=== PATIENT | male | born 1935 | race Caucasian/White ===

== ENCOUNTER 2016-05-23 09:44 | Outpatient (RCR) | payer MEDICARE, OTHER ==
[~2016-05-23 09:44] MED LIST: ACET500C PO; ALBU17IN INH; AMIO20TA PO; ASPI81TA85 PO; ATOR40TA PO; CETI10CH PO; CHLO125TA PO; ELIQ5TAB PO; FLOM5CAP PO; HM A10TA PO; IBUP200T45 PO; K-TA1TAB PO; LOSA50TA20 PO; SYMB16INH INH; TIOT18INH INH; VITA-130 PO; VITA100066 PO
== END 2016-06-20 | disposition home or self-care (01) ==
LOC: M PR 09:44
PROVIDERS: ATTEND Internal Medicine Pulmonary Disease
DX: Z51.89 Encounter for other specified aftercare (principal); J44.9 Chronic obstructive pulmonary disease, unspecified

== ENCOUNTER → 2016-06-22 | Outpatient (REF) | payer MEDICARE, OTHER | LOC: M LAB REF 17:14 | PROVIDERS: ATTEND Surgery | DX: D04.72 Carcinoma in situ of skin of left lower limb, including hip (principal); L57.0 Actinic keratosis ==

== ENCOUNTER → 2016-06-27 | Outpatient (CLI) | payer MEDICARE, OTHER ==
--- NOTE | 2016-06-27 18:43 | REP ---
PA and lateral chest: Comparison is 07/22/2015. There is focal increased radiodensity in the right lower lobe as an interval change. There is focal increased density in the left upper lobe as an interval change. The findings are nonspecific and could represent acute infiltrates or masses. They were not present previously. There is effacement right costophrenic angle as an interval change suggestive of a small right pleural effusion. Cardiac size is normal. The andreia, mediastinum, and bony thorax are unchanged. Impression: New focal densities in the right lower lobe and left upper lobe, infiltrates versus masses. Possible small right pleural effusion. Signed by Toby Louie MD 06/27/2016 01:42 P
== END ==
LOC: M SMT 12:46
PROVIDERS: ATTEND Nurse Practitioner Adult Health
DX: R05 Cough (principal); J44.9 Chronic obstructive pulmonary disease, unspecified

== ENCOUNTER → 2016-06-28 | Outpatient (CLI) | payer MEDICARE, OTHER ==
[~2016-06-28] MED LIST changes: +ALBU83IN INH; +ANOR1AER INH; +COLA100C PO; +LEVO500T32 PO; +MAGN1TAB25 PO; +PROP10TA56 PO
[2016-06-28 14:02] LABS: CREATININE FOR GFR 1.27 MG/DL (0.70-1.30); GLOMERULAR FILTRATION RATE 57.8 (>35)
== END ==
LOC: M LAB 12:45
PROVIDERS: ATTEND Internal Medicine Pulmonary Disease
DX: R91.8 Other nonspecific abnormal finding of lung field (principal)

== ENCOUNTER → 2016-06-29 | Outpatient (REF) | payer MEDICARE, OTHER | END | disposition home or self-care (01) | LOC: M LAB REF 13:21 | PROVIDERS: ATTEND Internal Medicine Pulmonary Disease | DX: J18.0 Bronchopneumonia, unspecified organism (principal); R04.2 Hemoptysis; J44.9 Chronic obstructive pulmonary disease, unspecified ==

== ENCOUNTER → 2016-06-30 | Outpatient (REF) | payer MEDICARE, OTHER | END | disposition home or self-care (01) | LOC: M LAB REF 13:09 | PROVIDERS: ATTEND Internal Medicine Pulmonary Disease | DX: J18.0 Bronchopneumonia, unspecified organism (principal); R04.2 Hemoptysis; J44.9 Chronic obstructive pulmonary disease, unspecified ==

== ENCOUNTER 2016-07-02 02:05 | Inpatient (IN) | payer MEDICARE, OTHER ==
[~2016-07-02] VITALS: Ht 177.8 cm; Wt 79.3 kg
[~2016-07-02 02:05] MED LIST changes: -ALBU83IN INH; -ANOR1AER INH; -COLA100C PO; -LEVO500T32 PO; -MAGN1TAB25 PO; -PROP10TA56 PO
[2016-07-02] MEDS ORDERED: IPRATROPIUM 0.5MG/ALBUTEROL 2.5MG INH SOL UD 3ML (DUONEB)(J7620) As Ordered ONE (02:26)
[2016-07-02 02:34] LABS: BASO % 0.2 % (0.0-1.0); EOS # 0.2 K/mm3 (0.0-0.50); EOS % 1.8 % (0.0-3.0); LARGE UNSTAINED CELL # 0.3 K/mm3 (0.0-0.4); LARGE UNSTAINED CELL % 2.7 % (0.0-4.0); LYMPH # 0.7 K/mm3 (1.5-4.5); LYMPH % 6.8 % (24.0-44.0); MEAN CORPUSCULAR HEMOGLOBIN 28.9 pg (27.0-33.0); MEAN CORPUSCULAR HGB CONC 31.7 g/dl (32.0-36.5); MEAN CORPUSCULAR VOLUME 91.1 fl (80.0-96.0); MONO # 0.8 K/mm3 (0.0-0.8); NEUTROPHILS # 8.8 K/mm3 (1.8-7.7); NEUTROPHILS % 81.6 % (36.0-66.0); PLATELET COUNT, AUTOMATED 409 k/mm3 (150-450); RED CELL DISTRIBUTION WIDTH 12.7 % (11.5-14.5); WHITE BLOOD COUNT 10.8 K/mm3 (4.0-10.0)
[2016-07-02 02:57] LABS: ANION GAP 9 MEQ/L (8-16); BLOOD UREA NITROGEN 22 MG/DL (7-18); CALCIUM LEVEL 8.3 MG/DL (8.8-10.2); CARBON DIOXIDE LEVEL 29 MEQ/L (21-32); CHLORIDE LEVEL 101 MEQ/L (98-107); CREATININE FOR GFR 1.39 MG/DL (0.70-1.30); GLOMERULAR FILTRATION RATE 52.1 (>35); GLUCOSE, FASTING 111 MG/DL (83-110); POTASSIUM SERUM 3.8 MEQ/L (3.5-5.1); SODIUM LEVEL 139 MEQ/L (136-145)
[2016-07-02 03:26] LABS: ABG BASE EXCESS 2.3 (-2.0-2.0); ABG DEVICE NASAL CANN; ABG HCO3 26.1 MEQ/L (22.0-26.0); ABG PARTIAL PRESSURE CO2 37.4 mmHg (35.0-45.0); ABG PARTIAL PRESSURE O2 71.4 mmHg (75.0-100.0); ABG STANDARD HCO3 26.5 MEQ/L (22.0-26.0); ABG TOTAL CO2 27.2 MEQ/L (23.0-31.0); ABG pH (ARTERIAL) 7.461 UNITS (7.350-7.450)
[2016-07-02] MEDS ORDERED: ISOVUE-370 76% 100ML VIAL (Q9967) As Ordered ONE (03:53)
--- NOTE | 2016-07-02 05:10 | REPUSA ---
CLINICAL HISTORY: Dyspnea, exclude PE. TECHNIQUE: Multiple incremental axial, coronal and oblique images are obtained from the thoracic inle t to the upper abdomen. Intravenous contrast material was administered as per pulmonary embolism prot ocol. COMMENTS: There is excellent opacification of pulmonary arterial system without evidence for pulmonary embolism . Central pulmonary arterial tree is dilated compatible with hypertension. Dense consolidation is noted involving RUL, RML, RLL and LLL compatible with multifocal pneumonia vs aspiration. Trace right pleural effusion is seen. There is no evidence of hilar or mediastinal lymphadenopathy. The heart is enlarged. Aorta is dilated , ascending and artch measuring up to 4.3 cm. Images of the upper abdomen demonstrate no evidence of adrenal mass. 6 mm right renal calculus is see n. The bony structures are free of lytic or blastic lesions. Multilevel degenerative changes are seen in volving the visualized thoracolumbar spine. Scattered calcifications are seen involving the aorta and major branches compatible with atherosclero sis. IMPRESSION: No evidence for pulmonary embolism. Central pulmonary arterial tree is dilated compatible with hypertension. Dense consolidation is noted involving RUL, RML, RLL and LLL compatible with multifocal pneumonia vs aspiration. Trace right pleural effusion is seen. Aorta is dilated, ascending and artch measuring up to 4.3 cm. 6 mm right renal calculus is seen.
[2016-07-02] MEDS ORDERED: IPRATROPIUM 0.5MG/ALBUTEROL 2.5MG INH SOL UD 3ML (DUONEB)(J7620) NEB PRN (06:00)
[2016-07-02] MEDS ORDERED: ONDANSETRON 4MG/2ML VIAL (J2405) IV PRN (06:00)
[2016-07-02] MEDS ORDERED: ZOSYN 3.375 GM VIAL (J2543) As Ordered ONE (06:03)
[2016-07-02] MEDS ORDERED: VANCOMYCIN 1000 MG/20 ML VIAL (J3370) As Ordered ONE (06:07)
[2016-07-02] MEDS ORDERED: VANCOMYCIN 750 MG/25 ML VIAL (J3370) As Ordered ONE (06:07)
--- NOTE | 2016-07-02 06:49 | HPEPDOC ---
General Date of Admission Jul 02, 2016 at 06:00 Chief Complaint The patient is a 80-year-old male admitted with a reason for visit of Pneumonia. History of Present Illness 80-year-old male with past medical history of hypertension, dyslipidemia, nonobstructive CAD, history of pulmonary embolism 2 on novel anticoagulation, diastolic congestive heart failure, and COPD on 2 L of oxygen at baseline presented to the ER for worsening shortness of breath over the last 7-10 days. During this time, the patient states he has been having cough with a yellowish sputum production. In addition, he has been having temperatures of 101.5 at home. He states that he does follow with Dr. Hurd as an outpatient of pulmonary, who he last saw 4 days ago in the office. The patient was advised to up titrate his oxygen to 4 L, and he was prescribed Levaquin for treatment of pneumonia. However, since his pulmonary appointment, the patient states that he still does not feel better. At his baseline, the patient states that he can walk up to 1 mile without any significant limitation. However, during this time he has had difficulty walking around his home. The patient denies any complaints of chest pain, palpitations, abdominal pain, lightheadedness/ dizziness, or any nausea/vomiting/diarrhea. In the ER, a CT scan of the chest was notable for multifocal pneumonia. The patient will be admitted to the hospitalist service under Dr. Bolaños for further evaluation and management of the patient's pneumonia. Home Medications Scheduled (Anoro Ellipta 62.5-25 Mcg/INH) 1 Aer Aer 1 AER INH DAILY (Reported) Amiodarone HCl (Amiodarone HCl) 200 Mg Tab 200 MG PO DAILY (Reported) Apixaban Base (Eliquis) 5 Mg Tab 5 MG PO BID (Reported) Atorvastatin Calcium (Atorvastatin Calcium) 40 Mg Tab 40 MG PO QHS (Reported) Cetirizine HCl (Hm All Day Allergy) 10 Mg Tab 10 MG PO QHS (Reported) Chlorthalidone (Chlorthalidone) 12.5 Mg Halftab 12.5 MG PO DAILY (Reported) Levofloxacin Hemihydrate (Levofloxacin) 500 Mg Tab 500 MG PO DAILY (Reported) For 10 days; Started 06/29/2016 Losartan Potassium (Losartan Potassium) 50 Mg Tab 50 MG PO BID (Reported) Magnesium Oxide (Magnesium) 400 Mg Tab 400 MG PO DAILY (Reported) Potassium Chloride (K-Tab) 20 Meq Tab 20 MEQ PO BID (Reported) Propranolol HCl (Propranolol HCl) 10 Mg Tab 10 MG PO TID (Reported) Tamsulosin Hydrochloride (Flomax) 0.4 Mg Cap 0.4 MG PO QPM (Reported) Scheduled PRN Albuterol Sulfate (Ventolin Hfa) 200 Puff/8 Gm Aers 2 PUFF INH PRN PRN PRN SHORTNESS OF BREATH (Reported) Albuterol Sulfate (Albuterol Sulfate) 2.5 Mg/3 Ml Nebu 2.5 MG INH Q6H PRN PRN SHORTNESS OF BREATH (Reported) Docusate Sodium (Colace) 100 Mg Cap 100 MG PO DAILY PRN PRN BOWEL CARE/ CONSTIPATION (Reported) Miscellaneous Medications Cholecalciferol (Vitamin D) 1,000 Unit Tab 1,000 UNIT PO (Reported) Allergies Coded Allergies: Cefuroxime (Verified Allergy, Mild, GI UPSET, 08/10/15) Ciprofloxacin (Verified Allergy, Mild, GI UPSET, 08/10/15) Past Medical History Medical History As noted in HPI. Surgical History Cardiac catheterization 2009 Family History Significant Family History: No pertinent family hx Social History * Smoker: former Smoker Alcohol: other (drinks about 5 beers per week) Drugs: denies Review of Symptoms Other systems 10 point review systems negative unless otherwise specified in HPI. Physical Examination General Exam: Positive: Alert, Cooperative ENT Exam: Positive: Atraumatic, Mucous membr. moist/pink Neck Exam: Negative: JVD Chest Exam: Positive: Diminished, Negative: Rales Heart Exam: Positive: Normal S1, Normal S2, Rate Normal Abdomen Exam: Positive: Soft, Negative: Tenderness Extremity Exam: Negative: Swelling, Tenderness Vital Signs As noted in EMR Laboratory Data Labs 24H Laboratory Tests 2 07/02/16 02:25: Anion Gap 9, B-Type Natriuretic Peptide 74.5, White Blood Count 10.8H, Red Blood Count 4.20L, Hemoglobin 12.1L, Hematocrit 38.3L, Mean Corpuscular Volume 91.1, Mean Corpuscular Hemoglobin 28.9, Mean Corpuscular Hemoglobin Concent 31.7L, Red Cell Distribution Width 12.7, Platelet Count 409, Neutrophils (%) ( Auto) 81.6H, Lymphocytes (%) (Auto) 6.8L, Monocytes (%) (Auto) 7.0H, Eosinophils (%) (Auto) 1.8, Basophils (%) (Auto) 0.2, Neutrophils # (Auto) 8.8H , Lymphocytes # (Auto) 0.7L, Monocytes # (Auto) 0.8, Eosinophils # (Auto) 0.2, Basophils # (Auto) 0.0, Blood Urea Nitrogen 22H, Creatinine 1.39H, Sodium Level 139, Potassium Level 3.8, Chloride Level 101, Carbon Dioxide Level 29, Calcium Level 8.3L, Total Creatine Kinase 44, Creatine Kinase MB 1.2, Creatine Kinase MB Relative Index 2.72, Glomerular Filtration Rate 52.1, Large Unclassified Cells # 0.3, Large Unclassified Cells % 2.7, Troponin I < 0.02 07/02/16 03:20: Arterial Blood pH 7.461H, Arterial Blood Partial Pressure CO2 37.4, Arterial Blood Partial Pressure O2 71.4L, Arterial Blood Total CO2 27.2, Arterial Blood HCO3 26.1H, Arterial Blood Base Excess 2.3H, Arterial Blood Oxygen Saturation 94.6L, Blood Gas Bicarbonate Standard 26.5H, Oxygen Delivery Device NASAL SIDRA CBC/BMP Laboratory Tests 07/02/16 02:25 Calcium Level 8.3 L, Total Creatine Kinase 44, Red Blood Count 4.20 L, Mean Corpuscular Volume 91.1, Mean Corpuscular Hemoglobin 28.9, Mean Corpuscular Hemoglobin Concent 31.7 L, Red Cell Distribution Width 12.7, Neutrophils (%) ( Auto) 81.6 H, Lymphocytes (%) (Auto) 6.8 L, Monocytes (%) (Auto) 7.0 H, Eosinophils (%) (Auto) 1.8, Basophils (%) (Auto) 0.2, Neutrophils # (Auto) 8.8 H , Lymphocytes # (Auto) 0.7 L, Monocytes # (Auto) 0.8, Eosinophils # (Auto) 0.2, Basophils # (Auto) 0.0 Microbiology Microbiology 07/02/16 Blood Culture, Received Pending 07/02/16 Blood Culture, Received Pending Plan / VTE VTE Prophylaxis Ordered?: Yes (already on Eliquis) Plan Plan Hypoxia secondary to Multifocal pneumonia, status post failed outpatient antibiotics We'll admit to the PCU CT scan of the chest noted ABG notable for hypoxemia Blood cultures, sputum cultures, urine Legionella and strep pneumo ordered We'll cover the patient empirically with vancomycin and Zosyn Continue on nebulizer treatments, inhaler therapy We will continue to down titrate supplemental oxygen therapy as tolerated We will monitor the patient's progress Acute on chronic kidney injury Serum creatinine noted to be 1.39 (baseline around 1.2) Will hold nephrotoxic agents Continue to monitor BMP COPD on 2 L of oxygen at baseline Patient requiring a 50% Ventimask at this time Nebulizer therapy around the clock, continue home inhaler therapy Follows with as an outpatient History of pulmonary embolus 2 Patient on Eliquis for anticoagulation Hypertension Losartan and chlorthalidone on hold secondary to the patient's SCOTT Dyslipidemia Continue statin Nonobstructive CAD, history of PACs and nonsustained ventricular tachycardia Nonobstructive CAD noted on cardiac catheterization in 2009 Patient on amiodarone for arrhythmias Continue atorvastatin Follows with Dr. Melendez of cardiology as an outpatient Diastolic congestive heart failure Appears volume compensated at this time We'll hold diuretic secondary to a care. BPH Continue Flomax DVT prophylaxis-patient already on a novel anticoagulant The patient will be admitted under the service of , we will start to follow the patient on 07/02/2016 at 7 AM. JAYCEE JAFFE MD Jul 02, 2016 06:49
[2016-07-02] MEDS ORDERED: ELIQ5TAB PO (06:51)
[2016-07-02] MEDS ORDERED: AMIO20TA PO (06:51)
[2016-07-02] MEDS ORDERED: ANOR1AER INH (06:51)
[2016-07-02] MEDS ORDERED: PROP10TA56 PO (06:53)
[2016-07-02] MEDS ORDERED: COLA100C PO (06:53)
[2016-07-02] MEDS ORDERED: MAGN1TAB25 PO (06:54)
[2016-07-02] MEDS ORDERED: ALBU83IN INH (06:56)
[2016-07-02] MEDS ORDERED: LEVO500T32 PO (06:56)
[2016-07-02] MEDS ORDERED: DOCUSATE SODIUM 100 MG CAP PO PRN (07:45)
[2016-07-02 08:00] VITALS: BP 118/74
[2016-07-02] MEDS: IPRATROPIUM 0.5MG/ALBUTEROL 2.5MG INH SOL UD 3ML (DUONEB)(J7620) NEB SCH ×4 (08:00→19:30)
[2016-07-02] MEDS: ADVAIR DISKUS 250/50 INH PWD INH SCH ×2 (09:00→19:31)
[2016-07-02] MEDS ORDERED: APIXABAN 5 MG TAB (ELIQUIS) PO SCH (09:00)
[2016-07-02 10:00] VITALS: BP 120/60
--- NOTE | 2016-07-02 10:04 | EDDOCDS ---
Nurse's Notes [facility] Name: Oswaldo Pineda Age: 80 yrs Sex: Male : 1935 Arrival Date: 07/02/2016 Time: 02:05 Bed Admit Hold Private MD: Diagnosis: Other pneumonia, unspecified organism;Hypoxemia Presentation: 07/02 02:18 Presenting complaint: Patient states: Diagnosed 4 days ago with pneumonia and "blood" kmg1 in the RLL. Has been SOB but became worse tonight. Suicide/Homicide risk assessment- the patient denies having any suicidal and/or homicidal ideations and does not present with any other emotional, behavioral or mental health complaints. Status: Patient is not a visitor services specialist or dependent. Transition of care: patient was not received from another setting of care. 02:18 Acuity: LISA Level 2 kmg1 02:18 Method Of Arrival: Walkin/Carried/Asstd kmg1 Triage Assessment: 02:22 General: Appears distressed, well nourished, well groomed, Behavior is appropriate for kmg1 age, cooperative. Respiratory: Onset: The symptoms/episode began/occurred gradually, Airway is patent Respiratory effort is labored, Respiratory pattern is regular, symmetrical. Historical: - Allergies: ceftin --sick to stomach; Cipro PO (Upset stomach); - Home Meds: 1. levofloxacin 500 mg Oral tab 1 tab once daily - PMHx: abnormal EKG; atnersclerotic herart disease; COPD; edema localized; Hypertension; orthopnea; Palpitations; embolism, pulmanary; - PSHx: hernua reoair left inguinal; Tonsillectomy; skin cancer removed from nose---2014; - Exposure Risk Screening:: None identified. Screenin:30 Screening information is obtained from the patient. Fall risk: No risks identified. kas2 Assistance ADL's: requires no assistance with activities of daily living. Abuse/DV Screen: The patient / caregiver reports he/she is: not in a situation that causes fear, pain or injury. Nutritional screening: No deficits noted. Advance Directives: Currently, there is no health care proxy. There is no active DNR order. There is a living will, but a copy is not available at this time. There is no Power of Fuse Maker. home support is adequate. Assessment: 02:28 General: Appears in no apparent distress, uncomfortable, well nourished, well groomed, kas2 Behavior is appropriate for age, cooperative. Pain: Denies pain. Neurological: Level of Consciousness is awake, alert, Oriented to person, place, time. Cardiovascular: Capillary refill < 3 seconds Heart tones S1 S2 present Rhythm is sinus rhythm No ectopy. Chest pain is denied. Respiratory: Airway is patent Respiratory effort is even, unlabored, Respiratory pattern is regular, symmetrical, Breath sounds with crackles inspiratory expiratory Breath sounds are diminished bilaterally. Derm: Skin is intact, Skin is dry, Skin is pink, warm & dry. Skin temperature is warm. 03:35 General: Appears in no apparent distress, comfortable, well nourished, well groomed, kas2 Behavior is appropriate for age, cooperative. Pain: Denies pain. Neurological: Level of Consciousness is awake, alert, Oriented to person, place, time. Cardiovascular: Rhythm is sinus rhythm No ectopy. Respiratory: Airway is patent Respiratory effort is even, unlabored, Respiratory pattern is regular, symmetrical. Derm: Skin is intact, Skin is dry, Skin is pink, warm & dry. Skin temperature is warm. 04:26 General: Patient laying in bed with daughter at bedside. Denies pain or discomfort at [facility] this time. Appears comfortable. Airway patent and respiratory even and unlabored. Call pina within reach. Will continue to monitor.. 05:18 General: Appears in no apparent distress, comfortable, Behavior is appropriate for age, kas2 cooperative. Pain: Denies pain. Neurological: Level of Consciousness is awake, alert, Oriented to person, place, time. Cardiovascular: Rhythm is sinus rhythm No ectopy. Respiratory: Airway is patent Respiratory effort is even, unlabored, Respiratory pattern is regular, symmetrical. Derm: Skin is intact, Skin is dry, Skin is pink, warm & dry. Skin temperature is warm. 06:39 General: Verbal report given to Isabella Saab RN.. [facility] Vital Signs: 02:22 BP 121 / 85; Pulse 74; Resp 22; Temp 98(TE); Pulse Ox 87% on 4 lpm NC; Weight 78.93 kg kmg1 (R); Height 5 ft. 10 in. (177.80 cm) (R); Pain 0/10; 02:25 BP 121 / 85 (auto/); kas2 02:25 Pulse 82 MON; Pulse Ox 98% ; kas2 02:34 BP 142 / 70 (auto/); kas2 02:34 Pulse Ox 97% ; kas2 02:48 BP 107 / 69 (auto/); kas2 02:48 Pulse Ox 93% ; kas2 03:00 BP 118 / 75 (auto/); kas2 03:00 Pulse Ox 91% ; kas2 03:16 BP 150 / 85 (auto/); kas2 03:16 Pulse Ox 93% ; kas2 03:30 BP 133 / 71 (auto/); kas2 03:30 Pulse Ox 91% ; kas2 03:36 Resp 20; Temp 97.9(O); kas2 03:45 BP 102 / 60 (auto/); kas2 03:45 Pulse Ox 91% ; kas2 04:28 BP 127 / 64 (auto/); kas2 04:28 Pulse Ox 90% ; kas2 04:43 BP 140 / 65 (auto/); kas2 04:43 Pulse Ox 91% ; kas2 04:58 BP 119 / 67 (auto/); kas2 04:58 Pulse 82 MON; Pulse Ox 89% ; kas2 05:13 BP 117 / 70 (auto/); kas2 05:13 Pulse 78 MON; Pulse Ox 90% ; kas2 06:23 Resp 18; Temp 98.9(O); Pain 0/10; kas2 02:22 Body Mass Index 24.97 (78.93 kg, 177.80 cm) km 02:22 Placed on NRB, POX increased to 98% [facility] [place] Course: 02:07 Patient visited by Emerald Elam, Reg. hs2 02:07 Disha Garcia,RN is Primary Nurse. hs2 02:07 Patient moved to Waiting hs2 02:07 Patient moved to 9 hs2 02:08 Patient moved to 6 tm5 02:13 Patient moved to 3 sls1 02:17 James Ernst DO is Attending Physician. mm11 02:17 Patient visited by James Ernst DO. mm11 02:20 Triage Initiated kmg1 02:25 Patient visited by James Ernst DO. mm11 02:31 monitoring coordinator on. Pulse ox on. NIBP on. kas2 02:31 Inserted saline lock: 20 gauge in right antecubital area and blood collected. The kas2 patient tolerated the procedure well. No procedures done that require assistance. 02:32 Patient visited by Isabella Henriquez RN. kas2 02:37 EKG done. (by ED staff). Reviewed by James Ernst DO. jmv 02:38 Patient visited by Luis F Hein PCA. jmv 02:57 Primary Nurse role handed off by Disha Garcia RN jmb 03:01 Patient visited by Isabella Henriquez RN. kas2 03:21 BLOOD CULTURES Sent. mdr 03:21 -Arterial Blood Gas Sent. jc3 03:37 Patient visited by Isabella Henriquez RN. kas2 04:20 Patient visited by Isabella Henriquez RN. kas2 04:27 Patient visited by Isabella Henriquez RN. kas2 04:28 Isabella Henriquez RN is Primary Nurse. kas2 04:29 [facility] Payment Agreement was scanned into [employer] and attached to record. hs2 05:04 Patient visited by Isabella Henriquez RN. kas2 05:19 Patient visited by Isabella Henriquez RN. kas2 05:22 CT Chest Angio R/O PE Returned. EDMS 05:55 Denver Fletcher is Hospitalizing Provider. mm11 06:19 Patient moved to Admit Hold daq 06:40 Patient visited by Isabella Henriquez RN. kas2 07:12 Patient moved to 19 jjr 07:59 Patient moved to Admit Hold dy 09:17 Primary Nurse role handed off by Isabella Henriquez RN jjr Administered Medications: 02:32 Drug: Albuterol-Ipratropium 1 neb [ipratropium-albuterol 0.5 mg-3 mg(2.5 mg base)/3 mL lf2 nebulization soln (1 neb)] Route: Nebulizer; 03:14 Drug: Albuterol-Ipratropium 1 neb [ipratropium-albuterol 0.5 mg-3 mg(2.5 mg base)/3 mL lf2 nebulization soln (1 neb)] Route: Nebulizer; 06:15 Drug: Piperacillin-Tazobactam 3.375 grams [piperacillin-tazobactam 3.375 gram kas2 intravenous solution] Route: IVPB; Infused Over: 30 mins; Site: right antecubital; 06:57 Drug: vancomycin (loading dose for pt. wt. 70-79kg) 1750 mg [vancomycin 500 mg kas2 intravenous solution] Route: IVPB; Site: right antecubital; RT: 02:32 Initial Med Neb Given as ordered Patient was instructed and evaluated on procedure lf2 Patient tolerated procedure well without adverse effect. O2 via non-rebreather \\T\\ 15L/min. Respiratory: Airway is patent Respiratory effort is even, labored, trachea is midline Breath sounds are diminished bilaterally. Reports cough that is productive. 03:00 Subsequent Med Neb Given as ordered Patient tolerated procedure well without adverse lf2 effect. O2 via Venturi mask \\T\\ 15L/min - 50%. Respiratory: Breath sounds are diminished bilaterally. 03:14 Subsequent Med Neb Given as ordered Patient tolerated procedure well without adverse lf2 effect. Respiratory: Breath sounds are diminished bilaterally. Breath sounds with wheezes bilaterally. at expiration. 03:21 ABG's drawn from right radial artery pressure held for 5 minutes no bleeding noted jc3 pressure bandage applied specimen sent pt. tolerated well. Order Results: Lab Order: B-Type Natiuretic Peptide; SPEC'M 07/02/16 02:25 Test: BRAIN NATRIURETIC PEPTIDE; Value: 74.5; Range: <100; Units: PG/ML; Status: F Lab Order: Basic Metabolic Profile; SPEC'M 07/02/16 02:25 Test: GLUCOSE, FASTING; Value: 111; Range: 83-110; Abnormal: Above high normal; Units: MG/DL; Status: F Test: BLOOD UREA NITROGEN; Value: 22; Range: 7-18; Abnormal: Above high normal; Units: MG/DL; Status: F Test: CREATININE FOR GFR; Value: 1.39; Range: 0.70-1.30; Abnormal: Above high normal; Units: MG/DL; Status: F Test: GLOMERULAR FILTRATION RATE; Value: 52.1; Range: >35; Status: F Test: SODIUM LEVEL; Value: 139; Range: 136-145; Units: MEQ/L; Status: F Test: POTASSIUM SERUM; Value: 3.8; Range: 3.5-5.1; Units: MEQ/L; Status: F Test: CHLORIDE LEVEL; Value: 101; Range: 98-107; Units: MEQ/L; Status: F Test: CARBON DIOXIDE LEVEL; Value: 29; Range: 21-32; Units: MEQ/L; Status: F Test: ANION GAP; Value: 9; Range: 8-16; Units: MEQ/L; Status: F Test: CALCIUM LEVEL; Value: 8.3; Range: 8.8-10.2; Abnormal: Below low normal; Units: MG/DL; Status: F Test Note: ; Units are mL/min/1.73 m2 Chronic Kidney Disease Staging per NKF: Stage I & II GFR >=60 Normal to Mildly Decreased Stage III GFR 30-59 Moderately Decreased Stage IV GFR 15-29 Severely Decreased Stage V GFR <15 Very Little GFR Left ESRD GFR <15 on [employer] Lab Order: CBC with Diff; SPEC'M 07/02/16 02:25 Test: WHITE BLOOD COUNT; Value: 10.8; Range: 4.0-10.0; Abnormal: Above high normal; Units: K/mm3; Status: F Test: RED BLOOD COUNT; Value: 4.20; Range: 4.30-6.10; Abnormal: Below low normal; Units: M/mm3; Status: F Test: HEMOGLOBIN; Value: 12.1; Range: 14.0-18.0; Abnormal: Below low normal; Units: g/dl; Status: F Test: HEMATOCRIT; Value: 38.3; Range: 42.0-52.0; Abnormal: Below low normal; Units: %; Status: F Test: MEAN CORPUSCULAR VOLUME; Value: 91.1; Range: 80.0-96.0; Units: fl; Status: F Test: MEAN CORPUSCULAR HEMOGLOBIN; Value: 28.9; Range: 27.0-33.0; Units: pg; Status: F Test: MEAN CORPUSCULAR HGB CONC; Value: 31.7; Range: 32.0-36.5; Abnormal: Below low normal; Units: g/dl; Status: F Test: RED CELL DISTRIBUTION WIDTH; Value: 12.7; Range: 11.5-14.5; Units: %; Status: F Test: PLATELET COUNT, AUTOMATED; Value: 409; Range: 150-450; Units: k/mm3; Status: F Test: NEUTROPHILS %; Value: 81.6; Range: 36.0-66.0; Abnormal: Above high normal; Units: %; Status: F Test: LYMPH %; Value: 6.8; Range: 24.0-44.0; Abnormal: Below low normal; Units: %; Status: F Test: MONO %; Value: 7.0; Range: 0.0-5.0; Abnormal: Above high normal; Units: %; Status: F Test: EOS %; Value: 1.8; Range: 0.0-3.0; Units: %; Status: F Test: BASO %; Value: 0.2; Range: 0.0-1.0; Units: %; Status: F Test: LARGE UNSTAINED CELL %; Value: 2.7; Range: 0.0-4.0; Units: %; Status: F Test: NEUTROPHILS #; Value: 8.8; Range: 1.8-7.7; Abnormal: Above high normal; Units: K/mm3; Status: F Test: LYMPH #; Value: 0.7; Range: 1.5-4.5; Abnormal: Below low normal; Units: K/mm3; Status: F Test: MONO #; Value: 0.8; Range: 0.0-0.8; Units: K/mm3; Status: F Test: EOS #; Value: 0.2; Range: 0.0-0.50; Units: K/mm3; Status: F Test: BASO #; Value: 0.0; Range: 0.0-0.2; Units: K/mm3; Status: F Test: LARGE UNSTAINED CELL #; Value: 0.3; Range: 0.0-0.4; Units: K/mm3; Status: F Lab Order: Cardiac Injury Profile; SPEC'07/02/16 02:25 Test: CPK CREATINE PHOSPHOKINASE; Value: 44; Range: 39-308; Units: U/L; Status: F Test: CK-MB VALUE MASS; Value: 1.2; Range: 0.0-3.6; Units: NG/ML; Status: F Test: MB/CK RELATIVE INDEX; Value: 2.72; Range: < OR =4; Status: F Test Note: ; DIAGNOSIS CRITERIA MMB ng/ml Relative Index (RI) NON-AMI < or = 5 N/A YIN ZONE > 5 < or = 4 AMI > 5 > 4 Lab Order: Troponin; SPEC'M 07/02/16 02:25 Test: TROPONIN I; Value: < 0.02; Range: < 0.10; Units: NG/ML; Status: F Test Note: ; Troponin I Reference Interval for [employer]: 99th Percentile= 0.00-0.045 ng/ml Risk Stratification: <= 0.10 ng/ml Decreased Risk for Adverse Clinical Events. 0.10-1.50 ng/ml Increased Risk for Adverse Clinical Events. Evaluation of additional criterion and/or repeat testing in 2-6 hours is suggested to rule out myocardial damage. >= 1.50 ng/ml Indicative of Myocardial Injury. Lab Order: -Arterial Blood Gas; SPEC'M 07/02/16 03:20 Test: ABG pH (ARTERIAL); Value: 7.461; Range: 7.350-7.450; Abnormal: Above high normal; Units: UNITS; Status: F Test: ABG PARTIAL PRESSURE CO2; Value: 37.4; Range: 35.0-45.0; Units: mmHg; Status: F Test: ABG PARTIAL PRESSURE O2; Value: 71.4; Range: 75.0-100.0; Abnormal: Below low normal; Units: mmHg; Status: F Test: ABG TOTAL CO2; Value: 27.2; Range: 23.0-31.0; Units: MEQ/L; Status: F Test: ABG HCO3; Value: 26.1; Range: 22.0-26.0; Abnormal: Above high normal; Units: MEQ/L; Status: F Test: ABG BASE EXCESS; Value: 2.3; Range: -2.0-2.0; Abnormal: Above high normal; Status: F Test: ABG STANDARD HCO3; Value: 26.5; Range: 22.0-26.0; Abnormal: Above high normal; Units: MEQ/L; Status: F Test: ABG O2 SATURATION; Value: 94.6; Range: 95.0-99.0; Abnormal: Below low normal; Units: %; Status: F Test: ABG DEVICE; Value: NASAL SIDRA; Status: F Lab Order: TROPONIN; SPEC'M 07/02/16 06:32 Test: TROPONIN I; Value: < 0.02; Range: < 0.10; Units: NG/ML; Status: F Test Note: ; Troponin I Reference Interval for [employer] LOCI: 99th Percentile= 0.00-0.045 ng/ml Risk Stratification: <= 0.10 ng/ml Decreased Risk for Adverse Clinical Events. 0.10-1.50 ng/ml Increased Risk for Adverse Clinical Events. Evaluation of additional criterion and/or repeat testing in 2-6 hours is suggested to rule out myocardial damage. >= 1.50 ng/ml Indicative of Myocardial Injury. Radiology Order: CT Chest Angio R/O PE Test: CT Chest Angio R/O PE REASON FOR EXAMINATION: Shortness of Breath; ; CLINICAL HISTORY: Dyspnea, exclude PE.; TECHNIQUE: Multiple incremental axial, coronal and oblique images are obtained from the thoracic inle; t to the upper abdomen. Intravenous contrast material was administered as per pulmonary embolism prot; ocol.; COMMENTS:; There is excellent opacification of pulmonary arterial system without evidence for pulmonary embolism; . Central pulmonary arterial tree is dilated compatible with hypertension.; Dense consolidation is noted involving RUL, RML, RLL and LLL compatible with multifocal pneumonia vs; aspiration. Trace right pleural effusion is seen.; There is no evidence of hilar or mediastinal lymphadenopathy. The heart is enlarged. Aorta is dilated; , ascending and artch measuring up to 4.3 cm.; Images of the upper abdomen demonstrate no evidence of adrenal mass. 6 mm right renal calculus is see; n.; The bony structures are free of lytic or blastic lesions. Multilevel degenerative changes are seen in; volving the visualized thoracolumbar spine.; Scattered calcifications are seen involving the aorta and major branches compatible with atherosclero; sis.; IMPRESSION:; No evidence for pulmonary embolism.; Central pulmonary arterial tree is dilated compatible with hypertension.; Dense consolidation is noted involving RUL, RML, RLL and LLL compatible with multifocal pneumonia vs; aspiration.; Trace right pleural effusion is seen.; Aorta is dilated, ascending and artch measuring up to 4.3 cm.; 6 mm right renal calculus is seen.; ; ; Outcome: 05:56 Decision to Hospitalize by Provider. mm11 10:03 Patient left the ED. dy Signatures: Dispatcher [employer] EDMS Tawny Christensen RN RN kmg1 Ozzy , TORREY Mejia RN, David, RN RN dy Maynard James, DO DO mm11 Iona Parr, RN RN jjr Rj Macias jc3 Soumya Fried, RN RN sls1 Hemanth Medina,RN RN alexb Christopher Reed, PROJECT MANAGER FINANCE PROJECT MANAGER FINANCE mdr Pipo,Rosalie,RT RT lf2 Emerald Elam, Reg Reg hs2 Isabella Henriquez,RN RN kas2 Luis F Hein, PROJECT MANAGER FINANCE PROJECT MANAGER FINANCE jmv Olimpia Brown,RN RN tm5 MTDD
--- NOTE | 2016-07-02 10:04 | EDDOCDS ---
Physician Documentation [facility] Name: Oswaldo Pineda Age: 80 yrs Sex: Male : 1935 Arrival Date: 07/02/2016 Time: 02:05 Bed Admit Hold Private MD: Disposition: 07/02/16 05:56 Hospitalization ordered by Denver Fletcher for Inpatient Admission. Preliminary diagnosis are Other pneumonia, unspecified organism, Hypoxemia. - Bed requested for PCU. - Status is Inpatient Admission. dy - Condition is Stable. - Problem is an acute exacerbation. - Symptoms have improved. Historical: - Allergies: ceftin --sick to stomach; Cipro PO (Upset stomach); - Home Meds: 1. levofloxacin 500 mg Oral tab 1 tab once daily - PMHx: abnormal EKG; atnersclerotic herart disease; COPD; edema localized; Hypertension; orthopnea; Palpitations; embolism, pulmanary; - PSHx: hernua reoair left inguinal; Tonsillectomy; skin cancer removed from nose---2014; - Exposure Risk Screening:: None identified. Vital Signs: 07/02 02:22 BP 121 / 85; Pulse 74; Resp 22; Temp 98(TE); Pulse Ox 87% on 4 lpm NC; Weight 78.93 kg kmg1 / 174.01 lbs (R); Height 5 ft. 10 in. (177.80 cm) (R); Pain 0/10; 02:25 BP 121 / 85 (auto/); kas2 02:25 Pulse 82 MON; Pulse Ox 98% ; kas2 02:34 BP 142 / 70 (auto/); kas2 02:34 Pulse Ox 97% ; kas2 02:48 BP 107 / 69 (auto/); kas2 02:48 Pulse Ox 93% ; kas2 03:00 BP 118 / 75 (auto/); kas2 03:00 Pulse Ox 91% ; kas2 03:16 BP 150 / 85 (auto/); kas2 03:16 Pulse Ox 93% ; kas2 03:30 BP 133 / 71 (auto/); kas2 03:30 Pulse Ox 91% ; kas2 03:36 Resp 20; Temp 97.9(O); kas2 03:45 BP 102 / 60 (auto/); kas2 03:45 Pulse Ox 91% ; kas2 04:28 BP 127 / 64 (auto/); kas2 04:28 Pulse Ox 90% ; kas2 04:43 BP 140 / 65 (auto/); kas2 04:43 Pulse Ox 91% ; kas2 04:58 BP 119 / 67 (auto/); kas2 04:58 Pulse 82 MON; Pulse Ox 89% ; kas2 05:13 BP 117 / 70 (auto/); kas2 05:13 Pulse 78 MON; Pulse Ox 90% ; kas2 06:23 Resp 18; Temp 98.9(O); Pain 0/10; kas2 02:22 Body Mass Index 24.97 (78.93 kg, 177.80 cm) kmg1 02:22 Placed on NRB, POX increased to 98% kmg1 MDM: 02:13 ECG WITH READING ER PHYS+CARDIAG ordered. EDMS 02:26 -Blood Culture (Adults Only), peripheral from different site, or from device/port/PICC mm11 etc. if present ordered. 02:26 Washer Meat/Pulse Ox/q 15 min VS ordered. mm11 02:26 IV Saline Lock ordered. mm11 02:26 Oxygen at 4L/Min NC or Home dosage ordered. mm11 02:26 Rhythm Strip to chart ordered. mm11 02:26 Albuterol-Ipratropium 1 neb Nebulizer every 20 minutes x3 ordered. mm11 02:27 B-Type Natiuretic Peptide Ordered. EDMS 02:27 Basic Metabolic Profile Ordered. EDMS 02:27 CBC with Diff Ordered. EDMS 02:27 Cardiac Injury Profile Ordered. EDMS 02:27 Troponin Ordered. EDMS 02:27 -Blood Culture Ordered. EDMS 02:28 Chest, 1 View Ordered. EDMS 02:30 -Blood Culture (Adults Only), peripheral from different site, or from device/port/PICC jlm etc. if present complete. 02:31 BLOOD CULTURES Ordered. EDMS 02:38 -Arterial Blood Gas Ordered. EDMS 03:08 Basic Metabolic Profile Reviewed. mm11 03:08 CBC with Diff Reviewed. mm11 03:08 B-Type Natiuretic Peptide Reviewed. mm11 03:08 Cardiac Injury Profile Reviewed. mm11 03:08 Troponin Reviewed. mm11 03:46 -Arterial Blood Gas Reviewed. mm11 03:47 CT Chest Angio R/O PE Ordered. EDMS 04:13 Financial registration complete. hs2 04:29 [facility] Payment Agreement was scanned into [employer] and attached to record. hs2 05:46 Piperacillin-Tazobactam 3.375 grams IVPB once over 30 mins; dilute in 50mL of NS or D5W mm11 ordered. 05:46 vancomycin (loading dose for pt. wt. 70-79kg) 1750 mg IVPB once ordered. mm11 05:47 BED REQUEST+ADM ordered. EDMS 06:08 2 GRAM SODIUM DIET ordered. EDMS 06:09 TROPONIN Ordered. EDMS 06:09 TROPONIN Ordered. EDMS 06:09 TROPONIN Ordered. EDMS 06:10 BLOOD CULTURES Ordered. EDMS 06:10 RESPIRATORY PANEL Ordered. EDMS 06:10 SPUTUM CULTURE AND GRAM STAIN Ordered. EDMS 06:11 PHYSICAL THERAPY EVAL & TREAT ordered. EDMS 06:11 Admission / Observation Status ordered. EDMS 06:26 LEGIONELLA ANTIGEN URINE Ordered. EDMS 06:26 URINE STREP PNEUMONIAE ANTIGEN Ordered. EDMS 09:03 TROPONIN Reviewed. mm11 09:03 CT Chest Angio R/O PE Reviewed. mm11 Administered Medications: 02:32 Drug: Albuterol-Ipratropium 1 neb [ipratropium-albuterol 0.5 mg-3 mg(2.5 mg base)/3 mL lf2 nebulization soln (1 neb)] Route: Nebulizer; 03:14 Drug: Albuterol-Ipratropium 1 neb [ipratropium-albuterol 0.5 mg-3 mg(2.5 mg base)/3 mL lf2 nebulization soln (1 neb)] Route: Nebulizer; 06:15 Drug: Piperacillin-Tazobactam 3.375 grams [piperacillin-tazobactam 3.375 gram kas2 intravenous solution] Route: IVPB; Infused Over: 30 mins; Site: right antecubital; 06:57 Drug: vancomycin (loading dose for pt. wt. 70-79kg) 1750 mg [vancomycin 500 mg kas2 intravenous solution] Route: IVPB; Site: right antecubital; Signatures: Dispatcher [employer] EDMS Rosa Beebe, Gold Letterer Unit deg Tawny Christensen RN RN kmg1 Westley Berumen RN James Guerra, DO mm11 Soumya Fried RN RN sls1 Christopher, Beatrice, Gold Letterer Unit jlm Emerald Elam, Reg Reg hs2 Rosalie Foss RT lf2 Isabella Henriquez RN kas2 The chart was reviewed and I authenticate all verbal orders and agree with the evaluation and treatment provided.Attachments: [facility] Payment Agreement hs2 MTDD
[2016-07-02] MEDS: ACETAMINOPHEN TAB 650MG DOSE (2X325MG) PO PRN ×2 (10:12→17:56)
[2016-07-02] MEDS: AMIODARONE 200 MG TAB (PACERONE) PO SCH (10:12)
[2016-07-02] MEDS: PROPRANOLOL 10 MG TAB PO SCH ×3 (11:15→20:36)
--- NOTE | 2016-07-02 11:32 | PHACANCOPD ---
PHARMACY VANCOMYCIN DOSING Pt Demographics Demographics Patient Age:80 , Weight:78.300 , Gender: male Adjusted Body Weight Date: 07/02/16, Adjusted Body Weight: Kg Events Past 24 Hours Events Past 24 Hours: YES: Change in CrCl, Elevation in WBC, NO: Dialysis, Diuretic Therapy, Fever, Other, Pending Diagnostics, Pending Procedures Vancomycin Vancomycin indication: pneumonia Vancomycin Target Ranges: 15-20 mcg/ml Vancomycin Load Y/N: Yes Load Dose Date Time Vancomycin Load Dose: 1750mg Date: 07/02 Time: ~0630 Vancomycin Dose Date: 07/02/16. Current Vancomycin Dose: [1g IV q18h @21] Intermittent Dosing?: No Labs Labs Item Value Date Time White Blood Count 10.8 K/mm3 H 07/02/16 0225 Creatinine 1.39 MG/DL H 07/02/16 0225 Micro Microbiology 07/02/16 Blood Culture, Received Pending 07/02/16 Blood Culture, Received Pending 07/02/16 Blood Culture, Received Pending Creatinine Clearance Date:07/02/16. Creatinine Clearance: [42 ml/min]. Assessment and Plan Maintaining Current Dose?: Yes Reason for dose change: No Dose Change Pharmacist Note Pharmacist Note Date: 07/02/16. Pharmacist note: pt was admitted for worsening pneumonia, failing outpatient levaquin therapy. He has been started on Zosyn and Vancomycin. He does not have a Hx of being on vancomycin at our facility and does not have a pertinent culture Hx. His SCr is currently elevated, baseline is ~1.1 mg/dl. He received a 1750mg vancomycin IV load in the ER and I have started him on 1g q18h. We will continue to monitor renal function and make adjustments as necessary. Callum Henriquez Pharm.D. Jul 02, 2016 11:32
[2016-07-02 12:00] VITALS: BP 124/64
--- NOTE | 2016-07-02 12:18 | REP ---
AP PORTABLE CHEST: 07/02/2016. Clinical history: Cough. Dyspnea. Comparison: PA and lateral chest 06/27/2016, CT chest 06/28/2016 at [facility]. Findings: Bibasilar infiltrates as on previous chest x-ray and CT. There is a new patchy peripheral left mid lung zone infiltrate or atelectasis. There is slight elevation of the left diaphragm as on the previous study. Small effusions difficult to exclude. Heart size not grossly enlarged for portable technique. The aorta is quite tortuous, ectatic and calcified, unchanged. Airway intact. Impression: 1. 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 Some new patchy peripheral air space opacity left lateral base. 2. No bhupendra edema. Small effusions difficult to exclude. Signed by Nish Caicedo MD 07/02/2016 07:12 P
[2016-07-02] MEDS: PIPERACILLIN/TAZOBACTAM SOD 3.375 GM in D5W MINI-BAG PLUS 50 ML IV SCH ×3 (12:59→23:51)
[2016-07-02 16:00] VITALS: BP 121/69
[2016-07-02 19:21] VITALS: BP 122/67
--- NOTE | 2016-07-02 19:25 | ECGEPIP ---
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
[2016-07-02] MEDS ORDERED: POTASSIUM CHLORIDE 10 MEQ SR TABLET PO ONE (19:45)
[2016-07-02] MEDS: ATORVASTATIN 20 MG TAB PO SCH (20:36)
[2016-07-02] MEDS: TAMSULOSIN 0.4 MG CAP PO SCH (20:36)
[2016-07-02] MEDS: CETIRIZINE (ZyrTEC) 10 MG TAB PO SCH (20:36)
[2016-07-02] MEDS: VANCOMYCIN HCL 1,000 MG, VIAL MATE ADAPTER 1 EACH in D5W 250 ML IV SCH (20:36)
[2016-07-02 23:58] VITALS: BP 136/76
[2016-07-03] MEDS: IPRATROPIUM 0.5MG/ALBUTEROL 2.5MG INH SOL UD 3ML (DUONEB)(J7620) NEB SCH ×7 (03:51→23:18)
[2016-07-03 04:46] VITALS: BP 129/74
[2016-07-03] MEDS: PIPERACILLIN/TAZOBACTAM SOD 3.375 GM in D5W MINI-BAG PLUS 50 ML IV SCH ×3 (05:43→18:13)
[2016-07-03 05:53] LABS: BLOOD UREA NITROGEN 15 MG/DL (7-18); CALCIUM LEVEL 8.3 MG/DL (8.8-10.2); CARBON DIOXIDE LEVEL 29 MEQ/L (21-32); CREATININE FOR GFR 1.19 MG/DL (0.70-1.30); GLUCOSE, FASTING 110 MG/DL (83-110)
[2016-07-03 05:57] LABS: MEAN CORPUSCULAR HEMOGLOBIN 29.2 pg (27.0-33.0); MEAN CORPUSCULAR HGB CONC 32.2 g/dl (32.0-36.5); MEAN CORPUSCULAR VOLUME 90.9 fl (80.0-96.0); RED CELL DISTRIBUTION WIDTH 12.9 % (11.5-14.5); WHITE BLOOD COUNT 9.8 K/mm3 (4.0-10.0)
[2016-07-03 06:09] LABS: ANION GAP 8 MEQ/L (8-16); CHLORIDE LEVEL 102 MEQ/L (98-107); POTASSIUM SERUM 3.7 MEQ/L (3.5-5.1); SODIUM LEVEL 139 MEQ/L (136-145)
[2016-07-03 08:00] VITALS: BP 143/87
[2016-07-03] MEDS: ADVAIR DISKUS 250/50 INH PWD INH SCH ×2 (08:12→19:28)
--- NOTE | 2016-07-03 08:47 | PHACANCOPD ---
PHARMACY VANCOMYCIN DOSING Pt Demographics Demographics Patient Age:80 , Weight:79.000 , Gender: male Adjusted Body Weight Date: 07/02/16, Adjusted Body Weight: Kg Vancomycin Vancomycin indication: pneumonia Vancomycin Target Ranges: 15-20 mcg/ml Vancomycin Load Y/N: Yes Load Dose Date Time Vancomycin Load Dose: 1750mg Date: 07/02 Time: ~0630 Vancomycin Dose Date: 07/02/16. Current Vancomycin Dose: [1g IV q18h @21] Intermittent Dosing?: No Labs Micro Microbiology 07/02/16 Blood Culture - Preliminary, Resulted No growth after 24 hours . All specim... 07/02/16 Blood Culture - Preliminary, Resulted No growth after 24 hours . All specim... 07/02/16 Blood Culture - Preliminary, Resulted No growth after 24 hours . All specim... 07/02/16 Gram Stain - Final, Resulted 07/02/16 Sputum Culture, Resulted Pending Creatinine Clearance Date:07/02/16. Creatinine Clearance: [42 ml/min]. Assessment and Plan Maintaining Current Dose?: Yes Reason for dose change: No Dose Change Pharmacist Note Pharmacist Note 07/03/16: I will schedule a vanco trough for tomorrow, 07/04/16 at 0800, prior to the 4th dose. The patient remains afebrile, and WBC is now WNL. Blood and sputum cultures are still pending. Scr has improved slightly from yesterday ( 1.39 to 1.19). We will continue to monitor and make adjustments as needed. Date: 07/02/16. Pharmacist note: pt was admitted for worsening pneumonia, failing outpatient levaquin therapy. He has been started on Zosyn and Vancomycin. He does not have a Hx of being on vancomycin at our facility and does not have a pertinent culture Hx. His SCr is currently elevated, baseline is ~1.1 mg/dl. He received a 1750mg vancomycin IV load in the ER and I have started him on 1g q18h. We will continue to monitor renal function and make adjustments as necessary. ROLA COELLO PHARMACY Jul 03, 2016 08:47
[2016-07-03 10:11] VITALS: BP 142/82
[2016-07-03] MEDS: AMIODARONE 200 MG TAB (PACERONE) PO SCH (10:28)
[2016-07-03] MEDS: PROPRANOLOL 10 MG TAB PO SCH ×3 (10:29→21:16)
--- NOTE | 2016-07-03 11:09 | IPN ---
DATE: 07/03/2016 The patient seen and examined at the bedside. The chart has been reviewed. The patient continues to have productive cough of white-yellow sputum. He is afebrile. No complaints of chills, chest pain or pressure, tightness, lightheadedness or dizziness. Temperature 96.9, pulse 77, respiratory rate 20, blood pressure 143/87 and 98% on 5 liters nasal cannula. Generally, the patient is awake, alert and oriented times three. No conversational dyspnea. No use of respiratory or accessory muscles. No cyanosis. Lungs: Diminished breath sounds. Bilateral lower lobe crackles. Heart: S1, S2. Regular rate and rhythm. Abdomen is soft, nontender, nondistended. Extremities: Have no pitting edema. LABORATORY DATA: White count 9.8, hemoglobin 10, hematocrit 33, platelet count 388. Sodium 139, potassium 3.7, chloride 102, bicarbonate 29, BUN 15, creatinine 1.19, troponin less than 0.02. MICROBIOLOGY: Sputum culture a few yeast-like organisms. Two sets of blood cultures are negative. IMAGING STUDIES: CT of the chest shows no pulmonary embolism (PE), central pulmonary arterial trees dilated compatible with hypertension, dense consolidation right upper, right middle and right lower lobe and left lower lobe compatible with multifocal pneumonia versus aspiration. Aorta is dilated, ascending and arch measuring up to 4.3 cm. 6 mm right renal calculus and trace right pleural effusion is seen. ASSESSMENT AND PLAN: This is an 80-year-old male with history of hypertension, dyslipidemia, non-obstructive coronary artery disease (CAD), pulmonary embolism (PE) times two on apixaban, diastolic heart failure, chronic obstructive pulmonary disease (COPD) on chronic 2 liters of oxygen, and chronic hypoxic failure on home oxygen at baseline who presents with worsening shortness of breath for the past 7-10 days and fever of 101.5. He was seen by Dr. Hurd four days prior to presentation with recommendations to up titrate his oxygen to 4 liters and Levaquin for potential pneumonia. The patient had worsening shortness of breath, presented to the emergency room and was found to have right middle, upper and lower lobe pneumonia and left lower lobe, questionable multifocal pneumonia versus aspiration. The patient was admitted on 07/02/2016 and started on intravenous vancomycin and Zosyn for broad spectrum coverage. Microbiology is still pending. The patient is being evaluated for aspiration. CURRENT ISSUES: 1. Multifocal pneumonia versus aspiration. Patient has been placed on broad spectrum antibiotics of vancomycin and Zosyn for now. Obtain a respiratory panel. Continue with evaluation for potential aspiration with speech therapy consult and modified barium swallow if needed. Await sputum culture results and respiratory panel. To decrease risk of Clostridium difficile, start on Bacid. 2. Atrial fibrillation. Currently rate controlled. Continue on Eliquis, amiodarone. 3. Hyperlipidemia. On Lipitor. 4. Allergic rhinitis. On Zyrtec. 5. Benign prostatic hyperplasia (BPH). On Flomax. 6. History of chronic obstructive pulmonary disease. On Advair Diskus, DuoNeb, supplemental oxygen. 7. Chronic hypoxic failure, on chronic 2 liters of oxygen, currently at 5 liters. 8. Deep vein thrombosis (DVT) prophylaxis, on chronic Eliquis. MTDD
[2016-07-03 14:50] VITALS: BP 122/50
[2016-07-03] MEDS: VANCOMYCIN HCL 1,000 MG, VIAL MATE ADAPTER 1 EACH in D5W 250 ML IV SCH (15:50)
[2016-07-03 18:00] VITALS: BP 110/72
[2016-07-03] MEDS: CETIRIZINE (ZyrTEC) 10 MG TAB PO SCH (21:15)
[2016-07-03] MEDS: ATORVASTATIN 20 MG TAB PO SCH (21:15)
[2016-07-03] MEDS: TAMSULOSIN 0.4 MG CAP PO SCH (21:15)
[2016-07-03 22:00] VITALS: BP 116/62
[2016-07-04] MEDS: PIPERACILLIN/TAZOBACTAM SOD 3.375 GM in D5W MINI-BAG PLUS 50 ML IV SCH ×4 (00:16→18:34)
[2016-07-04 02:00] VITALS: BP 102/68
[2016-07-04] MEDS: IPRATROPIUM 0.5MG/ALBUTEROL 2.5MG INH SOL UD 3ML (DUONEB)(J7620) NEB SCH ×6 (03:26→23:42)
[2016-07-04 06:00] VITALS: BP 110/66
[2016-07-04 07:22] LABS: MEAN CORPUSCULAR HEMOGLOBIN 29.3 pg (27.0-33.0); MEAN CORPUSCULAR HGB CONC 32.1 g/dl (32.0-36.5); MEAN CORPUSCULAR VOLUME 91.3 fl (80.0-96.0); RED CELL DISTRIBUTION WIDTH 12.8 % (11.5-14.5); WHITE BLOOD COUNT 9.3 K/mm3 (4.0-10.0)
[2016-07-04 07:32] LABS: ANION GAP 7 MEQ/L (8-16); BLOOD UREA NITROGEN 11 MG/DL (7-18); CALCIUM LEVEL 8.2 MG/DL (8.8-10.2); CARBON DIOXIDE LEVEL 30 MEQ/L (21-32); CHLORIDE LEVEL 103 MEQ/L (98-107); CREATININE FOR GFR 1.03 MG/DL (0.70-1.30); GLOMERULAR FILTRATION RATE > 60.0 (>35); GLUCOSE, FASTING 100 MG/DL (83-110); POTASSIUM SERUM 3.4 MEQ/L (3.5-5.1); SODIUM LEVEL 140 MEQ/L (136-145)
[2016-07-04] MEDS ORDERED: POTASSIUM CHLORIDE 10 MEQ SR TABLET PO ONE (08:15)
[2016-07-04] MEDS: ADVAIR DISKUS 250/50 INH PWD INH SCH ×2 (08:27→21:18)
--- NOTE | 2016-07-04 09:05 | REP ---
Clinical: Chest pain. Pulmonary edema. Comparison: 07/02/2016. Findings: Evaluation is limited by portable technique and underpenetration. Diffuse chronic interstitial changes as well as elevation to the left hemidiaphragm are again identified and essentially unchanged. Subtle superimposed basilar atelectasis cannot be excluded. No definite pulmonary edema. No pneumothorax. Mediastinum and cardiac silhouette are incompletely evaluated. Calcified left hilar lymph nodes are suggested and stable. Impression: Limited examination. Cannot exclude bibasilar atelectasis. Chronic changes. No obvious, definite pulmonary edema pattern. Signed by Arnulfo Andrade MD 07/04/2016 08:57 A
[2016-07-04] MEDS: VANCOMYCIN HCL 1,000 MG, VIAL MATE ADAPTER 1 EACH in D5W 250 ML IV SCH (09:27)
[2016-07-04] MEDS: AMIODARONE 200 MG TAB (PACERONE) PO SCH (09:29)
[2016-07-04] MEDS: PROPRANOLOL 10 MG TAB PO SCH ×3 (09:29→21:16)
[2016-07-04 10:00] VITALS: BP 130/70
--- NOTE | 2016-07-04 11:04 | EDDOCDS ---
Physician Documentation [facility] Name: Oswaldo Pineda Age: 80 yrs Sex: Male : 1935 Arrival Date: 07/02/2016 Time: 02:05 Bed Admit Hold Private MD: Disposition: 07/02/16 05:56 Hospitalization ordered by Denver Fletcher for Inpatient Admission. Preliminary diagnosis are Other pneumonia, unspecified organism, Hypoxemia. - Bed requested for PCU. - Status is Inpatient Admission. dy - Condition is Stable. - Problem is an acute exacerbation. - Symptoms have improved. Historical: - Allergies: ceftin --sick to stomach; Cipro PO (Upset stomach); - Home Meds: 1. levofloxacin 500 mg Oral tab 1 tab once daily - PMHx: abnormal EKG; atnersclerotic herart disease; COPD; edema localized; Hypertension; orthopnea; Palpitations; embolism, pulmanary; - PSHx: hernua reoair left inguinal; Tonsillectomy; skin cancer removed from nose---2014; - Exposure Risk Screening:: None identified. Vital Signs: 07/02 02:22 BP 121 / 85; Pulse 74; Resp 22; Temp 98(TE); Pulse Ox 87% on 4 lpm NC; Weight 78.93 kg kmg1 / 174.01 lbs (R); Height 5 ft. 10 in. (177.80 cm) (R); Pain 0/10; 02:25 BP 121 / 85 (auto/); kas2 02:25 Pulse 82 MON; Pulse Ox 98% ; kas2 02:34 BP 142 / 70 (auto/); kas2 02:34 Pulse Ox 97% ; kas2 02:48 BP 107 / 69 (auto/); kas2 02:48 Pulse Ox 93% ; kas2 03:00 BP 118 / 75 (auto/); kas2 03:00 Pulse Ox 91% ; kas2 03:16 BP 150 / 85 (auto/); kas2 03:16 Pulse Ox 93% ; kas2 03:30 BP 133 / 71 (auto/); kas2 03:30 Pulse Ox 91% ; kas2 03:36 Resp 20; Temp 97.9(O); kas2 03:45 BP 102 / 60 (auto/); kas2 03:45 Pulse Ox 91% ; kas2 04:28 BP 127 / 64 (auto/); kas2 04:28 Pulse Ox 90% ; kas2 04:43 BP 140 / 65 (auto/); kas2 04:43 Pulse Ox 91% ; kas2 04:58 BP 119 / 67 (auto/); kas2 04:58 Pulse 82 MON; Pulse Ox 89% ; kas2 05:13 BP 117 / 70 (auto/); kas2 05:13 Pulse 78 MON; Pulse Ox 90% ; kas2 06:23 Resp 18; Temp 98.9(O); Pain 0/10; kas2 02:22 Body Mass Index 24.97 (78.93 kg, 177.80 cm) kmg1 02:22 Placed on NRB, POX increased to 98% kmg1 MDM: 02:13 ECG WITH READING ER PHYS+CARDIAG ordered. EDMS 02:26 -Blood Culture (Adults Only), peripheral from different site, or from device/port/PICC mm11 etc. if present ordered. 02:26 Framing Mill Operator Helper/Pulse Ox/q 15 min VS ordered. mm11 02:26 IV Saline Lock ordered. mm11 02:26 Oxygen at 4L/Min NC or Home dosage ordered. mm11 02:26 Rhythm Strip to chart ordered. mm11 02:26 Albuterol-Ipratropium 1 neb Nebulizer every 20 minutes x3 ordered. mm11 02:27 B-Type Natiuretic Peptide Ordered. EDMS 02:27 Basic Metabolic Profile Ordered. EDMS 02:27 CBC with Diff Ordered. EDMS 02:27 Cardiac Injury Profile Ordered. EDMS 02:27 Troponin Ordered. EDMS 02:27 -Blood Culture Ordered. EDMS 02:28 Chest, 1 View Ordered. EDMS 02:30 -Blood Culture (Adults Only), peripheral from different site, or from device/port/PICC jlm etc. if present complete. 02:31 BLOOD CULTURES Ordered. EDMS 02:38 -Arterial Blood Gas Ordered. EDMS 03:08 Basic Metabolic Profile Reviewed. mm11 03:08 CBC with Diff Reviewed. mm11 03:08 B-Type Natiuretic Peptide Reviewed. mm11 03:08 Cardiac Injury Profile Reviewed. mm11 03:08 Troponin Reviewed. mm11 03:46 -Arterial Blood Gas Reviewed. mm11 03:47 CT Chest Angio R/O PE Ordered. EDMS 04:13 Financial registration complete. hs2 04:29 [facility] Payment Agreement was scanned into [employer] and attached to record. hs2 05:46 Piperacillin-Tazobactam 3.375 grams IVPB once over 30 mins; dilute in 50mL of NS or D5W mm11 ordered. 05:46 vancomycin (loading dose for pt. wt. 70-79kg) 1750 mg IVPB once ordered. mm11 05:47 BED REQUEST+ADM ordered. EDMS 06:08 2 GRAM SODIUM DIET ordered. EDMS 06:09 TROPONIN Ordered. EDMS 06:09 TROPONIN Ordered. EDMS 06:09 TROPONIN Ordered. EDMS 06:10 BLOOD CULTURES Ordered. EDMS 06:10 RESPIRATORY PANEL Ordered. EDMS 06:10 SPUTUM CULTURE AND GRAM STAIN Ordered. EDMS 06:11 PHYSICAL THERAPY EVAL & TREAT ordered. EDMS 06:11 Admission / Observation Status ordered. EDMS 06:26 LEGIONELLA ANTIGEN URINE Ordered. EDMS 06:26 URINE STREP PNEUMONIAE ANTIGEN Ordered. EDMS 09:03 TROPONIN Reviewed. mm11 09:03 CT Chest Angio R/O PE Reviewed. mm11 19:17 T-Sheet-- Draft Copy was scanned into [employer] and attached to record. klr 07/03 12:30 ECG/EKG was scanned into [employer] and attached to record. gb Administered Medications: 07/02 02:32 Drug: Albuterol-Ipratropium 1 neb [ipratropium-albuterol 0.5 mg-3 mg(2.5 mg base)/3 mL lf2 nebulization soln (1 neb)] Route: Nebulizer; 03:14 Drug: Albuterol-Ipratropium 1 neb [ipratropium-albuterol 0.5 mg-3 mg(2.5 mg base)/3 mL lf2 nebulization soln (1 neb)] Route: Nebulizer; 06:15 Drug: Piperacillin-Tazobactam 3.375 grams [piperacillin-tazobactam 3.375 gram kas2 intravenous solution] Route: IVPB; Infused Over: 30 mins; Site: right antecubital; 06:57 Drug: vancomycin (loading dose for pt. wt. 70-79kg) 1750 mg [vancomycin 500 mg kas2 intravenous solution] Route: IVPB; Site: right antecubital; Signatures: Dispatcher [employer] EDRosa Mejia, Wrecking Crane Engine Operator Unit deg Tawny Christensen, RN RN kmg1 Maria Esther Lei, Reg Reg gb Westley Berumen, RN RN James Piedra, DO DO mm11 Soumya Fried RN RN sls1 Beatrice White, W[employer]ing [employer] Engine Operator Unit jlm Emerald Elam, Reg Reg hs2 Sheyla Killianr Rosalie Foss RT lf2 Isabella Henriquez RN kas2 The chart was reviewed and I authenticate all verbal orders and agree with the evaluation and treatment provided.Attachments: 04:29 [facility] Payment Agreement hs2 19:17 T-Sheet-- Draft Copy klr 07/03 12:30 ECG/EKG gb Chart Complete MTDD
--- NOTE | 2016-07-04 11:04 | EDDOCDS ---
Nurse's Notes [facility] Name: Oswaldo Pineda Age: 80 yrs Sex: Male : 1935 Arrival Date: 07/02/2016 Time: 02:05 Bed Admit Hold Private MD: Diagnosis: Other pneumonia, unspecified organism;Hypoxemia Presentation: 07/02 02:18 Presenting complaint: Patient states: Diagnosed 4 days ago with pneumonia and "blood" kmg1 in the RLL. Has been SOB but became worse tonight. Suicide/Homicide risk assessment- the patient denies having any suicidal and/or homicidal ideations and does not present with any other emotional, behavioral or mental health complaints. 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 Transition of care: patient was not received from another setting of care. 02:18 Acuity: LISA Level 2 kmg1 02:18 Method Of Arrival: Walkin/Carried/Asstd kmg1 Triage Assessment: 02:22 General: Appears distressed, well nourished, well groomed, Behavior is appropriate for kmg1 age, cooperative. Respiratory: Onset: The symptoms/episode began/occurred gradually, Airway is patent Respiratory effort is labored, Respiratory pattern is regular, symmetrical. Historical: - Allergies: ceftin --sick to stomach; Cipro PO (Upset stomach); - Home Meds: 1. levofloxacin 500 mg Oral tab 1 tab once daily - PMHx: abnormal EKG; atnersclerotic herart disease; COPD; edema localized; Hypertension; orthopnea; Palpitations; embolism, pulmanary; - PSHx: hernua reoair left inguinal; Tonsillectomy; skin cancer removed from nose---2014; - Exposure Risk Screening:: None identified. Screenin:30 Screening information is obtained from the patient. Fall risk: No risks identified. kas2 Assistance ADL's: requires no assistance with activities of daily living. Abuse/DV Screen: The patient / caregiver reports he/she is: not in a situation that causes fear, pain or injury. Nutritional screening: No deficits noted. Advance Directives: Currently, there is no health care proxy. There is no active DNR order. There is a living will, but a copy is not available at this time. There is no Power of Quality Control Chemist. home support is adequate. Assessment: 02:28 General: Appears in no apparent distress, uncomfortable, well nourished, well groomed, kas2 Behavior is appropriate for age, cooperative. Pain: Denies pain. Neurological: Level of Consciousness is awake, alert, Oriented to person, place, time. Cardiovascular: Capillary refill < 3 seconds Heart tones S1 S2 present Rhythm is sinus rhythm No ectopy. Chest pain is denied. Respiratory: Airway is patent Respiratory effort is even, unlabored, Respiratory pattern is regular, symmetrical, Breath sounds with crackles inspiratory expiratory Breath sounds are diminished bilaterally. Derm: Skin is intact, Skin is dry, Skin is pink, warm & dry. Skin temperature is warm. 03:35 General: Appears in no apparent distress, comfortable, well nourished, well groomed, kas2 Behavior is appropriate for age, cooperative. Pain: Denies pain. Neurological: Level of Consciousness is awake, alert, Oriented to person, place, time. Cardiovascular: Rhythm is sinus rhythm No ectopy. Respiratory: Airway is patent Respiratory effort is even, unlabored, Respiratory pattern is regular, symmetrical. Derm: Skin is intact, Skin is dry, Skin is pink, warm & dry. Skin temperature is warm. 04:26 General: Patient laying in bed with daughter at bedside. Denies pain or discomfort at [facility] this time. Appears comfortable. Airway patent and respiratory even and unlabored. Call pina within reach. Will continue to monitor.. 05:18 General: Appears in no apparent distress, comfortable, Behavior is appropriate for age, kas2 cooperative. Pain: Denies pain. Neurological: Level of Consciousness is awake, alert, Oriented to person, place, time. Cardiovascular: Rhythm is sinus rhythm No ectopy. Respiratory: Airway is patent Respiratory effort is even, unlabored, Respiratory pattern is regular, symmetrical. Derm: Skin is intact, Skin is dry, Skin is pink, warm & dry. Skin temperature is warm. 06:39 General: Verbal report given to Isabella Saab RN.. [facility] Vital Signs: 02:22 BP 121 / 85; Pulse 74; Resp 22; Temp 98(TE); Pulse Ox 87% on 4 lpm NC; Weight 78.93 kg kmg1 (R); Height 5 ft. 10 in. (177.80 cm) (R); Pain 0/10; 02:25 BP 121 / 85 (auto/); kas2 02:25 Pulse 82 MON; Pulse Ox 98% ; kas2 02:34 BP 142 / 70 (auto/); kas2 02:34 Pulse Ox 97% ; kas2 02:48 BP 107 / 69 (auto/); kas2 02:48 Pulse Ox 93% ; kas2 03:00 BP 118 / 75 (auto/); kas2 03:00 Pulse Ox 91% ; kas2 03:16 BP 150 / 85 (auto/); kas2 03:16 Pulse Ox 93% ; kas2 03:30 BP 133 / 71 (auto/); kas2 03:30 Pulse Ox 91% ; kas2 03:36 Resp 20; Temp 97.9(O); kas2 03:45 BP 102 / 60 (auto/); kas2 03:45 Pulse Ox 91% ; kas2 04:28 BP 127 / 64 (auto/); kas2 04:28 Pulse Ox 90% ; kas2 04:43 BP 140 / 65 (auto/); kas2 04:43 Pulse Ox 91% ; kas2 04:58 BP 119 / 67 (auto/); kas2 04:58 Pulse 82 MON; Pulse Ox 89% ; kas2 05:13 BP 117 / 70 (auto/); kas2 05:13 Pulse 78 MON; Pulse Ox 90% ; kas2 06:23 Resp 18; Temp 98.9(O); Pain 0/10; kas2 02:22 Body Mass Index 24.97 (78.93 kg, 177.80 cm) km 02:22 Placed on NRB, POX increased to 98% [facility] [place]: 02:07 Patient visited by Emerald Elam, Reg. hs2 02:07 Disha Garcia,RN is Primary Nurse. hs2 02:07 Patient moved to Waiting hs2 02:07 Patient moved to 9 hs2 02:08 Patient moved to 6 tm5 02:13 Patient moved to 3 sls1 02:17 James Ernst DO is Attending Physician. mm11 02:17 Patient visited by James Ernst DO. mm11 02:20 Triage Initiated kmg1 02:25 Patient visited by James Ernst DO. mm11 02:31 secured entrance monitor on. Pulse ox on. NIBP on. kas2 02:31 Inserted saline lock: 20 gauge in right antecubital area and blood collected. The kas2 patient tolerated the procedure well. No procedures done that require assistance. 02:32 Patient visited by Isabella Henriquez RN. kas2 02:37 EKG done. (by ED staff). Reviewed by James Ernst DO. jmv 02:38 Patient visited by Luis F Hein PCA. jmv 02:57 Primary Nurse role handed off by Disha Garcia RN jmb 03:01 Patient visited by Isabella Henriquez RN. kas2 03:21 BLOOD CULTURES Sent. mdr 03:21 -Arterial Blood Gas Sent. jc3 03:37 Patient visited by Isabella Henriquez RN. kas2 04:20 Patient visited by Isabella Henriquez RN. kas2 04:27 Patient visited by Isabella Henriquez RN. kas2 04:28 Isabella Henriquez RN is Primary Nurse. kas2 04:29 [facility] Payment Agreement was scanned into [employer] and attached to record. hs2 05:04 Patient visited by Isabella Henriquez RN. kas2 05:19 Patient visited by Isabella Henriquez RN. kas2 05:22 CT Chest Angio R/O PE Returned. EDMS 05:55 Denver Fletcher is Hospitalizing Provider. mm11 06:19 Patient moved to Admit Hold daq 06:40 Patient visited by Isabella Henriquez RN. kas2 07:12 Patient moved to 19 jjr 07:59 Patient moved to Admit Hold dy 09:17 Primary Nurse role handed off by Isabella Henriquez RN jjr 19:17 T-Sheet-- Draft Copy was scanned into [employer] and attached to record. klr 07/03 12:30 ECG/EKG was scanned into [employer] and attached to record. gb Administered Medications: 07/02 02:32 Drug: Albuterol-Ipratropium 1 neb [ipratropium-albuterol 0.5 mg-3 mg(2.5 mg base)/3 mL lf2 nebulization soln (1 neb)] Route: Nebulizer; 03:14 Drug: Albuterol-Ipratropium 1 neb [ipratropium-albuterol 0.5 mg-3 mg(2.5 mg base)/3 mL lf2 nebulization soln (1 neb)] Route: Nebulizer; 06:15 Drug: Piperacillin-Tazobactam 3.375 grams [piperacillin-tazobactam 3.375 gram kas2 intravenous solution] Route: IVPB; Infused Over: 30 mins; Site: right antecubital; 06:57 Drug: vancomycin (loading dose for pt. wt. 70-79kg) 1750 mg [vancomycin 500 mg kas2 intravenous solution] Route: IVPB; Site: right antecubital; RT: 02:32 Initial Med Neb Given as ordered Patient was instructed and evaluated on procedure lf2 Patient tolerated procedure well without adverse effect. O2 via non-rebreather \\T\\ 15L/min. Respiratory: Airway is patent Respiratory effort is even, labored, trachea is midline Breath sounds are diminished bilaterally. Reports cough that is productive. 03:00 Subsequent Med Neb Given as ordered Patient tolerated procedure well without adverse lf2 effect. O2 via Venturi mask \\T\\ 15L/min - 50%. Respiratory: Breath sounds are diminished bilaterally. 03:14 Subsequent Med Neb Given as ordered Patient tolerated procedure well without adverse lf2 effect. Respiratory: Breath sounds are diminished bilaterally. Breath sounds with wheezes bilaterally. at expiration. 03:21 ABG's drawn from right radial artery pressure held for 5 minutes no bleeding noted jc3 pressure bandage applied specimen sent pt. tolerated well. Order Results: Lab Order: B-Type Natiuretic Peptide; SPEC'M 07/02/16 02:25 Test: BRAIN NATRIURETIC PEPTIDE; Value: 74.5; Range: <100; Units: PG/ML; Status: F Lab Order: Basic Metabolic Profile; SPEC'M 07/02/16 02:25 Test: GLUCOSE, FASTING; Value: 111; Range: 83-110; Abnormal: Above high normal; Units: MG/DL; Status: F Test: BLOOD UREA NITROGEN; Value: 22; Range: 7-18; Abnormal: Above high normal; Units: MG/DL; Status: F Test: CREATININE FOR GFR; Value: 1.39; Range: 0.70-1.30; Abnormal: Above high normal; Units: MG/DL; Status: F Test: GLOMERULAR FILTRATION RATE; Value: 52.1; Range: >35; Status: F Test: SODIUM LEVEL; Value: 139; Range: 136-145; Units: MEQ/L; Status: F Test: POTASSIUM SERUM; Value: 3.8; Range: 3.5-5.1; Units: MEQ/L; Status: F Test: CHLORIDE LEVEL; Value: 101; Range: 98-107; Units: MEQ/L; Status: F Test: CARBON DIOXIDE LEVEL; Value: 29; Range: 21-32; Units: MEQ/L; Status: F Test: ANION GAP; Value: 9; Range: 8-16; Units: MEQ/L; Status: F Test: CALCIUM LEVEL; Value: 8.3; Range: 8.8-10.2; Abnormal: Below low normal; Units: MG/DL; Status: F Test Note: ; Units are mL/min/1.73 m2 Chronic Kidney Disease Staging per NKF: Stage I & II GFR >=60 Normal to Mildly Decreased Stage III GFR 30-59 Moderately Decreased Stage IV GFR 15-29 Severely Decreased Stage V GFR <15 Very Little GFR Left ESRD GFR <15 on IRON AND STEEL WORK SUPERVISOR Lab Order: CBC with Diff; SPEC'M 07/02/16 02:25 Test: WHITE BLOOD COUNT; Value: 10.8; Range: 4.0-10.0; Abnormal: Above high normal; Units: K/mm3; Status: F Test: RED BLOOD COUNT; Value: 4.20; Range: 4.30-6.10; Abnormal: Below low normal; Units: M/mm3; Status: F Test: HEMOGLOBIN; Value: 12.1; Range: 14.0-18.0; Abnormal: Below low normal; Units: g/dl; Status: F Test: HEMATOCRIT; Value: 38.3; Range: 42.0-52.0; Abnormal: Below low normal; Units: %; Status: F Test: MEAN CORPUSCULAR VOLUME; Value: 91.1; Range: 80.0-96.0; Units: fl; Status: F Test: MEAN CORPUSCULAR HEMOGLOBIN; Value: 28.9; Range: 27.0-33.0; Units: pg; Status: F Test: MEAN CORPUSCULAR HGB CONC; Value: 31.7; Range: 32.0-36.5; Abnormal: Below low normal; Units: g/dl; Status: F Test: RED CELL DISTRIBUTION WIDTH; Value: 12.7; Range: 11.5-14.5; Units: %; Status: F Test: PLATELET COUNT, AUTOMATED; Value: 409; Range: 150-450; Units: k/mm3; Status: F Test: NEUTROPHILS %; Value: 81.6; Range: 36.0-66.0; Abnormal: Above high normal; Units: %; Status: F Test: LYMPH %; Value: 6.8; Range: 24.0-44.0; Abnormal: Below low normal; Units: %; Status: F Test: MONO %; Value: 7.0; Range: 0.0-5.0; Abnormal: Above high normal; Units: %; Status: F Test: EOS %; Value: 1.8; Range: 0.0-3.0; Units: %; Status: F Test: BASO %; Value: 0.2; Range: 0.0-1.0; Units: %; Status: F Test: LARGE UNSTAINED CELL %; Value: 2.7; Range: 0.0-4.0; Units: %; Status: F Test: NEUTROPHILS #; Value: 8.8; Range: 1.8-7.7; Abnormal: Above high normal; Units: K/mm3; Status: F Test: LYMPH #; Value: 0.7; Range: 1.5-4.5; Abnormal: Below low normal; Units: K/mm3; Status: F Test: MONO #; Value: 0.8; Range: 0.0-0.8; Units: K/mm3; Status: F Test: EOS #; Value: 0.2; Range: 0.0-0.50; Units: K/mm3; Status: F Test: BASO #; Value: 0.0; Range: 0.0-0.2; Units: K/mm3; Status: F Test: LARGE UNSTAINED CELL #; Value: 0.3; Range: 0.0-0.4; Units: K/mm3; Status: F Lab Order: Cardiac Injury Profile; SPEC'M 07/02/16 02:25 Test: CPK CREATINE PHOSPHOKINASE; Value: 44; Range: 39-308; Units: U/L; Status: F Test: CK-MB VALUE MASS; Value: 1.2; Range: 0.0-3.6; Units: NG/ML; Status: F Test: MB/CK RELATIVE INDEX; Value: 2.72; Range: < OR =4; Status: F Test Note: ; DIAGNOSIS CRITERIA MMB ng/ml Relative Index (RI) NON-AMI < or = 5 N/A YIN ZONE > 5 < or = 4 AMI > 5 > 4 Lab Order: Troponin; [facility]07/02/16 02:25 Test: TROPONIN I; Value: < 0.02; Range: < 0.10; Units: NG/ML; Status: F Test Note: ; Troponin I Reference Interval for Siemens [employer] LOCI: 99th Percentile= 0.00-0.045 ng/ml Risk Stratification: <= 0.10 ng/ml Decreased Risk for Adverse Clinical Events. 0.10-1.50 ng/ml Increased Risk for Adverse Clinical Events. Evaluation of additional criterion and/or repeat testing in 2-6 hours is suggested to rule out myocardial damage. >= 1.50 ng/ml Indicative of Myocardial Injury. Lab Order: -Arterial Blood Gas; [facility]07/02/16 03:20 Test: ABG pH (ARTERIAL); Value: 7.461; Range: 7.350-7.450; Abnormal: Above high normal; Units: UNITS; Status: F Test: ABG PARTIAL PRESSURE CO2; Value: 37.4; Range: 35.0-45.0; Units: mmHg; Status: F Test: ABG PARTIAL PRESSURE O2; Value: 71.4; Range: 75.0-100.0; Abnormal: Below low normal; Units: mmHg; Status: F Test: ABG TOTAL CO2; Value: 27.2; Range: 23.0-31.0; Units: MEQ/L; Status: F Test: ABG HCO3; Value: 26.1; Range: 22.0-26.0; Abnormal: Above high normal; Units: MEQ/L; Status: F Test: ABG BASE EXCESS; Value: 2.3; Range: -2.0-2.0; Abnormal: Above high normal; Status: F Test: ABG STANDARD HCO3; Value: 26.5; Range: 22.0-26.0; Abnormal: Above high normal; Units: MEQ/L; Status: F Test: ABG O2 SATURATION; Value: 94.6; Range: 95.0-99.0; Abnormal: Below low normal; Units: %; Status: F Test: ABG DEVICE; Value: NASAL SIDRA; Status: F Lab Order: TROPONIN; SPEC'M 07/02/16 06:32 Test: TROPONIN I; Value: < 0.02; Range: < 0.10; Units: NG/ML; Status: F Test Note: ; Troponin I Reference Interval for Siemens [place] LOCI: 99th Percentile= 0.00-0.045 ng/ml Risk Stratification: <= 0.10 ng/ml Decreased Risk for Adverse Clinical Events. 0.10-1.50 ng/ml Increased Risk for Adverse Clinical Events. Evaluation of additional criterion and/or repeat testing in 2-6 hours is suggested to rule out myocardial damage. >= 1.50 ng/ml Indicative of Myocardial Injury. Radiology Order: CT Chest Angio R/O PE Test: CT Chest Angio R/O PE REASON FOR EXAMINATION: Shortness of Breath; ; CLINICAL HISTORY: Dyspnea, exclude PE.; TECHNIQUE: Multiple incremental axial, coronal and oblique images are obtained from the thoracic inle; t to the upper abdomen. Intravenous contrast material was administered as per pulmonary embolism prot; ocol.; COMMENTS:; There is excellent opacification of pulmonary arterial system without evidence for pulmonary embolism; . Central pulmonary arterial tree is dilated compatible with hypertension.; Dense consolidation is noted involving RUL, RML, RLL and LLL compatible with multifocal pneumonia vs; aspiration. Trace right pleural effusion is seen.; There is no evidence of hilar or mediastinal lymphadenopathy. The heart is enlarged. Aorta is dilated; , ascending and artch measuring up to 4.3 cm.; Images of the upper abdomen demonstrate no evidence of adrenal mass. 6 mm right renal calculus is see; n.; The bony structures are free of lytic or blastic lesions. Multilevel degenerative changes are seen in; volving the visualized thoracolumbar spine.; Scattered calcifications are seen involving the aorta and major branches compatible with atherosclero; sis.; IMPRESSION:; No evidence for pulmonary embolism.; Central pulmonary arterial tree is dilated compatible with hypertension.; Dense consolidation is noted involving RUL, RML, RLL and LLL compatible with multifocal pneumonia vs; aspiration.; Trace right pleural effusion is seen.; Aorta is dilated, ascending and artch measuring up to 4.3 cm.; 6 mm right renal calculus is seen.; ; ; Outcome: 05:56 Decision to Hospitalize by Provider. mm11 10:03 Patient left the ED. dy Signatures: Dispatcher [employer] EDMS Tawny Christensen, RN RN kmg1 Ozzy , Jackie, RN RN Maria Esther Anaya, Reg Reg gb Westley Berumen, RN RN James Piedra, DO mm11 Iona Parr, RN RN jjr Rj Macias jc3 Soumya Fried, RN RN sls1 Hemanth Medina,RN RN Christopher Burrell, DIRECTOR OF MARKETING ANALYTICS DIRECTOR OF MARKETING ANALYTICS mdr Rosalie Foss,RT RT lf2 Emerald Elam, Reg Reg hs2 Isabella Henriquez,RN RN kas2 Sheyla Killian Jose, DIRECTOR OF MARKETING ANALYTICS DIRECTOR OF MARKETING ANALYTICS jmv Olimpia Brown,RN RN tm5 Chart Complete MTDD
--- NOTE | 2016-07-04 11:04 | EDDOCDS ---
Physician Documentation [facility] Name: Oswaldo Pineda Age: 80 yrs Sex: Male : 1935 Arrival Date: 07/02/2016 Time: 02:05 Bed Admit Hold Private MD: Disposition: 07/02/16 05:56 Hospitalization ordered by Denver Fletcher for Inpatient Admission. Preliminary diagnosis are Other pneumonia, unspecified organism, Hypoxemia. - Bed requested for PCU. - Status is Inpatient Admission. dy - Condition is Stable. - Problem is an acute exacerbation. - Symptoms have improved. Historical: - Allergies: ceftin --sick to stomach; Cipro PO (Upset stomach); - Home Meds: 1. levofloxacin 500 mg Oral tab 1 tab once daily - PMHx: abnormal EKG; atnersclerotic herart disease; COPD; edema localized; Hypertension; orthopnea; Palpitations; embolism, pulmanary; - PSHx: hernua reoair left inguinal; Tonsillectomy; skin cancer removed from nose---2014; - Exposure Risk Screening:: None identified. Vital Signs: 07/02 02:22 BP 121 / 85; Pulse 74; Resp 22; Temp 98(TE); Pulse Ox 87% on 4 lpm NC; Weight 78.93 kg kmg1 / 174.01 lbs (R); Height 5 ft. 10 in. (177.80 cm) (R); Pain 0/10; 02:25 BP 121 / 85 (auto/); kas2 02:25 Pulse 82 MON; Pulse Ox 98% ; kas2 02:34 BP 142 / 70 (auto/); kas2 02:34 Pulse Ox 97% ; kas2 02:48 BP 107 / 69 (auto/); kas2 02:48 Pulse Ox 93% ; kas2 03:00 BP 118 / 75 (auto/); kas2 03:00 Pulse Ox 91% ; kas2 03:16 BP 150 / 85 (auto/); kas2 03:16 Pulse Ox 93% ; kas2 03:30 BP 133 / 71 (auto/); kas2 03:30 Pulse Ox 91% ; kas2 03:36 Resp 20; Temp 97.9(O); kas2 03:45 BP 102 / 60 (auto/); kas2 03:45 Pulse Ox 91% ; kas2 04:28 BP 127 / 64 (auto/); kas2 04:28 Pulse Ox 90% ; kas2 04:43 BP 140 / 65 (auto/); kas2 04:43 Pulse Ox 91% ; kas2 04:58 BP 119 / 67 (auto/); kas2 04:58 Pulse 82 MON; Pulse Ox 89% ; kas2 05:13 BP 117 / 70 (auto/); kas2 05:13 Pulse 78 MON; Pulse Ox 90% ; kas2 06:23 Resp 18; Temp 98.9(O); Pain 0/10; kas2 02:22 Body Mass Index 24.97 (78.93 kg, 177.80 cm) kmg1 02:22 Placed on NRB, POX increased to 98% kmg1 MDM: 02:13 ECG WITH READING ER PHYS+CARDIAG ordered. EDMS 02:26 -Blood Culture (Adults Only), peripheral from different site, or from device/port/PICC mm11 etc. if present ordered. 02:26 Weight Trainer/Pulse Ox/q 15 min VS ordered. mm11 02:26 IV Saline Lock ordered. mm11 02:26 Oxygen at 4L/Min NC or Home dosage ordered. mm11 02:26 Rhythm Strip to chart ordered. mm11 02:26 Albuterol-Ipratropium 1 neb Nebulizer every 20 minutes x3 ordered. mm11 02:27 B-Type Natiuretic Peptide Ordered. EDMS 02:27 Basic Metabolic Profile Ordered. EDMS 02:27 CBC with Diff Ordered. EDMS 02:27 Cardiac Injury Profile Ordered. EDMS 02:27 Troponin Ordered. EDMS 02:27 -Blood Culture Ordered. EDMS 02:28 Chest, 1 View Ordered. EDMS 02:30 -Blood Culture (Adults Only), peripheral from different site, or from device/port/PICC jlm etc. if present complete. 02:31 BLOOD CULTURES Ordered. EDMS 02:38 -Arterial Blood Gas Ordered. EDMS 03:08 Basic Metabolic Profile Reviewed. mm11 03:08 CBC with Diff Reviewed. mm11 03:08 B-Type Natiuretic Peptide Reviewed. mm11 03:08 Cardiac Injury Profile Reviewed. mm11 03:08 Troponin Reviewed. mm11 03:46 -Arterial Blood Gas Reviewed. mm11 03:47 CT Chest Angio R/O PE Ordered. EDMS 04:13 Financial registration complete. hs2 04:29 [facility] Payment Agreement was scanned into [employer] and attached to record. hs2 05:46 Piperacillin-Tazobactam 3.375 grams IVPB once over 30 mins; dilute in 50mL of NS or D5W mm11 ordered. 05:46 vancomycin (loading dose for pt. wt. 70-79kg) 1750 mg IVPB once ordered. mm11 05:47 BED REQUEST+ADM ordered. EDMS 06:08 2 GRAM SODIUM DIET ordered. EDMS 06:09 TROPONIN Ordered. EDMS 06:09 TROPONIN Ordered. EDMS 06:09 TROPONIN Ordered. EDMS 06:10 BLOOD CULTURES Ordered. EDMS 06:10 RESPIRATORY PANEL Ordered. EDMS 06:10 SPUTUM CULTURE AND GRAM STAIN Ordered. EDMS 06:11 PHYSICAL THERAPY EVAL & TREAT ordered. EDMS 06:11 Admission / Observation Status ordered. EDMS 06:26 LEGIONELLA ANTIGEN URINE Ordered. EDMS 06:26 URINE STREP PNEUMONIAE ANTIGEN Ordered. EDMS 09:03 TROPONIN Reviewed. mm11 09:03 CT Chest Angio R/O PE Reviewed. mm11 19:17 T-Sheet-- Draft Copy was scanned into [employer] and attached to record. klr 07/03 12:30 ECG/EKG was scanned into [employer] and attached to record. gb Administered Medications: 07/02 02:32 Drug: Albuterol-Ipratropium 1 neb [ipratropium-albuterol 0.5 mg-3 mg(2.5 mg base)/3 mL lf2 nebulization soln (1 neb)] Route: Nebulizer; 03:14 Drug: Albuterol-Ipratropium 1 neb [ipratropium-albuterol 0.5 mg-3 mg(2.5 mg base)/3 mL lf2 nebulization soln (1 neb)] Route: Nebulizer; 06:15 Drug: Piperacillin-Tazobactam 3.375 grams [piperacillin-tazobactam 3.375 gram kas2 intravenous solution] Route: IVPB; Infused Over: 30 mins; Site: right antecubital; 06:57 Drug: vancomycin (loading dose for pt. wt. 70-79kg) 1750 mg [vancomycin 500 mg kas2 intravenous solution] Route: IVPB; Site: right antecubital; Signatures: Dispatcher [employer] EDRosa Mejia, Record Changer Assembler Unit deg Tawyn Christensen, RN RN kmg1 Maria Esther Lei, Reg Reg gb Westley Berumen, RN RN James Piedra, DO DO mm11 Soumya Fried RN RN sls1 Beatrice White, Record Changer Assembler Unit jlm Emerald Elam, Reg Reg hs2 Sheyla Killianr Rosalie Foss RT lf2 Isabella Henriquez RN kas2 The chart was reviewed and I authenticate all verbal orders and agree with the evaluation and treatment provided.Attachments: 04:29 [facility] Payment Agreement hs2 19:17 T-Sheet-- Draft Copy klr 07/03 12:30 ECG/EKG gb Chart Complete MTDD
--- NOTE | 2016-07-04 12:09 | IPNPDOC ---
Text Note Date of Service The patient was seen on 07/04/16. NOTE Subjective: Patient is an 80 year old male with a PMHx of HTN, DLP, non- obstructive CAD, Hx of PE x2 (on anticoagulation), Diastolic CHF, COPD on Home O2 (2L), who presented to the Er with SOB x 1 week. He coughed up yellow sputum and had a fever of 101.5 at home. He has attempted outpatient treatment with Levaquin, but failed to improve. He was seen and examined at the bedside today. He reports improvement in his breathing. Reports a mild cough still persists, but his SOB has improved. Objective: Vitals (See below) General: Lying in bed, no acute distress, comfortable, AAOx3 HEENT: NC, AT CVS: RRR, +S1S2 Lungs: Decreased sounds at right lung field, + Rhonchi at right lung field Abdomen: Soft, ND, NT, +BSx4 Extremities: -Edema, -Calf tenderness Assessment and plan: 1. Multifocal pneumonia - likely 2/2 CAP, less likly 2/2 aspiration - Presented with SOB, cough, fever and productive cough - Physical with rhonchi at R, increased supplemental oxygen requirement - Respiratory panel: Positive for Coronavirus 229E - Blood culture 07/02 negative, Sputum culture pending - CTA Chest 07/02: dense consolidation in R upper / middle / lower lobe - c/w Vanco and Zosyn 2. Atrial fibrillation - rate controlled; c/w amiodarone - c/w Eliquis 3. DLP - c/w atorvastatin 4. Allergic rhinitis - c/w cetirizine 5. BPH - c/w tamsulosin 6. COPD with chronic hypoxic (requires 2 L supplemental oxygen) - c/w advair, duoneb and supplemental O2 7. DVT prophylaxis - already on full anticoagulation with Eliquis VS,Fishbone, I+O VS, Fishbone, I+O Laboratory Tests 07/04/16 06:30 Calcium Level 8.2 L, Red Blood Count 3.70 L, Mean Corpuscular Volume 91.3, Mean Corpuscular Hemoglobin 29.3, Mean Corpuscular Hemoglobin Concent 32.1, Red Cell Distribution Width 12.8 Vital Signs Date Time Temp Pulse Resp B/P Pulse Ox O2 Delivery O2 Flow Rate FiO2 07/04/16 10:00 97.3 74 20 130/70 90 Nasal Cannula 6.0 07/04/16 06:15 50 I&O- Last 24 Hours up to 6 AM 07/04/16 06:00 Intake Total 1970 ml Output Total 2000 ml Balance -30 ml DANNIE LOPEZ MD Jul 04, 2016 12:09
--- NOTE | 2016-07-04 13:03 | PHACANCOPD ---
PHARMACY VANCOMYCIN DOSING Pt Demographics Demographics Patient Age:80 , Weight:79.300 , Gender: male Adjusted Body Weight Date: 07/02/16, Adjusted Body Weight: Kg Events Past 24 Hours Events Past 24 Hours: NO: Change in CrCl, Dialysis, Diuretic Therapy, Elevation in WBC, Fever, Other, Pending Diagnostics, Pending Procedures Vancomycin Vancomycin indication: pneumonia Vancomycin Target Ranges: 15-20 mcg/ml Vancomycin Load Y/N: Yes Load Dose Date Time Vancomycin Load Dose: 1750mg Date: 07/02 Time: ~0630 Vancomycin Dose Date: 07/04/16. Current Vancomycin Dose: [1500MG IV Q18H @ 21] Date: 07/02/16. Current Vancomycin Dose: [1g IV q18h @21] Intermittent Dosing?: No Labs Labs Item Value Date Time White Blood Count 10.8 K/mm3 H 07/02/16 0225 White Blood Count 9.8 K/mm3 07/03/16 0455 White Blood Count 9.3 K/mm3 07/04/16 0630 Creatinine 1.19 MG/DL 07/03/16 0455 Creatinine 1.03 MG/DL 07/04/16 0630 Vancomycin Level Trough 10.7 UG/ML 07/04/16 0740 Micro Microbiology 07/02/16 Blood Culture - Preliminary, Resulted No Growth after 48 hours. All Specime... 07/02/16 Blood Culture - Preliminary, Resulted No Growth after 48 hours. All Specime... 07/02/16 Blood Culture - Preliminary, Resulted No Growth after 48 hours. All Specime... 07/03/16 MRSA Screen, Resulted Pending 07/03/16 Respiratory Virus Panel (PCR) (JANEEN) - Final, Resulted Coronavirus 229E 07/02/16 Gram Stain - Final, Resulted 07/02/16 Sputum Culture, Resulted Pending Creatinine Clearance Date:07/02/16. Creatinine Clearance: [42 ml/min]. Pending Labs VANCO TROUGH 07/06 @ 0800 Assessment and Plan Maintaining Current Dose?: No Reason for dose change: Trough too low Pharmacist Note Pharmacist Note Date: 07/04/16. Pharmacist note: Vanco trough was below the target trough. Dose was adjusted to 1500mg iv q18h. CrCl has improved since initiation of therapy. Trough is scheduled to be drawn after two 1500mg doses (07/06 @ 0800). Cultures are still preliminary. Monitor renal function and adjust dose as needed. 07/03/16: I will schedule a vanco trough for tomorrow, 07/04/16 at 0800, prior to the 4th dose. The patient remains afebrile, and WBC is now WNL. Blood and sputum cultures are still pending. Scr has improved slightly from yesterday ( 1.39 to 1.19). We will continue to monitor and make adjustments as needed. Date: 07/02/16. Pharmacist note: pt was admitted for worsening pneumonia, failing outpatient levaquin therapy. He has been started on Zosyn and Vancomycin. He does not have a Hx of being on vancomycin at our facility and does not have a pertinent culture Hx. His SCr is currently elevated, baseline is ~1.1 mg/dl. He received a 1750mg vancomycin IV load in the ER and I have started him on 1g q18h. We will continue to monitor renal function and make adjustments as necessary. GEETHA RODRIGUEZ PHARMAC[facility] Jul 04, 2016 13:03
[2016-07-04 14:00] VITALS: BP 120/62
[2016-07-04 18:00] VITALS: BP 112/70
[2016-07-04] MEDS: CETIRIZINE (ZyrTEC) 10 MG TAB PO SCH (21:15)
[2016-07-04] MEDS: VANCOMYCIN HCL PEDIATRIC 1,500 MG in D5W 500 ML IV SCH (21:15)
[2016-07-04] MEDS: ATORVASTATIN 20 MG TAB PO SCH (21:15)
[2016-07-04] MEDS: TAMSULOSIN 0.4 MG CAP PO SCH (21:15)
[2016-07-04 22:00] VITALS: BP 134/72
[2016-07-05] MEDS: PIPERACILLIN/TAZOBACTAM SOD 3.375 GM in D5W MINI-BAG PLUS 50 ML IV SCH ×4 (00:48→18:18)
[2016-07-05 02:00] VITALS: BP 124/60
[2016-07-05] MEDS: IPRATROPIUM 0.5MG/ALBUTEROL 2.5MG INH SOL UD 3ML (DUONEB)(J7620) NEB SCH ×5 (03:33→19:08)
[2016-07-05 06:00] VITALS: BP 133/69
[2016-07-05 06:53] LABS: BLOOD UREA NITROGEN 9 MG/DL (7-18); CREATININE FOR GFR 0.98 MG/DL (0.70-1.30); GLUCOSE, FASTING 107 MG/DL (83-110); MEAN CORPUSCULAR HEMOGLOBIN 29.1 pg (27.0-33.0); MEAN CORPUSCULAR HGB CONC 31.7 g/dl (32.0-36.5); MEAN CORPUSCULAR VOLUME 91.6 fl (80.0-96.0); RED CELL DISTRIBUTION WIDTH 13.1 % (11.5-14.5); WHITE BLOOD COUNT 9.1 K/mm3 (4.0-10.0)
[2016-07-05 06:54] LABS: ANION GAP 9 MEQ/L (8-16); CALCIUM LEVEL 8.5 MG/DL (8.8-10.2); CARBON DIOXIDE LEVEL 29 MEQ/L (21-32); CHLORIDE LEVEL 102 MEQ/L (98-107); GLOMERULAR FILTRATION RATE > 60.0 (>35); POTASSIUM SERUM 3.4 MEQ/L (3.5-5.1); SODIUM LEVEL 140 MEQ/L (136-145)
[2016-07-05] MEDS ORDERED: POTASSIUM CHLORIDE 10 MEQ SR TABLET PO ONE (07:30)
[2016-07-05] MEDS: ADVAIR DISKUS 250/50 INH PWD INH SCH ×2 (07:56→19:07)
[2016-07-05] MEDS ORDERED: POTASSIUM CHLORIDE 10 MEQ SR TABLET PO SCH (09:00)
[2016-07-05] MEDS: LOSARTAN 50 MG TAB PO SCH ×2 (09:00→20:41)
[2016-07-05] MEDS: AMIODARONE 200 MG TAB (PACERONE) PO SCH (09:27)
[2016-07-05] MEDS: PROPRANOLOL 10 MG TAB PO SCH ×3 (09:27→20:40)
[2016-07-05 10:00] VITALS: BP 120/74
--- NOTE | 2016-07-05 12:10 | IPNPDOC ---
Text Note Date of Service The patient was seen on 07/05/16. NOTE Subjective: Patient is an 80 year old male with a PMHx of HTN, DLP, non- obstructive CAD, Hx of PE x2 (on anticoagulation), Diastolic CHF, COPD on Home O2 (2-4L), who presented to the ER with SOB x 1 week. He coughed up yellow sputum and had a fever of 101.5 at home. He has attempted outpatient treatment with Levaquin, but failed to improve. He was seen and examined at the bedside today. He reports that he is having trouble moving air in because of a stuffy nose. 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 Objective: Vitals (See below) General: Lying in bed, no acute distress, comfortable, AAOx3 HEENT: NC, AT CVS: RRR, +S1S2 Lungs: Decreased sounds at right lung field, + Rhonchi at right lung field, + Crackles at left lung base Abdomen: Soft, ND, NT, +BSx4 Extremities: -Edema, -Calf tenderness Assessment and plan: 1. Multifocal pneumonia - likely 2/2 CAP, less likely 2/2 aspiration - Presented with SOB, cough, fever and productive cough - Physical with rhonchi at R, increased supplemental oxygen requirement - New findings of crackles at left lung base - Respiratory panel: Positive for Coronavirus 229E - Blood culture / negative, Sputum culture with many yeast like organisms - CTA Chest /12: dense consolidation in R upper / middle / lower lobe - c/w Vanco and Zosyn (Day #4) - Given increasing requirement for oxygen will get repeat CXR to evaluate for any acute change and will discuss case with Dr. Hurd (Pulmonary) 2. History of PACs and nonsustained ventricular tachycardia - c/w amiodarone 3. DLP - c/w atorvastatin 4. Allergic rhinitis - c/w cetirizine 5. BPH - c/w tamsulosin 6. COPD with chronic hypoxic (requires 2 to 4L supplemental oxygen) - c/w advair, duoneb and supplemental O2 7. DVT prophylaxis - on Lovenox VS,Fishbone, I+O VS, Fishbone, I+O Laboratory Tests 07/05/16 06:32 Calcium Level 8.5 L, Red Blood Count 3.45 L, Mean Corpuscular Volume 91.6, Mean Corpuscular Hemoglobin 29.1, Mean Corpuscular Hemoglobin Concent 31.7 L, Red Cell Distribution Width 13.1 Vital Signs Date Time Temp Pulse Resp B/P Pulse Ox O2 Delivery O2 Flow Rate FiO2 07/05/16 10:00 96.7 64 17 120/74 89 Nasal Cannula 6.0 07/04/16 06:15 50 I&O- Last 24 Hours up to 6 AM 07/05/16 06:00 Intake Total 1530 ml Output Total 2050 ml Balance -520 ml DANNIE LOPEZ MD Jul 05, 2016 12:10 DANNIE LOPEZ MD Jul 05, 2016 12:10
[2016-07-05] MEDS: ENOXAPARIN 40 MG/0.4 ML SYRINGE (J1650) SC SCH (13:23)
[2016-07-05] MEDS: SODIUM CHLORIDE NASAL 0.65% SPRAY BTL (OCEAN) PRN ×3 (13:23→20:42)
[2016-07-05 13:57] LABS: ABG BASE EXCESS 6.1 (-2.0-2.0); ABG HCO3 30.1 MEQ/L (22.0-26.0); ABG PARTIAL PRESSURE CO2 41.5 mmHg (35.0-45.0); ABG PARTIAL PRESSURE O2 62.4 mmHg (75.0-100.0); ABG STANDARD HCO3 29.9 MEQ/L (22.0-26.0); ABG TOTAL CO2 31.4 MEQ/L (23.0-31.0); ABG pH (ARTERIAL) 7.479 UNITS (7.350-7.450)
[2016-07-05 14:00] VITALS: BP 136/77
[2016-07-05] MEDS ORDERED: FUROSEMIDE 20 MG/2 ML VIAL (J1940) IV ONE (14:15)
[2016-07-05] MEDS: ACETAMINOPHEN TAB 650MG DOSE (2X325MG) PO PRN (14:23)
[2016-07-05] MEDS: VANCOMYCIN HCL PEDIATRIC 1,500 MG in D5W 500 ML IV SCH (14:30)
--- NOTE | 2016-07-05 14:52 | REP ---
PORTABLE CHEST: AP portable view of the chest is performed. There is mild increase in infiltrates in the right mid and lower lung zones. Infiltrates are seen in the left lung base essentially unchanged. The cardiomediastinal silhouette is unchanged. IMPRESSION: Mild increase in right lung infiltrates. No change in left basilar infiltrate. Signed by Toby Muñoz MD 07/06/2016 09:46 A
[2016-07-05] MEDS: CHLORTHALIDONE 12.5MG PER 1/2 TABLET PO SCH (15:45)
[2016-07-05] MEDS: MAGNESIUM OXIDE 400 MG TAB (MAG-OX) PO SCH (15:46)
[2016-07-05] MEDS: VITAMIN D 1,000 INTERNATIONAL UNITS TABLET PO SCH (15:46)
[2016-07-05] MEDS: POTASSIUM CHLORIDE 10 MEQ SR TABLET PO SCH (20:40)
[2016-07-05] MEDS: TAMSULOSIN 0.4 MG CAP PO SCH (20:40)
[2016-07-05] MEDS: CETIRIZINE (ZyrTEC) 10 MG TAB PO SCH (20:40)
[2016-07-05] MEDS: ATORVASTATIN 20 MG TAB PO SCH (20:40)
[2016-07-05 22:00] VITALS: BP 121/69
[2016-07-06] MEDS: PIPERACILLIN/TAZOBACTAM SOD 3.375 GM in D5W MINI-BAG PLUS 50 ML IV SCH ×5 (00:01→23:33)
[2016-07-06 00:06] LABS: ORGANISM ID Not indicated. (.); SPECIMEN SOURCE Urine (.)
[2016-07-06] MEDS: IPRATROPIUM 0.5MG/ALBUTEROL 2.5MG INH SOL UD 3ML (DUONEB)(J7620) NEB SCH ×6 (00:25→19:52)
[2016-07-06 02:00] VITALS: BP 101/52
[2016-07-06 06:00] VITALS: BP 134/69
[2016-07-06] MEDS: ADVAIR DISKUS 250/50 INH PWD INH SCH ×2 (07:43→19:52)
[2016-07-06 08:26] LABS: MEAN CORPUSCULAR HEMOGLOBIN 29.2 pg (27.0-33.0); MEAN CORPUSCULAR VOLUME 91.4 fl (80.0-96.0); WHITE BLOOD COUNT 8.8 K/mm3 (4.0-10.0)
[2016-07-06 08:37] VITALS: BP 145/73
[2016-07-06 08:55] LABS: ANION GAP 9 MEQ/L (8-16); BLOOD UREA NITROGEN 8 MG/DL (7-18); CALCIUM LEVEL 8.5 MG/DL (8.8-10.2); CARBON DIOXIDE LEVEL 32 MEQ/L (21-32); CHLORIDE LEVEL 101 MEQ/L (98-107); CREATININE FOR GFR 1.03 MG/DL (0.70-1.30); GLOMERULAR FILTRATION RATE > 60.0 (>35); GLUCOSE, FASTING 95 MG/DL (83-110); POTASSIUM SERUM 3.6 MEQ/L (3.5-5.1); SODIUM LEVEL 142 MEQ/L (136-145)
[2016-07-06] MEDS: CHLORTHALIDONE 12.5MG PER 1/2 TABLET PO SCH (09:02)
[2016-07-06] MEDS: ENOXAPARIN 40 MG/0.4 ML SYRINGE (J1650) SC SCH (09:02)
[2016-07-06] MEDS: MAGNESIUM OXIDE 400 MG TAB (MAG-OX) PO SCH (09:03)
[2016-07-06] MEDS: POTASSIUM CHLORIDE 10 MEQ SR TABLET PO SCH ×2 (09:03→21:14)
[2016-07-06] MEDS: AMIODARONE 200 MG TAB (PACERONE) PO SCH (09:03)
[2016-07-06] MEDS: VITAMIN D 1,000 INTERNATIONAL UNITS TABLET PO SCH (09:04)
[2016-07-06] MEDS: PROPRANOLOL 10 MG TAB PO SCH ×3 (09:04→21:15)
[2016-07-06] MEDS: LOSARTAN 50 MG TAB PO SCH ×2 (09:04→21:15)
[2016-07-06] MEDS: VANCOMYCIN HCL PEDIATRIC 1,500 MG in D5W 500 ML IV SCH (09:05)
--- NOTE | 2016-07-06 09:17 | PHACANCOPD ---
PHARMACY VANCOMYCIN DOSING Pt Demographics Demographics Patient Age:80 , Weight:79.300 , Gender: male Adjusted Body Weight Date: 07/02/16, Adjusted Body Weight: [78.9] Kg Events Past 24 Hours Events Past 24 Hours: NO: Change in CrCl, Dialysis, Diuretic Therapy, Elevation in WBC, Fever, Other, Pending Diagnostics, Pending Procedures Vancomycin Vancomycin indication: pneumonia Vancomycin Target Ranges: 15-20 mcg/ml Vancomycin Load Y/N: Yes Load Dose Date Time Vancomycin Load Dose: 1750mg Date: 07/02 Time: ~0630 Vancomycin Dose Date: 07/06/16. Current Vancomycin Dose: [1500MG IV Q18H] Date: 07/04/16. Current Vancomycin Dose: [1500MG IV Q18H @ 21] Date: 07/02/16. Current Vancomycin Dose: [1g IV q18h @21] Intermittent Dosing?: No Labs Labs Item Value Date Time White Blood Count 9.3 K/mm3 07/04/16 0630 White Blood Count 9.1 K/mm3 07/05/16 0632 White Blood Count 8.8 K/mm3 07/06/16 0804 Vancomycin Level Trough 10.7 UG/ML 07/04/16 0740 Vancomycin Level Trough 16.6 UG/ML 07/06/16 0804 Creatinine 1.03 MG/DL 07/04/16 0630 Creatinine 0.98 MG/DL 07/05/16 0632 Creatinine 1.03 MG/DL 07/06/16 0804 Micro Microbiology 07/02/16 Blood Culture - Preliminary, Resulted No Growth after 72 hours. All specime... 07/02/16 Blood Culture - Preliminary, Resulted No Growth after 72 hours. All specime... 07/02/16 Blood Culture - Preliminary, Resulted No Growth after 72 hours. All specime... 07/03/16 MRSA Screen - Final, Complete 07/03/16 Respiratory Virus Panel (PCR) (JANEEN) - Final, Complete Coronavirus 229E 07/02/16 Gram Stain - Final, Complete 07/02/16 Sputum Culture - Final, Complete Yeast Like Organism Creatinine Clearance Date:07/02/16. Creatinine Clearance: [42 ml/min]. Assessment and Plan Maintaining Current Dose?: Yes Reason for dose change: No Dose Change Pharmacist Note Pharmacist Note Date: 07/06/16. Pharmacist note: Patients trough was therapeutic (16.6) after two 1500mg doses. Remains on 1500mg iv q18h. Continue to monitor renal function and adjust dose as needed. Date: 07/04/16. Pharmacist note: Vanco trough was below the target trough. Dose was adjusted to 1500mg iv q18h. CrCl has improved since initiation of therapy. Trough is scheduled to be drawn after two 1500mg doses (07/06 @ 0800). Cultures are still preliminary. Monitor renal function and adjust dose as needed. 07/03/16: I will schedule a vanco trough for tomorrow, 07/04/16 at 0800, prior to the 4th dose. The patient remains afebrile, and WBC is now WNL. Blood and sputum cultures are still pending. Scr has improved slightly from yesterday ( 1.39 to 1.19). We will continue to monitor and make adjustments as needed. Date: 07/02/16. Pharmacist note: pt was admitted for worsening pneumonia, failing outpatient levaquin therapy. He has been started on Zosyn and Vancomycin. He does not have a Hx of being on vancomycin at our facility and does not have a pertinent culture Hx. His SCr is currently elevated, baseline is ~1.1 mg/dl. He received a 1750mg vancomycin IV load in the ER and I have started him on 1g q18h. We will continue to monitor renal function and make adjustments as necessary. GEETHA RODRIGUEZ PHARMAC[facility] Jul 06, 2016 09:17
[2016-07-06] MEDS ORDERED: FUROSEMIDE 40 MG/4 ML VIAL (J1940) IV ONE (10:15)
--- NOTE | 2016-07-06 13:19 | IPNPDOC ---
Text Note Date of Service The patient was seen on 07/06/16. NOTE Subjective: Patient is an 80 year old male with a PMHx of HTN, DLP, non- obstructive CAD, Hx of PE x2 (on anticoagulation), Diastolic CHF, COPD on Home O2 (2-4L), who presented to the ER with SOB x 1 week. He coughed up yellow sputum and had a fever of 101.5 at home. He has attempted outpatient treatment with Levaquin, but failed to improve. He was seen and examined at the bedside today. He reports that there has not been any significant change from yesterday. Objective: Vitals (See below) General: Lying in bed, no acute distress, comfortable, AAOx3 HEENT: NC, AT CVS: RRR, +S1S2 Lungs: Decreased sounds at right lung field, + Rhonchi at right lung field, Abdomen: Soft, ND, NT, +BSx4 Extremities: -Edema, -Calf tenderness Assessment and plan: 1. Multifocal pneumonia - likely 2/2 CAP or viral pneumonia, less likely 2/2 aspiration - Presented with SOB, cough, fever and productive cough - History of left diaphragm paralysis - Physical with rhonchi at R, increased supplemental oxygen requirement - Respiratory panel: Positive for Coronavirus 229E - Blood culture 07/02 negative, Sputum culture with many yeast like organisms - CTA Chest 07/02: dense consolidation in R upper / middle / lower lobe - c/w Vanco and Zosyn (Day #5) - Case discussed with Dr. Hurd (Pulmonary) - chest XR could be worsening infiltrate or possible pulmonary edema - Has received Lasix 20mg yesterday, and will get additional 40mg IV today 2. History of PACs and nonsustained ventricular tachycardia - c/w amiodarone 3. DLP - c/w atorvastatin 4. Allergic rhinitis - c/w cetirizine 5. BPH - c/w tamsulosin 6. COPD with chronic hypoxic (requires 2 to 4L supplemental oxygen) - c/w advair, duoneb and supplemental O2 7. DVT prophylaxis - on Lovenox VS,Fishbone, I+O VS, Fishbone, I+O Laboratory Tests 07/06/16 08:04 Calcium Level 8.5 L, Red Blood Count 3.62 L, Mean Corpuscular Volume 91.4, Mean Corpuscular Hemoglobin 29.2, Mean Corpuscular Hemoglobin Concent 32.0, Red Cell Distribution Width 13.0 Vital Signs Date Time Temp Pulse Resp B/P Pulse Ox O2 Delivery O2 Flow Rate FiO2 07/06/16 09:04 145/73 07/06/16 09:04 66 07/06/16 09:00 Nasal Cannula 6.0 07/06/16 08:37 97.9 16 87 07/04/16 06:15 50 I&O- Last 24 Hours up to 6 AM 07/06/16 06:00 Intake Total 3060 ml Output Total 2820 ml Balance 240 ml DANNIE LOPEZ MD Jul 06, 2016 13:19
[2016-07-06 13:52] VITALS: BP 120/74
[2016-07-06 18:00] VITALS: BP 123/78
[2016-07-06] MEDS: ATORVASTATIN 20 MG TAB PO SCH (21:15)
[2016-07-06] MEDS: CETIRIZINE (ZyrTEC) 10 MG TAB PO SCH (21:15)
[2016-07-06] MEDS: TAMSULOSIN 0.4 MG CAP PO SCH (21:16)
[2016-07-06 22:00] VITALS: BP 133/76
[2016-07-07] VITALS (8 sets, daily range): BP systolic 105–128; BP diastolic 51–73; O2SAT 93–94
[2016-07-07] MEDS: IPRATROPIUM 0.5MG/ALBUTEROL 2.5MG INH SOL UD 3ML (DUONEB)(J7620) NEB SCH ×7 (00:07→23:14)
[2016-07-07] MEDS: VANCOMYCIN HCL PEDIATRIC 1,500 MG in D5W 500 ML IV SCH (02:43)
[2016-07-07] MEDS: PIPERACILLIN/TAZOBACTAM SOD 3.375 GM in D5W MINI-BAG PLUS 50 ML IV SCH ×2 (05:07→11:22)
[2016-07-07 06:10] LABS: MEAN CORPUSCULAR HEMOGLOBIN 28.6 pg (27.0-33.0); MEAN CORPUSCULAR HGB CONC 31.9 g/dl (32.0-36.5); MEAN CORPUSCULAR VOLUME 89.6 fl (80.0-96.0); RED CELL DISTRIBUTION WIDTH 13.1 % (11.5-14.5); WHITE BLOOD COUNT 7.6 K/mm3 (4.0-10.0)
[2016-07-07 06:22] LABS: ANION GAP 8 MEQ/L (8-16); BLOOD UREA NITROGEN 8 MG/DL (7-18); CALCIUM LEVEL 8.5 MG/DL (8.8-10.2); CARBON DIOXIDE LEVEL 32 MEQ/L (21-32); CHLORIDE LEVEL 97 MEQ/L (98-107); CREATININE FOR GFR 1.08 MG/DL (0.70-1.30); GLOMERULAR FILTRATION RATE > 60.0 (>35); GLUCOSE, FASTING 120 MG/DL (83-110); SODIUM LEVEL 137 MEQ/L (136-145)
[2016-07-07] MEDS: ADVAIR DISKUS 250/50 INH PWD INH SCH ×2 (07:24→21:23)
[2016-07-07] MEDS ORDERED: POTASSIUM CHLORIDE 10 MEQ SR TABLET PO ONE (08:00)
[2016-07-07] MEDS: LOSARTAN 50 MG TAB PO SCH ×2 (09:00→20:56)
[2016-07-07] MEDS: CHLORTHALIDONE 12.5MG PER 1/2 TABLET PO SCH (09:00)
[2016-07-07] MEDS: POTASSIUM CHLORIDE 10 MEQ SR TABLET PO SCH ×2 (09:56→21:04)
[2016-07-07] MEDS: VITAMIN D 1,000 INTERNATIONAL UNITS TABLET PO SCH (09:56)
[2016-07-07] MEDS: PROPRANOLOL 10 MG TAB PO SCH ×3 (09:57→21:05)
[2016-07-07] MEDS: MAGNESIUM OXIDE 400 MG TAB (MAG-OX) PO SCH (09:57)
[2016-07-07] MEDS: AMIODARONE 200 MG TAB (PACERONE) PO SCH (09:57)
[2016-07-07] MEDS ORDERED: FUROSEMIDE 100 MG/10 ML VIAL (J1940) IV ONE (10:15)
--- NOTE | 2016-07-07 11:47 | IPNPDOC ---
Text Note Date of Service The patient was seen on 07/07/16. NOTE Subjective: Patient is an 80 year old male with a PMHx of HTN, DLP, non- obstructive CAD, Hx of PE x2 (on anticoagulation), Diastolic CHF, COPD on Home O2 (2-4L), who presented to the ER with SOB x 1 week. He coughed up yellow sputum and had a fever of 101.5 at home. He has attempted outpatient treatment with Levaquin, but failed to improve. He was seen and examined at the bedside today. He does not have any new complaints today. Objective: Vitals (See below) General: Lying in bed, no acute distress, comfortable, AAOx3 HEENT: NC, AT CVS: RRR, +S1S2 Lungs: Decreased sounds at right lung field, + Rhonchi at right lung field Abdomen: Soft, ND, NT, +BSx4 Extremities: -Edema, -Calf tenderness Assessment and plan: 1. Multifocal pneumonia - likely 2/2 CAP or viral pneumonia, less likely 2/2 aspiration, possible ARDS - Presented with SOB, cough, fever and productive cough - History of left diaphragm paralysis - Physical with rhonchi at R, increased supplemental oxygen requirement - Respiratory panel: Positive for Coronavirus 229E - Blood culture 07/02 negative, Sputum culture with many yeast like organisms - CTA Chest 07/02: dense consolidation in R upper / middle / lower lobe - c/w Vanco and Zosyn (Day #6) - Case discussed with Dr. Hurd (Pulmonary) - chest XR could be worsening infiltrate or possible pulmonary edema - Will receive additional Lasix 60mg IV - Will consult pulmonary (Dr. Pan) - appreciate their input 2. History of PACs and nonsustained ventricular tachycardia - c/w amiodarone 3. DLP - c/w atorvastatin 4. Allergic rhinitis - c/w cetirizine 5. BPH - c/w tamsulosin 6. COPD with chronic hypoxic (requires 2 to 4L supplemental oxygen) - c/w advair, duoneb and supplemental O2 7. DVT prophylaxis - on Lovenox VS,Fishbone, I+O VS, Fishbone, I+O Laboratory Tests 07/07/16 05:48 Calcium Level 8.5 L, Red Blood Count 3.48 L, Mean Corpuscular Volume 89.6, Mean Corpuscular Hemoglobin 28.6, Mean Corpuscular Hemoglobin Concent 31.9 L, Red Cell Distribution Width 13.1 Vital Signs Date Time Temp Pulse Resp B/P Pulse Ox O2 Delivery O2 Flow Rate FiO2 07/07/16 10:00 96.5 63 20 118/73 85 Nasal Cannula 8.0 07/04/16 06:15 50 I&O- Last 24 Hours up to 6 AM 07/07/16 06:00 Intake Total 5260 ml Output Total 3500 ml Balance 1760 ml DANNIE LOPEZ MD Jul 07, 2016 11:47
[2016-07-07] MEDS: ACETAMINOPHEN TAB 650MG DOSE (2X325MG) PO PRN (14:59)
[2016-07-07] MEDS: predniSONE 20 MG TAB PO SCH (17:49)
--- NOTE | 2016-07-07 17:52 | CR ---
DATE OF CONSULTATION: 07/07/2016 REQUESTING PROVIDER: Dr. Ethan Navas CONSULTING PHYSICIAN: Dr. Isidro Pan. REASON FOR CONSULTATION: Hypoxia. HISTORY OF PRESENT ILLNESS: Mr. Pineda is an 80-year-old male with past medical history significant for chronic obstructive pulmonary disease, Gold classification III, chronic hypoxic respiratory failure requiring 2 liters oxygen, pulmonary embolism times two, left hemidiaphragm dysfunction with paradoxic motion, nonobstructive coronary artery disease, gout, dyslipidemia, hypertension, skin cancer of the nose, chronic tremor, diastolic dysfunction on echocardiogram who presented to the hospital complaining of cold-like symptoms with progression to increased dyspnea and hemoptysis. The patient reports that symptoms originally started a couple days before the Superbowl. At first he started to experience cold symptoms with generalized fatigue, chills, cough, and fever at home. He reports that initially his sputum was yellow but then progressed to bhupendra blood. He presented to outpatient [facility], where sputum culture was obtained, which just showed a few yeast. Patient had a chest x-ray done as outpatient, which showed right lower lobe and left upper lobe infiltrates with small right pleural effusion. He went on to have a chest CT with documented results showing some infiltrates bilaterally with small bilateral pleural effusion. He was initiated on Levaquin. At that time, given his complaints of hemoptysis, his Eliquis was discontinued. During office visit, patient had been requiring more oxygen, as he was saturating 76% on room air. With 3 liters he was saturating 87%. His oxygen was increased to 4 liters to obtain a saturation of 90%, and the patient went home on this increased oxygen requirement. He was also started on nebulizer treatments with albuterol. The patient reports that his symptoms did not improve when he went home. He continued to have cough with hemoptysis and increased shortness of breath with exertion and presented to the emergency department. Prior to this acute illness, patient was fully mobile. He was walking up to one mile three to four times a week. He reported that toward the latter part of his exercise he would need to use the oxygen but only uses it as needed. During his office visit on June 29, the patient had a spirometry done, which revealed reduced forced vital capacity with an FVC of 61% predicted value. FEV was severely low at 36%. His FEV1/FEC ratio was reduced at 57%. His flow volume curve was prolonged and overall showed severe air flow obstruction. Today, patient reports that he continues to have shortness of breath with exertion. He states that his hemoptysis has improved. He only had one episode this morning, and it was less than it was previously. He reports that he has some lower extremity edema at home, which has greatly improved after receiving Lasix. He has chronic nasal congestion, which makes it difficult for him to breathe as well. He has been afebrile during hospitalization. No chills currently. No nausea, vomiting, diarrhea, or abdominal pain. He does admit to a mild headache. No dizziness. No visual disturbances. No acute changes to his hearing. The patient reports that he is not able to sleep on his back secondary to his chronic nasal congestion. He states that since he has been acutely ill, he has had a couple of episodes where he became short of breath while sleeping. He reports no history of orthopnea or paroxysmal nocturnal dyspnea prior to his acute illness. Denies any urinary issues, including change in frequency, hematuria, or dysuria. No blood in his stool. No history of diabetes or thyroid disorder. No paresthesias or syncope. No rashes or unusual skin lesions. The patient usually requires 2 liters at home as needed. His oxygen was increased to 4 liters during his visit with [facility]. He is currently requiring 8 liters of supplemental oxygen. A pulmonary consult was requested secondary to patient's persistent hypoxia with history of chronic obstructive pulmonary disease (COPD) and new onset of viral pneumonia. PAST MEDICAL HISTORY: 1. COPD, Gold classification III. 2. Pulmonary embolism in October 2013 and July 2015. 3. Left hemidiaphragm dysfunction with paradoxical motion. 4. Nonobstructive coronary artery disease. 5. Chronic hypoxic respiratory failure, requiring 2 liters as needed. 6. Dyslipidemia. 7. Hypertension. 8. Gout. 9. History of skin cancer of the nose. 10. History of tremor. 11. A [id number] smoking history. 12. Diastolic dysfunction on echocardiogram obtained in July 2015. 13. History of premature atrial contractions (PACs) and nonsustained ventricular tachycardia. HOME MEDICATIONS: - Ventolin inhaler two puffs inhaled as needed - albuterol sulfate nebulizer inhaled every 6 hours as needed - amiodarone 200 mg by mouth daily - Anoro Ellipta one inhalation daily - Eliquis 5 mg by mouth twice daily - atorvastatin 40 mg by mouth daily - cetirizine 10 mg by mouth at nighttime - chlorthalidone 12.5 mg by mouth daily - vitamin D 1000 units by mouth daily - Colace 100 mg by mouth daily as needed - Levaquin 500 mg by mouth daily for 10 days, started on June 29 - losartan 50 mg by mouth twice daily - magnesium oxide 400 mg by mouth daily - potassium chloride 20 mEq twice daily - propranolol 10 mg by mouth three times daily - Flomax 0.4 mg by mouth at bedtime ALLERGIES: CIPROFLOXACIN, (gastrointestinal (GI) upset), (GI upset). PAST SURGICAL HISTORY: 1. Cardiac catheterization in 2009. 2. Removal of lesion on the nose. SOCIAL HISTORY: The patient is a former smoker, quit 10-15 years ago. He admits to alcohol use, about five to six beers per week. No illicit drug use. He lives alone. 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 REVIEW OF SYSTEMS: As per history of present illness (HPI). All other 10-point review of systems is negative. PHYSICAL EXAMINATION: VITAL SIGNS: Temperature 97.9, pulse 66, respiratory rate 18, blood pressure 116/67, pulse oximetry 91% on 8 liters high-flow cannula. GENERAL: The patient is alert and oriented times three in no acute distress. HEENT: Normocephalic, atraumatic. Extraocular muscles are intact. Pupils are equally round and reactive to light. No scleral icterus. Moist mucosa. NECK: Supple. No cervical lymphadenopathy. No significant jugular venous distension appreciated. CHEST: Symmetric with no use accessory muscles. HEART: Normal S1, S2. It appears regular. No harsh murmur appreciated. LUNGS: The patient is not moving much air bilaterally. Right side is more diminished than the left side. Occasional right-sided crackles appreciated. ABDOMEN: Soft, nontender, nondistended. Positive bowel sounds. EXTREMITIES: Trace ankle edema. No cyanosis. Positive pedal pulses bilaterally. SKIN: Warm and dry. No rashes noted. NEUROLOGIC: No focal deficits. Cranial nerves II-XII are grossly intact. Motor and sensation intact. LABORATORY DATA: WBC 7.6, hemoglobin 10.0, hematocrit 31.2, platelet count 390. Sodium 137, potassium 3.0, chloride 97, carbon dioxide 32, anion gap 8, BUN 8, creatinine 1.08, GFR greater than 60, fasting glucose 120, calcium 8.5. Last ABG done on July 05 showed a pH of 7.48, pO2 of 62.4, HCO3 of 30.1, pCO2 of 41.5, oxygen saturation 92. Serology done during hospitalization is negative for Legionella antigen and Streptococcus Pneumoniae. Microbiology: Patient had blood cultures which showed no growth. Sputum culture collected on July 02 shows a few yeast-like organisms. His respiratory virus panel was positive for Coronavirus. He had two previous sputum cultures collected on June 29 and June 30, which also showed few yeast. No bacterial growth. IMAGING STUDIES: The patient's chest CT that was done on June 28 showed bilateral scattered, patchy infiltrates with dense consolidative infiltrate in the right lower lobe. Small bilateral pleural effusions. Mildly enlarged precarinal lymph node. Chest x-ray done on July 02 shows findings consistent with COPD, fibrosis with bullous emphysematous changes, bilateral lower lobe bibasilar infiltrates, left greater than right. New patchy perihilar opacity in left lateral base,. CT angiogram done on July 02 revealed no evidence of pulmonary embolism. Central pulmonary artery tree is dilated. Dense consolidation noted in the right upper lobe, right middle lobe, right lower lobe, and left lower lobe compatible with multifocal pneumonia. Trace right pleural effusion. Aorta is dilated, measuring up to 4.3 cm. Patient had two subsequent chest x-rays, last one done on July 05, which showed mild increase in right lung infiltrates. No change in left basilar infiltrate. ASSESSMENT AND PLAN: 1. Acute on chronic hypoxic respiratory failure, likely secondary to multifocal viral pneumonia and likely interstitial edema. The patient was receiving vancomycin and Zosyn now for several days. Prior to that he was on Levaquin. He has had three sputum cultures, all of which grew a few yeast. No bacteria. Initial sputum culture was obtained prior to even starting antibiotics. Given his three negative sputum cultures and respiratory panel showing Coronavirus, antibiotics could be discontinued. The patient is afebrile and does not have a white count. His last chest x-ray did show what looks like some interstitial fluid, and patient should be diuresis when net negative of 1 liter. He was in the positive balance yesterday. He is not moving much air; therefore, we will add prednisone to his regimen. He has a virus which is causing his breathing issues, and likely time is what he needs for this to resolve. Continue with bronchodilator therapy. DuoNeb as needed. 2. Hemoptysis. The patient reports that this is improving. Likely that this may be a combination of his acute infection and possibly some alveolar bleeding from his Eliquis, but this not for certain. Nonetheless, it is improving, and continued improvement is anticipated with improvement of his lungs. 3. Chronic obstructive pulmonary disease, Gold classification III. Given his viral infection, it is possible that he may have some chronic obstruction going on, especially with his poor air movement. Will add oral steroids to his regimen. 4. History of pulmonary embolism in October 2013 and again in July 2015. At this time, his Eliquis has been discontinued secondary to his hemoptysis. He will likely need to be anticoagulated once his acute issues have resolved. 5. Chronic left hemidiaphragm dysfunction, unchanged. 6. History of nonobstructive coronary artery disease. The patient is on a beta dixon and statin therapy. 7. History of hypertension. The patient is on chlorthalidone and losartan currently. 8. History of premature atrial contractions (PACs) and nonsustained ventricular tachycardia. He follows with cardiology and remains on amiodarone. 9. Hypokalemia. The patient has a potassium of 3.0. Oral potassium supplementation has already been given. Continue to monitor electrolytes and renal function while being diuresed. This is being managed by primary team. 10. History of diastolic dysfunction on previous echocardiogram in July 2015. That echocardiogram showed an ejection fraction of 65%, grade 1 diastolic dysfunction, mild concentric left ventricular hypertrophy, borderline left atrial dilatation, mild elevation of pulmonary artery systolic pressure, mild dilatation of the aortic root, mild aortic valve sclerosis, mild aortic regurgitation, mild mitral annular calcification. 11. Deep vein thrombosis (DVT) prophylaxis. The patient is on thromboembolic deterrents (TEDs) and sequentials. Thank you for the consultation and allowing us to participate in the care of Mr. Pineda. We will continue to follow along with you. My preceptor for this patient encounter was Dr. Isidro Pan. The preceptor was physically present in the building during the encounter and was fully available as needed. All aspects of the patient interview, examination, medical decision making process, and medical care plan development were reviewed and approved by the preceptor. The preceptor is aware and concurs with the plan as stated in the body of this note and will attest to such by his/her co-signature.
[2016-07-07] MEDS: TAMSULOSIN 0.4 MG CAP PO SCH (21:04)
[2016-07-07] MEDS: ATORVASTATIN 20 MG TAB PO SCH (21:04)
[2016-07-07] MEDS: CETIRIZINE (ZyrTEC) 10 MG TAB PO SCH (21:04)
[2016-07-08] VITALS (10 sets, daily range): BP systolic 106–165; BP diastolic 58–73; O2SAT 90–94
[2016-07-08] MEDS: IPRATROPIUM 0.5MG/ALBUTEROL 2.5MG INH SOL UD 3ML (DUONEB)(J7620) NEB SCH ×5 (04:53→20:00)
[2016-07-08] MEDS: predniSONE 20 MG TAB PO SCH (05:22)
[2016-07-08 06:10] LABS: CALCIUM LEVEL 9.2 MG/DL (8.8-10.2); CREATININE FOR GFR 1.32 MG/DL (0.70-1.30); GLOMERULAR FILTRATION RATE 55.3 (>35)
[2016-07-08 06:13] LABS: MEAN CORPUSCULAR HEMOGLOBIN 29.5 pg (27.0-33.0); MEAN CORPUSCULAR HGB CONC 32.7 g/dl (32.0-36.5); MEAN CORPUSCULAR VOLUME 90.2 fl (80.0-96.0); WHITE BLOOD COUNT 5.7 K/mm3 (4.0-10.0)
[2016-07-08] MEDS: ADVAIR DISKUS 250/50 INH PWD INH SCH ×2 (07:31→21:39)
[2016-07-08] MEDS: POTASSIUM CHLORIDE 10 MEQ SR TABLET PO SCH ×2 (10:30→21:59)
[2016-07-08] MEDS: CHLORTHALIDONE 12.5MG PER 1/2 TABLET PO SCH (10:30)
[2016-07-08] MEDS: VITAMIN D 1,000 INTERNATIONAL UNITS TABLET PO SCH (10:31)
[2016-07-08] MEDS: MAGNESIUM OXIDE 400 MG TAB (MAG-OX) PO SCH (10:31)
[2016-07-08] MEDS: PROPRANOLOL 10 MG TAB PO SCH ×3 (10:33→22:05)
[2016-07-08] MEDS: LOSARTAN 50 MG TAB PO SCH ×2 (10:34→22:02)
[2016-07-08] MEDS: FUROSEMIDE 40 MG/4 ML VIAL (J1940) IV SCH ×2 (10:34→16:21)
[2016-07-08] MEDS: AMIODARONE 200 MG TAB (PACERONE) PO SCH (10:34)
--- NOTE | 2016-07-08 12:44 | IPNPDOC ---
Text Note Date of Service The patient was seen on 07/08/16. NOTE Subjective: Patient is an 80 year old male with a PMHx of HTN, DLP, non- obstructive CAD, Hx of PE x2 (on anticoagulation), Diastolic CHF, COPD on Home O2 (2-4L), who presented to the ER with SOB x 1 week. He coughed up yellow sputum and had a fever of 101.5 at home. He has attempted outpatient treatment with Levaquin, but failed to improve. He was seen and examined at the bedside today. He does not have any new complaints today. Has had improvement in breathing status. Objective: Vitals (See below) General: Lying in bed, no acute distress, comfortable, AAOx3 HEENT: NC, AT CVS: RRR, +S1S2 Lungs: Decreased sounds at right lung field, + Rhonchi at right lung field Abdomen: Soft, ND, NT, +BSx4 Extremities: -Edema, -Calf tenderness Assessment and plan: 1. Multifocal pneumonia - likely 2/2 CAP or viral pneumonia, less likely 2/2 aspiration, possible ARDS - Presented with SOB, cough, fever and productive cough - History of left diaphragm paralysis - Physical with rhonchi at R, increased supplemental oxygen requirement - Respiratory panel: Positive for Coronavirus 229E - Blood culture 07/02 negative, Sputum culture with many yeast like organisms - CTA Chest 07/02: dense consolidation in R upper / middle / lower lobe - s/p Vanco and Zosyn - Will decreased frequency of lasix given YINA - Dr. Pan (Pulmonary) on consult - appreciate their input; started prednisone 2. History of PACs and nonsustained ventricular tachycardia - c/w amiodarone 3. DLP - c/w atorvastatin 4. Allergic rhinitis - c/w cetirizine 5. BPH - c/w tamsulosin 6. COPD with chronic hypoxic (requires 2 to 4L supplemental oxygen) - c/w advair, duoneb and supplemental O2 7. DVT prophylaxis - on SCDs VS,Fishbone, I+O VS, Fishbone, I+O Laboratory Tests 07/08/16 05:31 Calcium Level 9.2, Red Blood Count 3.66 L, Mean Corpuscular Volume 90.2, Mean Corpuscular Hemoglobin 29.5, Mean Corpuscular Hemoglobin Concent 32.7, Red Cell Distribution Width 13.0 Vital Signs Date Time Temp Pulse Resp B/P Pulse Ox O2 Delivery O2 Flow Rate FiO2 07/08/16 10:33 72 120/76 07/08/16 10:00 97.1 18 92 High Flow Cannula 4.0 07/04/16 06:15 50 I&O- Last 24 Hours up to 6 AM 07/08/16 06:00 Intake Total 1200 ml Output Total 1825 ml Balance -625 ml DANNIE LOPEZ MD Jul 08, 2016 12:44
[2016-07-08] MEDS: TAMSULOSIN 0.4 MG CAP PO SCH (21:59)
[2016-07-08] MEDS: CETIRIZINE (ZyrTEC) 10 MG TAB PO SCH (21:59)
[2016-07-08] MEDS: ATORVASTATIN 20 MG TAB PO SCH (21:59)
[2016-07-09] VITALS (8 sets, daily range): BP systolic 115–163; BP diastolic 55–87; O2SAT 90
[2016-07-09] MEDS: IPRATROPIUM 0.5MG/ALBUTEROL 2.5MG INH SOL UD 3ML (DUONEB)(J7620) NEB SCH ×7 (00:31→23:41)
[2016-07-09 06:34] LABS: MEAN CORPUSCULAR HEMOGLOBIN 29.1 pg (27.0-33.0); MEAN CORPUSCULAR HGB CONC 32.5 g/dl (32.0-36.5); MEAN CORPUSCULAR VOLUME 89.7 fl (80.0-96.0); RED CELL DISTRIBUTION WIDTH 12.9 % (11.5-14.5)
[2016-07-09 06:40] LABS: CALCIUM LEVEL 9.4 MG/DL (8.8-10.2); CREATININE FOR GFR 1.36 MG/DL (0.70-1.30); GLOMERULAR FILTRATION RATE 53.4 (>35); POTASSIUM SERUM 3.7 MEQ/L (3.5-5.1)
[2016-07-09] MEDS: ADVAIR DISKUS 250/50 INH PWD INH SCH ×2 (09:01→20:09)
[2016-07-09] MEDS: POTASSIUM CHLORIDE 10 MEQ SR TABLET PO SCH ×2 (09:46→21:34)
[2016-07-09] MEDS: AMIODARONE 200 MG TAB (PACERONE) PO SCH (09:47)
[2016-07-09] MEDS: MAGNESIUM OXIDE 400 MG TAB (MAG-OX) PO SCH (09:47)
[2016-07-09] MEDS: CHLORTHALIDONE 12.5MG PER 1/2 TABLET PO SCH (09:47)
[2016-07-09] MEDS: LOSARTAN 50 MG TAB PO SCH ×2 (09:47→21:35)
[2016-07-09] MEDS: PROPRANOLOL 10 MG TAB PO SCH ×3 (09:48→21:34)
[2016-07-09] MEDS: predniSONE 20 MG TAB PO SCH (09:48)
[2016-07-09] MEDS: VITAMIN D 1,000 INTERNATIONAL UNITS TABLET PO SCH (09:49)
--- NOTE | 2016-07-09 12:50 | IPNPDOC ---
Text Note Date of Service The patient was seen on 07/09/16. NOTE Subjective: Patient is an 80 year old male with a PMHx of HTN, DLP, non- obstructive CAD, Hx of PE x2 (on anticoagulation), Diastolic CHF, COPD on Home O2 (2-4L), who presented to the ER with SOB x 1 week. He coughed up yellow sputum and had a fever of 101.5 at home. He has attempted outpatient treatment with Levaquin, but failed to improve. He was seen and examined at the bedside today. He reports he is feeling well. Objective: Vitals (See below) General: Lying in bed, no acute distress, comfortable, AAOx3 HEENT: NC, AT CVS: RRR, +S1S2 Lungs: Decreased sounds at right lung field, + Rhonchi at right lung field Abdomen: Soft, ND, NT, +BSx4 Extremities: -Edema, -Calf tenderness Assessment and plan: 1. Multifocal pneumonia - likely 2/2 CAP or viral pneumonia, less likely 2/2 aspiration, possible ARDS - Presented with SOB, cough, fever and productive cough - History of left diaphragm paralysis - Physical with rhonchi at R, increased supplemental oxygen requirement - Respiratory panel: Positive for Coronavirus 229E - Blood culture 07/02 negative, Sputum culture with many yeast like organisms - CTA Chest 07/02: dense consolidation in R upper / middle / lower lobe - s/p Vanco and Zosyn - c/w Prednisone - Will hold lasix given YINA - Dr. Pan (Pulmonary) on consult - appreciate their input 2. History of PACs and nonsustained ventricular tachycardia - c/w amiodarone 3. DLP - c/w atorvastatin 4. Allergic rhinitis - c/w cetirizine 5. BPH - c/w tamsulosin 6. COPD with chronic hypoxic (requires 2 to 4L supplemental oxygen) - c/w advair, duoneb and supplemental O2 7. DVT prophylaxis - on SCDs Disposition: - Will discharge home when oxygen requirement approaches baseline - Physical therapy cleared for home VS,Fishbone, I+O VS, Fishbone, I+O Laboratory Tests 07/09/16 05:57 Calcium Level 9.4, Red Blood Count 3.68 L, Mean Corpuscular Volume 89.7, Mean Corpuscular Hemoglobin 29.1, Mean Corpuscular Hemoglobin Concent 32.5, Red Cell Distribution Width 12.9 Vital Signs Date Time Temp Pulse Resp B/P Pulse Ox O2 Delivery O2 Flow Rate FiO2 07/09/16 10:00 96.8 63 18 120/68 88 High Flow Cannula 4.0 07/04/16 06:15 50 I&O- Last 24 Hours up to 6 AM 07/09/16 06:00 Intake Total 3090 ml Output Total 3100 ml Balance -10 ml DANNIE LOPEZ MD Jul 09, 2016 12:50
[2016-07-09] MEDS: ATORVASTATIN 20 MG TAB PO SCH (21:34)
[2016-07-09] MEDS: CETIRIZINE (ZyrTEC) 10 MG TAB PO SCH (21:34)
[2016-07-09] MEDS: TAMSULOSIN 0.4 MG CAP PO SCH (21:35)
[2016-07-10 02:00] VITALS: BP 126/62
[2016-07-10] MEDS: IPRATROPIUM 0.5MG/ALBUTEROL 2.5MG INH SOL UD 3ML (DUONEB)(J7620) NEB SCH ×6 (03:42→23:29)
[2016-07-10 06:00] VITALS: BP 132/59
[2016-07-10] MEDS: ADVAIR DISKUS 250/50 INH PWD INH SCH ×2 (07:45→19:34)
[2016-07-10 08:29] LABS: BASO % 0.2 % (0.0-1.0); EOS # 0.1 K/mm3 (0.0-0.50); EOS % 0.9 % (0.0-3.0); LARGE UNSTAINED CELL # 0.2 K/mm3 (0.0-0.4); LARGE UNSTAINED CELL % 1.5 % (0.0-4.0); MEAN CORPUSCULAR HGB CONC 32.2 g/dl (32.0-36.5); MEAN CORPUSCULAR VOLUME 89.9 fl (80.0-96.0); MONO # 0.8 K/mm3 (0.0-0.8); MONO % 7.3 % (0.0-5.0); NEUTROPHILS # 8.8 K/mm3 (1.8-7.7); NEUTROPHILS % 82.1 % (36.0-66.0); PLATELET COUNT, AUTOMATED 473 k/mm3 (150-450); WHITE BLOOD COUNT 10.7 K/mm3 (4.0-10.0)
[2016-07-10 08:46] LABS: ALBUMIN 2.2 GM/DL (3.2-5.2); ALBUMIN/GLOBULIN RATIO 0.59 (1.00-1.93); BILIRUBIN,TOTAL 0.3 MG/DL (0.2-1.0); CALCIUM LEVEL 9.1 MG/DL (8.8-10.2); CREATININE FOR GFR 1.25 MG/DL (0.70-1.30); GLOMERULAR FILTRATION RATE 58.9 (>35); MAGNESIUM LEVEL 2.1 MG/DL (1.8-2.4); POTASSIUM SERUM 4.3 MEQ/L (3.5-5.1); TOTAL PROTEIN 5.9 GM/DL (6.4-8.2)
[2016-07-10] MEDS: PROPRANOLOL 10 MG TAB PO SCH ×3 (09:00→21:01)
[2016-07-10] MEDS: CHLORTHALIDONE 12.5MG PER 1/2 TABLET PO SCH (09:00)
[2016-07-10] MEDS: LOSARTAN 50 MG TAB PO SCH ×2 (09:00→21:01)
[2016-07-10] MEDS: POTASSIUM CHLORIDE 10 MEQ SR TABLET PO SCH ×2 (09:43→20:53)
[2016-07-10] MEDS: predniSONE 20 MG TAB PO SCH (09:44)
[2016-07-10] MEDS: VITAMIN D 1,000 INTERNATIONAL UNITS TABLET PO SCH (09:44)
[2016-07-10] MEDS: MAGNESIUM OXIDE 400 MG TAB (MAG-OX) PO SCH (09:44)
[2016-07-10] MEDS: AMIODARONE 200 MG TAB (PACERONE) PO SCH (09:46)
[2016-07-10 10:00] VITALS: BP 128/62
[2016-07-10] MEDS ORDERED: PRED10TA FT (12:53)
--- NOTE | 2016-07-10 12:57 | IPNPDOC ---
Text Note Date of Service The patient was seen on 07/10/16. NOTE Subjective: Patient is an 80 year old male with a PMHx of HTN, DLP, non- obstructive CAD, Hx of PE x2 (on anticoagulation), Diastolic CHF, COPD on Home O2 (2-4L), who presented to the ER with SOB x 1 week. He coughed up yellow sputum and had a fever of 101.5 at home. He has attempted outpatient treatment with Levaquin, but failed to improve. He was seen and examined at the bedside today. He notes he had a minor nose bleed this morning, but was controlled within 10 minutes. Objective: Vitals (See below) General: Lying in bed, no acute distress, comfortable, AAOx3 HEENT: NC, AT CVS: RRR, +S1S2 Lungs: Decreased sounds at right lung field, + Rhonchi at right lung field Abdomen: Soft, ND, NT, +BSx4 Extremities: -Edema, -Calf tenderness Assessment and plan: 1. Multifocal pneumonia - likely 2/2 viral pneumonia, less likely CAP - Presented with SOB, cough, fever and productive cough - History of left diaphragm paralysis - Physical with rhonchi at R, increased supplemental oxygen requirement - Respiratory panel: Positive for Coronavirus 229E - Blood culture 07/02 negative, Sputum culture with many yeast like organisms - CTA Chest 07/02: dense consolidation in R upper / middle / lower lobe - s/p Vanco and Zosyn - s/p Lasix - c/w Prednisone; will discharge on taper tomorrow - Oxygen requirements are now at baseline - Dr. Pan (Pulmonary) on consult - appreciate their input 2. History of PACs and nonsustained ventricular tachycardia - c/w amiodarone 3. DLP - c/w atorvastatin 4. Allergic rhinitis - c/w cetirizine 5. BPH - c/w tamsulosin 6. COPD with chronic hypoxic (requires 2 to 4L supplemental oxygen) - c/w advair, duoneb and supplemental O2 7. DVT prophylaxis - on SCDs Disposition: - Physical therapy cleared for home - Will discharge home tomorrow; oxygen requirements now at baseline - Will establish care as an outpatient; patient will live with his son temporarily VS,Charis, I+O VSCharis, I+O Laboratory Tests 07/10/16 08:12 Calcium Level 9.1, Aspartate Amino Transf (AST/SGOT) 19, Alanine Aminotransferase (ALT/SGPT) 18, Alkaline Phosphatase 65, Total Bilirubin 0.3, Total Protein 5.9 L, Albumin 2.2 L, Red Blood Count 3.83 L, Mean Corpuscular Volume 89.9, Mean Corpuscular Hemoglobin 29.0, Mean Corpuscular Hemoglobin Concent 32.2, Red Cell Distribution Width 13.0, Neutrophils (%) (Auto) 82.1 H, Lymphocytes (%) (Auto) 8.0 L, Monocytes (%) (Auto) 7.3 H, Eosinophils (%) (Auto ) 0.9, Basophils (%) (Auto) 0.2, Neutrophils # (Auto) 8.8 H, Lymphocytes # (Auto ) 1.0 L, Monocytes # (Auto) 0.8, Eosinophils # (Auto) 0.1, Basophils # (Auto) 0.0 Vital Signs Date Time Temp Pulse Resp B/P Pulse Ox O2 Delivery O2 Flow Rate FiO2 07/10/16 10:00 96.0 63 19 128/62 90 High Flow Cannula 4.0 07/04/16 06:15 50 I&O- Last 24 Hours up to 6 AM 07/10/16 06:00 Intake Total 2580 ml Output Total 2250 ml Balance 330 ml DANNIE LOPEZ MD Jul 10, 2016 12:57
[2016-07-10 14:00] VITALS: BP 134/64
[2016-07-10 18:00] VITALS: BP 126/72
[2016-07-10] MEDS: TAMSULOSIN 0.4 MG CAP PO SCH (20:52)
[2016-07-10] MEDS: CETIRIZINE (ZyrTEC) 10 MG TAB PO SCH (20:53)
[2016-07-10] MEDS: ATORVASTATIN 20 MG TAB PO SCH (20:53)
[2016-07-10 22:00] VITALS: BP 158/68
--- NOTE | 2016-07-11 00:26 | DSES ---
DATE OF ADMISSION: 07/02/2016 DATE OF DISCHARGE: ATTENDING PHYSICIANS: Dr. Ethan Navas, Dr. Jeanine Bolaños DICTATED BY: Dr. Ethan Navas PRIMARY CARE PHYSICIAN: Dr. Will Fontana CONSULTING PHYSICIAN: Dr. Pan CONDITION ON DISCHARGE: Stable. FINAL DIAGNOSIS: Multifocal pneumonia likely secondary to viral pneumonia. PROCEDURES: None. HISTORY OF THE PRESENT ILLNESS: The patient is an 80-year-old male with a past medical history of hypertension, dyslipidemia, nonobstructive coronary disease, history of pulmonary embolism times two, on anticoagulation, diastolic congestive heart failure, chronic obstructive pulmonary disease (COPD) - on home oxygen of 2-4 liters, who presented to the emergency room with shortness of breath times 1 week duration. He coughed up yellow sputum and had a fever of 101.5 at home. He attempted outpatient treatment with Levaquin but failed to improve. HOSPITAL COURSE: 1. Multifocal pneumonia, likely secondary to viral pneumonia, less likely secondary to community-acquired pneumonia, presented with shortness of breath, cough, fever and productive cough, history of left diaphragmatic injury and paralysis. History and physical revealed that he has rhonchi on the right side, increase in his supplemental oxygen requirement. Throughout his hospital course, he has been requiring multiple liters of oxygen above his baseline. Respiratory panel was positive for Coronavirus 229E. Blood cultures on 07/02/2016 were negative. Sputum cultures with many yeast-like organisms. CT of the chest on 07/02/2016 showed dense consolidation in the right upper, middle and lower lobes. He has been on a course of vancomycin and Zosyn throughout the hospital course. He has completed a full course of antibiotics, including outpatient, and he was discontinued on antibiotics. The patient received a few days of Lasix to remain in negative fluid balance. He was started on prednisone, and he will receive a tapering dose on discharge. The patient's oxygen requirements have decreased during his hospital stay, and he is now at baseline. Dr. Pan has been consulted for pulmonary issues. The patient is going to be discharged home with prednisone taper and followup with primary care provider and pulmonology. 2. History of premature atrial contractions and nonsustained ventricular tachycardia. He has been on amiodarone. 3. Dyslipidemia. Continue the patient on atorvastatin. 4. Allergic rhinitis. Continue cetirizine. 5. BPH. Continue with tamsulosin. 6. Chronic obstructive pulmonary disease (COPD) with chronic hypoxia requiring 2-4 liters of supplemental oxygen. Continue with Advair, DuoNeb and supplemental oxygen. 7. History of pulmonary embolism. Has been on Eliquis in the past and currently has been discontinued. 8. Deep vein thrombosis (DVT) prophylaxis. He was only put on sequential compression devices and not put on full anticoagulation because of hemoptysis, his hemoptysis of which has resolved. DISCHARGE MEDICATIONS: The patient is being discharged home with the following medication list: - albuterol two puffs inhaled as needed for shortness of breath - amiodarone 200 mg by mouth daily - Anoro Ellipta inhaled once daily - apixaban will no longer be continued - atorvastatin 40 mg by mouth nightly - cetirizine 10 mg by mouth nightly - chlorthalidone 12.5 by mouth daily - cholecalciferol 1000 units by mouth daily - docusate 100 mg by mouth daily as needed for constipation - losartan 50 mg by mouth twice a day - magnesium 400 mg by mouth daily - potassium chloride 20 mEq by mouth twice a day - propranolol 10 mg by mouth three times a day - tamsulosin 0.4 mg by mouth nightly New medications prescribed include: - prednisone as directed DISCHARGE INSTRUCTIONS: The patient has been advised to followup with primary care provider and pulmonology within the next 7 days. He has been advised to remain compliant with treatment plan and medications and return to the emergency room if he experiences any problems. Time spent on discharge: 35 minutes.
[2016-07-11 02:00] VITALS: BP 127/63
[2016-07-11] MEDS: IPRATROPIUM 0.5MG/ALBUTEROL 2.5MG INH SOL UD 3ML (DUONEB)(J7620) NEB SCH ×3 (03:45→11:35)
[2016-07-11 06:00] VITALS: BP 132/67
[2016-07-11 06:08] LABS: BASO % 0.1 % (0.0-1.0); EOS % 0.6 % (0.0-3.0); LARGE UNSTAINED CELL # 0.2 K/mm3 (0.0-0.4); LARGE UNSTAINED CELL % 1.8 % (0.0-4.0); LYMPH # 0.9 K/mm3 (1.5-4.5); LYMPH % 8.5 % (24.0-44.0); MEAN CORPUSCULAR HGB CONC 32.2 g/dl (32.0-36.5); MEAN CORPUSCULAR VOLUME 89.9 fl (80.0-96.0); MONO # 0.7 K/mm3 (0.0-0.8); MONO % 7.3 % (0.0-5.0); NEUTROPHILS # 7.6 K/mm3 (1.8-7.7); NEUTROPHILS % 81.7 % (36.0-66.0); PLATELET COUNT, AUTOMATED 428 k/mm3 (150-450); RED CELL DISTRIBUTION WIDTH 12.9 % (11.5-14.5); WHITE BLOOD COUNT 9.2 K/mm3 (4.0-10.0)
[2016-07-11 06:26] LABS: ALBUMIN 2.1 GM/DL (3.2-5.2); ALBUMIN/GLOBULIN RATIO 0.58 (1.00-1.93); BILIRUBIN,TOTAL 0.3 MG/DL (0.2-1.0); CALCIUM LEVEL 8.2 MG/DL (8.8-10.2); CREATININE FOR GFR 1.25 MG/DL (0.70-1.30); GLOMERULAR FILTRATION RATE 58.9 (>35); MAGNESIUM LEVEL 2.1 MG/DL (1.8-2.4); TOTAL PROTEIN 5.7 GM/DL (6.4-8.2)
[2016-07-11] MEDS: ADVAIR DISKUS 250/50 INH PWD INH SCH (07:25)
[2016-07-11] MEDS: CHLORTHALIDONE 12.5MG PER 1/2 TABLET PO SCH (09:14)
[2016-07-11 09:17] VITALS: BP 124/60
[2016-07-11] MEDS: MAGNESIUM OXIDE 400 MG TAB (MAG-OX) PO SCH (09:17)
[2016-07-11] MEDS: PROPRANOLOL 10 MG TAB PO SCH (09:17)
[2016-07-11] MEDS: POTASSIUM CHLORIDE 10 MEQ SR TABLET PO SCH (09:17)
[2016-07-11] MEDS: VITAMIN D 1,000 INTERNATIONAL UNITS TABLET PO SCH (09:18)
[2016-07-11] MEDS: LOSARTAN 50 MG TAB PO SCH (09:18)
[2016-07-11] MEDS: AMIODARONE 200 MG TAB (PACERONE) PO SCH (09:18)
[2016-07-11] MEDS: predniSONE 20 MG TAB PO SCH (09:18)
--- NOTE | 2016-07-11 13:19 | IPNPDOC ---
Text Note Date of Service The patient was seen on 07/11/16. NOTE Patient seen at the bedside today. All questions answered to his satisfaction. The patient's medical reconciliation and discharge summary were done yesterday by my colleague, Dr. Navas. There have been no acute changes since yesterday, and the patient remains medically stable for discharge home. VS,Fishbone, I+O VS, Fishbone, I+O Laboratory Tests 07/11/16 05:33 Calcium Level 8.2 L, Aspartate Amino Transf (AST/SGOT) 11 L, Alanine Aminotransferase (ALT/SGPT) 17, Alkaline Phosphatase 60, Total Bilirubin 0.3, Total Protein 5.7 L, Albumin 2.1 L, Red Blood Count 3.50 L, Mean Corpuscular Volume 89.9, Mean Corpuscular Hemoglobin 29.0, Mean Corpuscular Hemoglobin Concent 32.2, Red Cell Distribution Width 12.9, Neutrophils (%) (Auto) 81.7 H, Lymphocytes (%) (Auto) 8.5 L, Monocytes (%) (Auto) 7.3 H, Eosinophils (%) (Auto ) 0.6, Basophils (%) (Auto) 0.1, Neutrophils # (Auto) 7.6, Lymphocytes # (Auto) 0.9 L, Monocytes # (Auto) 0.7, Eosinophils # (Auto) 0.0, Basophils # (Auto) 0.0 Vital Signs Date Time Temp Pulse Resp B/P Pulse Ox O2 Delivery O2 Flow Rate FiO2 07/11/16 09:17 66 124/60 07/11/16 09:15 Nasal Cannula 4.0 07/11/16 06:00 97.0 19 96 I&O- Last 24 Hours up to 6 AM 07/11/16 06:00 Intake Total 1950 ml Output Total 2755 ml Balance -805 ml JAYCEE JAFFE MD Jul 11, 2016 13:19
== END 2016-07-11 14:53 | disposition home or self-care (01) | DRG 194 ==
LOC: M ED 02:05 → M ED INP 06:00 → M PCU 09:57 → M MSPAV 07-03 14:43
PROVIDERS: ADMIT Internal Medicine; ATTEND Internal Medicine
DX: J12.89 Other viral pneumonia (principal); I50.32 Chronic diastolic (congestive) heart failure; J96.11 Chronic respiratory failure with hypoxia; I47.2 Ventricular tachycardia; R04.2 Hemoptysis; J44.9 Chronic obstructive pulmonary disease, unspecified; I10 Essential (primary) hypertension; B97.29 Other coronavirus as the cause of diseases classified elsewhere; E78.5 Hyperlipidemia, unspecified; I25.10 Atherosclerotic heart disease of native coronary artery without angina pectoris; N40.0 Benign prostatic hyperplasia without lower urinary tract symptoms; Z86.711 Personal history of pulmonary embolism; J30.9 Allergic rhinitis, unspecified; Z79.899 Other long term (current) drug therapy; Z87.891 Personal history of nicotine dependence; Z79.01 Long term (current) use of anticoagulants; M10.9 Gout, unspecified; Z88.8 Allergy status to other drugs, medicaments and biological substances; E87.6 Hypokalemia

== ENCOUNTER → 2016-08-03 | Outpatient (CLI) | payer MEDICARE, OTHER ==
[~2016-08-03] MED LIST changes: +ALBU83IN INH; +ANOR1AER INH; +COLA100C PO; +LEVO500T32 PO; +MAGN1TAB25 PO; +PRED10TA FT; +PROP10TA56 PO
--- NOTE | 2016-08-03 15:33 | REP ---
CHEST, TWO VIEWS: HISTORY: Bronchopneumonia. COMPARISON: Multiple latest 07/18/2016. Once again, there are chronic lung field changes with scattered patchy opacities particularly in the left lung base and right upper lobe. Chronic bilateral CP angle blunting, status quo. No evidence of an acute patchy opacity or pleural effusion. No significant change in the osseous structures. IMPRESSION: Marked but rather stable appearing chronic changes. Some of the right upper lobe opacities appear to have improved. Correlate clinically and obtain followup if necessary. Signed by Bay Tolentino DO 08/03/2016 04:56 P
== END ==
LOC: M SMT 13:48
PROVIDERS: ATTEND Internal Medicine Pulmonary Disease
DX: J18.2 Hypostatic pneumonia, unspecified organism (principal)

== ENCOUNTER → 2016-08-04 | Outpatient (REF) | payer MEDICARE, OTHER | LOC: M LAB REF 16:55 | PROVIDERS: ATTEND Nurse Practitioner Adult Health | DX: J18.0 Bronchopneumonia, unspecified organism (principal) ==

== ENCOUNTER → 2016-08-14 | Outpatient (CLI) | payer MEDICARE, OTHER ==
--- NOTE | 2016-08-14 11:58 | REP ---
Clinical: Follow up bronchopneumonia. Technique: PA and lateral. Comparison: 08/03/2016, 06/27/2016. Findings: Diffuse chronic interstitial changes with fibrosis and scarring noted throughout the bilateral lung das superimposed infiltrates involving the left lower lobe and right mid lung are suggested and similar to 08/03/2016. Small left effusion/pleural reaction. No pneumothorax. Mediastinum and cardiac silhouette stable. Impression: Superimposed left lower lobe and right mid lung zone infiltrates with small pleural reaction similar to 08/03/2016. Signed by Arnulfo Andrade MD 08/14/2016 11:49 A
== END ==
LOC: M SMT 11:36
PROVIDERS: ATTEND Internal Medicine Pulmonary Disease
DX: J18.0 Bronchopneumonia, unspecified organism (principal)

== ENCOUNTER 2016-09-11 13:58 | Inpatient (IN) | payer MEDICARE, OTHER ==
[~2016-09-11] VITALS: Ht 177.8 cm; Wt 80.2 kg
[~2016-09-11 13:58] MED LIST changes: -ACID1CHW5 PO; -MONT10TA2 PO; -POTA20TA6 PO; -TYLE650T35 PO; -VITA500C10 PO
[2016-09-11 16:28] LABS: BASO % 0.2 % (0.0-1.0); EOS % 0.8 % (0.0-3.0); LARGE UNSTAINED CELL # 0.1 K/mm3 (0.0-0.4); LARGE UNSTAINED CELL % 1.9 % (0.0-4.0); LYMPH # 0.8 K/mm3 (1.5-4.5); LYMPH % 9.8 % (24.0-44.0); MEAN CORPUSCULAR HGB CONC 31.3 g/dl (32.0-36.5); MEAN CORPUSCULAR VOLUME 89.6 fl (80.0-96.0); MONO # 0.4 K/mm3 (0.0-0.8); MONO % 6.5 % (0.0-5.0); NEUTROPHILS # 5.2 K/mm3 (1.8-7.7); NEUTROPHILS % 80.9 % (36.0-66.0); PLATELET COUNT, AUTOMATED 337 k/mm3 (150-450); WHITE BLOOD COUNT 6.4 K/mm3 (4.0-10.0)
[2016-09-11 16:44] LABS: ANION GAP 6 MEQ/L (8-16); BLOOD UREA NITROGEN 16 MG/DL (7-18); CALCIUM LEVEL 8.2 MG/DL (8.8-10.2); CARBON DIOXIDE LEVEL 31 MEQ/L (21-32); CHLORIDE LEVEL 101 MEQ/L (98-107); CREATININE FOR GFR 1.19 MG/DL (0.70-1.30); GLOMERULAR FILTRATION RATE > 60.0 (>35); GLUCOSE, FASTING 101 MG/DL (83-110); POTASSIUM SERUM 4.1 MEQ/L (3.5-5.1); SODIUM LEVEL 138 MEQ/L (136-145)
[2016-09-11] MEDS ORDERED: POTA20TA6 PO (17:04)
[2016-09-11] MEDS ORDERED: MONT10TA2 PO (17:07)
[2016-09-11] MEDS ORDERED: ACID1CHW5 PO (17:07)
[2016-09-11] MEDS ORDERED: ELIQ5TAB PO (17:07)
[2016-09-11] MEDS ORDERED: VITA500C10 PO (17:07)
[2016-09-11] MEDS ORDERED: TYLE650T35 PO (17:07)
[2016-09-11] MEDS ORDERED: ACETAMINOPHEN 650MG ER TAB (TYLENOL ARTHRITIS) PO PRN (17:45)
[2016-09-11] MEDS ORDERED: DOCUSATE SODIUM 100 MG CAP PO PRN (17:45)
[2016-09-11] MEDS ORDERED: IPRATROPIUM 0.5MG/ALBUTEROL 2.5MG INH SOL UD 3ML (DUONEB)(J7620) NEB PRN (17:45)
--- NOTE | 2016-09-11 18:06 | HPEPDOC ---
General Date of Admission Sep 11, 2016 at 17:27 Primary Care Physician: Will Fontana Chief Complaint The patient is a 80-year-old male admitted with a reason for visit of Hypoxia. Source: Patient Timing/Duration: Day(s) (2-3) History of Present Illness Mr Pineda 1-year-old man with past medical history of hypertension, dyslipidemia, nonobstructive coronary artery disease, history of PE 2 on novel anticoagulation and DVT, diastolic heart failure, COPD who presents with a complaint of shortness of breath and coughing up blood for the past few days. The patient states that he used to be able to walk 3 miles per week with no shortness of breath however about one year ago when they found a left lower extremity DVT that resulted in a PE that he still suffers from shortness of breath that has decreased his exercise tolerance. The patient was recently admitted for multifocal pneumonia, he states he followed up with a pulmonary doctor [facility] who noted an irregular heart rate and sent him to see a melt down furnace operator in [facility], according to the patient melt down furnace operator gave him a stress test, echo test and asked him to come to the hospital where x-ray revealed a blood clot in the lungs. He denies associated fever, nausea vomiting, abdominal pain, blood per stool or urine, pain with defecation or urination with this recent event. He denies weight loss. He states that the coughing of blood is intermittent and that it is usually bright red. He denies chest pain or palpitations. He states he had a similar experience with coughing of blood when he had a PE. Pt does state he was recently weaned off of his prednisone within the last week. Home Medications Scheduled (Anoro Ellipta 62.5-25 Mcg/INH) 1 Aer Aer 1 PUFF INH DAILY (Reported) (Acidophilus) 1 Chw Chw 1 CHW PO DAILY (Reported) Amiodarone HCl (Amiodarone HCl) 200 Mg Tab 200 MG PO DAILY (Reported) Apixaban Base (Eliquis) 5 Mg Tab 5 MG PO BID (Reported) Ascorbic Acid (Vitamin C 500 mg) 1 Chw Chw 500 MG PO DAILY (Reported) Atorvastatin Calcium (Atorvastatin Calcium) 40 Mg Tab 40 MG PO QHS (Reported) Chlorthalidone (Chlorthalidone) 12.5 Mg Halftab 12.5 MG PO DAILY (Reported) Cholecalciferol (Vitamin D) 1,000 Unit Tab 1,000 UNIT PO DAILY (Reported) Losartan Potassium (Losartan Potassium) 50 Mg Tab 50 MG PO BID (Reported) Magnesium Oxide (Magnesium) 400 Mg Tab 400 MG PO DAILY (Reported) Montelukast Sodium (Montelukast Sodium) 10 Mg Tab 10 MG PO DAILY (Reported) Potassium Chloride (Potassium Chloride ER) 20 Meq Tab 20 MEQ PO BID (Reported) Propranolol HCl (Propranolol HCl) 10 Mg Tab 10 MG PO BID (Reported) Tamsulosin Hydrochloride (Flomax) 0.4 Mg Cap 0.4 MG PO QPM (Reported) Scheduled PRN Acetaminophen (Tylenol 8 Hour Arthritis) 650 Mg Tab 650 MG PO Q8H PRN PRN PAIN ( Reported) Albuterol Sulfate (Ventolin Hfa) 200 Puff/8 Gm Aers 2 PUFF INH Q4H PRN PRN SHORTNESS OF BREATH (Reported) Albuterol Sulfate (Albuterol Sulfate) 2.5 Mg/3 Ml Nebu 2.5 MG INH Q6H PRN PRN SHORTNESS OF BREATH (Reported) Docusate Sodium (Colace) 100 Mg Cap 100 MG PO DAILY PRN PRN BOWEL CARE/ CONSTIPATION (Reported) Allergies Coded Allergies: Cefuroxime (Verified Adverse Reaction, Mild, GI UPSET, 09/11/16) Ciprofloxacin (Verified Adverse Reaction, Mild, GI UPSET, 09/11/16) Past Medical History Medical History Hypertension Dyslipidemia Coronary artery disease, nonobstructive History of PE 2 on novel anticoagulation and DVT Diastolic heart failure COPD on home O2 Surgical History Tonsillectomy Nasal surgery Femoral hernia repair Family History Hypertension Social History * Smoker: former Smoker (patient states that he quit smoking about 10-12 years ago and prior to this he smoked for 45 years less than 10 cigarettes a day) Alcohol: rarely (patient states that he has not drink alcohol in 4 months, prior to this he would drink 2-3 beers twice a week.) Drugs: denies Psychosocial History: No pertinent psych hx 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 Review of Symptoms Constitutional: Denies: Chills, Fever Eyes: Denies: Conjunctivae inflammation, Eyelid inflammation, Pain, Vision change ENT: Denies: Head Aches Pulmonary: Reports: Cough, Dyspnea Cardiovascular: Denies: Chest Pain, Edema, Orthopnea, Palpitations Gastrointestinal: Reports: Constipation (chronic), Denies: Abdominal Pain, Diarrhea, Nausea, Vomiting Genitourinary: Denies: Dysuria Neurological: Denies: Weakness Psych: Reports: Mood Normal Physical Examination General Exam: Positive: Alert, Cooperative, No Acute Distress Eye Exam: Positive: Conjunctiva & lids normal, EOMI, Negative: Ptosis, Sclera icteric ENT Exam: Positive: Atraumatic, Mucous membr. moist/pink, Nares Patent Neck Exam: Positive: Supple Chest Exam: Positive: Clear to auscultation, Diminished, Negative: Rales, Rhonchi Heart Exam: Positive: Rate Normal Abdomen Exam: Positive: Normal bowel sounds, Soft, Negative: BS Hypoactive, Hepatospenomegaly, Tenderness Extremity Exam: Negative: Cyanosis, Edema Vital Signs Vital Signs Date Time Temp Pulse Resp B/P Pulse Ox O2 Delivery O2 Flow Rate FiO2 09/11/16 14:17 Nasal Cannula 4 09/11/16 14:17 97.5 68 22 140/65 92 Laboratory Data Labs 24H Laboratory Tests 2 09/11/16 16:17: Anion Gap 6L, White Blood Count 6.4, Red Blood Count 3.59L, Hemoglobin 10.1L, Hematocrit 32.2L, Mean Corpuscular Volume 89.6, Mean Corpuscular Hemoglobin 28.0 , Mean Corpuscular Hemoglobin Concent 31.3L, Red Cell Distribution Width 16.0H, Platelet Count 337, Neutrophils (%) (Auto) 80.9H, Lymphocytes (%) (Auto) 9.8L, Monocytes (%) (Auto) 6.5H, Eosinophils (%) (Auto) 0.8, Basophils (%) (Auto) 0.2 , Neutrophils # (Auto) 5.2, Lymphocytes # (Auto) 0.8L, Monocytes # (Auto) 0.4, Eosinophils # (Auto) 0.0, Basophils # (Auto) 0.0, Blood Urea Nitrogen 16, Creatinine 1.19, Sodium Level 138, Potassium Level 4.1, Chloride Level 101, Carbon Dioxide Level 31, Calcium Level 8.2L, Glomerular Filtration Rate > 60.0, Lactic Acid Level 1.1, Large Unclassified Cells # 0.1, Large Unclassified Cells % 1.9 CBC/BMP Laboratory Tests 09/11/16 16:17 Calcium Level 8.2 L, Red Blood Count 3.59 L, Mean Corpuscular Volume 89.6, Mean Corpuscular Hemoglobin 28.0, Mean Corpuscular Hemoglobin Concent 31.3 L, Red Cell Distribution Width 16.0 H, Neutrophils (%) (Auto) 80.9 H, Lymphocytes (%) ( Auto) 9.8 L, Monocytes (%) (Auto) 6.5 H, Eosinophils (%) (Auto) 0.8, Basophils ( %) (Auto) 0.2, Neutrophils # (Auto) 5.2, Lymphocytes # (Auto) 0.8 L, Monocytes # (Auto) 0.4, Eosinophils # (Auto) 0.0, Basophils # (Auto) 0.0 Microbiology Microbiology 09/11/16 Blood Culture, Received Pending 09/11/16 Blood Culture, Received Pending Problems (1) Hypoxia Status: Acute Response to Treatment: Stable Problem Text: Likely secondary to multifocal pneumonia seen on chest x-ray today, CT pending Patient was saturating at 72% on 4 L when he presented, increased to >90%. Will order oxygen therapy and duoneb treatment for pt. (2) Congestive heart failure Status: Chronic Response to Treatment: Stable Problem Text: Stable no signs of fluid overload on PE Echo from July 2016 showed . Very mild concentric left ventricle hypertrophy. Normal left ventricle (LV) wall motion and wall thickening. Normal LV systolic function. Left ventricular ejection fraction (LVEF) 65% by visual estimated. Grade 1 LV diastolic dysfunction. 2. Borderline left atrial dilatation. 3. Suggestive of mild elevation of pulmonary artery systolic pressure. 4. Mild dilatation of the aortic root at the level of the sinus of Valsalva. 5. Mild aortic valve sclerosis of a three-cuspid aortic valve. Very mild aortic regurgitation. 6. Mild mitral annular calcification. No mitral regurgitation. Will continue home medications (3) Hypertension Status: Chronic Response to Treatment: Stable Problem Text: 155/72 Continue home medications with hold parameters (4) Coronary artery disease Status: Chronic Response to Treatment: Stable Problem Text: non-obstructive stable (5) COPD (chronic obstructive pulmonary disease) Status: Chronic Response to Treatment: Stable Problem Text: duoneb and O2 therapy ordered, titrate 88-92% (6) Dyslipidemia Status: Chronic Response to Treatment: Stable Problem Text: Continue home medications (7) DVT prophylaxis Status: Acute Response to Treatment: Stable Problem Text: SCD and teds Plan / VTE VTE Prophylaxis Ordered?: Yes (scd teds,) GME ATTESTATION GME ATTESTATION My preceptor for this patient encounter was physically present in the building during the encounter and was fully available. As needed, all aspects of the patient interview, examination, medical decision making process, and medical care plan development were reviewed and approved by the preceptor. Preceptor is aware and concurs with the plan as stated in the body of this note and will attest to such by his/her cosignature. RUDOLPH SULLIVAN DO Sep 11, 2016 18:06
--- NOTE | 2016-09-11 18:37 | REP ---
CT CHEST WITHOUT IV CONTRAST: CT chest is performed without IV contrast. Sagittal and coronal reconstruction images are performed. COMPARISON: Prior study of 07/02/2016. There are patchy areas of consolidative infiltrate in the left upper and lower lobes. These findings have worsened since the prior exam. There is a small left effusion which has also increased. There are patch infiltrates scattered throughout the right lung which have improved since the prior study. There is a small right effusion which has increased since the prior study. Several mildly enlarged mediastinal lymph nodes have not significantly changed. There is an intrarenal calculus within each kidney as seen on prior study. IMPRESSION: Worsening of infiltrates in the left lung with improvement of infiltrates in the right lung. Small effusions bilaterally have increased since prior study. Mediastinal adenopathy has not definitely changed. Signed by oTby Muñoz MD 09/11/2016 08:14 P
[2016-09-11] MEDS: IPRATROPIUM 0.5MG/ALBUTEROL 2.5MG INH SOL UD 3ML (DUONEB)(J7620) NEB SCH (21:28)
[2016-09-11] MEDS: POTASSIUM CHLORIDE 10 MEQ SR TABLET PO SCH (23:55)
[2016-09-11] MEDS: ATORVASTATIN 20 MG TAB PO SCH (23:55)
[2016-09-11] MEDS: PROPRANOLOL 10 MG TAB PO SCH (23:56)
[2016-09-11] MEDS: LOSARTAN 50 MG TAB PO SCH (23:56)
[2016-09-11] MEDS: APIXABAN 5 MG TAB (ELIQUIS) PO SCH (23:56)
[2016-09-11] MEDS: TAMSULOSIN 0.4 MG CAP PO SCH (23:56)
[2016-09-11] MEDS: AZITHROMYCIN INJ 500 MG, VIAL MATE ADAPTER 1 EACH in D5W 250 ML IV SCH (23:56)
[2016-09-12] VITALS (7 sets, daily range): BP systolic 90–126; BP diastolic 53–68; O2SAT 96
[2016-09-12] MEDS: cefTRIAXone SOD 2 GM in D5W MINI-BAG PLUS 50 ML IV SCH ×2 (01:51→22:48)
[2016-09-12] MEDS: IPRATROPIUM 0.5MG/ALBUTEROL 2.5MG INH SOL UD 3ML (DUONEB)(J7620) NEB SCH ×4 (02:00→20:30)
[2016-09-12 08:04] LABS: BASO % 0.2 % (0.0-1.0); EOS # 0.1 K/mm3 (0.0-0.50); EOS % 1.6 % (0.0-3.0); LARGE UNSTAINED CELL # 0.1 K/mm3 (0.0-0.4); LARGE UNSTAINED CELL % 1.8 % (0.0-4.0); LYMPH # 0.6 K/mm3 (1.5-4.5); LYMPH % 8.5 % (24.0-44.0); MEAN CORPUSCULAR HEMOGLOBIN 28.7 pg (27.0-33.0); MEAN CORPUSCULAR HGB CONC 31.9 g/dl (32.0-36.5); MEAN CORPUSCULAR VOLUME 90.2 fl (80.0-96.0); MONO # 0.6 K/mm3 (0.0-0.8); MONO % 8.7 % (0.0-5.0); NEUTROPHILS # 5.7 K/mm3 (1.8-7.7); NEUTROPHILS % 79.1 % (36.0-66.0); PLATELET COUNT, AUTOMATED 286 k/mm3 (150-450); RED CELL DISTRIBUTION WIDTH 16.2 % (11.5-14.5); WHITE BLOOD COUNT 7.3 K/mm3 (4.0-10.0)
[2016-09-12 08:10] LABS: ANION GAP 8 MEQ/L (8-16); BLOOD UREA NITROGEN 16 MG/DL (7-18); CALCIUM LEVEL 8.1 MG/DL (8.8-10.2); CARBON DIOXIDE LEVEL 30 MEQ/L (21-32); CHLORIDE LEVEL 101 MEQ/L (98-107); CREATININE FOR GFR 1.21 MG/DL (0.70-1.30); GLOMERULAR FILTRATION RATE > 60.0 (>35); GLUCOSE, FASTING 95 MG/DL (83-110); POTASSIUM SERUM 3.7 MEQ/L (3.5-5.1); SODIUM LEVEL 139 MEQ/L (136-145)
[2016-09-12] MEDS: POTASSIUM CHLORIDE 10 MEQ SR TABLET PO SCH ×2 (09:39→20:12)
[2016-09-12] MEDS: PROPRANOLOL 10 MG TAB PO SCH ×2 (09:40→20:13)
[2016-09-12] MEDS: AMIODARONE 200 MG TAB (PACERONE) PO SCH (09:40)
[2016-09-12] MEDS: CHLORTHALIDONE 12.5MG PER 1/2 TABLET PO SCH (09:41)
[2016-09-12] MEDS: LOSARTAN 50 MG TAB PO SCH ×2 (09:41→20:12)
[2016-09-12] MEDS: MONTELUKAST 10 MG TAB PO SCH (09:41)
[2016-09-12] MEDS: APIXABAN 5 MG TAB (ELIQUIS) PO SCH (09:41)
[2016-09-12] MEDS: MAGNESIUM OXIDE 400 MG TAB (MAG-OX) PO SCH (10:10)
[2016-09-12] MEDS ORDERED: ISOVUE-370 76% 100ML VIAL (Q9967) As Ordered ONE ×2 (15:25→16:00)
--- NOTE | 2016-09-12 16:26 | IPN ---
DATE: 09/12/2016 Patient seen and examined. Continues to report hypoxia with improvement of respiration, mild dyspnea, coughing productive of blood-tinged sputum. Denies any fevers or chills, chest pain, pressure or discomfort. The patient reported not being able to be rested well overnight. VITAL SIGNS: Temperature 98.6, pulse 63, respirations 20, blood pressure 90/61, pulse oximetry 92% on 3 liters nasal cannula. LABORATORY DATA: WBC 7.3, hemoglobin and hematocrit 9.6 over 30.1, platelets 286. Chemistry: Sodium 139, potassium 3.7, chloride 101, bicarbonate 30, BUN 16, creatinine 1.21, cardiac enzymes negative times three. C-reactive protein 4.5. PHYSICAL EXAMINATION: GENERAL: Patient alert and oriented times three, in no acute distress, on nasal cannula for oxygen. HEENT: Normocephalic, atraumatic. PULMONARY: Bibasilar crackles. No wheeze. CARDIAC: Regular, S1, S2. ABDOMEN: Soft, nontender, positive bowel sounds. EXTREMITIES: Trace bilateral lower extremity edema. ASSESSMENT AND PLAN: This is a 80-year-old male patient with underlying medical history of hypertension, dyslipidemia, coronary artery disease, history of pulmonary embolism (PE) times two, on anticoagulation, and deep vein thrombosis (DVT) as well, diastolic heart failure, chronic obstructive pulmonary disease (COPD) and recently treated for pneumonia and COPD exacerbation, admitted for worsening shortness of breath since Sunday last week with worsening hypoxia, coughing productive of blood-tinged sputum. Problems: 1. Acute on chronic hypoxic respiratory failure. At baseline, the patient is on 3-4 liters of oxygen at home, likely secondary to left-sided pneumonia versus pulmonary embolism given patient's Eliquis has been on hold since last admission, telemetry monitoring, oxygen supplementation. Patient on azithromycin, Rocephin. Followup sputum culture, blood culture, C-reactive protein. Although the patient has mild blood-tinged sputum, will elect to give the patient Eliquis given history of multiple pulmonary embolisms and high suspicion for recurrent PE. Will get CT angiogram. Case discussed with Dr. Melendez. Patient not on anticoagulation for cardiac reasons, mostly pulmonary for multiple PE. Case also discussed with Dr. Hurd who said that the patient's history of PE was a bit vague. Will recommend repeating CT angio and Dr. Hurd will look into additional patient records. Given patient's hypoxia has improved and hemoptysis has not gotten worse, will elect to continue Eliquis given the underlying history documented on medical record. Will follow closely. 2. History of congestive heart failure, mild diastolic dysfunction. Patient currently compensated. Continue medication as ordered. Continue losartan, propranolol. Patient on Eliquis for anticoagulation. Continue statin. 3. Dyslipidemia. Continue statin. 4. History of cardiac arrhythmia. As per Dr. Melendez, patient had multiple premature ventricular contractions (PVCs) and also paroxysmal multifocal atrial tachycardia. Patient on amiodarone and propranolol. Continue to monitor. Telemetry monitoring. 5. Coronary artery disease. Patient on Eliquis. Cardiac enzymes appreciated. Telemetry monitoring. Continue losartan, propranolol and chlorthalidone. 6. Hypertension. Continue chlorthalidone, losartan, propranolol. 7. Chronic obstructive pulmonary disease. Patient currently not having any wheeze. Oxygen supplementation. Nebulizer treatment. Case discussed with Dr. Hurd. 8. Deep vein thrombosis prophylaxis. Patient on Eliquis for treatment of PE, DVT. 9. BPH. Continue Flomax. DISPOSITION: Pending clinical improvement, further workup, cultures.
--- NOTE | 2016-09-12 17:32 | REP ---
CT ANGIO CHEST: HISTORY: Acute dyspnea. Assess for acute pulmonary embolus. COMPARISON: Yesterday without contrast and 07/02/2016, also performed with contrast as a CT angio chest and other older prior chest CTs were also reviewed. CONTRAST: 100 mL [id number] There is excellent visualization of the pulmonary arterial vasculature. There is no significant change in the appearance of the pulmonary arterial vasculature when compared to the 07/02/2016 exam. There are no areas of acute focal filling defect that would be considered consistent with acute pulmonary emboli. There is mediastinal adenopathy, status quo. There are bilateral pleural effusions, which have increased slightly compared to yesterday when the technical differences between the examinations are taken into consideration. Evaluation of the lung das show areas of dense consolidation with air bronchograms scattered throughout the lung das and in a fashion not significantly changed from yesterday. There is unchanged thoracic aortic ectasia without bhupendra aneurysmal dilatation or evidence of dissection. There is no change in the appearance of the imaged upper abdomen or imaged osseous structures. IMPRESSION: 1. No evidence of acute pulmonary embolus. 2. Slightly increased bilateral pleural effusions. 3. Chronic lung field changes as described above, which show no significant change from yesterday. 4. Other findings as described above. Signed by Bay Tolentino DO 09/12/2016 06:27 P
[2016-09-12] MEDS: AZITHROMYCIN INJ 500 MG, VIAL MATE ADAPTER 1 EACH in D5W 250 ML IV SCH (20:12)
[2016-09-12] MEDS: ATORVASTATIN 20 MG TAB PO SCH (20:12)
[2016-09-12] MEDS: TAMSULOSIN 0.4 MG CAP PO SCH (20:12)
[2016-09-13] MEDS: IPRATROPIUM 0.5MG/ALBUTEROL 2.5MG INH SOL UD 3ML (DUONEB)(J7620) NEB SCH ×4 (00:14→19:40)
[2016-09-13 03:45] VITALS: BP 101/57
[2016-09-13 05:46] LABS: BASO % 0.1 % (0.0-1.0); EOS # 0.1 K/mm3 (0.0-0.50); EOS % 1.5 % (0.0-3.0); LARGE UNSTAINED CELL # 0.1 K/mm3 (0.0-0.4); LARGE UNSTAINED CELL % 1.9 % (0.0-4.0); LYMPH # 0.9 K/mm3 (1.5-4.5); LYMPH % 9.7 % (24.0-44.0); MEAN CORPUSCULAR HEMOGLOBIN 27.7 pg (27.0-33.0); MEAN CORPUSCULAR HGB CONC 30.8 g/dl (32.0-36.5); MEAN CORPUSCULAR VOLUME 89.7 fl (80.0-96.0); MONO # 0.7 K/mm3 (0.0-0.8); MONO % 9.4 % (0.0-5.0); NEUTROPHILS # 5.8 K/mm3 (1.8-7.7); NEUTROPHILS % 77.4 % (36.0-66.0); PLATELET COUNT, AUTOMATED 303 k/mm3 (150-450); RED CELL DISTRIBUTION WIDTH 15.9 % (11.5-14.5); WHITE BLOOD COUNT 7.5 K/mm3 (4.0-10.0)
[2016-09-13 06:01] LABS: ANION GAP 6 MEQ/L (8-16); BLOOD UREA NITROGEN 13 MG/DL (7-18); CALCIUM LEVEL 8.1 MG/DL (8.8-10.2); CARBON DIOXIDE LEVEL 31 MEQ/L (21-32); CHLORIDE LEVEL 102 MEQ/L (98-107); CREATININE FOR GFR 1.13 MG/DL (0.70-1.30); GLOMERULAR FILTRATION RATE > 60.0 (>35); GLUCOSE, FASTING 95 MG/DL (83-110); POTASSIUM SERUM 3.5 MEQ/L (3.5-5.1); SODIUM LEVEL 139 MEQ/L (136-145)
--- NOTE | 2016-09-13 07:18 | ECGEPIP ---
Stationary ECG Study [facility] Test Date: 2016-09-12 Pat Name: KENNY JACOBS Department: Room: [place] [address] Gender: M Award Clerk: lucila : 1935 Requested By: RUDOLPH SULLIVAN Order Number: [id number] Reading MD: Will Fontana Measurements Intervals [place] Rate: 63 P: [place]: 0 QRS: -36 QRSD: 153 T: -32 QT: 426 QTc: 436 Interpretive Statements Normal sinus rhythm. Left atrial enlargement Left axis deviation Right bundle branch block Nonspecific T-wave abnormalities No significant change since prior tracing of 07/02/2016 Electronically Signed On 09-13-2016 7:17:54 EDT by Will Fontana
[2016-09-13] MEDS ORDERED: POTASSIUM CHLORIDE 10 MEQ SR TABLET PO ONE (07:30)
[2016-09-13 07:38] VITALS: BP 115/66
[2016-09-13] MEDS: POTASSIUM CHLORIDE 10 MEQ SR TABLET PO SCH ×2 (08:23→21:32)
[2016-09-13] MEDS: LOSARTAN 50 MG TAB PO SCH ×2 (08:24→21:33)
[2016-09-13] MEDS: PROPRANOLOL 10 MG TAB PO SCH ×2 (08:24→21:32)
[2016-09-13] MEDS: CHLORTHALIDONE 12.5MG PER 1/2 TABLET PO SCH (08:24)
[2016-09-13] MEDS: MONTELUKAST 10 MG TAB PO SCH (08:24)
[2016-09-13] MEDS: AMIODARONE 200 MG TAB (PACERONE) PO SCH (08:25)
[2016-09-13] MEDS: MAGNESIUM OXIDE 400 MG TAB (MAG-OX) PO SCH (08:25)
[2016-09-13] MEDS ORDERED: SLF 3 ML SYR IV PRN (09:00)
[2016-09-13 13:15] VITALS: BP 112/69
[2016-09-13] MEDS: SLF 3 ML SYR IV SCH ×2 (13:48→21:33)
--- NOTE | 2016-09-13 14:25 | REP ---
Bilateral lower extremity Duplex Doppler venous ultrasound: Real time compression and duplex Doppler interrogation of the bilateral lower extremity deep venous system is performed. Bilaterally, the common femoral, superficial femoral and popliteal veins are fully compressible with transducer pressure and demonstrate normal spontaneous and phasic flow, without evidence of deep venous thrombosis. Impression: No evidence of deep venous thrombosis of the bilateral lower extremity femoral popliteal venous system. Signed by Toby Muñoz MD 09/13/2016 02:15 P
[2016-09-13 16:00] VITALS: BP 108/56
--- NOTE | 2016-09-13 18:36 | IPN ---
DATE: 09/13/2016 Patient seen and examined. Reported improved respiration. Continues to have blood tinged sputum. Denies any chest pain, pressure or discomfort, fevers or chills. VITAL SIGNS: Temperature 98.2, pulse 62, respirations 18, blood pressure 112/69, pulse oximetry 93% on 3 liters nasal cannula. LABORATORY DATA: WBC 7.5, hemoglobin and hematocrit 9.3 over 30.1, platelets 303. Chemistry: Sodium 139, potassium 3.5, chloride 102, bicarbonate 31, BUN 13, creatinine 1.13. Ultrasound Doppler negative for deep venous thrombosis (DVT). CT angiogram negative for pulmonary embolism (PE). PHYSICAL EXAMINATION: GENERAL: Patient alert and oriented times three, in no acute distress, on nasal cannula. HEENT: Normocephalic, atraumatic. PULMONARY: Bibasilar crackles, much improved. No wheeze, rales, rhonchi. CARDIAC: Regular rate and rhythm with normal S1, S2. ABDOMEN: Soft, nontender, positive bowel sounds. EXTREMITIES: Trace edema bilateral lower extremity. ASSESSMENT AND PLAN: This is a 80-year-old male patient with underlying medical history of hypertension, dyslipidemia, coronary artery disease, history of pulmonary embolism (PE) times two, on anticoagulation, and deep vein thrombosis (DVT) as well, diastolic heart failure, chronic obstructive pulmonary disease (COPD) and recently treated for pneumonia and COPD exacerbation, admitted for worsening shortness of breath since Sunday last week with worsening hypoxia, coughing productive of blood-tinged sputum. Problems: 1. Acute on chronic hypoxic respiratory failure. At baseline, the patient is on 3-4 liters of oxygen at home, likely left-sided pneumonia versus pulmonary embolism given patient's Eliquis has been on hold since last admission. CT angiogram negative for pulmonary emboli, telemetry monitoring, oxygen supplementation. Patient on azithromycin and Rocephin. Followup sputum cultures, C-reactive protein. Given CT angiogram and ultrasound Doppler has been negative we will elect to temporarily hold Eliquis. Case discussed with housekeeping manager, Dr. Hurd who made the recommendation. Will consider restarting once the patients hemoptysis has resolved. Followup C-reactive protein. Followup cultures. 2. Hemoptysis. Holding Eliquis for now. Case discussed with Dr. Hurd. Monitor hemoglobin and hematocrit (H and H). Currently improved. 3. History of congestive heart failure with mild diastolic dysfunction. Patient currently compensated. Continue medication as ordered. Continue losartan, propranolol. Eliquis on hold. Continue statin. 4. Dyslipidemia. Continue statin. 5. History of cardiac arrhythmia. Case discussed with Dr. Melendez. Patient had a history of multiple premature ventricular contractions (PVCs) with paroxysmal multifocal atrial tachycardia. Patient on amiodarone and propranolol. Continue to monitor. Continue telemetry monitoring. 6. Coronary artery disease. Cardiac enzymes appreciated. Telemetry monitoring. Continue losartan, propranolol and chlorthalidone. 7. Hypertension. Continue medication mentioned above. 8. Chronic obstructive pulmonary disease. Patient currently not having any wheeze. Oxygen supplementation. Nebulizer treatment. Case discussed with Dr. Hurd. 9. Benign prostatic hypertrophy (BPH). Continue current medication. 10. Deep vein thrombosis prophylaxis. Sequential compression device to avoid anticoagulation temporarily given patient was having hemoptysis as per Dr. Hurd. Ultrasound Doppler negative for DVT. DISPOSITION: Pending cultures, clinical improvement, physical therapy.
[2016-09-13 20:35] VITALS: BP 125/69
[2016-09-13] MEDS: ATORVASTATIN 20 MG TAB PO SCH (21:31)
[2016-09-13] MEDS: TAMSULOSIN 0.4 MG CAP PO SCH (21:33)
[2016-09-13] MEDS: AZITHROMYCIN 250 MG TAB PO SCH (21:33)
[2016-09-13] MEDS: cefTRIAXone SOD 2 GM in D5W MINI-BAG PLUS 50 ML IV SCH (22:56)
[2016-09-13 23:34] VITALS: BP 108/67
[2016-09-14] MEDS: IPRATROPIUM 0.5MG/ALBUTEROL 2.5MG INH SOL UD 3ML (DUONEB)(J7620) NEB SCH ×5 (01:55→19:55)
[2016-09-14 05:51] LABS: BASO % 0.3 % (0.0-1.0); EOS # 0.2 K/mm3 (0.0-0.50); LARGE UNSTAINED CELL # 0.2 K/mm3 (0.0-0.4); LARGE UNSTAINED CELL % 2.2 % (0.0-4.0); LYMPH # 0.9 K/mm3 (1.5-4.5); LYMPH % 10.8 % (24.0-44.0); MEAN CORPUSCULAR HEMOGLOBIN 27.5 pg (27.0-33.0); MEAN CORPUSCULAR HGB CONC 31.2 g/dl (32.0-36.5); MEAN CORPUSCULAR VOLUME 88.3 fl (80.0-96.0); MONO # 0.7 K/mm3 (0.0-0.8); MONO % 10.2 % (0.0-5.0); NEUTROPHILS # 5.4 K/mm3 (1.8-7.7); NEUTROPHILS % 74.5 % (36.0-66.0); PLATELET COUNT, AUTOMATED 305 k/mm3 (150-450); RED CELL DISTRIBUTION WIDTH 15.9 % (11.5-14.5); WHITE BLOOD COUNT 7.2 K/mm3 (4.0-10.0)
[2016-09-14 05:55] VITALS: BP 109/64
[2016-09-14] MEDS: SLF 3 ML SYR IV SCH ×3 (05:57→21:56)
[2016-09-14 05:58] LABS: ANION GAP 5 MEQ/L (8-16); BLOOD UREA NITROGEN 15 MG/DL (7-18); CALCIUM LEVEL 8.4 MG/DL (8.8-10.2); CARBON DIOXIDE LEVEL 32 MEQ/L (21-32); CHLORIDE LEVEL 102 MEQ/L (98-107); CREATININE FOR GFR 1.09 MG/DL (0.70-1.30); GLOMERULAR FILTRATION RATE > 60.0 (>35); GLUCOSE, FASTING 95 MG/DL (83-110); MAGNESIUM LEVEL 1.9 MG/DL (1.8-2.4); POTASSIUM SERUM 3.9 MEQ/L (3.5-5.1); SODIUM LEVEL 139 MEQ/L (136-145)
[2016-09-14 08:00] VITALS: BP 103/66
[2016-09-14] MEDS: PROPRANOLOL 10 MG TAB PO SCH ×3 (09:00→21:55)
[2016-09-14] MEDS: LOSARTAN 50 MG TAB PO SCH ×3 (09:00→21:56)
--- NOTE | 2016-09-14 09:12 | ECGEPIP ---
Stationary ECG Study [facility] - ED Test Date: 2016-09-11 Pat Name: KENNY JACOBS Department: ED Room: [place] [address] Gender: M Clinical Field Specialist: le : 1935 Requested By: Shelli Escalante Order Number: [id number] Reading MD: Shelli Escalante Measurements Intervals [place] Rate: 60 P: -26 [place]: 177 QRS: -28 QRSD: 135 T: -30 QT: 454 QTc: 456 Interpretive Statements SINUS RHYTHM BORDERLINE LEFT AXIS DEVIATION RIGHT BUNDLE BRANCH BLOCK NSTTW ABNORMALITY DECREASED RATE 07/02/16 Electronically Signed On 09-14-2016 9:12:03 EDT by Shelli Escalante
[2016-09-14 10:00] VITALS: BP 96/59
[2016-09-14] MEDS: MONTELUKAST 10 MG TAB PO SCH (10:02)
[2016-09-14] MEDS: CHLORTHALIDONE 12.5MG PER 1/2 TABLET PO SCH (10:02)
[2016-09-14] MEDS: POTASSIUM CHLORIDE 10 MEQ SR TABLET PO SCH ×2 (10:03→21:55)
[2016-09-14] MEDS: AMIODARONE 200 MG TAB (PACERONE) PO SCH (10:04)
[2016-09-14] MEDS: MAGNESIUM OXIDE 400 MG TAB (MAG-OX) PO SCH (10:04)
[2016-09-14 11:55] VITALS: BP 112/62
[2016-09-14 15:45] VITALS: BP 120/65
[2016-09-14 20:00] VITALS: BP 105/61
--- NOTE | 2016-09-14 20:49 | IPN ---
DATE: 09/14/2016 The patient is seen and examined. No acute events overnight. Denies any fevers, chills, chest pain, pressure or discomfort. Reported to continue to have cough. Dyspnea is worse with ambulation at baseline. The patient reported respiratory shortness of breath has almost resolved. Denies any chest pain. Continued to have blood tinged sputum. VITAL SIGNS: Temperature 98.7, pulse 78, respirations 16, blood pressure 120/65, pulse oximetry 97% on 4 liters nasal cannula. WBC 7.2, hemoglobin and hematocrit 9/28.8. Platelets 305. Chemistry: Sodium 139, potassium 3.9, chloride 102, bicarbonate 32, BUN 15, creatinine 1.09. PHYSICAL EXAMINATION: GENERAL: The patient is alert and oriented times three. No acute distress. Currently on nasal cannula. HEENT: Normocephalic, atraumatic. PULMONARY: Bibasilar crackles, much improved. No wheeze, rales or rhonchi. CARDIAC: Regular rate and rhythm. Normal S1, S2. ABDOMEN: Soft, nontender. Positive bowel sounds. EXTREMITIES: Trace edema in bilateral lower extremities. ASSESSMENT AND PLAN: This is a 80-year-old male patient with underlying medical history of hypertension, dyslipidemia, coronary artery disease, history of pulmonary embolus times two on anticoagulation, deep vein thrombosis (DVT) as well, diastolic heart failure, chronic obstructive pulmonary disease (COPD), recently treated for pneumonia and COPD exacerbation, admitted with worsening shortness of breath since last week with worsening hypoxia and coughing productive of blood tinged sputum. 1. Acute on chronic hypoxic respiratory failure. At baseline, the patient is on 3 liters of oxygen at home. Likely secondary to left sided pneumonia. CT angiogram is negative for pulmonary embolus. The patient's Eliquis has been on hold. Ultrasound Doppler negative for deep vein thrombosis (DVT). Telemetry appreciated. Oxygen supplementation. Azithromycin and Rocephin. Followup sputum cultures. C-reactive protein given CT angio and ultrasound Doppler negative for pulmonary embolism. Doppler negative for PE and DVT. 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 Would like to hold Eliquis until hemoptysis has resolved. We will consider restarting the patient on low dose Coumadin with low target INR, as per Dr. Hurd, once the patient's hemoptysis has resolved. Followup C-reactive protein. Followup cultures. Sputum culture appreciated. 2. Hemoptysis. Holding Eliquis for now. Case discussed with Dr. Hurd. Followup hemoglobin and hematocrit. Currently improved. 3. History of congestive heart failure (CHF) with mild diastolic dysfunction. The patient is currently compensated. Continue medications with losartan, propranolol. Eliquis on hold. Continue statin. 4. Dyslipidemia. Continue statin. 5. History of cardiac arrhythmia. Case discussed with Dr. Melendez. The patient had a history of multiple premature ventricular contractions and paroxysmal multifocal atrial tachycardia. The patient is on amiodarone and propranolol. Continue to monitor telemetry. Outpatient followup. 6. Coronary artery disease. Cardiac enzymes appreciated. Telemetry monitoring. Losartan, propranolol, chlorthalidone. Anticoagulation on hold given the patient is having hemoptysis. 7. Hypertension. Continue current medications, as mentioned above. 8. Chronic obstructive pulmonary disease (COPD). The patient is currently not having any wheeze. Oxygen supplementation. Nebulizer treatments. Discuss with Dr. Hurd. 9. Benign prostatic hypertrophy (BPH) . Continue current medications. 10. Deep vein thrombosis (DVT) prophylaxis. Sequential compression device (SCD) and early ambulation. Anticoagulation has been on hold given hemoptysis. Case discussed with Dr. Hurd. Ultrasound Doppler negative for DVT. CT angio negative for PE. DISPOSITION: Pending clinical improvement, physical therapy (PT). Likely discharge over the next 24 to 48 hours.
[2016-09-14] MEDS: ATORVASTATIN 20 MG TAB PO SCH (21:55)
[2016-09-14] MEDS: TAMSULOSIN 0.4 MG CAP PO SCH (21:55)
[2016-09-14] MEDS: AZITHROMYCIN 250 MG TAB PO SCH (21:56)
[2016-09-14] MEDS: cefTRIAXone SOD 2 GM in D5W MINI-BAG PLUS 50 ML IV SCH (22:02)
[2016-09-15] VITALS: BP 101/55
[2016-09-15 04:00] VITALS: BP 100/56
[2016-09-15 05:45] LABS: BASO % 0.2 % (0.0-1.0); EOS # 0.2 K/mm3 (0.0-0.50); EOS % 1.8 % (0.0-3.0); LARGE UNSTAINED CELL # 0.2 K/mm3 (0.0-0.4); LARGE UNSTAINED CELL % 2.6 % (0.0-4.0); LYMPH # 0.8 K/mm3 (1.5-4.5); LYMPH % 9.2 % (24.0-44.0); MEAN CORPUSCULAR HEMOGLOBIN 28.5 pg (27.0-33.0); MEAN CORPUSCULAR HGB CONC 31.8 g/dl (32.0-36.5); MEAN CORPUSCULAR VOLUME 89.6 fl (80.0-96.0); MONO # 0.9 K/mm3 (0.0-0.8); NEUTROPHILS # 6.3 K/mm3 (1.8-7.7); NEUTROPHILS % 75.2 % (36.0-66.0); PLATELET COUNT, AUTOMATED 295 k/mm3 (150-450); RED CELL DISTRIBUTION WIDTH 15.9 % (11.5-14.5); WHITE BLOOD COUNT 8.4 K/mm3 (4.0-10.0)
[2016-09-15 06:08] LABS: ANION GAP 5 MEQ/L (8-16); BLOOD UREA NITROGEN 12 MG/DL (7-18); CALCIUM LEVEL 7.9 MG/DL (8.8-10.2); CARBON DIOXIDE LEVEL 31 MEQ/L (21-32); CHLORIDE LEVEL 101 MEQ/L (98-107); CREATININE FOR GFR 1.11 MG/DL (0.70-1.30); GLOMERULAR FILTRATION RATE > 60.0 (>35); GLUCOSE, FASTING 97 MG/DL (83-110); MAGNESIUM LEVEL 1.9 MG/DL (1.8-2.4); SODIUM LEVEL 137 MEQ/L (136-145)
[2016-09-15] MEDS: SLF 3 ML SYR IV SCH ×3 (06:21→20:16)
[2016-09-15] MEDS: IPRATROPIUM 0.5MG/ALBUTEROL 2.5MG INH SOL UD 3ML (DUONEB)(J7620) NEB SCH ×4 (07:10→21:38)
[2016-09-15 08:00] VITALS: BP 103/60
[2016-09-15] MEDS: MONTELUKAST 10 MG TAB PO SCH (09:03)
[2016-09-15] MEDS: LOSARTAN 50 MG TAB PO SCH ×2 (09:03→20:16)
[2016-09-15] MEDS: MAGNESIUM OXIDE 400 MG TAB (MAG-OX) PO SCH (09:03)
[2016-09-15] MEDS: POTASSIUM CHLORIDE 10 MEQ SR TABLET PO SCH ×2 (09:03→20:15)
[2016-09-15] MEDS: AMIODARONE 200 MG TAB (PACERONE) PO SCH (09:04)
[2016-09-15] MEDS: PROPRANOLOL 10 MG TAB PO SCH ×2 (09:04→20:15)
[2016-09-15] MEDS: CHLORTHALIDONE 12.5MG PER 1/2 TABLET PO SCH (09:04)
--- NOTE | 2016-09-15 10:53 | REP ---
CHEST, TWO VIEWS: HISTORY: Shortness of breath. COMPARISON: 09/11/2016 Bilateral infiltrates are present, unchanged compared to the previous study. Small bilateral pleural effusions are present, unchanged compared to the previous study. The heart is normal in size. The pulmonary vasculature is normal in appearance. The bony structure is intact. IMPRESSION: Bilateral infiltrates and small pleural effusions, unchanged compared to the previous study. Signed by Tino Macias MD 09/15/2016 10:56 A
[2016-09-15 12:00] VITALS: BP 109/66
--- NOTE | 2016-09-15 17:52 | IPN ---
DATE: 09/15/2016 Patient seen and examined. No acute events overnight. Denies any fever, chills, chest pain, pressure, or discomfort. Overnight, patient's oxygen saturation continued to decrease. Continued to have brownish, a bit of dark blood, in the sputum, but much improved. Patient had an episode of desaturation overnight. He is currently on 5 liters oxygen. VITAL SIGNS: Temperature 98.5, pulse 63, respirations 18, blood pressure 109/66, pulse oximetry 91% to 88% on 5 liters nasal cannula. LABORATORY: WBC 8.4, hemoglobin and hematocrit (H and H) 9.2/28.9, platelets 295. Chemistry: Sodium 137, potassium 4, chloride 101, bicarbonate 31, BUN 12, creatinine 1.11. C-reactive protein 8.2. PHYSICAL EXAMINATION: GENERAL: Patient alert and oriented times three. No acute distress. Currently on nasal cannula. HEENT: Normocephalic, atraumatic. PULMONARY: Mild crackles bibasilar. Diminished breath sounds left base. No significant wheeze. CARDIAC: Regular rate and rhythm. Normal S1, S2. ABDOMEN: Soft, nontender. Positive bowel sounds. EXTREMITIES: Trace edema bilateral lower extremities. ASSESSMENT AND PLAN: This is an 80-year-old male patient with underlying medical history of hypertension, dyslipidemia, coronary artery disease, history of pulmonary embolism (PE) times two on anticoagulation, deep venous thrombosis (DVT) as well, diastolic heart failure, chronic obstructive pulmonary disease (COPD), recently treated for pneumonia and COPD exacerbation, admitted for worsening shortness of breath since last week, with worsening hypoxia and coughing productive of blood-tinged sputum. PROBLEMS: 1. Acute on chronic hypoxic respiratory failure. At baseline, patient is on 3-4 liters of oxygen at home, likely secondary to left-sided pneumonia. CT angiogram negative for pulmonary embolism (PE). Ultrasound Doppler negative for deep venous thrombosis (DVT). Eliquis has been on hold. Telemetry appreciated. Oxygen supplementation. Azithromycin and Rocephin. Follow up C-reactive protein. Follow up sputum cultures. Pulmonology, Dr. uHrd, has been consulted. As per Dr. Hurd, would like to hold Eliquis until hemoptysis has completely resolved, then start anticoagulation as outpatient, likely low-dose Coumadin, with lower targeted INR. Given worsening hypoxia, echocardiogram has been ordered to evaluate for right ventricular size and estimation of pulmonary artery pressures, and to see if the hypoxia has any cardiac cause. Cultures appreciated. 2. Hemoptysis. Withholding Eliquis. Case discussed with Dr. Hurd. Follow up hemoglobin and hematocrit (H and H). This is currently improved. 3. History of congestive heart failure with mild diastolic dysfunction. Given currently patient's hypoxia worse. Fluid status. On physical examination, patient seems to be compensated. Given patient's oxygenation worsened, will order echocardiogram to further evaluate patient's cardiac function and continue losartan, propranolol. Eliquis on hold. Continue statin. 4. Dyslipidemia. Continue statin. 5. History of cardia arrhythmia. Case discussed with Dr. Melendez. Patient had a history of multiple premature ventricular contractions, paroxysmal multifocal atrial tachycardia. Patient is on amiodarone, propranolol. Continue to monitor telemetry. Outpatient follow up. Echocardiogram. 6. Coronary artery disease. Cardiac enzymes appreciated. Telemetry monitoring. Losartan, propranolol, chlorthalidone. Anticoagulation has been on hold given hemoptysis. 7. Hypertension. Continue medications mentioned above. 8. Chronic obstructive pulmonary disease (COPD). Patient is not having any significant wheeze. Oxygen supplementation. Nebulizer treatment. Case discussed with Dr. Hurd. 9. Benign prostatic hypertrophy (BPH). Continue current medication. 10. Deep venous thrombosis (DVT) prophylaxis. Sequential compression device. Early ambulation. Anticoagulation has been on hold for hemoptysis. Case discussed with Dr. Hurd. Ultrasound Doppler negative for DVT. CT angiogram negative for pulmonary embolism (PE). DISPOSITION: Pending clinical improvement, physical therapy. Given patient's hypoxia worsened, poor overall prognosis. 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
[2016-09-15 19:45] VITALS: BP 110/65
[2016-09-15] MEDS: TAMSULOSIN 0.4 MG CAP PO SCH (20:15)
[2016-09-15] MEDS: AZITHROMYCIN 250 MG TAB PO SCH (20:15)
[2016-09-15] MEDS: ATORVASTATIN 20 MG TAB PO SCH (20:15)
[2016-09-15 23:38] VITALS: BP 100/60
[2016-09-15] MEDS: cefTRIAXone SOD 2 GM in D5W MINI-BAG PLUS 50 ML IV SCH (23:50)
[2016-09-16 04:42] VITALS: BP 118/66
[2016-09-16] MEDS: SLF 3 ML SYR IV SCH ×3 (05:24→20:55)
[2016-09-16 05:33] LABS: BASO % 0.1 % (0.0-1.0); EOS # 0.2 K/mm3 (0.0-0.50); EOS % 2.4 % (0.0-3.0); LARGE UNSTAINED CELL # 0.2 K/mm3 (0.0-0.4); LARGE UNSTAINED CELL % 2.7 % (0.0-4.0); LYMPH # 0.8 K/mm3 (1.5-4.5); LYMPH % 10.2 % (24.0-44.0); MEAN CORPUSCULAR HEMOGLOBIN 27.6 pg (27.0-33.0); MEAN CORPUSCULAR HGB CONC 31.1 g/dl (32.0-36.5); MEAN CORPUSCULAR VOLUME 88.9 fl (80.0-96.0); MONO # 0.8 K/mm3 (0.0-0.8); MONO % 11.1 % (0.0-5.0); NEUTROPHILS # 5.4 K/mm3 (1.8-7.7); NEUTROPHILS % 73.5 % (36.0-66.0); PLATELET COUNT, AUTOMATED 307 k/mm3 (150-450); RED CELL DISTRIBUTION WIDTH 15.7 % (11.5-14.5); WHITE BLOOD COUNT 7.4 K/mm3 (4.0-10.0)
[2016-09-16 05:38] LABS: ANION GAP 6 MEQ/L (8-16); BLOOD UREA NITROGEN 13 MG/DL (7-18); CARBON DIOXIDE LEVEL 31 MEQ/L (21-32); CHLORIDE LEVEL 102 MEQ/L (98-107); CREATININE FOR GFR 1.07 MG/DL (0.70-1.30); GLOMERULAR FILTRATION RATE > 60.0 (>35); GLUCOSE, FASTING 94 MG/DL (83-110); MAGNESIUM LEVEL 1.8 MG/DL (1.8-2.4); POTASSIUM SERUM 3.7 MEQ/L (3.5-5.1); SODIUM LEVEL 139 MEQ/L (136-145)
[2016-09-16] MEDS ORDERED: MAG SULF 1GM/100ML (MAG RUN) 1 GM in APPROPRIATE DILUENT 1 EA IV ONE (06:15)
[2016-09-16] MEDS: IPRATROPIUM 0.5MG/ALBUTEROL 2.5MG INH SOL UD 3ML (DUONEB)(J7620) NEB SCH ×4 (07:17→20:15)
[2016-09-16 08:00] VITALS: BP 106/71
[2016-09-16] MEDS: CHLORTHALIDONE 12.5MG PER 1/2 TABLET PO SCH (09:23)
[2016-09-16] MEDS: PROPRANOLOL 10 MG TAB PO SCH ×2 (09:23→20:54)
[2016-09-16] MEDS: MAGNESIUM OXIDE 400 MG TAB (MAG-OX) PO SCH (09:23)
[2016-09-16] MEDS: LOSARTAN 50 MG TAB PO SCH ×2 (09:24→20:54)
[2016-09-16] MEDS: POTASSIUM CHLORIDE 10 MEQ SR TABLET PO SCH ×2 (09:24→20:54)
[2016-09-16] MEDS: AMIODARONE 200 MG TAB (PACERONE) PO SCH (09:25)
[2016-09-16] MEDS: MONTELUKAST 10 MG TAB PO SCH (09:25)
[2016-09-16 12:00] VITALS: BP 130/75
--- NOTE | 2016-09-16 15:05 | ECHO ---
DATE OF PROCEDURE: 09/15/2016 REFERRING PHYSICIAN: Dr. Mary Aguirre INDICATION: Dyspnea. HEIGHT: 70 inches. WEIGHT: 80 kg. MEASUREMENTS: LVOT: 2.4 cm Left atrium: 3.5 cm Ventricular septum: 1.05 cm Posterior wall: 1.20 cm Left ventricle diastole: 4.6 cm Aortic root: 4.5 cm Inferior vena cava: 2.3 cm (more than 50% respiratory variation) DOPPLER MEASUREMENTS: Mild aortic regurgitation. Aortic regurgitation pressure half time: 665 ms Aortic valve velocity: 177 cm/s LVOT velocity: 131 cm/s LVOT VTI: 24.6 cm Mitral E velocity: 62.2 cm/s Mitral A velocity: 89.8 cm/s Mitral deceleration time: 380 ms Very mild tricuspid regurgitation. Estimated right ventricle systolic pressure: 45-50 mmHg assuming a right pressure of 5-10 mmHg MITRAL ANNULAR TISSUE DOPPLER: E-prime septal: 5.5 cm/s E-prime lateral: 9.3 cm/s DESCRIPTION: Rhythm was sinus. No pericardial effusion. This was a moderately technically difficult echocardiogram. This was a 2D, M-mode, color flow Doppler and pulse wave Doppler examination and included mitral annular tissue Doppler. CONCLUSIONS: 1. Normal left ventricle internal dimensions and wall thickness. No regional wall motion abnormalities. Normal LV systolic function. Left ventricular ejection fraction (LVEF) 65% by visual estimate. Grade 1 LV diastolic dysfunction (impaired relaxation filling pattern). 2. Suggestive of moderate elevation of estimated right ventricle systolic pressure (45-50 mmHg). Normal right ventricle size and systolic function. Very mild tricuspid regurgitation. Central venous pressure estimated to be 5-10 mmHg. 3. Mild-moderate dilatation of the aortic root at the level of the sinuses of Valsalva (4.5 cm). 4. Moderate mitral annular calcification. No mitral regurgitation. No mitral stenosis. 5. Mild aortic valve sclerosis of a 3-cuspid aortic valve. Mild aortic regurgitation. 6. Moderately technically difficult echocardiogram.
[2016-09-16 16:00] VITALS: BP 106/63
[2016-09-16] MEDS: FUROSEMIDE 20 MG/2 ML VIAL (J1940) IV SCH (18:45)
[2016-09-16 20:21] VITALS: BP 121/67
[2016-09-16] MEDS: ATORVASTATIN 20 MG TAB PO SCH (20:53)
[2016-09-16] MEDS: AZITHROMYCIN 250 MG TAB PO SCH (20:54)
[2016-09-16] MEDS: TAMSULOSIN 0.4 MG CAP PO SCH (20:54)
[2016-09-16 23:41] VITALS: BP 98/61
[2016-09-16] MEDS: cefTRIAXone SOD 2 GM in D5W MINI-BAG PLUS 50 ML IV SCH (23:44)
[2016-09-17 04:24] VITALS: BP 104/62
[2016-09-17 05:32] LABS: BASO % 0.2 % (0.0-1.0); EOS # 0.2 K/mm3 (0.0-0.50); EOS % 2.7 % (0.0-3.0); LARGE UNSTAINED CELL # 0.2 K/mm3 (0.0-0.4); LARGE UNSTAINED CELL % 2.6 % (0.0-4.0); LYMPH # 0.9 K/mm3 (1.5-4.5); LYMPH % 10.4 % (24.0-44.0); MEAN CORPUSCULAR HEMOGLOBIN 27.4 pg (27.0-33.0); MEAN CORPUSCULAR HGB CONC 31.1 g/dl (32.0-36.5); MONO # 0.8 K/mm3 (0.0-0.8); MONO % 11.1 % (0.0-5.0); NEUTROPHILS # 5.1 K/mm3 (1.8-7.7); PLATELET COUNT, AUTOMATED 320 k/mm3 (150-450); RED CELL DISTRIBUTION WIDTH 15.8 % (11.5-14.5)
[2016-09-17] MEDS: SLF 3 ML SYR IV SCH ×3 (05:48→20:07)
[2016-09-17 05:53] LABS: ANION GAP 8 MEQ/L (8-16); BLOOD UREA NITROGEN 13 MG/DL (7-18); CALCIUM LEVEL 8.2 MG/DL (8.8-10.2); CARBON DIOXIDE LEVEL 29 MEQ/L (21-32); CHLORIDE LEVEL 100 MEQ/L (98-107); CREATININE FOR GFR 1.11 MG/DL (0.70-1.30); GLOMERULAR FILTRATION RATE > 60.0 (>35); GLUCOSE, FASTING 100 MG/DL (83-110); POTASSIUM SERUM 3.5 MEQ/L (3.5-5.1); SODIUM LEVEL 137 MEQ/L (136-145)
[2016-09-17] MEDS ORDERED: POTASSIUM CHLORIDE 10 MEQ SR TABLET PO ONE (07:15)
[2016-09-17 08:00] VITALS: BP 112/59
[2016-09-17] MEDS: IPRATROPIUM 0.5MG/ALBUTEROL 2.5MG INH SOL UD 3ML (DUONEB)(J7620) NEB SCH ×4 (08:00→19:35)
[2016-09-17] MEDS: PROPRANOLOL 10 MG TAB PO SCH ×2 (09:10→20:06)
[2016-09-17] MEDS: FUROSEMIDE 20 MG/2 ML VIAL (J1940) IV SCH ×2 (09:10→17:30)
[2016-09-17] MEDS: POTASSIUM CHLORIDE 10 MEQ SR TABLET PO SCH ×2 (09:10→20:06)
[2016-09-17] MEDS: CHLORTHALIDONE 12.5MG PER 1/2 TABLET PO SCH (09:10)
[2016-09-17] MEDS: MAGNESIUM OXIDE 400 MG TAB (MAG-OX) PO SCH (09:11)
[2016-09-17] MEDS: AMIODARONE 200 MG TAB (PACERONE) PO SCH (09:11)
[2016-09-17] MEDS: LOSARTAN 50 MG TAB PO SCH ×2 (09:11→20:06)
[2016-09-17] MEDS: MONTELUKAST 10 MG TAB PO SCH (09:11)
[2016-09-17 12:00] VITALS: BP 98/60
--- NOTE | 2016-09-17 12:50 | IPN ---
DATE: 09/17/2016 Patient seen and examined. Continues to require 5 liters of oxygen via nasal cannula. Also continues to report thoracic back pain. Denies any fever or chills, chest pain, pressure or discomfort. Continued to have blood tinged sputum, as per patient mildly improved. VITAL SIGNS: Temperature 98, pulse 60, respirations 18, blood pressure 112/59, pulse oximetry 92% on 5 liters nasal cannula. LABORATORY: WBC 7, hemoglobin and hematocrit (H and H) 8.7/28.1, platelets 320. Chemistry: Sodium 137, potassium 3.5, chloride 100, bicarbonate 29, BUN 13, creatinine 1.11. C-reactive protein 9.9. PHYSICAL EXAMINATION: GENERAL: Patient alert and oriented times three in no acute distress. On nasal cannula. HEENT: Normocephalic, atraumatic. PULMONARY: Mild bibasilar crackles. Diminished breath sounds bilateral. No significant wheeze. CARDIAC: Regular rate and rhythm. Normal S1, S2. ABDOMEN: Soft, nontender. Positive bowel sounds. EXTREMITIES: Trace edema bilateral lower extremities. ASSESSMENT AND PLAN: This is an 80-year-old male patient with underlying medical history of hypertension, dyslipidemia, coronary artery disease, history of pulmonary embolism (PE) times two on anticoagulation, deep venous thrombosis (DVT) as well as diastolic heart failure, chronic obstructive pulmonary disease (COPD), currently treated for pneumonia and COPD exacerbation, admitted for worsening shortness of breath, worsening hypoxia, and coughing productive of blood-tinged sputum. PROBLEMS: 1. Acute on chronic hypoxic respiratory failure. At baseline, patient is on 3-4 liters of oxygen at home, possibly secondary to left-sided pneumonia. CT angiogram negative for pulmonary embolism (PE). Ultrasound Doppler negative for deep venous thrombosis (DVT). Eliquis has been on hold given hemoptysis. Telemetry appreciated. Oxygen supplementation. Azithromycin and Rocephin. C-reactive protein has been up trending. Sputum culture shows normal michelle. Pulmonology, Dr. Hurd, has been consulted. Holding Eliquis as per Dr. Hurd given CTA and ultrasound is negative for DVT and PE. Will consider restarting anticoagulation as outpatient when hemoptysis has resolved. Oxygen suplementation. Echo appreciated showing mild pulmonary hypertension with grade 1 diastolic dysfunction. Cultures appreciated. 2. Hemoptysis. Holding Eliquis. Case discussed with Dr. Hurd. Follow up hemoglobin and hematocrit (H and H). Currently improved. 3. History of congestive heart failure with mild diastolic dysfunction. Given patient's hypoxia has worsened, will give a trial of Lasix to see if patient's condition improves. Echo is appreciated. Strict ins and outs. Continue statin. Losartan. Propranolol. 4. Dyslipidemia. Continue statin. 5. Back pain. Will get MRI to see if there is any metastasis or lesions. 6. History of cardiac arrhythmia. Case discussed with Dr. Melendez. Patient had history of multiple premature ventricular contractions, paroxysmal multifocal atrial tachycardia. Patient on amiodarone and propranolol. Continue to monitor on telemetry. Outpatient follow up. Echocardiogram is appreciated. 7. Coronary artery disease. Cardiac enzymes appreciated. Telemetry monitoring. Losartan, propranolol, chlorthalidone. Anticoagulation has been on hold given hemoptysis. 8. Hypertension. Continue current medications mentioned above. 9. Chronic obstructive pulmonary disease (COPD). Patient is not having any significant wheeze. Oxygen supplementation. Case discussed with Dr. Hurd. Nebulizer treatment. 10. Benign prostatic hypertrophy (BPH). Continue current medication. 11. Deep venous thrombosis (DVT) prophylaxis. Sequential compression device. Early ambulation. Anticoagulation has been on hold for hemoptysis. Case discussed with Dr. Hurd. Ultrasound negative for DVT. CT angiogram negative for pulmonary embolism (PE). DISPOSITION: Pending clinical improvement, physical therapy. Patient with worsening hypoxia, severe lung condition and also with paralysis of unilateral diaphragm. If C-reactive protein does not improve, will consider consulting infectious disease. Furthermore, will obtain MRI of the thoracic spine for further evaluation of back pain.
[2016-09-17 16:00] VITALS: BP 106/66
--- NOTE | 2016-09-17 16:48 | IPN ---
DATE: 09/16/2016 SUBJECTIVE: Patient seen and examined. Dyspnea currently almost at baseline, requiring five liters nasal cannula. Denies any chest pain, pressure, discomfort. Hemoptysis much improved only with blood-tinged sputum. Denies any fevers or chills. VITAL SIGNS: Temperature 98.8, pulse 71, respirations 18, blood pressure 106/63, pulse 90% on five liters nasal cannula. LABORATORY DATA: WBC 7.4, hemoglobin and hematocrit 8.6 over 27.6, platelets 307. Chemistry: Sodium 139, potassium 2.7, chloride 102, bicarbonate 31, BUN 13, creatinine 1.07. PHYSICAL EXAMINATION: GENERAL: Patient alert and oriented times three, in no acute distress. Currently on nasal cannula. HEENT: Normocephalic, atraumatic. PULMONARY: Mild crackles bibasilar. Diminished breath sounds bilateral base. No significant wheeze. CARDIAC: Regular rate and rhythm. Normal S1, S2. ABDOMEN: Soft, nontender. Positive bowel sounds. EXTREMITIES: Trace edema bilateral lower extremities. ASSESSMENT AND PLAN: This is an 80-year-old male patient with underlying medical history of hypertension, dyslipidemia, coronary arterial disease, history of pulmonary embolism (PE) times two with anticoagulation, deep venous thrombosis (DVT), as well as diastolic heart failure, chronic obstructive pulmonary disease (COPD) on four liters oxygen at home, recently treated for pneumonia and COPD exacerbation, admitted for worsening shortness of breath since last week with worsening hypoxia and coughing productive of blood-tinged sputum. 1. Acute on chronic hypoxic respiratory failure. At baseline, patient is on four liters oxygen via nasal cannula at home. Likely secondary to left-sided pneumonia versus hemoptysis. CT angiogram negative for PE. Ultrasound Doppler negative for DVT. Eliquis has been on hold. Telemetry monitoring. Oxygen supplementation. Patient is on azithromycin and Rocephin. Followup C-reactive protein. Sputum culture appreciated. Pulmonology Dr. Hurd consulted. Has been holding Eliquis. After discussing with Dr. Hurd, given hemoptysis and until hemoptysis has completely resolved, Dr. Hurd will consider low-dose Coumadin as outpatient with low targeted international normalized ratio (INR). Given worsening hypoxia, echocardiogram has also been ordered, showing evidence of pulmonary artery hypertension. Cultures appreciated. 2. Hemoptysis. Withholding Eliquis. Case discussed with Dr. Hurd. Followup hemoglobin and hematocrit. Currently improved. 3. History of congestive heart failure (CHF) with mild diastolic dysfunction. Currently with worsening hypoxia. The patient is currently euvolemic on examination. Echo is appreciated. Eliquis on hold. Continue statin. Continue losartan and propranolol, and continue chlorthalidone. Trial of Lasix to see if it improves the patient's oxygen saturation. 4. Dyslipidemia. Continue statin. 5. History of cardiac arrhythmia. Case discussed with Dr. Melendez. The patient has a history of multiple premature ventricular contractions and paroxysmal multifocal atrial tachycardia. The patient is on amiodarone, propranolol. Monitor telemetry. Outpatient followup echocardiogram. 6. Coronary arterial disease. Cardiac enzymes appreciated. Telemetry monitoring. Losartan, propranolol, chlorthalidone. Anticoagulation has been on hold given hemoptysis. 7. Hypertension. Continue home medication as mentioned above. 8. Chronic obstructive pulmonary disease (COPD). Patient not having any significant wheeze. Oxygen supplementation. Nebulizer treatment. Case discussed with Dr. Hurd. 9. Benign prostatic hypertrophy (BPH). Continue current medication. 10. Deep venous thrombosis (DVT) prophylaxis. Sequential compression device. Early ambulation. Anticoagulation on hold for hemoptysis. Case discussed with Dr. Hurd. Ultrasound negative for DVT. CT angiogram negative for PE. DISPOSITION: Pending clinical improvement, physical therapy, social work for arrangement of outpatient services and possible assisted living. Poor overall prognosis. Patient with paralysis of unilateral diaphragm complicating care.
[2016-09-17 20:04] VITALS: BP 107/71
[2016-09-17] MEDS: ATORVASTATIN 20 MG TAB PO SCH (20:05)
[2016-09-17] MEDS: TAMSULOSIN 0.4 MG CAP PO SCH (20:06)
[2016-09-17] MEDS: AZITHROMYCIN 250 MG TAB PO SCH (20:07)
[2016-09-17 23:49] VITALS: BP 111/60
[2016-09-17] MEDS: cefTRIAXone SOD 2 GM in D5W MINI-BAG PLUS 50 ML IV SCH (23:58)
[2016-09-18 05:01] VITALS: BP 98/61
[2016-09-18] MEDS: SLF 3 ML SYR IV SCH ×3 (05:05→21:32)
[2016-09-18 05:12] LABS: BASO % 0.4 % (0.0-1.0); EOS # 0.2 K/mm3 (0.0-0.50); EOS % 2.1 % (0.0-3.0); LARGE UNSTAINED CELL # 0.3 K/mm3 (0.0-0.4); LARGE UNSTAINED CELL % 3.7 % (0.0-4.0); LYMPH # 0.8 K/mm3 (1.5-4.5); LYMPH % 10.6 % (24.0-44.0); MEAN CORPUSCULAR HEMOGLOBIN 27.3 pg (27.0-33.0); MEAN CORPUSCULAR HGB CONC 31.2 g/dl (32.0-36.5); MEAN CORPUSCULAR VOLUME 87.5 fl (80.0-96.0); MONO # 0.8 K/mm3 (0.0-0.8); MONO % 10.9 % (0.0-5.0); NEUTROPHILS # 5.3 K/mm3 (1.8-7.7); NEUTROPHILS % 72.1 % (36.0-66.0); PLATELET COUNT, AUTOMATED 332 k/mm3 (150-450); RED CELL DISTRIBUTION WIDTH 15.7 % (11.5-14.5); WHITE BLOOD COUNT 7.4 K/mm3 (4.0-10.0)
[2016-09-18 05:25] LABS: CALCIUM LEVEL 8.3 MG/DL (8.8-10.2); CREATININE FOR GFR 1.26 MG/DL (0.70-1.30); GLOMERULAR FILTRATION RATE 58.3 (>35); MAGNESIUM LEVEL 1.9 MG/DL (1.8-2.4); POTASSIUM SERUM 3.6 MEQ/L (3.5-5.1)
[2016-09-18] MEDS ORDERED: POTASSIUM CHLORIDE 10 MEQ SR TABLET PO ONE (07:30)
[2016-09-18] MEDS: IPRATROPIUM 0.5MG/ALBUTEROL 2.5MG INH SOL UD 3ML (DUONEB)(J7620) NEB SCH ×4 (07:47→19:59)
[2016-09-18 08:00] VITALS: BP 97/55
[2016-09-18] MEDS: LOSARTAN 50 MG TAB PO SCH ×2 (08:32→21:34)
[2016-09-18] MEDS: PROPRANOLOL 10 MG TAB PO SCH ×2 (08:33→21:34)
[2016-09-18] MEDS: MONTELUKAST 10 MG TAB PO SCH (08:36)
[2016-09-18] MEDS: MAGNESIUM OXIDE 400 MG TAB (MAG-OX) PO SCH (08:36)
[2016-09-18] MEDS: CHLORTHALIDONE 12.5MG PER 1/2 TABLET PO SCH (08:36)
[2016-09-18] MEDS: FUROSEMIDE 20 MG/2 ML VIAL (J1940) IV SCH (08:36)
[2016-09-18] MEDS: AMIODARONE 200 MG TAB (PACERONE) PO SCH (08:37)
[2016-09-18] MEDS: POTASSIUM CHLORIDE 10 MEQ SR TABLET PO SCH ×2 (08:37→21:33)
[2016-09-18 12:00] VITALS: BP 110/58
--- NOTE | 2016-09-18 13:43 | REP ---
MR THORACIC SPINE WITHOUT CONTRAST: HISTORY: Mid back pain. A disc bulge is present at the T9-10 level. There is minimal effacement of the thecal sac without spinal cord compression. The T9 neural foramina are patent. There is no other disc bulge or herniation. The remaining neural foramina are patent. The spinal cord is normal in signal intensity. There are old compression fractures of the T2 and T3 vertebral bodies with minimal height loss. There is no subluxation. IMPRESSION: Disc bulge at the T9-10 level without spinal cord compression. Signed by Tino Macias MD 09/18/2016 02:17 P
[2016-09-18] MEDS ORDERED: TUBERCULIN PPD 5 UNITS/0.1 ML ID ONE (15:00)
[2016-09-18 15:30] VITALS: BP 100/62
--- NOTE | 2016-09-18 17:53 | IPN ---
DATE: 09/18/2016 Patient is seen and examined. Reported hemoptysis much improved. Continues to require five liters FiO2. Denies any fever or chills. Denies any chest pain, pressure or discomfort. VITAL SIGNS: Temperature 97.7, pulse 85, respirations 18, blood pressure 100/62, pulse oximetry 96% on five liters nasal cannula. MRI shows disc bulge T9 and T10 without spinal cord compression. LABORATORY DATA: WBC 7.4, hemoglobin and hematocrit 8.6/27.5, platelets 332. Chemistry: Sodium 139, potassium 3.6, chloride 101, bicarbonate 31, BUN 13, creatinine 1.26. PHYSICAL EXAMINATION: GENERAL: Patient alert and oriented times three, in no acute distress, on nasal cannula. HEENT: Normocephalic, atraumatic. PULMONARY: Diminished breath sounds left lower base. Mild minimal bibasilar crackles. No significant wheeze. CARDIAC: Regular rate and rhythm with normal S1, S2. ABDOMEN: Soft, nontender, nondistended. Positive bowel sounds. EXTREMITIES: No edema of bilateral lower extremities. ASSESSMENT AND PLAN: This is an 80-year-old male patient with underlying medical history of hypertension, dyslipidemia, coronary artery disease, history of pulmonary embolism times two was on anticoagulation, deep venous thrombosis (DVT) as well as diastolic heart failure, chronic obstructive pulmonary disease (COPD) on four liters at home, recently treated for pneumonia and COPD exacerbation, admitted with worsening shortness of breath for one week with worsening hypoxia, coughing up blood-tinged sputum. PROBLEMS: 1. Acute on chronic hypoxic respiratory failure. At baseline, the patient is on four liters of oxygen via nasal cannula at home. Likely secondary to left-sided pneumonia versus hemoptysis. CT angiogram is negative for pulmonary embolism (PE). Ultrasound Doppler negative for deep venous thrombosis (DVT). Eliquis has been on hold. Telemetry monitoring. Oxygen supplementation. Patient on azithromycin and Rocephin. C-reactive protein has been up trending. Cultures appreciated. Pulmonology, Dr. Hurd, has been consulted. Eliquis has been on hold given patient is having blood-tinged sputum and discussed with Dr. Hurd. We will consider restarting anticoagulation with Coumadin low-dose with low targeted international normalized ratio (INR) once the patient's hemoptysis resolves. Patient currently with worsening hypoxia. Echocardiogram has been done showing mild pulmonary artery hypertension and diastolic dysfunction. Cultures appreciated. 2. Hemoptysis. Withholding Eliquis. Case discussed with Dr. Hurd. Followup hemoglobin and hematocrit. Currently improved. 3. History of congestive heart failure with mild diastolic dysfunction. Currently with worsening hypoxia. Patient currently euvolemic on examination. Eliquis has been on hold. A trial of Lasix has been given with no improvement. Lasix has been discontinued. Continue losartan and propranolol. 4. Healthcare-associated bacterial pneumonia with hemoptysis. Patient has been on Rocephin and azithromycin with no improvement. Culture has been negative. Infectious disease, Dr. Woodward, has been consulted. C-reactive protein has been increasing. Purified protein derivative (PPD) implanted for possible disposition to assisted-living. 5. Dyslipidemia. Continue statin. 6. History of cardiac arrhythmia. Case discussed with Dr. Melendez. Patient has a history of multiple premature ventricular contractions (PVCs) as well as paroxysmal multifocal atrial tachycardia. Patient on amiodarone and propranolol. Monitor on telemetry. Outpatient followup. Echocardiogram appreciated. 7. Coronary artery disease. Cardiac enzymes appreciated. Telemetry monitoring. Losartan, propranolol, chlorthalidone. Anticoagulation on hold due to hemoptysis. 8. Hypertension. Continue medications mentioned above. 9. Chronic obstructive pulmonary disease (COPD), not having any significant wheeze. Nebulizer treatment. Case discussed with Dr. Hurd. Oxygen supplementation. 10. Benign prostatic hypertrophy (BPH). Continue current medications. 11. DVT prophylaxis. Sequential compression device, early ambulation, anticoagulation on hold for hemoptysis. Case discussed with Dr. Hurd. Ultrasound Doppler negative for DVT. CT angiogram negative for PE. 12. Unilateral diaphragmatic paralysis, complicating care. Continue oxygen supplementation. 13. Thoracic disc bulging without spinal cord compression. Pain medication as ordered. DISPOSITION: Pending clinical improvement, infectious disease consultation, social work arrangement for assisted-living. Purified protein derivative (PPD) implanted for assisted-living disposition. Patient with severe lung condition, poor overall prognosis.
[2016-09-18 20:00] VITALS: BP 111/59
[2016-09-18] MEDS: TAMSULOSIN 0.4 MG CAP PO SCH (21:32)
[2016-09-18] MEDS: ATORVASTATIN 20 MG TAB PO SCH (21:33)
[2016-09-18 23:59] VITALS: BP 110/55
[2016-09-19 04:00] VITALS: BP 90/54
[2016-09-19] MEDS: SLF 3 ML SYR IV SCH ×3 (04:36→20:14)
[2016-09-19 06:03] LABS: MEAN CORPUSCULAR HEMOGLOBIN 27.9 pg (27.0-33.0); MEAN CORPUSCULAR HGB CONC 31.7 g/dl (32.0-36.5); RED CELL DISTRIBUTION WIDTH 15.7 % (11.5-14.5); WHITE BLOOD COUNT 8.4 K/mm3 (4.0-10.0)
[2016-09-19 06:26] LABS: ALBUMIN 2.1 GM/DL (3.2-5.2); ALBUMIN/GLOBULIN RATIO 0.53 (1.00-1.93); BILIRUBIN,DIRECT 0.1 MG/DL (0.0-0.2); BILIRUBIN,TOTAL 0.4 MG/DL (0.2-1.0); CALCIUM LEVEL 8.1 MG/DL (8.8-10.2); CREATININE FOR GFR 1.38 MG/DL (0.70-1.30); GLOMERULAR FILTRATION RATE 52.5 (>35); MAGNESIUM LEVEL 1.8 MG/DL (1.8-2.4); POTASSIUM SERUM 3.5 MEQ/L (3.5-5.1); TOTAL PROTEIN 6.1 GM/DL (6.4-8.2)
[2016-09-19] MEDS: IPRATROPIUM 0.5MG/ALBUTEROL 2.5MG INH SOL UD 3ML (DUONEB)(J7620) NEB SCH ×4 (07:08→20:29)
[2016-09-19 08:00] VITALS: BP_SYST 110; BP_SYST 121; BP_DIAS 58; BP_DIAS 62
[2016-09-19] MEDS: AMIODARONE 200 MG TAB (PACERONE) PO SCH (08:36)
[2016-09-19] MEDS: LOSARTAN 50 MG TAB PO SCH ×2 (08:36→20:13)
[2016-09-19] MEDS: PROPRANOLOL 10 MG TAB PO SCH ×2 (08:36→20:13)
[2016-09-19] MEDS: MONTELUKAST 10 MG TAB PO SCH (08:37)
[2016-09-19] MEDS: MAGNESIUM OXIDE 400 MG TAB (MAG-OX) PO SCH (08:37)
[2016-09-19] MEDS: POTASSIUM CHLORIDE 10 MEQ SR TABLET PO SCH ×2 (08:38→20:12)
[2016-09-19] MEDS: CHLORTHALIDONE 12.5MG PER 1/2 TABLET PO SCH (08:38)
--- NOTE | 2016-09-19 10:27 | IPN ---
DATE OF SERVICE: 09/19/2016 Oswaldo was seen in progressive care unit (PCU). I am covering for Dr. Aguirre of the hospitalist service. The patient has been in hospital here since 09/11/2016. Admitted with acute on chronic hypoxic respiratory failure secondary to pneumonia, as well as diastolic congestive heart failure. He is on supplemental oxygen. He desaturated to the mid-60s with ambulating yesterday. His oxygen (O2) saturation is in the mid-90s on 5 liters nasal cannula. He is being followed by pulmonology. The case has been discussed with Dr. Mcgrath, as well as the patient's bedside nurse. He denies any chest pain. He is dyspneic with minimal exertion. He is apparently going to [facility] later in the week. PHYSICAL EXAMINATION: 110/58, pulse 69, respiratory rate 18, 96% O2 saturation 5 liters. General appearance: Elderly. Resting comfortably. No distress. No shortness of breath at rest. No dyspnea with prolonged discussions. He has no jugular venous distention (JVD). Lungs have decreased breath sounds. Fibrotic rales both bases. Heart: Irregular rate and rhythm, rate around 70. Abdomen: Soft, nontender. No masses. No peripheral edema. Echocardiogram earlier in the hospitalization showed ejection fraction of 65%, diastolic dysfunction noted, right-sided failure with pulmonary hypertension 40-50 mm right-sided pressures. LABORATORIES: White count 8.4, hemoglobin 8.2, platelets 348, sedimentation rate is 89. Sodium 139, potassium 3.5, BUN 18, creatinine 1.3, glucose 97. IMPRESSION: 1. Acute on chronic respiratory failure. Continue supplemental oxygen and nebulized bronchodilator. 2. History of atrial fibrillation. Converted to sinus rhythm on amiodarone. Previously anticoagulated with Eliquis, which was held in the face of hemoptysis. Also, has a history of pulmonary embolism July 2015. He is currently off anticoagulant. The case was discussed with Dr. Mcgrath. The plan was that he would be kept off anticoagulant until he is a few more weeks after this event and then would be restarted on warfarin rather than Eliquis so that should he have pulmonary hemorrhage, the anticoagulation could be reversed. 3. Hypertension. Blood pressure is intermittently low, and medications often need to be held. 4. Central tremor. He is on propranolol for blood pressure and tremor. He has seen neurology in the past. I suspect the amiodarone is contributing to the tremor. 5. Hyperlipidemia. He is on statin therapy as an outpatient, which has been continued. 6. Paralyzed left hemidiaphragm. This complicates his pulmonary situation. 7. Anemia. I reviewed his records. He has been anemic since June of this year. His baseline hemoglobin last year was around 13. He has been down in the 8-10 range since June. I suspect it is related to recurrent illness. However, will do some laboratory work so we can work this up more thoroughly. His purified protein derivative (PPD) needs to be read tomorrow. It was placed yesterday.
[2016-09-19 10:43] LABS: RETIC HEMOGLOBIN CONTENT CHr 25.9 PG (24-36); RETICULOCYTE % ADVIA2120 1.9 % (0.5-1.5)
[2016-09-19 10:59] LABS: PERCENT SATURATION 5.8 % (19.7-37.4)
[2016-09-19 11:02] LABS: FOLATE 8.5 NG/ML (>5.4)
[2016-09-19 12:00] VITALS: BP 109/60
[2016-09-19 16:00] VITALS: BP 109/63
[2016-09-19 18:49] LABS: ABG BASE EXCESS -0.1 (-2.0-2.0); ABG HCO3 23.2 MEQ/L (22.0-26.0); ABG PARTIAL PRESSURE CO2 33.2 mmHg (35.0-45.0); ABG PARTIAL PRESSURE O2 81.3 mmHg (75.0-100.0); ABG STANDARD HCO3 24.4 MEQ/L (22.0-26.0); ABG TOTAL CO2 24.3 MEQ/L (23.0-31.0); ABG pH (ARTERIAL) 7.463 UNITS (7.350-7.450)
--- NOTE | 2016-09-19 19:20 | IPN ---
DATE: 09/19/2016 Mr. Pineda denies any hemoptysis. He states he is feeling a little better. His oxygen on 5 liters was 89%. We went for a little walk around the nurses station and by the time he made it back to the nurse's station, his oxygen saturation was down to 65% with severe dyspnea. It took a while to recover his oxygen saturation to baseline of 89%. He was on 6 liters nasal cannula with ambulation. LABORATORY DATA: White count is 8.4, hemoglobin 8.2, hematocrit 26, platelets 348. Erythrocyte sedimentation rate 89. Sodium 139, potassium 3.5, chloride 100, bicarbonate 30, BUN 18, creatinine 1.38 , glucose 97, calcium 8.1, magnesium 1.8. Bilirubin 0.4, AST 90, ALT 9, alkaline phosphatase 68. C-reactive protein (CRP) is 8 to 9. Albumin 2.1. Iron 13, total iron binding capacity (TIBC) 225, iron saturation 5%. IMPRESSION: 1. Respiratory failure acute on chronic. The patient at baseline is 4 liters oxygen, but now he is much worse with ambulation 6 liters. He desaturates to 65%. A stat arterial blood arterial blood gas (ABG) was ordered after ambulation for severe hypoxia. 2. Left diaphragm hemiparalysis which is worsening the situation. 3. Chronic obstructive pulmonary disease (COPD) on chronic oxygen and nebulizers. 4. Pulmonary infiltrates. I am not sure that we still know the reason of his pulmonary infiltrates and therefore I would suggest obtaining a sputum for AFB and fungal pathogens RO MAC or fungal source as all sputums had only yeas PLAN I have discussed this case with Dr. Hurd yesterday as well as with Dr. Mcgrath today, who has seen the patient. JOSE RAUL
[2016-09-19 20:00] VITALS: BP 108/60; PULSE 87
[2016-09-19] MEDS: ATORVASTATIN 20 MG TAB PO SCH (20:12)
[2016-09-19] MEDS: TAMSULOSIN 0.4 MG CAP PO SCH (20:12)
--- NOTE | 2016-09-19 20:14 | CR ---
DATE OF CONSULTATION: 09/18/2016 Asked to consult by Dr. Aguirre for evaluation of multifocal pneumonia and worsening hypoxia in a patient with known history of chronic obstructive pulmonary disease (COPD) and pulmonary embolism. HISTORY OF PRESENT ILLNESS: Mr. Pineda is a pleasant 80-year-old gentleman with a history of COPD GOLD III and previous pulmonary embolism in 2016, oxygen dependent on 4 liters who was recently hospitalized in June 2016 with multifocal pneumonia. During this admission he had three different sputum cultures that had only yeastlike organism, respiratory panel was positive for coronavirus and a CT angiogram which showed multifocal pneumonia involving right upper lobe, middle lobe, lower lobe and left lower lobe. The patient was treated with IV Zosyn and vancomycin and was discharged home after 10 day hospitalization on 07/10/2016. The patient was advised not to continue taking his Eliquis because of persistent hemoptysis. The pneumonia was felt to be probably viral as the sputum had only coronavirus. He was seen in followup by Dr. Hurd who has seen him for the past 10 years for his COPD and pulmonary embolism, and was complaining of recurrent hemoptysis as he was restarted on Eliquis because he has a history of pulmonary embolism and DVT. The patient denied having any fever or chills. No night sweats. Appetite was fair. He states he ate better when he was a month at his son's house after the first hospitalization but he still eats pretty good. His major complaint right now is that he is very short of breath with very minimal exertion. He states that in the summer he was able to golf 18 holes with a lot of rest in between and now currently he cannot do minimal walking to the nurses station with severe exhaustion. His oxygen saturation is 90% on 5 liters up to 96%. He has been afebrile during this admission except for once he had a temperature of 100.2 on 09/13/2016, his white count has remained normal. The patient was admitted for hemoptysis which has resolved now. His phlegm has mild brown specks. He has been treated since 09/11/2016, with IV Rocephin and Zithromax, initially IV then was switched to oral, he has finished 8 days of treatment. PAST MEDICAL HISTORY: Significant for history of pulmonary embolism on two different occasions, COPD oxygen dependent on 4 liters, FEV1 about 40%, diastolic heart failure, coronary artery disease, dyslipidemia, hypertension. PAST SURGICAL HISTORY: Tonsillectomy, nasal surgery for carcinoma, skin cancer not melanoma, femoral hernia repair, colonoscopy 2006, most recently was 2007, had adenomatous polyp. 06/26/2016 had excision of left leg squamous-cell carcinoma done by Dr. Rock. FAMILY HISTORY: Hypertension. SOCIAL HISTORY: He is a former smoker. He quit about 10 years ago when he was diagnosed with COPD and was short of breath. Alcohol socially. Drugs, denies any drugs. 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 REVIEW OF SYSTEMS: He denies any fever, chills, night sweats, weight loss. He has a cough with hemoptysis and significant dyspnea on exertion. He denies any chest pain or palpitation. No abdominal pain, nausea, vomiting or diarrhea. No night sweats. No upper or lower extremity weakness. PHYSICAL EXAMINATION: He is a healthy looking gentleman in no acute distress. Temperature is 99.2, pulse 89, respirations 20, blood pressure 111/59, oxygen saturation 90% on 5 liters nasal cannula. HEART: Normal S1, S2. No murmurs, rubs or gallops. LUNGS: Diminished, especially at the left base, but with fine crackles on the right side. No significant wheezes. ABDOMEN: Soft, obese, nontender. No visceromegaly. BACK: No costovertebral angle (CVA) or lumbosacral tenderness. EXTREMITIES: No clubbing. or edema NEUROLOGICAL EXAM: Alert and oriented times three. Motor strength is normal. OROPHARYNX: Clear with no thrush. NECK: Supple. No jugular venous distention (JVD), no bruits and no adenopathy. LABORATORY DATA: White count of 7.4, hemoglobin 8.6, hematocrit 27.5, platelets 372, 72% neutrophils, 10% lymphocytes, 9% monocytes. Sodium 139, potassium 3.6, chloride 101, bicarbonate 31, BUN 15, creatinine 1.26 , glucose 95, calcium 8.3, magnesium 1.9, CRP is 9.91 which has increased from 4.52. Sputum done on 09/11/2016, day of admission, had normal michelle present, there are a few white cells and a few epithelial cells. Blood cultures, two sets, were negative. IMAGING STUDIES: CT chest done on 09/11/2016, showed mediastinal adenopathy has not changed. There are several mildly enlarged mediastinal lymph nodes and an intrarenal calculus. This was done without IV contrast and compared to 07/02/2016. CT angiogram showed no evidence of pulmonary embolism. Followup chest x-ray done on 09/15/2016, showed bilateral infiltrates and small pleural effusion unchanged compared to previous study. Thoracic MRI done for intermittent back pain showed a disc bulge at T9-T10. Vascular ultrasound showed no evidence of DVT of both lower extremities. IMPRESSION: This is an 80-year-old gentleman who was admitted with hemoptysis after he was started back on Eliquis by Dr. Hurd associated with hypoxia. The patient is oxygen dependent at 4 liters nasal cannula on average and he was saturating only at 72% when he presented to emergency room currently. The patient is currently on 5 liters nasal cannula, has received 8 days of broad-spectrum antibiotics for community-acquired pneumonia with Rocephin and Zithromax with no improvement in his oxygenation but clinically his hemoptysis has improved. The patient feels well. Does not act like he has any acute infection at this point. MEDICATIONS: PPD was placed on 09/18/2016. - albuterol/Atrovent nebulizers four times a day - amiodarone 200 mg by mouth daily - chlorthalidone 12.5 mg by mouth daily - Singulair 10 mg today - magnesium oxide 400 mg daily - Lipitor 40 mg nightly - losartan 50 mg by mouth twice a day - potassium chloride 20 mEq twice a day - propranolol 10 mg twice a day - Flomax 0.4 mg daily - Colace 100 mg as needed ALLERGIES: CEFUROXIME and CEFTRIAXONE. IMPRESSION: This is an 80-year-old gentleman who was admitted with multifocal pneumonia during hospitalization in June, treated with broad-spectrum antibiotic, blood cultures were negative. Respiratory panel was positive for coronavirus. The patient was discharged home after about 8 days, went to his son's for a month and slowly improved. He was restarted on Eliquis, developed hemoptysis and was readmitted. Clinically he is requiring 5 liters nasal cannula which is increased from his 4 liters baseline but does not have major complaint. His blood cultures this admission were negative and sputum culture had normal michelle. Previous admission or this admission there has not been a pathogen that has been identified to cause this deterioration of pulmonary function and hypoxia. Sputum cytology was recently done by Dr. Hurd as an outpatient on 08/07/2016 which shows negative. PLAN: The patient has finished 8 days of IV Rocephin and Zithromax without significant improvement. I do not think this is community-acquired pneumonia and therefore these will be discontinued. He has finished a 7-day course which is appropriate anyway. The patient could have atypical mycobacterial MAC Mycobacterium avium complex which is definitely a consideration in somebody with multifocal pneumonia and worsening hypoxia, although he does not have significant systemic findings such as fever, chills, night sweats or weight loss, he does have mediastinal adenopathy and therefore sputum for acid-fast bacillus (AFB) will be sent tomorrow to rule out Mycobacterium avium complex (MAC). He does not have tuberculosis and does not need isolation. Fungal etiology could be considered although I doubt that is the case. I suspect his hypoxia is multifactorial including hemoptysis, elevated left hemidiaphragm, moderate to severe COPD, pulmonary embolism, and infectious etiology is less likely. Case has been discussed with Dr. Hurd. UNITED MEMORIAL MEDICAL CENTERJitendra
[2016-09-19 23:57] VITALS: BP 94/60
[2016-09-20] VITALS (7 sets, daily range): BP systolic 95–115; BP diastolic 55–65; PULSE 57–64
[2016-09-20] MEDS: SLF 3 ML SYR IV SCH ×3 (05:13→20:08)
[2016-09-20 05:57] LABS: MEAN CORPUSCULAR HEMOGLOBIN 27.9 pg (27.0-33.0); MEAN CORPUSCULAR HGB CONC 31.7 g/dl (32.0-36.5); RED CELL DISTRIBUTION WIDTH 15.6 % (11.5-14.5); WHITE BLOOD COUNT 6.9 K/mm3 (4.0-10.0)
[2016-09-20 06:06] LABS: ANION GAP 8 MEQ/L (8-16); BLOOD UREA NITROGEN 15 MG/DL (7-18); CARBON DIOXIDE LEVEL 28 MEQ/L (21-32); CHLORIDE LEVEL 102 MEQ/L (98-107); CREATININE FOR GFR 1.11 MG/DL (0.70-1.30); GLOMERULAR FILTRATION RATE > 60.0 (>35); GLUCOSE, FASTING 97 MG/DL (83-110); MAGNESIUM LEVEL 1.8 MG/DL (1.8-2.4); POTASSIUM SERUM 3.7 MEQ/L (3.5-5.1); SODIUM LEVEL 138 MEQ/L (136-145)
[2016-09-20] MEDS: IPRATROPIUM 0.5MG/ALBUTEROL 2.5MG INH SOL UD 3ML (DUONEB)(J7620) NEB SCH ×4 (08:02→20:25)
[2016-09-20] MEDS: AMIODARONE 200 MG TAB (PACERONE) PO SCH (08:28)
[2016-09-20] MEDS: POTASSIUM CHLORIDE 10 MEQ SR TABLET PO SCH ×2 (08:28→20:07)
[2016-09-20] MEDS: MONTELUKAST 10 MG TAB PO SCH (08:28)
[2016-09-20] MEDS: LOSARTAN 50 MG TAB PO SCH ×2 (08:29→20:07)
[2016-09-20] MEDS: MAGNESIUM OXIDE 400 MG TAB (MAG-OX) PO SCH (08:29)
[2016-09-20] MEDS: CHLORTHALIDONE 12.5MG PER 1/2 TABLET PO SCH (08:30)
[2016-09-20] MEDS: PROPRANOLOL 10 MG TAB PO SCH ×2 (08:30→20:08)
[2016-09-20] MEDS ORDERED: CYANOCOBALAMIN 1,000 MCG/ML VIAL (J3420) IM SCH (09:00)
--- NOTE | 2016-09-20 09:52 | IPN ---
DATE: 09/20/2016 Oswaldo is about the same as yesterday. No real changes. No fever, chills, shortness of breath. PHYSICAL EXAMINATION: 108/61, pulse 61, respiratory rate 18, 95% oxygen saturation on 5 liters. General appearance: Resting comfortably, no acute distress. No dyspnea at rest. No jugular venous distention (JVD). Lungs: Decreased breath sounds. Few fibrotic rales both bases. Heart: Regular rate and rhythm right around 80. Abdomen: Soft, nontender, there is no peripheral edema. Neurological exam: Nonfocal. LABS: CBC is unchanged. Iron study showed normal reticulocyte hemoglobin content. TIBC low. Ferritin normal consistent with anemia of chronic disease. B12 borderline low at 283. Electrolytes unremarkable. IMPRESSION: 1. Acute on chronic respiratory failure. Continue nebulized bronchodilator with supplemental oxygen, followed by pulmonology. 2. History of atrial fibrillation. He has converted to sinus rhythm. He is on amiodarone. He is not on anticoagulant currently. Plan is to restart this as an outpatient as outlined 09/19/2016 note. 3. Essential tremor. Continue propranolol. He takes this for both blood pressure and tremor. Seen neurology in the past. Amiodarone is probably contributing the tremor but is mild and tolerable. 4. Hypertension. Blood pressure is intermittently low. Seems stable at this time. 5. Hyperlipidemia. Continue his current statin therapy. 6. Anemia. Probably anemia of chronic disease based on normal reticulocyte hemoglobin content, ferritin and low TIBC. B12 is borderline low. I checked methylmalonic acid level. I gave him a shot of B12. Started oral B12.
[2016-09-20] MEDS: CYANOCOBALAMIN 500 MCG TAB PO SCH (11:32)
[2016-09-20] MEDS ORDERED: PPD DOCUMENTATION ENTRY MISC XX SCH (15:00)
[2016-09-20] MEDS ORDERED: SODIUM CHLORIDE NASAL 0.65% SPRAY BTL (OCEAN) PRN (17:00)
[2016-09-20] MEDS: ATORVASTATIN 20 MG TAB PO SCH (20:07)
[2016-09-20] MEDS: TAMSULOSIN 0.4 MG CAP PO SCH (20:08)
[2016-09-21 05:43] VITALS: BP 100/61
[2016-09-21 05:56] LABS: MEAN CORPUSCULAR HEMOGLOBIN 27.5 pg (27.0-33.0); MEAN CORPUSCULAR HGB CONC 30.8 g/dl (32.0-36.5); MEAN CORPUSCULAR VOLUME 89.4 fl (80.0-96.0); RED CELL DISTRIBUTION WIDTH 15.4 % (11.5-14.5)
[2016-09-21] MEDS: SLF 3 ML SYR IV SCH ×3 (06:00→21:07)
[2016-09-21 06:15] LABS: CALCIUM LEVEL 8.3 MG/DL (8.8-10.2); CREATININE FOR GFR 1.31 MG/DL (0.70-1.30); GLOMERULAR FILTRATION RATE 55.8 (>35); POTASSIUM SERUM 3.9 MEQ/L (3.5-5.1)
[2016-09-21 07:43] VITALS: BP 112/67
[2016-09-21] MEDS: IPRATROPIUM 0.5MG/ALBUTEROL 2.5MG INH SOL UD 3ML (DUONEB)(J7620) NEB SCH ×4 (08:18→19:48)
[2016-09-21] MEDS: CHLORTHALIDONE 12.5MG PER 1/2 TABLET PO SCH (08:47)
[2016-09-21] MEDS: CYANOCOBALAMIN 500 MCG TAB PO SCH (08:47)
[2016-09-21] MEDS: MONTELUKAST 10 MG TAB PO SCH (08:47)
[2016-09-21] MEDS: MAGNESIUM OXIDE 400 MG TAB (MAG-OX) PO SCH (08:47)
[2016-09-21] MEDS: AMIODARONE 200 MG TAB (PACERONE) PO SCH (08:47)
[2016-09-21] MEDS: LOSARTAN 50 MG TAB PO SCH ×2 (08:47→21:00)
[2016-09-21] MEDS: PROPRANOLOL 10 MG TAB PO SCH ×2 (08:48→21:00)
[2016-09-21] MEDS: POTASSIUM CHLORIDE 10 MEQ SR TABLET PO SCH ×2 (08:48→21:06)
--- NOTE | 2016-09-21 09:28 | IPN ---
DATE OF SERVICE: 09/20/2016 Mr. Pineda seems to be doing about the same. He still complains of significant dyspnea on exertion and concerned that he will not be able to return home and do his usual activities. On physical examination, vital signs: temperature is 98.6, pulse 69, respirations 18, blood pressure 106/57, oxygen (O2) saturation 92% on 4 liters nasal cannula with exertion. He drops to 67% just walking around the nurses' station. Heart: Normal S1, S2 with no murmurs. Lungs: Diminished breath sounds with crackles at the bases. Poor air entry. Abdomen is soft, nontender. Extremities: No edema. LABORATORIES: White count is 6.9, hemoglobin 8.4, hematocrit 26.7, platelets 337, ESR 89, reticulocyte count is 58. Sodium 138, potassium 3.7, chloride 102, bicarbonate 28, BUN 15, creatinine 1.1, glucose 97, calcium 8, magnesium 1.8, AST 90, ALT 9, CRP 8.03, total protein 6.1, albumin 2.1, vitamin B12 283, folate 8.5, iron saturation of 5.8. IMPRESSION: 1. Acute on chronic respiratory failure, back to his baseline at 4 liters nasal cannula, but the patient has significant dyspnea on exertion and severe hypoxia with O2 saturations in the mid 60s with minimal exertion. The patient may benefit from pulmonary rehabilitation. He will discuss that with Dr. Mcgrath. 2. Iron-deficiency anemia. The patient does not seem to be on any iron supplement. He may benefit from iron supplementation and possibly some blood transfusion, even though his hemoglobin is not less than 7 but with his severe hypoxia, he would definitely benefit from slightly better improved hematocrit. I will leave this up to the primary care team to decide whether he would benefit from a blood transfusion. PLAN: From an infectious disease standpoint, I do not have anything to offer. I do not think this is infectious in nature, and I will be signing off. Sputum AFB smear was negative; culture is pending. Fungal cultures are pending, as well.
--- NOTE | 2016-09-21 09:34 | IPN ---
DATE: 09/21/2016 Oswaldo is stable. I do not really see much change going on with him at this point. He unfortunately has significant desaturation when he ambulates. He is 80 to 92% on 4 liters at rest but drops down into the 70s with ambulation. He has acute on chronic respiratory failure, history for atrial fibrillation converted to sinus rhythm, hypertension and chronic anemia for which we started some oral B12 with methylmalonic acid pending. He had hemoptysis secondary to Eliquis therapy which resolved with stopping the Eliquis. PHYSICAL EXAMINATION: VITAL SIGNS: Stable. GENERAL APPEARANCE: Resting comfortably in no distress. HEENT: No jugular venous distention. LUNGS: Decreased breath sounds. Clear. HEART: Regular rate and rhythm. ABDOMEN: Soft, nontender. EXTREMITIES: There is no peripheral edema. Labs are stable and unremarkable. PLAN: I have got a consultation in for Dr. Espana to get her input on his desaturations. I am meeting with Patient/Family Services to take about plans for placement. The patient would like to go to [facility] but we need to clarify the oxygen problem first.
[2016-09-21 13:00] VITALS: BP 101/59
[2016-09-21 14:00] VITALS: BP 104/60
[2016-09-21] MEDS: TAMSULOSIN 0.4 MG CAP PO SCH (21:06)
[2016-09-21] MEDS: ATORVASTATIN 20 MG TAB PO SCH (21:07)
[2016-09-21 22:00] VITALS: BP 88/50
[2016-09-22 00:07] LABS: FREE KAPPA LIGHT CHAINS SERUM 65.01 mg/L (3.30-19.40); FREE LAMBDA LIGHT CHAINS SERUM 50.5 mg/L (5.71-26.30); KAPPA/LAMBDA RATIO SERUM 1.29 (0.26-1.65)
[2016-09-22] MEDS: SLF 3 ML SYR IV SCH (05:04)
[2016-09-22 06:00] VITALS: BP 113/84
[2016-09-22 06:09] LABS: MEAN CORPUSCULAR HGB CONC 32.1 g/dl (32.0-36.5); MEAN CORPUSCULAR VOLUME 87.3 fl (80.0-96.0); RED CELL DISTRIBUTION WIDTH 15.7 % (11.5-14.5); WHITE BLOOD COUNT 7.1 K/mm3 (4.0-10.0)
[2016-09-22 06:27] LABS: ANION GAP 7 MEQ/L (8-16); BLOOD UREA NITROGEN 17 MG/DL (7-18); CALCIUM LEVEL 8.3 MG/DL (8.8-10.2); CARBON DIOXIDE LEVEL 30 MEQ/L (21-32); CHLORIDE LEVEL 101 MEQ/L (98-107); CREATININE FOR GFR 1.19 MG/DL (0.70-1.30); GLOMERULAR FILTRATION RATE > 60.0 (>35); GLUCOSE, FASTING 98 MG/DL (83-110); POTASSIUM SERUM 3.8 MEQ/L (3.5-5.1); SODIUM LEVEL 138 MEQ/L (136-145)
[2016-09-22] MEDS: IPRATROPIUM 0.5MG/ALBUTEROL 2.5MG INH SOL UD 3ML (DUONEB)(J7620) NEB SCH ×2 (07:24→11:18)
[2016-09-22] MEDS: CYANOCOBALAMIN 500 MCG TAB PO SCH (09:55)
[2016-09-22] MEDS: CHLORTHALIDONE 12.5MG PER 1/2 TABLET PO SCH (09:56)
[2016-09-22] MEDS: POTASSIUM CHLORIDE 10 MEQ SR TABLET PO SCH (09:58)
[2016-09-22] MEDS: MAGNESIUM OXIDE 400 MG TAB (MAG-OX) PO SCH (09:59)
[2016-09-22] MEDS: AMIODARONE 200 MG TAB (PACERONE) PO SCH (09:59)
[2016-09-22] MEDS: PROPRANOLOL 10 MG TAB PO SCH (09:59)
[2016-09-22 10:00] VITALS: BP 119/61
[2016-09-22] MEDS: LOSARTAN 50 MG TAB PO SCH (10:00)
[2016-09-22] MEDS: MONTELUKAST 10 MG TAB PO SCH (10:01)
[2016-09-22] MEDS ORDERED: COLA100C3 PO (10:12)
[2016-09-22] MEDS ORDERED: OCEA0.654 (10:12)
[2016-09-22] MEDS ORDERED: MONT10TA2 PO (10:12)
[2016-09-22] MEDS ORDERED: PROP10TAB PO (10:12)
[2016-09-22] MEDS ORDERED: LOSA50TA20 PO (10:12)
[2016-09-22] MEDS ORDERED: ATOR1TAB21 PO (10:12)
[2016-09-22] MEDS ORDERED: IPRASOL4 NEB ×2 (10:12)
[2016-09-22] MEDS ORDERED: ACE65ERTAB PO (10:12)
[2016-09-22] MEDS ORDERED: POTA10CA PO (10:12)
[2016-09-22] MEDS ORDERED: FLOM5CAP PO (10:12)
[2016-09-22] MEDS ORDERED: VITA500T53 PO (10:12)
[2016-09-22] MEDS ORDERED: AMIO20TA PO (10:12)
[2016-09-22] MEDS ORDERED: MAG400TA PO (10:12)
--- NOTE | 2016-09-22 10:34 | DSES ---
DATE OF ADMISSION: 09/11/2016 DATE OF DISCHARGE: Patient is being discharged to [facility] level of care ([facility]). PRINCIPAL DIAGNOSIS: Acute on chronic respiratory failure secondary to recurrent multifocal pneumonia and a history of chronic obstructive pulmonary disease (COPD) and pulmonary embolism. SECONDARY DIAGNOSES: 1. Hypoxemia with exertion, normalizes at rest. 2. Hypertension. 3. Hyperlipidemia. 4. Essential tremor. 5. History of atrial fibrillation, converted to sinus rhythm (anticoagulation held in the face of hemoptysis with plans to restart anticoagulant with warfarin as an outpatient). 6. Anemia of chronic disease. HISTORY: Oswaldo Pineda is a patient of Dr. Will Fontana, admitted with hypoxia. Details of history and physical from admission. HOSPITAL COURSE: The patient was admitted to telemetry bed on the hospitalist service. I assumed his care a few days ago and at that point he was starting to see improvement but still having hypoxemia. He had been seen by infectious disease and had a course of antibiotics for pneumonia. He was on Rocephin and Zithromax, which were discontinued by infectious disease. He had a PPD placed that was negative. I read that on 09/20/2016 and it was negative. He progressed in physical therapy (PT). He still desaturates with exertion but immediately comes back to above 90% at rest. Dr. Mcgrath saw him in consultation and did not feel that there was anything else that we could do to improve his oxygenation and thought that he was stable for discharge. DISCHARGE LABORATORIES: White count 7.1, hemoglobin 8.8, platelets 347. Sodium 138, potassium 3.8, BUN 17, creatinine 1.1, glucose 98. B12 was borderline low at 283. I gave him a B12 shot and oral B12. He has a methylmalonic acid pending. [place] and lambda light chains were checked in the serum and they were elevated, but the ratio was normal, and the levels reflect acute on chronic kidney disease. TB Gold was negative. Sputum just showed normal michelle. Acid fast was negative. Fungal smear was negative. DISPOSITION: The patient is discharged to [facility] for rehabilitation. His medications will be: - oxygen 5 liters nasal cannula - Tylenol 650 mg every 8 hours as needed - albuterol 2.5/atropine 0.5 unit dose four times a day - amiodarone 200 mg daily - atorvastatin 40 mg daily - Colace 100 mg daily as needed - losartan 50 mg twice a day - magnesium oxide 400 mg daily - Singulair 10 mg daily - potassium chloride 20 mEq twice a day - propranolol 10 mg twice a day - Flomax 0.4 mg at night - [place] nasal spray - chlorthalidone 12.5 mg daily Activity as tolerated. No added salt diet. Followup with Dr. Fontana in 1 week.
== END 2016-09-22 12:54 | DRG 813 ==
LOC: MERGE 13:58 → M ED 15:58 → M ED INP 17:27 → M PCU 09-12 14:52 → M MSPAV 09-21 12:50
PROVIDERS: ADMIT Internal Medicine; ATTEND Hospitalist
DX: D68.32 Hemorrhagic disorder due to extrinsic circulating anticoagulants (principal); J96.21 Acute and chronic respiratory failure with hypoxia; J18.9 Pneumonia, unspecified organism; J44.0 Chronic obstructive pulmonary disease with (acute) lower respiratory infection; R04.2 Hemoptysis; I50.30 Unspecified diastolic (congestive) heart failure; M51.04 Intervertebral disc disorders with myelopathy, thoracic region; J98.6 Disorders of diaphragm; N40.0 Benign prostatic hyperplasia without lower urinary tract symptoms; I10 Essential (primary) hypertension; E78.5 Hyperlipidemia, unspecified; D63.8 Anemia in other chronic diseases classified elsewhere; G25.0 Essential tremor; I48.91 Unspecified atrial fibrillation; Z79.01 Long term (current) use of anticoagulants; Z79.52 Long term (current) use of systemic steroids; Z79.899 Other long term (current) drug therapy; Z99.81 Dependence on supplemental oxygen; Z86.711 Personal history of pulmonary embolism; Z86.718 Personal history of other venous thrombosis and embolism; Z88.1 Allergy status to other antibiotic agents; Z82.49 Family history of ischemic heart disease and other diseases of the circulatory system; Z87.891 Personal history of nicotine dependence; Y95 Nosocomial condition; Z85.828 Personal history of other malignant neoplasm of skin; T45.515A Adverse effect of anticoagulants, initial encounter

== ENCOUNTER → 2016-09-11 | Outpatient (CLI) | payer MEDICARE, OTHER ==
[~2016-09-11] MED LIST changes: +ACID1CHW5 PO; -COLA100C PO; +COLA100C3 PO; +MONT10TA2 PO; +POTA20TA6 PO; +TYLE650T35 PO; +VITA500C10 PO
--- NOTE | 2016-09-11 13:06 | REP ---
PA and lateral chest: Comparisons are the PA and lateral chest dated 08/[address] of 07/02/2016. The bilateral infiltrates and bilateral pleural effusions have increased in size. Cardiac size is upper normal, unchanged. The andreia, mediastinum, and bony thorax are changed. Impression: The bilateral infiltrates and pleural effusions have increased in size. Signed by Toby Louie MD 09/11/2016 12:57 P
== END ==
LOC: M RAD 12:33
PROVIDERS: ATTEND Internal Medicine Pulmonary Disease
DX: J18.0 Bronchopneumonia, unspecified organism (principal)

== ENCOUNTER → 2016-09-25 | Outpatient (REF) ==
[~2016-09-25] MED LIST changes: +ACE65ERTAB PO; +ACID1CHW5 PO; +ATOR1TAB21 PO; +IPRASOL4 NEB; +MAG400TA PO; +MONT10TA2 PO; +OCEA0.654; +POTA10CA PO; +POTA20TA6 PO; +PROP10TAB PO; +TYLE650T35 PO; +VITA500C10 PO; +VITA500T53 PO
[2016-09-25 10:17] LABS: MEAN CORPUSCULAR HEMOGLOBIN 27.5 pg (27.0-33.0); MEAN CORPUSCULAR HGB CONC 31.8 g/dl (32.0-36.5); MEAN CORPUSCULAR VOLUME 86.5 fl (80.0-96.0); RED CELL DISTRIBUTION WIDTH 15.5 % (11.5-14.5); WHITE BLOOD COUNT 7.9 K/mm3 (4.0-10.0)
[2016-09-25 10:40] LABS: CALCIUM LEVEL 8.3 MG/DL (8.8-10.2); CREATININE FOR GFR 1.58 MG/DL (0.70-1.30); GLOMERULAR FILTRATION RATE 44.9 (>35); POTASSIUM SERUM 3.4 MEQ/L (3.5-5.1)
== END ==
PROVIDERS: ATTEND Internal Medicine
DX: I50.9 Heart failure, unspecified (principal); D64.9 Anemia, unspecified

== ENCOUNTER 2016-09-28 15:34 | Inpatient (IN) | payer MEDICARE, OTHER ==
[~2016-09-28] VITALS: Ht 177.8 cm; Wt 75.0 kg
[~2016-09-28 15:34] MED LIST changes: -BISA10SU4 PR; -COUM1TAB14 PO; -COUM1TAB17 PO; -ENEMENE3 PR; -GUAI60TA PO; -IPRASOL4 INH; -LASI20TA PO; -MAGN400T PO; -MILKSUS PO; -POTA20TA PO; -PRED20TA PO; -SALI0.653; -SENO8.6T10 PO; -TORS10TA3 PO; -TYLE325T5 PO; -VITA10002 PO; -WARF-20 PO; -WARF-58 PO
[2016-09-28 16:36] LABS: INR 2.47
[2016-09-28 16:43] LABS: ABG BASE EXCESS 10.1 (-2.0-2.0); ABG HCO3 34.4 MEQ/L (22.0-26.0); ABG PARTIAL PRESSURE CO2 45.2 mmHg (35.0-45.0); ABG PARTIAL PRESSURE O2 60.7 mmHg (75.0-100.0); ABG STANDARD HCO3 33.7 MEQ/L (22.0-26.0); ABG TOTAL CO2 35.8 MEQ/L (23.0-31.0); ABG pH (ARTERIAL) 7.499 UNITS (7.350-7.450)
[2016-09-28] MEDS ORDERED: POTA20TA PO ×2 (16:48→19:02)
[2016-09-28] MEDS ORDERED: COUM1TAB14 PO (16:48)
[2016-09-28] MEDS ORDERED: POTA10CA PO ×2 (16:48→18:51)
[2016-09-28] MEDS ORDERED: LASI20TA PO ×2 (16:48→18:47)
[2016-09-28] MEDS ORDERED: TORS10TA3 PO ×2 (16:48→18:50)
[2016-09-28] MEDS ORDERED: COUM1TAB17 PO (16:48)
[2016-09-28] MEDS ORDERED: SENO8.6T10 PO ×2 (16:48→18:47)
[2016-09-28] MEDS ORDERED: ALBU83IN INH ×2 (16:48→19:02)
[2016-09-28 16:59] LABS: CALCIUM LEVEL 8.8 MG/DL (8.8-10.2); CREATININE FOR GFR 1.85 MG/DL (0.70-1.30); GLOMERULAR FILTRATION RATE 37.4 (>35); POTASSIUM SERUM 3.7 MEQ/L (3.5-5.1)
[2016-09-28 17:15] LABS: BASO % 0.2 % (0.0-1.0); EOS # 0.2 K/mm3 (0.0-0.50); EOS % 1.8 % (0.0-3.0); LARGE UNSTAINED CELL # 0.2 K/mm3 (0.0-0.4); LARGE UNSTAINED CELL % 2.3 % (0.0-4.0); LYMPH # 0.8 K/mm3 (1.5-4.5); LYMPH % 9.3 % (24.0-44.0); MEAN CORPUSCULAR HGB CONC 30.6 g/dl (32.0-36.5); MEAN CORPUSCULAR VOLUME 88.3 fl (80.0-96.0); MONO # 0.8 K/mm3 (0.0-0.8); MONO % 9.1 % (0.0-5.0); NEUTROPHILS # 6.8 K/mm3 (1.8-7.7); NEUTROPHILS % 77.3 % (36.0-66.0); PLATELET COUNT, AUTOMATED 473 k/mm3 (150-450); RED CELL DISTRIBUTION WIDTH 15.4 % (11.5-14.5); WHITE BLOOD COUNT 8.8 K/mm3 (4.0-10.0)
[2016-09-28] MEDS ORDERED: NS 1,000 ML IV SCH (18:25)
[2016-09-28] MEDS ORDERED: ACETAMINOPHEN TAB 650MG DOSE (2X325MG) PO PRN (18:30)
[2016-09-28 18:43] LABS: MAGNESIUM LEVEL 2.3 MG/DL (1.8-2.4)
[2016-09-28] MEDS ORDERED: GUAI60TA PO (18:47)
[2016-09-28] MEDS ORDERED: SALI0.653 (18:47)
[2016-09-28] MEDS ORDERED: WARF-20 PO (18:50)
[2016-09-28] MEDS ORDERED: WARF-58 PO (18:50)
[2016-09-28] MEDS ORDERED: ATOR40TA PO (19:02)
[2016-09-28] MEDS ORDERED: VITA10002 PO (19:02)
[2016-09-28] MEDS ORDERED: TYLE325T5 PO (19:02)
[2016-09-28] MEDS ORDERED: FLOM5CAP PO (19:02)
[2016-09-28] MEDS ORDERED: CHLO125TA PO (19:02)
[2016-09-28] MEDS ORDERED: MAGN400T PO (19:02)
[2016-09-28] MEDS ORDERED: MONT10TA2 PO (19:02)
[2016-09-28] MEDS ORDERED: LOSA50TA20 PO (19:02)
[2016-09-28] MEDS ORDERED: BISA10SU4 PR (19:02)
[2016-09-28] MEDS ORDERED: IPRASOL4 INH (19:02)
[2016-09-28] MEDS ORDERED: OCEA0.654 (19:02)
[2016-09-28] MEDS ORDERED: MILKSUS PO (19:02)
[2016-09-28] MEDS ORDERED: AMIO20TA PO (19:02)
[2016-09-28] MEDS ORDERED: PROP10TA56 PO (19:02)
[2016-09-28] MEDS ORDERED: ENEMENE3 PR (19:02)
[2016-09-28 20:13] VITALS: BP 131/61
--- NOTE | 2016-09-28 21:20 | HPE ---
DATE OF ADMISSION: 09/28/2016 PRIMARY CARE PROVIDER: Issac Swain Jr., MD RESIDENCY: Patient is from [facility]. HISTORY OF PRESENT ILLNESS: This patient is an 80-year-old male with a past medical history significant for chronic obstructive pulmonary disease (COPD), GOLD classification III, pulmonary embolism times two, left hemidiaphragm dysfunction, coronary artery disease, hypertension, gout, skin cancer of the nose, tremor, diastolic congestive heart failure, who was transferred from [facility] to [facility] on 09/28/2016, for acute respiratory distress. At baseline, patient has been using 4 liters nasal cannula in the care home, however patient started having shortness of breath for the past few days and today patient was noted to have pulse oximetry of 60% with 4 liters nasal cannula during minor exertion. Due to acute decompensation of the oxygen, patient was sent to [facility] for evaluation. Patient denies any cough, productive sputum. Denies any hemoptysis. Denies any fever or chills. Patient noted bilateral lower extremity swelling is getting better because patient has been on diuresis for the past 6 days. Patient does have a history of hemoptysis in the past. Eliquis was discontinued and patient was placed on warfarin due to history of pulmonary embolism in October 2013 and in July 2015. Patient denies any acute bleeding. Patient denies any blood in the urine, stool, or in the sputum. ALLERGIES: CEFUROXIME and CIPRO. PAST MEDICAL HISTORY: 1. COPD, GOLD classification III. 2. Pulmonary embolism in October 2013 and July 2015. 3. Left hemidiaphragm dysfunction. 4. Coronary artery disease. 5. Dyslipidemia. 6. Hypertension. 7. Gout. 8. Skin cancer of the nose. 9. Tremors. 10. Diastolic congestive heart failure. 11. History of nonsustained ventricular tachycardia. 12. History of anemia of chronic disease. 13. History of paroxysmal atrial fibrillation. 14. History of pneumonia. 15. History of viral respiratory infection. PAST SURGICAL HISTORY: 1. Cardiac catheterization in 2009. 2. Nose surgery. 3. Femoral hernia repair. SOCIAL HISTORY: Patient is a former smoker, quit more than 10 years ago. Alcohol use intermittently. No recreational drug use. Patient is DO NOT RESUSCITATE/DO NOT INTUBATE. REVIEW OF SYSTEMS: GENERAL: Denies any fever or chills. HEENT: No vision changes, no auditory changes. CARDIOVASCULAR: Denies any chest pain or palpitations. RESPIRATORY: Increased shortness of breath, increased oxygen demand, more significant since this morning. Patient has COPD and recently patient required 4-5 liters nasal cannula at baseline. Patient denies any increased cough or sputum production. GASTROINTESTINAL (GI): No nausea, no vomiting, no abdominal pain. MUSCULOSKELETAL: No muscle pain or joint pain. NEUROLOGICAL: No numbness or tingling. LABORATORY DATA: WBC 8.8, hemoglobin 9.8, hematocrit 32, platelet count 473. Sodium 140, potassium 3.7, carbon dioxide 37, BUN 27, creatinine 1.85, GFR 37.4, fasting glucose 101, lactic acid 1.4, calcium 8.8, magnesium 2.3. Arterial blood gas (ABG) showed pH of 7.49, pCO2 is 45.2, pO2 is 60.7, total CO2 is 35.8. PT is 26.8, INR is 2.47. Blood cultures pending times two sets. Chest x-ray shows increasing and extensive pleural parenchymal opacification on the left with volume loss. Increased pleural thickening of the left. Extensive chronic changes on the right which are stable. ASSESSMENT AND PLAN: 1. Acute respiratory failure. Patient admitted to progressive care unit (PCU) under inpatient status. At baseline, patient does have chronic obstructive pulmonary disease (COPD). Patient also has left hemidiaphragm dysfunction which has complicated patient's respiratory issues. Patient has been recently hospitalized for coronavirus and also for pneumonia. Due to current acute kidney injury, patient is not able to tolerate CT chest with contrast. At this moment, will control patient's symptoms and will try to optimize patient's renal function and patient can have the CT scan with contrast if renal function improves. We have discussed the case with candy counter clerk, Dr. Hurd. Currently, patient does not have any white count, does not have any fever or chills. Pneumonia is not high on the differential. The patient may not need antibiotics. 2. History of hemoptysis. When patient was on Eliquis for his paroxysmal atrial fibrillation, patient had experienced episodes of hemoptysis. Patient has been switched to warfarin. Currently patient's INR is in the therapeutic range. Chest x-ray suggests that there is increased opacity in the left lung. We could not get more detailed information. Part one of the differential could be patient does have bleeding inside the parenchymal. Will continue to watch hemoglobin and hematocrit and patient's vital signs. 3. Paroxysmal atrial fibrillation. Patient is on warfarin with a therapeutic INR. 4. Acute kidney injury. On 09/22/2016, patient had normal renal function with creatinine of 1.19 and GFR greater than 60. In the past few days, patient noted to have fluid overload. Patient has been given daily dose of Lasix diuresis and during physical exam patient did show dry oral mucosa. Patient does not have any lower extremity swelling. There is concern that patient may be over diuresed causing acute kidney injury (YINA). Will give patient gentle hydration. Will continue to monitor. 5. History of pulmonary embolism in October 2013 and July 2015. Patient had hemoptysis on Eliquis. Patient has been switched to warfarin. Currently INR is therapeutic. Part of the differential could be patient developed another pulmonary embolism (PE), however with a therapeutic INR the differential diagnosis for pulmonary embolism (PE) is not high on the list. 6. Hyperlipidemia. 7. Hypertension. Currently patient is hypotensive. 8. Hypotension. When patient arrived to the emergency room, patient had a blood pressure of 81/48 with a mean arterial pressure (MAP) of 59. Currently, will start patient on gentle hydration to maintain the mean arterial pressure (MAP) above 65%. Patient's diuretic will be on hold. 9. History of diastolic congestive heart failure. Patient's currently looks dehydrated. Patient also has acute kidney injury (YINA) with a soft blood pressure. Diuretic will be on hold. Patient will be on gentle hydration. Will follow patient's fluid status. 10. History of coronary artery disease. 11. Deep venous thrombosis (DVT) prophylaxis. The patient is on warfarin with a therapeutic INR.
[2016-09-28] MEDS: FLUCONAZOLE 200 MG in APPROPRIATE DILUENT 1 EA IV SCH (21:46)
[2016-09-28] MEDS ORDERED: IPRATROPIUM 0.5MG/ALBUTEROL 2.5MG INH SOL UD 3ML (DUONEB)(J7620) NEB PRN (22:00)
[2016-09-28] MEDS ORDERED: MOM 30ML SUSPENSION UDC PO PRN (22:00)
[2016-09-28] MEDS ORDERED: BISACODYL 10 MG SUPP PR PRN (22:00)
[2016-09-28] MEDS ORDERED: FLEET ENEMA PR PRN (22:00)
[2016-09-28 22:30] VITALS: BP 99/60
[2016-09-28] MEDS: SODIUM CHLORIDE NASAL 0.65% SPRAY BTL (OCEAN) SCH (22:31)
[2016-09-28] MEDS: POTASSIUM CHLORIDE 10 MEQ SR TABLET PO SCH (22:34)
[2016-09-28] MEDS: SENOKOT S TAB PO SCH (22:34)
[2016-09-28] MEDS: ATORVASTATIN 20 MG TAB PO SCH (22:34)
[2016-09-28] MEDS: WARFARIN SOD 3 MG TAB PO SCH (22:35)
[2016-09-28] MEDS: guaiFENesin ER 600 MG TAB PO SCH (22:35)
[2016-09-28] MEDS: LOSARTAN 50 MG TAB PO SCH (22:50)
[2016-09-28] MEDS: TAMSULOSIN 0.4 MG CAP PO SCH (22:51)
[2016-09-28] MEDS: PROPRANOLOL 10 MG TAB PO SCH (22:52)
[2016-09-28 23:52] VITALS: BP 82/45
[2016-09-28 23:57] VITALS: BP 96/63
[2016-09-29 04:00] VITALS: BP 148/66
[2016-09-29 05:59] LABS: MEAN CORPUSCULAR HEMOGLOBIN 27.8 pg (27.0-33.0); MEAN CORPUSCULAR HGB CONC 31.5 g/dl (32.0-36.5); MEAN CORPUSCULAR VOLUME 88.4 fl (80.0-96.0); RED CELL DISTRIBUTION WIDTH 15.3 % (11.5-14.5); WHITE BLOOD COUNT 7.4 K/mm3 (4.0-10.0)
[2016-09-29 06:00] LABS: CALCIUM LEVEL 8.4 MG/DL (8.8-10.2); CREATININE FOR GFR 1.57 MG/DL (0.70-1.30); GLOMERULAR FILTRATION RATE 45.3 (>35); POTASSIUM SERUM 3.6 MEQ/L (3.5-5.1)
[2016-09-29] MEDS: ALBUTEROL SULFATE 2.5 MG/0.5 ML INH NEB SOLN INH SCH ×4 (07:25→20:50)
[2016-09-29 08:00] VITALS: BP 118/80
[2016-09-29] MEDS: LOSARTAN 50 MG TAB PO SCH ×2 (09:00→21:34)
[2016-09-29] MEDS: SODIUM CHLORIDE NASAL 0.65% SPRAY BTL (OCEAN) SCH ×2 (09:00→21:35)
[2016-09-29] MEDS ORDERED: FUROSEMIDE 20 MG TAB PO SCH (09:00)
[2016-09-29] MEDS ORDERED: CEFEPIME HCL 1 GM in D5W MINI-BAG PLUS 50 ML IV SCH (09:00)
[2016-09-29] MEDS ORDERED: TORSEMIDE 10 MG TABLET PO SCH (09:00)
[2016-09-29] MEDS: PROPRANOLOL 10 MG TAB PO SCH ×3 (09:00→21:35)
[2016-09-29] MEDS: CYANOCOBALAMIN 500 MCG TAB PO SCH (09:13)
[2016-09-29] MEDS: CHLORTHALIDONE 12.5MG PER 1/2 TABLET PO SCH (09:13)
[2016-09-29] MEDS: CEFEPIME HCL 1 GM in D5W MINI-BAG PLUS 50 ML IV SCH (09:13)
[2016-09-29] MEDS: AMIODARONE 200 MG TAB (PACERONE) PO SCH (09:16)
[2016-09-29] MEDS: guaiFENesin ER 600 MG TAB PO SCH ×2 (09:16→21:34)
[2016-09-29] MEDS: MONTELUKAST 10 MG TAB PO SCH (09:16)
[2016-09-29] MEDS: MAGNESIUM OXIDE 400 MG TAB (MAG-OX) PO SCH (09:17)
[2016-09-29 12:00] VITALS: BP 127/77
[2016-09-29 16:00] VITALS: BP 110/67
[2016-09-29] MEDS ORDERED: WARFARIN SOD 4 MG TAB PO SCH (17:00)
[2016-09-29 19:47] VITALS: BP 106/66
[2016-09-29 21:32] VITALS: BP 105/56
[2016-09-29] MEDS: POTASSIUM CHLORIDE 10 MEQ SR TABLET PO SCH (21:34)
[2016-09-29] MEDS: TAMSULOSIN 0.4 MG CAP PO SCH (21:34)
[2016-09-29] MEDS: ATORVASTATIN 20 MG TAB PO SCH (21:34)
[2016-09-29] MEDS: FLUCONAZOLE 200 MG in APPROPRIATE DILUENT 1 EA IV SCH (21:35)
[2016-09-29] MEDS: SENOKOT S TAB PO SCH (21:35)
[2016-09-30] VITALS (7 sets, daily range): BP systolic 88–122; BP diastolic 50–70
[2016-09-30] MEDS ORDERED: SLF 3 ML SYR IV PRN (01:30)
[2016-09-30] MEDS: SLF 3 ML SYR IV SCH ×3 (04:46→20:50)
[2016-09-30 05:28] LABS: MEAN CORPUSCULAR HGB CONC 30.7 g/dl (32.0-36.5); MEAN CORPUSCULAR VOLUME 87.7 fl (80.0-96.0); RED CELL DISTRIBUTION WIDTH 15.3 % (11.5-14.5); WHITE BLOOD COUNT 7.8 K/mm3 (4.0-10.0)
[2016-09-30 05:35] LABS: CALCIUM LEVEL 8.6 MG/DL (8.8-10.2); CREATININE FOR GFR 1.42 MG/DL (0.70-1.30); GLOMERULAR FILTRATION RATE 50.8 (>35); POTASSIUM SERUM 3.7 MEQ/L (3.5-5.1)
--- NOTE | 2016-09-30 05:51 | IPN ---
DATE OF SERVICE: 09/29/2016 Patient seen and examined. No acute events overnight. Reportedly mildly improved respiration. Denies any chest pain, pressure or discomfort. Continues to have dyspnea. VITAL SIGNS: Temperature 98.8, pulse 69, respirations 20, blood pressure 105/56, pulse oximetry 89% on 5-liter nasal cannula. LABORATORY: WBC 7.4, hemoglobin and hematocrit 9.7/30.8, platelets 416. Chemistry: Sodium 140, potassium 3.6, chloride 98, bicarbonate 37, BUN 25, creatinine 1.57. PHYSICAL EXAMINATION: GENERAL: Patient alert and oriented times three, in no acute distress, speaks in full sentences. HEENT: Normocephalic, atraumatic. PULMONARY: Diminished breath sounds on the left side. Mild fine crackles on the right. CARDIAC: Regular rate and rhythm. Normal S1, S2. ABDOMEN: Soft, nontender, nondistended. EXTREMITIES: No edema bilateral lower extremities. ASSESSMENT AND PLAN: This is an 80-year-old male patient with underlying medical history of hypertension, dyslipidemia, coronary arterial disease, history of pulmonary embolism times two, was on anticoagulation, deep venous thrombosis (DVT), with diastolic heart failure, chronic obstructive pulmonary disease (COPD) on 5 liters oxygen at home, and also paralyzed left diaphragm, recently treated for pneumonia and COPD exacerbation, admitted with worsening shortness of breath and worsening hypoxia. Recently also had blood in sputum, but has resolved and restarted on anticoagulation. 1. Acute on chronic hypoxic respiratory failure. Multifactorial secondary to left-sided paralyzed diaphragm versus underlying pneumonia. Patient currently is requiring more oxygen. Pulmonary consulted. Dr. Woodward, infectious disease, also consulted. Was given Diflucan, as well as cefepime, Diflucan. Followup infectious disease recommendation. Followup culture. Followup sputum cytology and followup sputum cultures. Followup C-reactive protein. Case discussed with Dr. Woodward. Case discussed with Dr. Pan. Patient, unfortunately, is a poor candidate for bronchoscopy. Trial of steroids. Dr. Woodward recommended CT of the chest with intravenous (IV) contrast tomorrow if the kidney function improves. 2. Acute on chronic renal failure. IV hydration given. Kidney function improved. Holding Lasix for now. Will continue to monitor. 3. Paroxysmal atrial fibrillation. Patient on Coumadin. Currently therapeutic. 4. History of hemoptysis. Will monitor closely. Patient was on Eliquis before. Followup hemoglobin and hematocrit. International normalized ratio (INR) therapeutic. 5. History of pulmonary embolism (PE). Patient on Coumadin. INR therapeutic. 6. Dyslipidemia. Continue current medication. 7. History of cardiac arrhythmia. As per Dr. Melendez, patient had PVCs, as well as paroxysmal multifocal atrial tachycardia. Previous echocardiogram appreciated. 8. Coronary arterial disease. Telemetry monitoring. Losartan, propranolol, chlorthalidone with holding parameters. Anticoagulation. 9. Hypertension. Continue current medications. 10. COPD. Oxygen supplementation. Case discussed with Dr. Pan, pulmonology. Nebulizer treatment. Oxygen supplementation. EzPAP. 11. BPH. Continue current medications. 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 Complicating care. Oxygen supplementation. 13. Thoracic disc bulging without compression. MRI from two previous admissions appreciated. 14. Deep venous thrombosis (DVT) prophylaxis. Patient on Coumadin, therapeutic. Sequential compression device. DISPOSITION: Pending clinical improvement, pulmonology and infectious disease. Will get CT scan tomorrow if kidney function is improved as per infectious disease.
[2016-09-30] MEDS: ALBUTEROL SULFATE 2.5 MG/0.5 ML INH NEB SOLN INH SCH ×4 (07:56→20:00)
[2016-09-30] MEDS: predniSONE 20 MG TAB PO SCH (08:56)
[2016-09-30] MEDS: MONTELUKAST 10 MG TAB PO SCH (08:56)
[2016-09-30] MEDS: CEFEPIME HCL 1 GM in D5W MINI-BAG PLUS 50 ML IV SCH (08:56)
[2016-09-30] MEDS: guaiFENesin ER 600 MG TAB PO SCH ×2 (08:57→20:48)
[2016-09-30] MEDS: AMIODARONE 200 MG TAB (PACERONE) PO SCH (08:57)
[2016-09-30] MEDS: CYANOCOBALAMIN 500 MCG TAB PO SCH (08:57)
[2016-09-30] MEDS: MAGNESIUM OXIDE 400 MG TAB (MAG-OX) PO SCH (08:58)
[2016-09-30] MEDS: CHLORTHALIDONE 12.5MG PER 1/2 TABLET PO SCH (08:58)
[2016-09-30] MEDS: PROPRANOLOL 10 MG TAB PO SCH ×2 (09:00→20:49)
[2016-09-30] MEDS: LOSARTAN 50 MG TAB PO SCH ×2 (09:00→20:49)
[2016-09-30] MEDS: SODIUM CHLORIDE NASAL 0.65% SPRAY BTL (OCEAN) SCH ×2 (09:00→20:49)
[2016-09-30 12:07] LABS: INR 3.61
[2016-09-30] MEDS: WARFARIN SOD 3 MG TAB PO SCH (13:46)
--- NOTE | 2016-09-30 14:14 | CR ---
DATE OF CONSULTATION: 09/29/2016 CHIEF COMPLAINT: Asked by Dr. Aguirre to evaluate Mr. Pineda for worsening dyspnea on exertion, hypoxemia, and chest x-ray. HISTORY OF PRESENT ILLNESS: Mr. Pineda is an 80-year-old white male, who presented to the emergency department yesterday after he was noted to have oxygen saturations in the 60s with minimal exertion at [facility]. They contacted the pulmonary clinic, who recommended a repeat chest x-ray, but then it was decided to take him to the emergency department, where he was admitted for further evaluation. Mr. Pineda is not certain as to whether he truly felt any different yesterday, but he notes that he has had progressive dyspnea on exertion and is very disappointed that he is not improving. He now notes shortness of breath when he walks from his bed to his bathroom, and he feels like he is not walking much at all because of dyspnea. He has a significant past pulmonary and cardiac history that will be detailed below. He has a cough, although he does not consider it significant at present. What he does cough up is yellow. No hemoptysis. No chest pain or pressure. No wheezing. It is not clear that he has paroxysmal nocturnal dyspnea (PND) because he sleeps with his head of the bed elevated. No lower extremity edema. No fevers, chills, or drenching night sweats. He notes nasal congestion that he attributes to allergies and probable postnasal drip. No gastroesophageal reflux disease (GERD) symptoms. He was evaluated in the emergency department, and his chest x-ray had shown worsened left upper lobe findings with increased parenchymal opacification. In reviewing his electronic medical records, as well as his outpatient chart, this is the third admission in 2017 for respiratory symptoms. He had an additional admission about a year ago for a pulmonary embolism. He has been on amiodarone for an atrial arrhythmia for over a year. There has been no change in this dosage. He was first seen on 06/29/2016 for worsened respiratory symptoms. At that time, his saturation was 87% on 3 liters and 76% on room air. He had had a worsened chest x-ray, and he was treated with Levaquin. His symptoms worsened and he was admitted to the hospital on 07/02/2016 where he was diagnosed with coronavirus, as well as multifocal pneumonia. He was treated with vancomycin and Zosyn, as well as systemic corticosteroids. He returned to the clinic on 07/18/2016 and at this time, his saturation was 92% on 4 liters and no other treatment was indicated. He was next seen on 08/03/2016 for cough, sputum production, and shortness of breath. His oxygen saturation was 91% on 4 liters. He was treated with 20 mg of prednisone for 7 days, 15 mg for 5 days, and 10 mg until he was seen again with the plan to eventually wean him off. He was then admitted in August (09/11/16) for shortness of breath and hemoptysis (Mr. Pineda was on anticoagulation), and he was again diagnosed with multifocal pneumonia and treated with antibiotics. I do not see where he received any corticosteroids. He was noted to desaturate during ambulation at the time of discharge. He tells me he did not feel significantly improved when he was discharged this time to [facility] on 09/22/2016. The last room air saturation that I found that was acceptable was 92% on 11/16/2015 when he was evaluated at [facility]. The last office spirometry is from 06/29/2016, which showed an FEV1 of 0.95 liters (36%) and an FVC of 2.32 liters (61%). ALLERGIES: CEFUROXIME and CIPRO. MEDICATIONS ON ADMISSION: -acetaminophen 650 mg by mouth every 4 hours - albuterol nebulizer four times a day - ipratropium nebulization every 2 hours as needed - amiodarone 200 mg by mouth every day - atorvastatin 40 mg by mouth nightly - bisacodyl 10 mg suppository as needed - chlorthalidone 12.5 mg by mouth every day - vitamin B12 1000 mcg by mouth every day - Senokot one tablet by mouth each evening - Lasix 20 mg by mouth daily for 3 days (09/28/2016 through 09/30/2016 scheduled) - guaifenesin 600 mg by mouth every day - Losartan 50 mg by mouth twice a day - magnesium oxide 400 mg by mouth every day - milk of magnesia 30 mL by mouth every day as needed - Singulair 10 mg by mouth every day - potassium chloride 10 mEq by mouth each evening for 5 days (09/25/2016 through 09/29/2016) - potassium chloride 20 mEq by mouth twice a day - propranolol 10 mg by mouth twice a day - normal saline spray each nostril twice a day for 5 days (09/27/2016 through 10/01/2016) - [place] spray nasal one spray every 2 hours as needed - sodium phosphate/biphosphate enema daily as needed - Flomax 0.4 mg by mouth nightly - torsemide 10 mg by mouth every day - warfarin 4 mg by mouth every Sunday, Sunday, Sunday and 3 mg by mouth every Sunday, Sunday, , and Sunday - Anoro one puff daily PAST MEDICAL HISTORY: 1. Chronic obstructive pulmonary disease (COPD), severe, global initiative of obstructive lung disease (GOLD) class III. 2. History of pulmonary embolism in October 2013 and July 2015. 3. Left hemidiaphragm dysfunction with paradoxical motion. 4. Nonobstructive coronary artery disease. 5. History of chronic respiratory failure that was listed in June of 2016 as requiring 2 liters as needed. 6. Dyslipidemia. 7. Hypertension. 8. Gout. 9. Status post inguinal hernia surgery. 10. Skin cancer of the nose. 11. History of tremor. 12. Diastolic dysfunction on echocardiogram obtained in July of 2015. 13. Multifocal atrial tachycardia. 14. History of PACs and nonsustained ventricular tachycardia. 15. History of tobacco usage, 40 pack year. SOCIAL HISTORY: Mr. Pineda is a former smoker, admitting to a 40 pack year history and having quit 10-15 years ago. He has occasional alcohol. FAMILY HISTORY: Notable for a brother who had lung cancer. No other history of lung disease. REVIEW OF SYSTEMS: Per history of present illness (HPI). Remainder of review of systems is negative. PHYSICAL EXAMINATION: GENERAL: Mr. Pineda is lying in bed, in no acute distress. He can complete full sentences. He moves easily to the sitting position. He will occasionally use pursed-lip breathing on exhalation. VITAL SIGNS: temperature 97.3, pulse 60, respiratory rate 18, blood pressure 127/77, with an mean arterial pressure (MAP) of 94. SpO2 90% on 5 liters by nasal cannula. HEENT: Anicteric. Nares: Patent bilaterally. Moist mucosa. O2 tubing in place. Oropharynx: Clear. No wheezings. No evidence of drainage in the posterior pharynx. LUNGS: Symmetric excursion, generally diminished air entry with absent breath sounds on the left approximately one-half to two-thirds of the way up. No wheeze, rhonchi, or significant crackle on tidal excursion or forced maneuver. Prolonged expiratory phase with accentuation on forced maneuver. No accessory muscle use or retractions. There is dullness to percussion on the left approximately one-half to two-thirds of the way up. There is hyperresonance in the other regions. CHEST: Increased AP diameter. CARDIOVASCULAR: Regular rate and rhythm with a normal S1, S2. No murmur, rub, or gallop appreciated. ABDOMEN: Normoactive bowel sounds, soft, nondistended, nontender. No hepatosplenomegaly or masses appreciated. EXTREMITIES: Without clubbing, cyanosis, or significant edema. Palpable pedal pulses bilaterally. LABORATORY DATA: CBC from this morning showed a hemoglobin of 9.7, hematocrit 30.8, platelet count 416,000, white blood cell count 7400. Chemistry shows sodium 140, potassium 3.6, chloride 98, bicarbonate 37, anion gap 5, BUN 25, creatinine 1.57, glucose 93, calcium 8.4. INR 2.47. Arterial blood gas on presentation yesterday was 7.45/45/61 with a measured saturation 90% and a base excess of 10.1. I do not know how much oxygen that was drawn on. I reviewed his chest x-ray, as well as the report, from 09/28/2016. That x-ray showed borderline to mildly enlarged cardiac silhouette with normal-appearing pulmonary vascular shadows. Normal-appearing mediastinal and hilar regions. There was an elevated left hemidiaphragm. There was increased pleural thickening, as well as parenchymal opacification in the [place] compared to the chest x-ray from 09/15/2016. There were chronic changes on the right, which did not appear changed from the same date. These changes have progressed compared to his CXR from 06/2016. I reviewed his outpatient echocardiogram from 08/14/2016. That study showed normal left ventricle (LV) systolic function with an ejection fraction of 65% to 70%, grade 1 LV diastolic dysfunction. It was suggestive of moderate elevation in the pulmonary artery systolic pressure. ASSESSMENT: 1. Abnormal chest x-ray. Mr. Pineda has chest x-ray findings and appeared to have worsened since June. In June, he had a viral illness, and it is possible the changes that are being seen in August and September could be related to a process such as ADJUDICATION SPECIALIST, which frequency follows a viral illness. It seems unlikely that this is a recurrent infectious process, though he does have some evidence of bronchiectasis on his chest CT scan. He has been on amiodarone for a prolonged period of time, so I am doubtful this is amiodarone toxicity. Malignancy would have to be in the differential, as well. 2. Hypoxemia. This has clearly worsened since June 2016. Prior to June he was using 2 liters of oxygen as needed, and now he is on 5 liters to maintain his saturation of 90%. Again, I feel this is likely related to his worsening pulmonary process. He also has pulmonary hypertension, and I do not know how rapidly that has progressed. 3. Dyspnea on exertion. I feel this is multifactorial, in part related to COPD , in part related to his more acute lung process and in part related to pulmonary hypertension. 4. Elevated left hemidiaphragm, though it does not appear to have changed significantly recently. 5. Chronic obstructive pulmonary disease , global initiative of obstructive lung disease classification III. 6. Pulmonary hypertension, thought moderate on recent echocardiogram. 7. Grade 1 diastolic dysfunction on recent echocardiogram. 8. History of pulmonary embolism (PE) times two, on chronic anticoagulation. RECOMMENDATIONS: 1. I do not feel he likely has another infectious process, particularly as his presenting symptoms are more because of a noted desaturation rather than any acute cough, fevers, chills, change in dyspnea etc. He has a gram stain pending , and I would tailor antibiotics to any positive culture (heavy growth); otherwise, I would recommend consideration of discontinuance of these medications. 2. It is difficult from history to tell whether or not Mr. Pineda has felt clinical benefit to being on corticosteroids. I feel he would be a high risk of biopsy and little would we learn from the biopsy at this time and, therefore, recommend a trial of corticosteroids to see if he has a steroid-responsive lung process, such as ADJUDICATION SPECIALIST. I would recommend placing him on prednisone 40 mg daily with the decision to be made as an outpatient regarding taper. This was discussed with Dr. Aguirre. 3. I answered multiple questions from both Mr. Pineda and one of his daughters. They are most anxious for the family to sit down and discuss the overall plan and expectations. As I do not anticipate he will be in the hospital for a prolonged period of time, I feel this would be best done with the provider who has cared for him longitudinally. Thank you for this consult, and we will follow with you. JOSE RAUL
[2016-09-30] MEDS: FLUCONAZOLE 200 MG in APPROPRIATE DILUENT 1 EA IV SCH (20:46)
[2016-09-30] MEDS: ATORVASTATIN 20 MG TAB PO SCH (20:47)
[2016-09-30] MEDS: SENOKOT S TAB PO SCH (20:47)
[2016-09-30] MEDS: TAMSULOSIN 0.4 MG CAP PO SCH (20:47)
[2016-09-30] MEDS: POTASSIUM CHLORIDE 10 MEQ SR TABLET PO SCH (20:48)
--- NOTE | 2016-09-30 21:26 | IPN ---
DATE: 09/30/2016 Patient seen and examined, comfortable. In no acute distress. Continues to require oxygen, bilevel. VITAL SIGNS: Temperature 92, pulse 79, respirations 18, blood pressure 90/63, pulse oximetry 92. LABORATORY: WBC 7.8, hemoglobin and hematocrit 9.2/30, platelets 392. Chemistry: Sodium 140, potassium 3.7, chloride 99, bicarbonate 37, BUN 19, creatinine 1.4. PHYSICAL EXAMINATION: GENERAL: Patient alert and oriented times three, in no acute distress, speaks in full sentences. HEENT: Normocephalic, atraumatic. PULMONARY: Diminished breath sounds on the left side. Mild fine crackles on the right. CARDIAC: Regular rate and rhythm. Normal S1, S2. ABDOMEN: Soft, nontender, nondistended. EXTREMITIES: No edema bilateral lower extremities. ASSESSMENT AND PLAN: This is an 80-year-old male patient with underlying medical history of hypertension, dyslipidemia, coronary arterial disease, history of pulmonary embolism two times and on anticoagulation with Coumadin, deep venous thrombosis (DVT), with diastolic heart failure, chronic obstructive pulmonary disease (COPD) on 5 liters oxygen at home, and also paralyzed left diaphragm, recently treated for pneumonia and COPD exacerbation, admitted with worsening shortness of breath and worsening hypoxia. Recently had blood in sputum, which resolved after anticoagulation was on hold. Currently, anticoagulation was restarted. 1. Acute on chronic hypoxic respiratory failure. Multifactorial with left-sided paralyzed diaphragmatic paralysis with underlying pneumonia and COPD. Patient currently is requiring more oxygen. Pulmonary consultation and Dr. Woodward, infectious disease, has been consulted. Given Diflucan and cefepime. Followup infectious disease recommendations. Followup culture. Followup sputum cytology and sputum cultures. C-reactive protein. Case discussed with Dr. Woodward and Dr. Pan. Patient, unfortunately, is a poor candidate for bronchoscopy or trial of steroids, 20 mg of prednisone as per Dr. Pan. Family believes that repeat CT scan will not help. The patient's respirations almost back to what it was before admission. Physical therapy (PT). 2. Acute on chronic renal failure. IV hydration initially given. Likely secondary to Lasix, holding Lasix. Continue to monitor. 3. Paroxysmal atrial fibrillation. Patient on Coumadin. Holding Coumadin given supratherapeutic INR. Continue to follow. 4. History of hemoptysis. We will monitor closely. Holding Coumadin right now given supratherapeutic INR. 5. History of pulmonary embolism (PE). Followup INR. The patient was on Coumadin. Holding Coumadin given supratherapeutic INR. 6. Dyslipidemia. Continue current medication. 7. History of cardiac arrhythmia. As per Dr. Melendez, patient has PVCs, as well as paroxysmal multifocal atrial tachycardia. Previous echocardiogram appreciated. 8. Coronary arterial disease. Telemetry. Losartan has been decreased. Propranolol, chlorthalidone with holding parameters. Anticoagulation. 9. Hypertension. Continue current medications. 10. COPD. Oxygen supplementation. Case discussed with Dr. Pan, pulmonary. Nebulizer treatment. Oxygen supplementation. EzPAP. 11. Benign prostatic hypertrophy (BPH) . Continue current medications. 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 Complicating care. Oxygen supplementation. 13. Thoracic disc bulging without compression. MRI from two previous admissions appreciated. 14. Deep venous thrombosis (DVT) prophylaxis. Patient on Coumadin, supratherapeutic. Sequential compression device. DISPOSITION: Pending clinical improvement, pulmonology and infectious disease, physical therapy (PT), and patient and family services (PFS) for disposition planning.
[2016-10-01 05:01] VITALS: BP 111/63
[2016-10-01 05:17] LABS: MEAN CORPUSCULAR HEMOGLOBIN 27.1 pg (27.0-33.0); MEAN CORPUSCULAR HGB CONC 31.9 g/dl (32.0-36.5); MEAN CORPUSCULAR VOLUME 85.1 fl (80.0-96.0); RED CELL DISTRIBUTION WIDTH 15.4 % (11.5-14.5); WHITE BLOOD COUNT 9.4 K/mm3 (4.0-10.0)
[2016-10-01 05:20] LABS: INR 4.39
[2016-10-01] MEDS: SLF 3 ML SYR IV SCH ×3 (05:31→21:42)
[2016-10-01 05:34] LABS: CALCIUM LEVEL 8.4 MG/DL (8.8-10.2); CREATININE FOR GFR 1.29 MG/DL (0.70-1.30); GLOMERULAR FILTRATION RATE 56.8 (>35); POTASSIUM SERUM 3.7 MEQ/L (3.5-5.1)
[2016-10-01] MEDS: ALBUTEROL SULFATE 2.5 MG/0.5 ML INH NEB SOLN INH SCH ×4 (07:21→20:00)
[2016-10-01] MEDS ORDERED: PHYTONADIONE 5 MG TAB PO ONE (07:45)
[2016-10-01 08:00] VITALS: BP 108/57
[2016-10-01] MEDS: guaiFENesin ER 600 MG TAB PO SCH ×2 (08:15→21:39)
[2016-10-01] MEDS: predniSONE 20 MG TAB PO SCH (08:16)
[2016-10-01] MEDS: CYANOCOBALAMIN 500 MCG TAB PO SCH (08:16)
[2016-10-01] MEDS: CHLORTHALIDONE 12.5MG PER 1/2 TABLET PO SCH (08:16)
[2016-10-01] MEDS: LOSARTAN 50 MG TAB PO SCH ×2 (08:17→21:39)
[2016-10-01] MEDS: MONTELUKAST 10 MG TAB PO SCH (08:17)
[2016-10-01] MEDS: AMIODARONE 200 MG TAB (PACERONE) PO SCH (08:17)
[2016-10-01] MEDS: PROPRANOLOL 10 MG TAB PO SCH ×2 (08:17→21:39)
[2016-10-01] MEDS: MAGNESIUM OXIDE 400 MG TAB (MAG-OX) PO SCH (08:18)
[2016-10-01] MEDS: SODIUM CHLORIDE NASAL 0.65% SPRAY BTL (OCEAN) SCH ×2 (08:18→21:00)
[2016-10-01] MEDS: CEFEPIME HCL 1 GM in D5W MINI-BAG PLUS 50 ML IV SCH (08:18)
[2016-10-01 12:00] VITALS: BP 92/53
--- NOTE | 2016-10-01 13:34 | IPN ---
DATE OF SERVICE: 10/01/2016 The patient seen and examined. No acute events overnight. Feeling comfortable. Continues to have mild dyspnea. Denies any fever, chills, chest pain, pressure, or discomfort. VITAL SIGNS: Temperature 97.7, pulse 58, respiration 20, blood pressure 92/53, pulse oximetry 91% on 4 liters nasal cannula. LABORATORY: WBC 9.4, hemoglobin and hematocrit 8.3/26.2, platelets 397. Chemistry: Sodium 139, potassium 3.7, chloride 101, bicarbonate 31, BUN 21, creatinine 1.29. PHYSICAL EXAMINATION: GENERAL: The patient alert and oriented times three, in no acute distress. HEENT: Normocephalic, atraumatic. PULMONARY: Diminished breath sound on the left. Fine crackles on the right. CARDIAC: Regular rate and rhythm. Normal S1, S2. ABDOMEN: Soft, nontender, nondistended. Positive bowel sounds. EXTREMITIES: No edema bilateral lower extremities. ASSESSMENT AND PLAN: This is an 80-year-old male patient with underlying medical history of hypertension, dyslipidemia, coronary artery disease, history of pulmonary embolism (PE) two times and on anticoagulation, and also deep venous thrombosis (DVT) times one, diastolic congestive heart failure, chronic obstructive pulmonary disease (COPD) on 5 liters oxygen, with paralyzed left diaphragm, recently treated for pneumonia and COPD, admitted for worsening shortness of breath and worsening hypoxia. Recently, also with blood in the sputum, which resolves after anticoagulation was on hold. Currently, anticoagulation was resumed. PROBLEMS: 1. Acute on chronic hypoxic respiratory failure. Multifactorial with left-sided paralyzed diaphragm with underlying COPD. Requiring more oxygen. Pulmonology, Dr. Pan, was consulted. Infectious disease, Dr. Woodward, was consulted. Initially, given Diflucan and cefepime. Diflucan was discontinued. Followup infectious disease recommendations. Followup cultures. Followup sputum culture and cytology. C-reactive protein. Unfortunately, the patient is a poor candidate for bronchoscopy and biopsy. Discussed with Dr. Pan a trial of steroid, prednisone 40, as per Dr. Pan. The family believes that repeat CTs will not help the patient. Subsequently, has declined further workup in the form of a repeat CT. The patient's respiratory status almost back to baseline. Physical therapy. 2. Acute on chronic renal failure. Intravenous (IV) hydration initially given. Likely secondary to Lasix. Withholding Lasix. Currently, improved. 3. Paroxysmal atrial fibrillation. The patient on Coumadin. Coumadin is on hold, given supratherapeutic international normalized ratio (INR). Given a dose of vitamin K. Likely, secondary to interaction with Diflucan. The patient also on amiodarone. 4. History of hemoptysis. Will continue to monitor closely. Holding Coumadin right now, given supratherapeutic INR. Vitamin K was given. Will continue to monitor. 5. History of pulmonary embolism (PE). Repeat CT angiogram from previous admission recently is negative. Ultrasound Doppler is also negative. Holding Coumadin, given supratherapeutic INR. One dose of vitamin K was given, given history of hemoptysis. 6. Dyslipidemia. Continue current medication. 7. History of cardiac arrhythmia. As per Dr. Melendez, the patient has PVCs, as well as paroxysmal multifocal atrial tachycardia. Previous echocardiogram appreciated. 8. Coronary arterial disease. Telemetry. Losartan, propranolol, chlorthalidone with holding parameters. Anticoagulation. 9. Hypertension. Continue current medications. 10. Chronic obstructive pulmonary disease (COPD). Oxygen supplementation. Case discussed with Dr. Pan. Nebulizer treatment. EzPAP. The patient on a trial steroid. 11. Benign prostatic hypertrophy (BPH) . Continue current medication. 12. Unilateral diaphragmatic paralysis, complicating care. Oxygen supplementation. 13. Thoracic disc bulging without compression. MRI from previous admissions appreciated. 14. Deep venous thrombosis (DVT) prophylaxis. The patient on Coumadin with supratherapeutic INR. DISPOSITION: Pending clinical improvement, patient and family services (PFS), physical therapy (PT).
--- NOTE | 2016-10-01 15:12 | CR ---
DATE OF CONSULTATION: 09/30/2016 REASON FOR CONSULTATION: Asked to consult by Dr. Aguirre to evaluate worsening dyspnea and hypoxia. HISTORY OF PRESENT ILLNESS: Mr. Pineda is an 80-year-old gentleman well known to me from previous admission a week ago who was at [facility] for rehabilitation. The patient was discharged on 5 liters oxygen and even with 5 liters oxygen when I did an oxygen saturation with exertion, he did desaturate to 60% before his discharge. Patient was exercising and walking at the [place] and he desaturated to 60%. Nursing staff was concerned and therefore he was sent to the emergency room. The patient states that he did not feel any different than how he has been feeling, which is severe dyspnea with exertion, not making it to his bed to the bathroom without significant shortness of breath. He denied any hemoptysis, chest pain or chest pressure. He had a rare cough, which is unchanged, sometimes yellow phlegm. He denied any lower extremity edema. No fever, chills, night sweats. He did not feel like he has had an infection. He has a mild postnasal drip. No nausea, vomiting or diarrhea. PAST MEDICAL HISTORY: Is significant for: 1. Chronic obstructive pulmonary disease (COPD) with an FEV-1 of 30%. 2. History of pulmonary embolism in 2013 and 2015. 3. Left hemidiaphragm dysfunction. 4. Nonobstructive coronary artery disease. 5. Chronic respiratory failure with recording 5 liters oxygen on the most recent discharge last week. 6. Dyslipidemia. 7. Hypertension. 8. Gout. 8. Skin cancer of the nose. 9. History of tremor. 10. Diastolic dysfunction, echocardiogram 07/24/2015. 11. Multifocal atrial tachycardia, for which he was on amiodarone on. 12. Nonsustained ventricular tachycardia. 13. History of tobacco abuse, quit 15 years ago. PAST SURGICAL HISTORY: Hernia repair. SOCIAL HISTORY: Quit smoking 15 years ago, 40 pack-year. He socially drinks. 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 He loves to play golf and was playing golf up until last summer. FAMILY HISTORY: A brother of lung cancer. REVIEW OF SYSTEMS: He denies any nausea, vomiting, diarrhea, abdominal pain. No increasing cough. Worsening dyspnea but that has been over the past month. Night sweats. No chest pain. PHYSICAL EXAMINATION: Temperature was 98.9, pulse 63, respirations 20, blood pressure 106/66, oxygen saturation 89% on 5 liters nasal cannula. HEART: Normal S1, S2. No murmurs. LUNGS: Diminished breath sounds, especially at the left base. ABDOMEN: Soft, nontender. No visceromegaly. EXTREMITIES: No clubbing, cyanosis or edema. No calf tenderness. OROPHARYNX: Clear. The patient does not look any different from last week when I saw him. He was discharged on 09/22/2016, six days ago. He looks exactly the same. LABORATORY DATA: White count 7.4, hemoglobin 9.7, hematocrit 30.8, platelets 416. Sodium 140, potassium 3.6, chloride 98, bicarbonate 36, BUN 25, creatinine 1.57, glucose 93, calcium 8.4, lactic acid 1.4, calcium 8.8, magnesium 2.3. C-reactive protein (CRP) 3.9. Blood cultures, two sets, were negative. Respiratory virus panel is negative. Methicillin-resistant Staphylococcus aureus (MRSA) screen is negative. Sputum was good quality with moderate white cells. Culture is still pending. Chest x-ray was read by Dr. Wilcox, who stated that there was increase and extensive parenchymal opacification on the left lung with volume loss, increased pleural thickening on the left and extensive chronic changes on the right. IMPRESSION: This is an 80-year-old gentleman with severe underlying pulmonary disease including chronic obstructive pulmonary disease (COPD) with an FEV-1 of 31%, oxygen dependent at 5 liters which has worsened significantly compared to last summer, a left hemidiaphragm paralysis and history of two pulmonary emboli in the past three years. The patient has progressive worsening dyspnea, oxygen dependent, for he is not even able to walk to the bathroom without significant desaturation to 60%. He clinically did the same thing during previous admission and I do not think there is any change in his clinical situation although his chest x-ray, according to Dr. Wilcox, has worsened. I agree with Dr. Pan, who does not think that there is an infectious process at this time. PLAN: If sputum culture is negative, I agree we should discontinue IV antibiotics, cefepime and fluconazole. The patient does not have a white count. No fever and lactic acid was normal. He does not even have a significant productive cough or change in his cough. If he continues to worsen in spite of prednisone, would obtain a follow-up chest CT to see if his pleural effusion is significant and whether draining the pleural effusion may help his respiratory status and rule out possible other processes, infectious or a malignancy. This is most likely cryptogenic organizing pneumonia or a combination of all his medical problems that have culminated in severe respiratory failure.
[2016-10-01 16:00] VITALS: BP 129/70
[2016-10-01 19:06] VITALS: BP 131/61
[2016-10-01] MEDS: POTASSIUM CHLORIDE 10 MEQ SR TABLET PO SCH (21:38)
[2016-10-01] MEDS: ATORVASTATIN 20 MG TAB PO SCH (21:38)
[2016-10-01] MEDS: SENOKOT S TAB PO SCH (21:38)
[2016-10-01] MEDS: TAMSULOSIN 0.4 MG CAP PO SCH (21:38)
[2016-10-01 23:50] VITALS: BP 113/58
[2016-10-02 04:44] VITALS: BP 131/74
[2016-10-02] MEDS: SLF 3 ML SYR IV SCH ×3 (04:49→20:43)
[2016-10-02 05:23] LABS: INR 2.19
[2016-10-02 05:29] LABS: MEAN CORPUSCULAR HEMOGLOBIN 26.5 pg (27.0-33.0); MEAN CORPUSCULAR HGB CONC 29.3 g/dl (32.0-36.5); RED CELL DISTRIBUTION WIDTH 15.5 % (11.5-14.5); WHITE BLOOD COUNT 10.3 K/mm3 (4.0-10.0)
[2016-10-02 05:34] LABS: CALCIUM LEVEL 8.6 MG/DL (8.8-10.2); CREATININE FOR GFR 1.37 MG/DL (0.70-1.30); POTASSIUM SERUM 3.8 MEQ/L (3.5-5.1)
[2016-10-02 05:34] LABS: MEAN CORPUSCULAR VOLUME 90.3 fl (80.0-96.0)
[2016-10-02] MEDS: ALBUTEROL SULFATE 2.5 MG/0.5 ML INH NEB SOLN INH SCH ×4 (07:10→19:34)
[2016-10-02 07:40] VITALS: BP 130/69
[2016-10-02] MEDS: AMIODARONE 200 MG TAB (PACERONE) PO SCH ×2 (09:00→10:20)
[2016-10-02] MEDS: CEFEPIME HCL 1 GM in D5W MINI-BAG PLUS 50 ML IV SCH (09:00)
[2016-10-02] MEDS: CHLORTHALIDONE 12.5MG PER 1/2 TABLET PO SCH (09:00)
[2016-10-02] MEDS: MONTELUKAST 10 MG TAB PO SCH (09:00)
[2016-10-02] MEDS: CYANOCOBALAMIN 500 MCG TAB PO SCH (09:01)
[2016-10-02] MEDS: LOSARTAN 50 MG TAB PO SCH ×2 (09:01→20:41)
[2016-10-02] MEDS: MAGNESIUM OXIDE 400 MG TAB (MAG-OX) PO SCH (09:01)
[2016-10-02] MEDS: guaiFENesin ER 600 MG TAB PO SCH ×2 (09:02→20:42)
[2016-10-02] MEDS: PROPRANOLOL 10 MG TAB PO SCH ×2 (09:02→20:42)
[2016-10-02] MEDS: predniSONE 20 MG TAB PO SCH (09:02)
[2016-10-02] MEDS: SODIUM CHLORIDE NASAL 0.65% SPRAY BTL (OCEAN) SCH ×2 (09:04→21:00)
[2016-10-02 12:00] VITALS: BP_SYST 110; BP_SYST 128; BP_DIAS 55; BP_DIAS 66
[2016-10-02] MEDS ORDERED: PRED20TA PO (12:19)
[2016-10-02] MEDS ORDERED: LOSA50TA20 PO (12:19)
--- NOTE | 2016-10-02 14:56 | DSES ---
DATE OF ADMISSION: 09/28/2016 DATE OF DISCHARGE: 10/03/2016 pending physical therapy. AUDIO EXPERIENCE EXPERT: Dr. Hurd, covered by Dr. Pan. INFECTIOUS DISEASE DOCTOR: Dr. Woodward PRIMARY CARE PROVIDER: Dr. Swain FINAL DIAGNOSES: 1. Acute on chronic hypoxic respiratory failure. 2. Left-sided paralyzed diaphragm. 3. Chronic obstructive pulmonary disease (COPD). 4. Pneumonia. 5. Acute on chronic renal failure. 6. Paroxysmal atrial fibrillation. 7. History of hemoptysis. 8. History of pulmonary embolism (PE)/deep vein thrombosis (DVT). 9. Dyslipidemia. 10. History of cardiac arrhythmia with premature ventricular contractions (PVCs) and multifocal atrial tachycardia. 11. Coronary artery disease. 12. Hypertension. 13. Benign prostatic hypertrophy (BPH). 14. Unilateral paralyzed diaphragm. 15. Thoracic disc bulging without compression. HISTORY OF PRESENT ILLNESS: This is an 80-year-old male patient with underlying medical history of chronic obstructive pulmonary disease (COPD), GOLD classification III, pulmonary embolism times two, deep vein thrombosis (DVT) times one, left hemidiaphragmatic dysfunction, coronary artery disease, hypertension, gout, skin cancer of the nose, tremors, diastolic congestive heart failure, who was transferred from [facility] to [facility] on 09/28/2016, for acute respiratory distress. At baseline, the patient has been using 4-5 liters of oxygen at the [facility]. However, the patient started having shortness of breath for the past few days, noted to have a pulse oximetry of 60% with four liters of oxygen during exertion. Due to acute decompensation of the patient's oxygen status, the patient was sent to [facility] for evaluation. The patient denies any cough, productive cough. Denies any hemoptysis. Denies any fevers or chills. Noted bilateral lower extremity swelling is getting better because the patient was placed on diuresis. Eliquis was recently discontinued and hemoptysis has resolved. He was restarted on Coumadin with therapeutic international normalized ratio (INR). HOSPITAL COURSE: The patient is admitted to the hospital, given antibiotics and steroids. IV fluids initially were given. Lasix was on hold given elevated kidney function. Pulmonology was consulted as well as infectious disease. Cultures were sent and found to be negative. The patient's physical therapy was done. The patient's oxygen status has returned to baseline. A family meeting was held. It was decided with the rubber stamp dies inspector and the family that further investigative tests in terms of bronchoscopy would not benefit the patient and carries considerable risk. Subsequently, it was elected to treat the patient conservatively with physical therapy (PT) and trial of steroids and outpatient followup with pulmonology. VITAL SIGNS: Temperature is 98.2, pulse 51, respirations 22, blood pressure 130/69, pulse oximetry 97% on five liters nasal cannula. LABORATORY DATA: WBC 10.3, hemoglobin and hematocrit 8.8/30, platelets 407. Chemistry: Sodium 139, potassium 3.8, chloride 102, bicarbonate 32, BUN 27, creatinine 1.37. DISCHARGE MEDICATIONS: - losartan 25 mg by mouth twice a day - prednisone 50 mg by mouth daily - acetaminophen 650 mg by mouth at bedtime - albuterol inhaler four times a day - DuoNebs every two hours as needed - amiodarone 200 mg by mouth daily - atorvastatin 40 mg by mouth at bedtime - chlorthalidone 12.5 mg by mouth daily - vitamin B12 1000 mcg by mouth daily - Senna-S one tablet by mouth every evening - Mucinex 600 mg by mouth twice a day - magnesium oxide 400 mg by mouth daily - milk of magnesia 30 mL by mouth daily - montelukast 10 mg by mouth daily - propranolol 10 mg by mouth twice a day - saline nasal spray twice a day - enema as needed - Flomax 0.4 mg by mouth at bedtime - Coumadin as directed 4 mg for three days and 3 mg for four days DISCHARGE INSTRUCTIONS: The patient is instructed to followup with primary care provider in seven days and rubber stamp dies inspector in 7-12 days. Return to the hospital if symptoms worsen. Oxygen supplementation, pulmonary physical therapy (PT).
[2016-10-02 15:59] VITALS: BP 130/70
[2016-10-02] MEDS ORDERED: WARFARIN SOD 4 MG TAB PO SCH (17:00)
[2016-10-02] MEDS: ATORVASTATIN 20 MG TAB PO SCH (20:40)
[2016-10-02] MEDS: POTASSIUM CHLORIDE 10 MEQ SR TABLET PO SCH (20:42)
[2016-10-02] MEDS: TAMSULOSIN 0.4 MG CAP PO SCH (20:42)
[2016-10-02] MEDS: SENOKOT S TAB PO SCH (20:42)
[2016-10-02 22:00] VITALS: BP 116/57
[2016-10-03] MEDS: SLF 3 ML SYR IV SCH (05:36)
[2016-10-03 06:00] VITALS: BP 121/73
[2016-10-03 06:58] LABS: MEAN CORPUSCULAR HEMOGLOBIN 26.7 pg (27.0-33.0); RED CELL DISTRIBUTION WIDTH 15.5 % (11.5-14.5); WHITE BLOOD COUNT 9.8 K/mm3 (4.0-10.0)
[2016-10-03 07:07] LABS: INR 2.27
[2016-10-03 07:17] LABS: CALCIUM LEVEL 8.6 MG/DL (8.8-10.2); CREATININE FOR GFR 1.3 MG/DL (0.70-1.30); GLOMERULAR FILTRATION RATE 56.3 (>35); POTASSIUM SERUM 3.7 MEQ/L (3.5-5.1)
[2016-10-03] MEDS: ALBUTEROL SULFATE 2.5 MG/0.5 ML INH NEB SOLN INH SCH (07:45)
[2016-10-03] MEDS: CEFEPIME HCL 1 GM in D5W MINI-BAG PLUS 50 ML IV SCH (08:59)
[2016-10-03 09:00] VITALS: BP 118/62
[2016-10-03] MEDS: CYANOCOBALAMIN 500 MCG TAB PO SCH (09:00)
[2016-10-03] MEDS: LOSARTAN 50 MG TAB PO SCH (09:00)
[2016-10-03] MEDS: predniSONE 20 MG TAB PO SCH (09:01)
[2016-10-03] MEDS: guaiFENesin ER 600 MG TAB PO SCH (09:01)
[2016-10-03] MEDS: MONTELUKAST 10 MG TAB PO SCH (09:01)
[2016-10-03] MEDS: CHLORTHALIDONE 12.5MG PER 1/2 TABLET PO SCH (09:01)
[2016-10-03] MEDS: MAGNESIUM OXIDE 400 MG TAB (MAG-OX) PO SCH (09:01)
[2016-10-03] MEDS: SODIUM CHLORIDE NASAL 0.65% SPRAY BTL (OCEAN) SCH (09:02)
[2016-10-03] MEDS: PROPRANOLOL 10 MG TAB PO SCH (09:02)
[2016-10-03] MEDS: AMIODARONE 200 MG TAB (PACERONE) PO SCH (09:03)
== END 2016-10-03 11:59 | DRG 196 ==
LOC: M ED 17:11 → M ED INP 18:25 → M PCU 19:59 → M MSPAV 10-02 15:45
PROVIDERS: ADMIT Internal Medicine; ATTEND Internal Medicine
DX: J84.116 Cryptogenic organizing pneumonia (principal); J96.21 Acute and chronic respiratory failure with hypoxia; N17.9 Acute kidney failure, unspecified; I50.32 Chronic diastolic (congestive) heart failure; I95.9 Hypotension, unspecified; J44.9 Chronic obstructive pulmonary disease, unspecified; Z66 Do not resuscitate; I48.0 Paroxysmal atrial fibrillation; E78.5 Hyperlipidemia, unspecified; N40.0 Benign prostatic hyperplasia without lower urinary tract symptoms; M10.9 Gout, unspecified; I13.0 Hypertensive heart and chronic kidney disease with heart failure and stage 1 through stage 4 chronic kidney disease, or unspecified chronic kidney disease; J98.6 Disorders of diaphragm; M51.24 Other intervertebral disc displacement, thoracic region; N18.9 Chronic kidney disease, unspecified; I25.10 Atherosclerotic heart disease of native coronary artery without angina pectoris; Z99.81 Dependence on supplemental oxygen; Z79.52 Long term (current) use of systemic steroids; Z79.899 Other long term (current) drug therapy; Z79.01 Long term (current) use of anticoagulants; Z85.828 Personal history of other malignant neoplasm of skin; Z86.718 Personal history of other venous thrombosis and embolism; Z86.711 Personal history of pulmonary embolism; Z87.891 Personal history of nicotine dependence; Z88.8 Allergy status to other drugs, medicaments and biological substances; Z80.1 Family history of malignant neoplasm of trachea, bronchus and lung

== ENCOUNTER → 2016-09-28 | Outpatient (REF) ==
[~2016-09-28] MED LIST changes: +BISA10SU4 PR; +COUM1TAB14 PO; +COUM1TAB17 PO; +ENEMENE3 PR; +GUAI60TA PO; +IPRASOL4 INH; +LASI20TA PO; +MAGN400T PO; +MILKSUS PO; +POTA20TA PO; +PRED20TA PO; +SALI0.653; +SENO8.6T10 PO; +TORS10TA3 PO; +TYLE325T5 PO; +VITA10002 PO; +WARF-20 PO; +WARF-58 PO
--- NOTE | 2016-09-28 15:03 | REP ---
CHEST X-RAY: Two views. HISTORY: Decreased oxygen saturation. Comparison chest x-ray September [address] study September 12, 2016. FINDINGS: There are extensive areas of pleuroparenchymal consolidation in the left chest. These have increased since the prior study of September 16, 2015 on the left. There is less aeration in the left apex. Some increased pleural thickening is seen on the left. There is linear fibrosis at and interstitial fibrosis in the right base with blunting of the right lateral pleural angle. Right lung changes are essentially status quo. Left hemidiaphragm remains elevated. IMPRESSION: Increasing and extensive pleuroparenchymal opacification on the left with volume loss. Increased pleural thickening on the left. Extensive chronic changes on the right which are stable from the most recent prior chest x-ray of September 15, 2016 . Mild cardiomegaly unchanged. Signed by Jonas Wilcox MD 09/28/2016 03:59 P
== END ==
PROVIDERS: ATTEND Internal Medicine
DX: R09.02 Hypoxemia (principal)

== ENCOUNTER → 2016-10-10 | Outpatient (REF) | payer MEDICARE, OTHER ==
[~2016-10-10] MED LIST changes: +BISA10SU4 PR; +COUM1TAB14 PO; +COUM1TAB17 PO; +ENEMENE3 PR; +GUAI60TA PO; +IPRASOL4 INH; +LASI20TA PO; +MAGN400T PO; +MILKSUS PO; +POTA20TA PO; +PRED20TA PO; +SALI0.653; +SENO8.6T10 PO; +TORS10TA3 PO; +TYLE325T5 PO; +VITA10002 PO; +WARF-20 PO; +WARF-58 PO
[2016-10-10 10:04] LABS: ANION GAP 9 MEQ/L (8-16); BLOOD UREA NITROGEN 29 MG/DL (7-18); CALCIUM LEVEL 8.2 MG/DL (8.8-10.2); CARBON DIOXIDE LEVEL 30 MEQ/L (21-32); CHLORIDE LEVEL 101 MEQ/L (98-107); CREATININE FOR GFR 1.21 MG/DL (0.70-1.30); GLOMERULAR FILTRATION RATE > 60.0 (>35); GLUCOSE, FASTING 122 MG/DL (83-110); POTASSIUM SERUM 3.1 MEQ/L (3.5-5.1); SODIUM LEVEL 140 MEQ/L (136-145)
[2016-10-10 10:10] LABS: MEAN CORPUSCULAR HEMOGLOBIN 27.2 pg (27.0-33.0); MEAN CORPUSCULAR HGB CONC 31.2 g/dl (32.0-36.5); MEAN CORPUSCULAR VOLUME 87.4 fl (80.0-96.0); RED CELL DISTRIBUTION WIDTH 15.7 % (11.5-14.5); WHITE BLOOD COUNT 10.3 K/mm3 (4.0-10.0)
== END ==
PROVIDERS: ATTEND Internal Medicine
DX: I50.9 Heart failure, unspecified (principal)

== ENCOUNTER → 2016-10-13 | Outpatient (REF) ==
[2016-10-13 10:32] LABS: ANION GAP 7 MEQ/L (8-16); BLOOD UREA NITROGEN 35 MG/DL (7-18); CALCIUM LEVEL 7.7 MG/DL (8.8-10.2); CARBON DIOXIDE LEVEL 29 MEQ/L (21-32); CHLORIDE LEVEL 106 MEQ/L (98-107); CREATININE FOR GFR 1.09 MG/DL (0.70-1.30); GLOMERULAR FILTRATION RATE > 60.0 (>35); GLUCOSE, FASTING 77 MG/DL (83-110); POTASSIUM SERUM 3.8 MEQ/L (3.5-5.1); SODIUM LEVEL 142 MEQ/L (136-145)
== END ==
PROVIDERS: ATTEND Internal Medicine
DX: E87.6 Hypokalemia (principal)

== ENCOUNTER → 2016-10-18 | Outpatient (REF) ==
[2016-10-18 10:47] LABS: MEAN CORPUSCULAR HEMOGLOBIN 26.8 pg (27.0-33.0); MEAN CORPUSCULAR HGB CONC 31.1 g/dl (32.0-36.5); MEAN CORPUSCULAR VOLUME 86.1 fl (80.0-96.0); RED CELL DISTRIBUTION WIDTH 15.9 % (11.5-14.5); WHITE BLOOD COUNT 10.2 K/mm3 (4.0-10.0)
[2016-10-18 11:00] LABS: CALCIUM LEVEL 8.1 MG/DL (8.8-10.2); CREATININE FOR GFR 1.4 MG/DL (0.70-1.30); GLOMERULAR FILTRATION RATE 51.7 (>35); POTASSIUM SERUM 2.9 MEQ/L (3.5-5.1)
== END ==
PROVIDERS: ATTEND Internal Medicine
DX: I50.9 Heart failure, unspecified (principal)

== ENCOUNTER → 2016-10-20 | Outpatient (REF) ==
[2016-10-20 12:33] LABS: CALCIUM LEVEL 7.9 MG/DL (8.8-10.2); CREATININE FOR GFR 1.45 MG/DL (0.70-1.30); GLOMERULAR FILTRATION RATE 49.6 (>35); POTASSIUM SERUM 3.3 MEQ/L (3.5-5.1)
== END ==
PROVIDERS: ATTEND Internal Medicine
DX: I50.9 Heart failure, unspecified (principal)

== ENCOUNTER → 2016-10-23 | Outpatient (REF) ==
[2016-10-23 13:19] LABS: ANION GAP 8 MEQ/L (8-16); BLOOD UREA NITROGEN 24 MG/DL (7-18); CALCIUM LEVEL 7.9 MG/DL (8.8-10.2); CARBON DIOXIDE LEVEL 29 MEQ/L (21-32); CHLORIDE LEVEL 104 MEQ/L (98-107); CREATININE FOR GFR 1.11 MG/DL (0.70-1.30); GLOMERULAR FILTRATION RATE > 60.0 (>35); GLUCOSE, FASTING 155 MG/DL (83-110); POTASSIUM SERUM 3.5 MEQ/L (3.5-5.1); SODIUM LEVEL 141 MEQ/L (136-145)
== END ==
PROVIDERS: ATTEND Internal Medicine
DX: I50.9 Heart failure, unspecified (principal)

== ENCOUNTER → 2016-11-01 | Outpatient (REF) ==
[2016-11-01 11:30] LABS: POTASSIUM SERUM 3.3 MEQ/L (3.5-5.1)
== END ==
PROVIDERS: ATTEND Internal Medicine
DX: E87.6 Hypokalemia (principal)

== ENCOUNTER → 2016-11-06 | Outpatient (REF) ==
[2016-11-06 13:29] LABS: ALBUMIN 2.6 GM/DL (3.2-5.2); ANION GAP 7 MEQ/L (8-16); BLOOD UREA NITROGEN 15 MG/DL (7-18); CALCIUM LEVEL 7.9 MG/DL (8.8-10.2); CARBON DIOXIDE LEVEL 30 MEQ/L (21-32); CHLORIDE LEVEL 106 MEQ/L (98-107); CREATININE FOR GFR 1.21 MG/DL (0.70-1.30); GLOMERULAR FILTRATION RATE > 60.0 (>35); GLUCOSE, FASTING 123 MG/DL (83-110); MAGNESIUM LEVEL 2.1 MG/DL (1.8-2.4); PHOSPHORUS LEVEL 3.1 MG/DL (2.5-4.9); POTASSIUM SERUM 3.5 MEQ/L (3.5-5.1); SODIUM LEVEL 143 MEQ/L (136-145)
== END ==
PROVIDERS: ATTEND Internal Medicine
DX: I10 Essential (primary) hypertension (principal); E87.6 Hypokalemia

== ENCOUNTER → 2016-11-14 | Outpatient (REF) | payer MEDICARE, OTHER ==
[2016-11-14 10:36] LABS: MEAN CORPUSCULAR HEMOGLOBIN 25.5 pg (27.0-33.0); MEAN CORPUSCULAR HGB CONC 30.2 g/dl (32.0-36.5); MEAN CORPUSCULAR VOLUME 84.6 fl (80.0-96.0); RED CELL DISTRIBUTION WIDTH 16.3 % (11.5-14.5); WHITE BLOOD COUNT 9.1 K/mm3 (4.0-10.0)
[2016-11-14 10:39] LABS: INR 1.99
[2016-11-14 11:04] LABS: ALBUMIN 2.3 GM/DL (3.2-5.2); ALBUMIN/GLOBULIN RATIO 0.66 (1.00-1.93); ALKALINE PHOSPHATASE 60 U/L (45-117); ALT/SGPT 13 U/L (12-78); ANION GAP 8 MEQ/L (8-16); AST/SGOT 16 U/L (15-37); BILIRUBIN,TOTAL 0.3 MG/DL (0.2-1.0); BLOOD UREA NITROGEN 15 MG/DL (7-18); CALCIUM LEVEL 7.8 MG/DL (8.8-10.2); CARBON DIOXIDE LEVEL 28 MEQ/L (21-32); CHLORIDE LEVEL 105 MEQ/L (98-107); CHOLESTEROL LEVEL 120 MG/DL (<200); CREATININE FOR GFR 1.11 MG/DL (0.70-1.30); GLOMERULAR FILTRATION RATE > 60.0 (>35); GLUCOSE, FASTING 78 MG/DL (83-110); POTASSIUM SERUM 4.2 MEQ/L (3.5-5.1); SODIUM LEVEL 141 MEQ/L (136-145); TOTAL PROTEIN 5.8 GM/DL (6.4-8.2); TRIGLYCERIDES LEVEL 63 MG/DL (<150)
== END ==
PROVIDERS: ATTEND Internal Medicine
DX: I48.91 Unspecified atrial fibrillation (principal); E78.00 Pure hypercholesterolemia, unspecified

== ENCOUNTER → 2016-11-16 | Outpatient (REF) | payer MEDICARE, OTHER ==
[~2016-11-16] MED LIST changes: +AMIO200T PO; -ATOR40TA PO; +ATOR40TA75 PO; -COLA100C3 PO; +COLA100C5 PO; +ENEMENE16 PR; -ENEMENE3 PR; -GUAI60TA PO; +LEVO500T3 PO; -LEVO500T32 PO; +MUCI600T31 PO; -PRED10TA FT; +PRED10TA2 FT; +SALI0.6523; -SALI0.653; -VITA-130 PO; +VITA500T PO
--- NOTE | 2016-11-16 16:17 | REP ---
Clinical: Shortness of breath. Technique: AP upright view. Comparison: 09/28/2016. Findings: Diffuse bilateral chronic interstitial changes and significant pleuroparenchymal changes involving the left hemithorax are similar to prior examination. Subtle superimposed acute process cannot be excluded and requires clinical correlation. Mediastinum and cardiac silhouette are incompletely evaluated due to overlying opacities. No obvious pneumothorax. Visualized skeletal structures appear intact. Impression: Extensive chronic interstitial changes and pleuroparenchymal changes similar to prior examination. Subtle superimposed acute process cannot be excluded and if necessary chest CT should be considered for further investigation. Signed by Arnulfo Andrade MD 11/16/2016 04:08 P
== END ==
PROVIDERS: ATTEND Nurse Practitioner Adult Health
DX: R06.02 Shortness of breath (principal); J98.4 Other disorders of lung

== ENCOUNTER → 2016-11-22 | Outpatient (REF) | payer MEDICARE, OTHER | PROVIDERS: ATTEND Internal Medicine | DX: Z86.711 Personal history of pulmonary embolism (principal) ==

== ENCOUNTER → 2016-11-29 | Outpatient (REF) | payer MEDICARE, OTHER ==
[2016-11-29 11:38] LABS: MEAN CORPUSCULAR HEMOGLOBIN 24.5 pg (27.0-33.0); MEAN CORPUSCULAR HGB CONC 30.1 g/dl (32.0-36.5); MEAN CORPUSCULAR VOLUME 81.4 fl (80.0-96.0); RED CELL DISTRIBUTION WIDTH 15.9 % (11.5-14.5); WHITE BLOOD COUNT 8.9 K/mm3 (4.0-10.0)
[2016-11-29 11:53] LABS: PERCENT SATURATION 7.5 % (19.7-37.4)
[2016-11-29 12:07] LABS: FOLATE 11.7 NG/ML
== END ==
PROVIDERS: ATTEND Internal Medicine
DX: D64.9 Anemia, unspecified (principal)

== ENCOUNTER → 2016-12-05 | Outpatient (REF) | payer MEDICARE, OTHER ==
[2016-12-05 09:36] LABS: INR 1.55
== END ==
PROVIDERS: ATTEND Internal Medicine
DX: Z86.79 Personal history of other diseases of the circulatory system (principal); Z86.711 Personal history of pulmonary embolism

== ENCOUNTER → 2016-12-19 | Outpatient (REF) | payer MEDICARE, OTHER ==
[2016-12-19 12:27] LABS: INR 1.74
== END ==
PROVIDERS: ATTEND Internal Medicine
DX: Z51.81 Encounter for therapeutic drug level monitoring (principal); Z79.01 Long term (current) use of anticoagulants

== ENCOUNTER → 2016-12-26 | Outpatient (REF) | payer MEDICARE, OTHER ==
[2016-12-26 20:13] LABS: CALCIUM LEVEL 8.6 MG/DL (8.8-10.2); CREATININE FOR GFR 1.6 MG/DL (0.70-1.30); FREE T4 0.61 NG/DL (0.76-1.46); GLOMERULAR FILTRATION RATE 44.2 (>35); MEAN CORPUSCULAR HEMOGLOBIN 26.4 pg (27.0-33.0); MEAN CORPUSCULAR HGB CONC 30.7 g/dl (32.0-36.5); MEAN CORPUSCULAR VOLUME 85.9 fl (80.0-96.0); POTASSIUM SERUM 4.7 MEQ/L (3.5-5.1); RED CELL DISTRIBUTION WIDTH 20.7 % (11.5-14.5); WHITE BLOOD COUNT 8.7 K/mm3 (4.0-10.0)
== END ==
LOC: M LABDRAW1 17:52
PROVIDERS: ATTEND Internal Medicine Cardiovascular Disease
DX: I48.91 Unspecified atrial fibrillation (principal); I50.9 Heart failure, unspecified

== ENCOUNTER → 2016-12-27 | Outpatient (REF) | payer MEDICARE, OTHER ==
[2016-12-27 10:36] LABS: BASO % 0.2 % (0.0-1.0); EOS # 0.1 K/mm3 (0.0-0.50); EOS % 1.2 % (0.0-3.0); LARGE UNSTAINED CELL # 0.1 K/mm3 (0.0-0.4); LARGE UNSTAINED CELL % 1.2 % (0.0-4.0); LYMPH # 1.1 K/mm3 (1.5-4.5); LYMPH % 11.6 % (24.0-44.0); MEAN CORPUSCULAR HEMOGLOBIN 26.1 pg (27.0-33.0); MEAN CORPUSCULAR HGB CONC 30.2 g/dl (32.0-36.5); MEAN CORPUSCULAR VOLUME 86.6 fl (80.0-96.0); MONO # 0.6 K/mm3 (0.0-0.8); MONO % 7.4 % (0.0-5.0); NEUTROPHILS # 6.6 K/mm3 (1.8-7.7); NEUTROPHILS % 78.4 % (36.0-66.0); PLATELET COUNT, AUTOMATED 201 k/mm3 (150-450); WHITE BLOOD COUNT 8.4 K/mm3 (4.0-10.0)
== END ==
PROVIDERS: ATTEND Internal Medicine Cardiovascular Disease
DX: D50.9 Iron deficiency anemia, unspecified (principal)

== ENCOUNTER → 2017-01-02 | Outpatient (REF) | payer MEDICARE, OTHER ==
[2017-01-02 12:04] LABS: INR 1.77
== END ==
PROVIDERS: ATTEND Internal Medicine
DX: Z51.81 Encounter for therapeutic drug level monitoring (principal); Z79.01 Long term (current) use of anticoagulants; Z86.711 Personal history of pulmonary embolism

== ENCOUNTER → 2017-01-16 | Outpatient (REF) | payer MEDICARE, OTHER ==
[2017-01-16 10:32] LABS: MEAN CORPUSCULAR HEMOGLOBIN 27.1 pg (27.0-33.0); MEAN CORPUSCULAR HGB CONC 30.8 g/dl (32.0-36.5); MEAN CORPUSCULAR VOLUME 87.7 fl (80.0-96.0); RED CELL DISTRIBUTION WIDTH 20.5 % (11.5-14.5); WHITE BLOOD COUNT 8.5 K/mm3 (4.0-10.0)
[2017-01-16 10:48] LABS: INR 2.02
[2017-01-16 11:09] LABS: CREATININE FOR GFR 1.67 MG/DL (0.70-1.30); MAGNESIUM LEVEL 2.3 MG/DL (1.8-2.4); POTASSIUM SERUM 4.2 MEQ/L (3.5-5.1)
== END ==
PROVIDERS: ATTEND Internal Medicine
DX: Z86.79 Personal history of other diseases of the circulatory system (principal); I10 Essential (primary) hypertension; D64.9 Anemia, unspecified

== ENCOUNTER → 2017-01-24 | Outpatient (REF) | payer MEDICARE, OTHER ==
[2017-01-24 12:40] LABS: FREE T4 0.57 NG/DL (0.76-1.46)
== END ==
PROVIDERS: ATTEND Internal Medicine
DX: R94.6 Abnormal results of thyroid function studies (principal)

== ENCOUNTER → 2017-01-26 | Outpatient (CLI) | payer MEDICARE, OTHER ==
--- NOTE | 2017-01-26 13:34 | REP ---
Clinical: COPD. Technique: PA and lateral. Comparison: 09/28/2016. Findings: Diffuse chronic interstitial changes are appreciated along with elevation of the left hemidiaphragm. Superimposed acute atelectasis cannot be excluded. No pneumothorax. Visualized portions of the mediastinum and cardiac silhouette remains stable. The skeletal structures intact. Impression: Diffuse chronic interstitial changes and scarring. Cannot exclude superimposed atelectasis. Signed by Arnulfo Andrade MD 01/26/2017 01:25 P
== END ==
LOC: M SMT 12:58
PROVIDERS: ATTEND Internal Medicine Pulmonary Disease
DX: J44.9 Chronic obstructive pulmonary disease, unspecified (principal)

== ENCOUNTER → 2017-01-30 | Outpatient (REF) | payer MEDICARE, OTHER ==
[2017-01-30 11:04] LABS: INR 2.08
== END ==
PROVIDERS: ATTEND Internal Medicine
DX: Z86.79 Personal history of other diseases of the circulatory system (principal)

== ENCOUNTER → 2017-02-20 | Outpatient (REF) | payer MEDICARE, OTHER ==
[2017-02-20 11:53] LABS: INR 2.25
== END ==
PROVIDERS: ATTEND Internal Medicine
DX: Z51.81 Encounter for therapeutic drug level monitoring (principal); Z79.01 Long term (current) use of anticoagulants; Z86.79 Personal history of other diseases of the circulatory system

== ENCOUNTER → 2017-04-03 | Outpatient (CLI) | payer MEDICARE, OTHER ==
[2017-04-03 18:03] LABS: INR 1.77
== END ==
LOC: M SMT 13:17
PROVIDERS: ATTEND Internal Medicine
DX: Z86.79 Personal history of other diseases of the circulatory system (principal)

== ENCOUNTER → 2017-04-18 | Outpatient (REF) | payer MEDICARE, OTHER ==
[2017-04-18 10:02] LABS: INR 2.42
== END ==
PROVIDERS: ATTEND Internal Medicine
DX: I48.91 Unspecified atrial fibrillation (principal)

== ENCOUNTER → 2017-05-01 | Outpatient (REF) | payer MEDICARE, OTHER ==
[2017-05-01 11:09] LABS: MEAN CORPUSCULAR HEMOGLOBIN 29.8 pg (27.0-33.0); MEAN CORPUSCULAR HGB CONC 31.5 g/dl (32.0-36.5); MEAN CORPUSCULAR VOLUME 94.7 fl (80.0-96.0); PLATELET COUNT, AUTOMATED 180 10^3/uL (150-450); RED CELL DISTRIBUTION WIDTH 15.5 % (11.5-14.5); WHITE BLOOD COUNT 8.1 10^3/uL (4.0-10.0)
[2017-05-01 11:40] LABS: ALBUMIN 3.1 GM/DL (3.2-5.2); ALBUMIN/GLOBULIN RATIO 0.78 (1.00-1.93); BILIRUBIN,TOTAL 0.4 MG/DL (0.2-1.0); CALCIUM LEVEL 8.3 MG/DL (8.8-10.2); CREATININE FOR GFR 1.57 MG/DL (0.70-1.30); GLOMERULAR FILTRATION RATE 45.1 (>35); MAGNESIUM LEVEL 2.2 MG/DL (1.8-2.4); POTASSIUM SERUM 3.9 MEQ/L (3.5-5.1); TOTAL PROTEIN 7.1 GM/DL (6.4-8.2)
== END ==
PROVIDERS: ATTEND Internal Medicine
DX: D50.8 Other iron deficiency anemias (principal); I10 Essential (primary) hypertension; E03.9 Hypothyroidism, unspecified

== ENCOUNTER → 2017-05-02 | Outpatient (REF) | payer MEDICARE, OTHER ==
[2017-05-02 10:52] LABS: INR 1.55
== END ==
PROVIDERS: ATTEND Internal Medicine
DX: Z86.79 Personal history of other diseases of the circulatory system (principal)

== ENCOUNTER → 2017-05-02 | Outpatient (CLI) | payer MEDICARE | LOC: M SMT 11:26 | PROVIDERS: ATTEND Physician Assistant Medical | DX: J06.9 Acute upper respiratory infection, unspecified (principal) ==

== ENCOUNTER → 2017-05-02 | Outpatient (CLI) | payer MEDICARE ==
--- NOTE | 2017-05-02 13:38 | REP ---
PA and lateral chest: Comparison is 01/26/2017. There is elevation of the left hemidiaphragm, unchanged. The lung das otherwise clear and unchanged. Cardiac size is normal. The andreia, mediastinum, and bony thorax are unchanged. Impression: There are no new or acute cardiopulmonary findings. There are chronic stable findings as described. Signed by Toby Louie MD 05/02/2017 01:29 P
== END ==
LOC: M SMT 11:30
PROVIDERS: ATTEND Physician Assistant Medical
DX: J06.9 Acute upper respiratory infection, unspecified (principal)

== ENCOUNTER → 2017-05-22 | Outpatient (REF) | payer MEDICARE, OTHER ==
[2017-05-22 10:20] LABS: INR 2.32; PROTHROMBIN TIME 26.4 SECONDS (12.4-14.5)
== END ==
DX: Z51.81 Encounter for therapeutic drug level monitoring (principal); Z79.01 Long term (current) use of anticoagulants; Z86.79 Personal history of other diseases of the circulatory system
CPT/HCPCS: 85610

== ENCOUNTER → 2017-06-05 | Outpatient (REF) | payer MEDICARE, OTHER ==
[2017-06-05 11:43] LABS: INR 1.83; PROTHROMBIN TIME 21.7 SECONDS (12.4-14.5)
== END ==
DX: Z86.79 Personal history of other diseases of the circulatory system (principal)
CPT/HCPCS: 85610

== ENCOUNTER → 2017-06-12 | Outpatient (REF) | payer MEDICARE, OTHER | LOC: M LAB REF 13:50 | DX: C44.622 Squamous cell carcinoma of skin of right upper limb, including shoulder (principal); C44.310 Basal cell carcinoma of skin of unspecified parts of face | CPT/HCPCS: 88305 ==

== ENCOUNTER → 2017-07-04 | Outpatient (REF) | payer MEDICARE, OTHER ==
[2017-07-04 11:02] LABS: INR 2.28
== END ==
DX: Z79.01 Long term (current) use of anticoagulants (principal)
CPT/HCPCS: 85610

== ENCOUNTER → 2017-07-20 | Outpatient (CLI) | payer MEDICARE, OTHER ==
[2017-07-20 10:14] LABS: BASO # 0.1 10^3/uL (0.0-0.2); BASO % 0.5 % (0.0-1.0); EOS # 0.6 10^3/uL (0.0-0.50); EOS % 6.2 % (0.0-3.0); HEMATOCRIT 45.5 % (42.0-52.0); HEMOGLOBIN 14.4 g/dl (14.0-18.0); IMMATURE GRANULOCYTE % 0.3 % (0-3.0); LYMPH # 1.3 10^3/uL (1.5-4.5); LYMPH % 12.8 % (24.0-44.0); MEAN CORPUSCULAR HEMOGLOBIN 29.4 pg (27.0-33.0); MEAN CORPUSCULAR HGB CONC 31.6 g/dl (32.0-36.5); MEAN CORPUSCULAR VOLUME 92.9 fl (80.0-96.0); MONO # 1.1 10^3/uL (0.0-0.8); NEUTROPHILS # 6.8 10^3/uL (1.8-7.7); NEUTROPHILS % 69.2 % (36.0-66.0); PLATELET COUNT, AUTOMATED 232 10^3/uL (150-450); RED CELL DISTRIBUTION WIDTH 14.8 % (11.5-14.5); WHITE BLOOD COUNT 9.8 10^3/uL (4.0-10.0)
[2017-07-20 10:23] LABS: PROTHROMBIN TIME 30.8 SECONDS (12.4-14.5)
== END ==
LOC: M SMT 08:44
DX: J44.1 Chronic obstructive pulmonary disease with (acute) exacerbation (principal); Z86.711 Personal history of pulmonary embolism; Z86.79 Personal history of other diseases of the circulatory system
CPT/HCPCS: 85610

== ENCOUNTER → 2017-07-24 | Outpatient (REF) | payer MEDICARE, OTHER ==
[2017-07-24 10:42] LABS: INR 2.71; PROTHROMBIN TIME 29.9 SECONDS (12.4-14.5)
== END ==
DX: Z86.79 Personal history of other diseases of the circulatory system (principal)
CPT/HCPCS: 85610

== ENCOUNTER → 2017-07-31 | Outpatient (REF) | payer MEDICARE, OTHER ==
[2017-07-31 10:00] LABS: HEMATOCRIT 43.6 % (42.0-52.0); HEMOGLOBIN 13.7 g/dl (14.0-18.0); MEAN CORPUSCULAR HEMOGLOBIN 29.1 pg (27.0-33.0); MEAN CORPUSCULAR HGB CONC 31.4 g/dl (32.0-36.5); MEAN CORPUSCULAR VOLUME 92.8 fl (80.0-96.0); PLATELET COUNT, AUTOMATED 241 10^3/uL (150-450); RED CELL DISTRIBUTION WIDTH 14.6 % (11.5-14.5); WHITE BLOOD COUNT 10.8 10^3/uL (4.0-10.0)
[2017-07-31 10:35] LABS: ALBUMIN 3.3 GM/DL (3.2-5.2); ALKALINE PHOSPHATASE 144 U/L (45-117); ALT/SGPT 16 U/L (12-78); ANION GAP 8 MEQ/L (8-16); AST/SGOT 15 U/L (7-37); BILIRUBIN,TOTAL 0.5 MG/DL (0.2-1.0); BLOOD UREA NITROGEN 18 MG/DL (7-18); CALCIUM LEVEL 8.4 MG/DL (8.8-10.2); CARBON DIOXIDE LEVEL 29 MEQ/L (21-32); CHLORIDE LEVEL 103 MEQ/L (98-107); CHOLESTEROL LEVEL 153 MG/DL (<200); CREATININE FOR GFR 1.42 MG/DL (0.70-1.30); GLOMERULAR FILTRATION RATE 50.7 (>35); GLUCOSE, FASTING 94 MG/DL (70-100); HDL CHOLESTEROL 64 MG/DL (>40); MAGNESIUM LEVEL 2.3 MG/DL (1.8-2.4); NON-HDL-C 89 MG/DL; POTASSIUM SERUM 3.8 MEQ/L (3.5-5.1); SODIUM LEVEL 140 MEQ/L (136-145); THYROID STIMULATING HORMONE 0.729 uIU/ML (0.358-3.740); TOTAL PROTEIN 6.6 GM/DL (6.4-8.2); TRIGLYCERIDES LEVEL 125 MG/DL (<150)
== END ==
DX: D50.8 Other iron deficiency anemias (principal); I10 Essential (primary) hypertension; E78.00 Pure hypercholesterolemia, unspecified; E03.9 Hypothyroidism, unspecified
CPT/HCPCS: 83735

== ENCOUNTER → 2017-07-31 | Outpatient (REF) | payer MEDICARE, OTHER ==
[2017-07-31 10:10] LABS: PROTHROMBIN TIME 31.6 SECONDS (12.4-14.5)
== END ==
DX: Z86.79 Personal history of other diseases of the circulatory system (principal)
CPT/HCPCS: 85610

== ENCOUNTER → 2017-08-07 | Outpatient (REF) | payer MEDICARE, OTHER ==
[2017-08-07 09:50] LABS: PROTHROMBIN TIME 39.4 SECONDS (12.4-14.5)
== END ==
DX: Z51.81 Encounter for therapeutic drug level monitoring (principal); Z79.01 Long term (current) use of anticoagulants; I48.91 Unspecified atrial fibrillation
CPT/HCPCS: 85610

== ENCOUNTER → 2017-10-02 | Outpatient (REF) | payer MEDICARE, OTHER ==
[2017-10-05 10:44] LABS: THEOPHYLLINE LEVEL 3.4 UG/ML (10.0-20.0)
== END ==
DX: J44.9 Chronic obstructive pulmonary disease, unspecified (principal)
CPT/HCPCS: 80198

== ENCOUNTER → 2017-10-12 | Outpatient (REF) | payer MEDICARE, OTHER ==
[2017-10-12 09:46] LABS: THEOPHYLLINE LEVEL 4.3 UG/ML (10.0-20.0)
== END ==
DX: J44.9 Chronic obstructive pulmonary disease, unspecified (principal)
CPT/HCPCS: 80198

== ENCOUNTER → 2017-10-19 | Outpatient (REF) | payer MEDICARE, OTHER ==
[2017-10-19 11:09] LABS: THEOPHYLLINE LEVEL 8.7 UG/ML (10.0-20.0)
== END ==
DX: J44.9 Chronic obstructive pulmonary disease, unspecified (principal)
CPT/HCPCS: 80198

== ENCOUNTER → 2017-12-21 | Outpatient (REF) | payer MEDICARE, OTHER ==
[2017-12-21 10:03] LABS: HEMATOCRIT 38.5 % (42.0-52.0); HEMOGLOBIN 11.6 g/dl (13.5-17.5); MEAN CORPUSCULAR HEMOGLOBIN 25.7 pg (27.0-33.0); MEAN CORPUSCULAR HGB CONC 30.1 g/dl (32.0-36.5); MEAN CORPUSCULAR VOLUME 85.4 fl (80.0-96.0); PLATELET COUNT, AUTOMATED 254 10^3/uL (150-450); RED BLOOD COUNT 4.51 10^6/uL (4.30-6.10); RED CELL DISTRIBUTION WIDTH 17.2 % (11.5-14.5); WHITE BLOOD COUNT 7.5 10^3/uL (4.0-10.0)
[2017-12-21 10:38] LABS: ALBUMIN 3.1 GM/DL (3.2-5.2); ALBUMIN/GLOBULIN RATIO 0.78 (1.00-1.93); ALKALINE PHOSPHATASE 142 U/L (45-117); ALT/SGPT 15 U/L (12-78); ANION GAP 9 MEQ/L (8-16); AST/SGOT 13 U/L (7-37); BILIRUBIN,TOTAL 0.4 MG/DL (0.2-1.0); BLOOD UREA NITROGEN 24 MG/DL (7-18); CALCIUM LEVEL 8.5 MG/DL (8.8-10.2); CARBON DIOXIDE LEVEL 27 MEQ/L (21-32); CHLORIDE LEVEL 107 MEQ/L (98-107); CREATININE FOR GFR 1.26 MG/DL (0.70-1.30); GLUCOSE, FASTING 85 MG/DL (70-100); MAGNESIUM LEVEL 2.1 MG/DL (1.8-2.4); POTASSIUM SERUM 4.1 MEQ/L (3.5-5.1); SODIUM LEVEL 143 MEQ/L (136-145); TOTAL PROTEIN 7.1 GM/DL (6.4-8.2)
== END ==
DX: I10 Essential (primary) hypertension (principal); D50.8 Other iron deficiency anemias
CPT/HCPCS: 83735

== ENCOUNTER → 2018-03-12 | Outpatient (REF) | payer MEDICARE, OTHER ==
[2018-03-12 09:35] LABS: HEMATOCRIT 40.9 % (42.0-52.0); HEMOGLOBIN 12.2 g/dl (13.5-17.5); MEAN CORPUSCULAR HEMOGLOBIN 25.1 pg (27.0-33.0); MEAN CORPUSCULAR HGB CONC 29.8 g/dl (32.0-36.5); MEAN CORPUSCULAR VOLUME 84.2 fl (80.0-96.0); PLATELET COUNT, AUTOMATED 247 10^3/uL (150-450); RED BLOOD COUNT 4.86 10^6/uL (4.30-6.10); RED CELL DISTRIBUTION WIDTH 17.5 % (11.5-14.5); WHITE BLOOD COUNT 8.2 10^3/uL (4.0-10.0)
[2018-03-12 10:10] LABS: ALBUMIN 3.4 GM/DL (3.2-5.2); ALBUMIN/GLOBULIN RATIO 0.94 (1.00-1.93); ALKALINE PHOSPHATASE 134 U/L (45-117); ALT/SGPT 16 U/L (12-78); ANION GAP 6 MEQ/L (8-16); AST/SGOT 12 U/L (7-37); BILIRUBIN,TOTAL 0.4 MG/DL (0.2-1.0); BLOOD UREA NITROGEN 27 MG/DL (7-18); CARBON DIOXIDE LEVEL 31 MEQ/L (21-32); CHLORIDE LEVEL 104 MEQ/L (98-107); CHOLESTEROL LEVEL 178 MG/DL (<200); CHOLESTEROL RISK RATIO 2.045 (<5); CREATININE FOR GFR 1.35 MG/DL (0.70-1.30); GLOMERULAR FILTRATION RATE 53.6 (>35); GLUCOSE, FASTING 92 MG/DL (70-100); HDL CHOLESTEROL 87 MG/DL (>40); LDL CHOLESTEROL 67 MG/DL (<100); MAGNESIUM LEVEL 2.2 MG/DL (1.8-2.4); NON-HDL-C 91 MG/DL; SODIUM LEVEL 141 MEQ/L (136-145); TRIGLYCERIDES LEVEL 120 MG/DL (<150)
== END ==
DX: D50.8 Other iron deficiency anemias (principal); I10 Essential (primary) hypertension; E78.00 Pure hypercholesterolemia, unspecified; E03.9 Hypothyroidism, unspecified
CPT/HCPCS: 83735

== ENCOUNTER → 2018-04-16 | Outpatient (REF) | payer MEDICARE, OTHER | DX: E03.9 Hypothyroidism, unspecified (principal) | CPT/HCPCS: 84443 ==

== ENCOUNTER → 2018-05-30 | Outpatient (REF) | payer MEDICARE, OTHER ==
[~2018-05-30] MED LIST changes: -ENEMENE16 PR; +ENEMENE4 PR; +FLOM0.4C39 PO; -FLOM5CAP PO; +IPRA0.00 INH; +IPRA0.00 NEB; -IPRASOL4 INH; -IPRASOL4 NEB; +KLOR10TA76 PO; +KLOR20TA42 PO; -LASI20TA PO; +LASI20TA3 PO; -LOSA50TA20 PO; +LOSA50TA88 PO; +MILK120011 PO; -MILKSUS PO; -POTA10CA PO; -POTA20TA PO; -SALI0.6523; +SALI0.6528
[2018-05-30 12:31] LABS: APPEARANCE, URINE CLEAR (CLEAR); BACTERIA, URINE AUTO NEGATIVE (NEGATIVE); BILIRUBIN, URINE AUTO NEGATIVE (NEGATIVE); BLOOD, URINE BLOOD NEGATIVE (NEGATIVE); COLOR, URINE YELLOW (YELLOW); GLUCOSE, URINE (UA) AUTO NEGATIVE (NEGATIVE); KETONE, URINE AUTO NEGATIVE (NEGATIVE); LEUKOCYTE ESTERASE, URINE AUTO NEGATIVE (NEGATIVE); NITRITE, URINE AUTO NEGATIVE (NEGATIVE); PROTEIN, URINE AUTO NEGATIVE (NEGATIVE); RBC, URINE AUTO 3 /HPF (0-3); SPECIFIC GRAVITY URINE AUTO 1.014 (1.002-1.035); SQUAMOUS EPITHELIAL CELL UR AU 0 /HPF (0-6); UROBILINOGEN, URINE AUTO 0.2 mg/dL (0.0-2.0); WBC, URINE AUTO 1 /HPF (0-3)
== END ==
PROVIDERS: ATTEND Physician Assistant
DX: R31.9 Hematuria, unspecified (principal)

== ENCOUNTER 2018-09-06 08:57 | Inpatient (IN) | payer MEDICARE, OTHER ==
[~2018-09-06] VITALS: Ht 177.8 cm; Wt 89.5 kg
[~2018-09-06 08:57] MED LIST changes: +AMIO200T22 PO; -AMIO20TA PO; -MAGN1TAB25 PO; +MAGN1TAB26 PO; +PROP10TA55 PO; -PROP10TAB PO; +VITA500T17 PO; -VITA500T53 PO
[2018-09-06] MEDS ORDERED: ALBUTEROL SULFATE 2.5 MG/0.5 ML INH NEB SOLN INH ONE (09:30)
[2018-09-06] MEDS ORDERED: methylPREDNISolone INJ 125 MG/2 ML VIAL (J2930) IV ONE (09:30)
[2018-09-06] MEDS ORDERED: IPRATROPIUM 0.5MG/ALBUTEROL 2.5MG INH SOL UD 3ML (DUONEB)(J7620) NEB ONE (09:30)
[2018-09-06] MEDS ORDERED: cefTRIAXone SOD 1 GM in D5W MINI-BAG PLUS 50 ML IV ONE (10:00)
[2018-09-06] MEDS ORDERED: NS 500 ML IV ONE (10:00)
[2018-09-06] MEDS ORDERED: VENTAER INH (10:03)
[2018-09-06] MEDS ORDERED: ANOR1AER INH (10:03)
[2018-09-06] MEDS ORDERED: ACET-907 PO (10:03)
[2018-09-06] MEDS ORDERED: FLON1SPR (10:03)
[2018-09-06] MEDS ORDERED: ALBU83IN INH (10:03)
[2018-09-06] MEDS ORDERED: XARE15TA PO (10:03)
[2018-09-06] MEDS ORDERED: PRED10TA2 PO (10:03)
[2018-09-06] MEDS ORDERED: MOM30SS2 PO (10:03)
[2018-09-06] MEDS ORDERED: LASI40TA9 PO (10:03)
[2018-09-06] MEDS ORDERED: CLON0.1D3 TD (10:03)
[2018-09-06] MEDS ORDERED: PRED5TA PO (10:03)
[2018-09-06 10:12] LABS: ABG HCO3 26.8 MEQ/L (22.0-26.0); ABG O2 SATURATION 95.4 % (95.0-99.0); ABG PARTIAL PRESSURE CO2 38.1 mmHg (35.0-45.0); ABG PARTIAL PRESSURE O2 78.5 mmHg (75.0-100.0); ABG STANDARD HCO3 27.1 MEQ/L (22.0-26.0); ABG pH (ARTERIAL) 7.465 UNITS (7.350-7.450)
--- NOTE | 2018-09-06 10:19 | REP ---
Portable chest x-ray: Single view. History: Chest pain. Comparison study: July 20, 2017. Findings: There is a fairly large new infiltrate above the elevated left hemidiaphragm in the left base today. Mild cardiomegaly is again observed. The aorta is calcific and tortuous. The right lung remains essentially clear. Oxygen delivery tubing and EKG monitoring electrodes are seen. Impression: New infiltrate left base consistent with pneumonia. Elevated left hemidiaphragm as before. Cardiomegaly. Electronically Signed by Jonas Wilcox MD 09/06/2018 03:10 P
[2018-09-06 10:35] LABS: BASO % 0.1 % (0.0-1.0); EOS # 0.2 10^3/uL (0.0-0.50); EOS % 1.6 % (0.0-3.0); HEMATOCRIT 39.5 % (42.0-52.0); HEMOGLOBIN 11.9 g/dl (13.5-17.5); LYMPH # 0.6 10^3/uL (1.5-4.5); LYMPH % 4.2 % (24.0-44.0); MEAN CORPUSCULAR HEMOGLOBIN 27.1 pg (27.0-33.0); MEAN CORPUSCULAR HGB CONC 30.1 g/dl (32.0-36.5); MONO % 6.9 % (0.0-5.0); NEUTROPHILS # 12.5 10^3/uL (1.8-7.7); NEUTROPHILS % 86.8 % (36.0-66.0); PLATELET COUNT, AUTOMATED 197 10^3/uL (150-450); RED BLOOD COUNT 4.39 10^6/uL (4.30-6.10); WHITE BLOOD COUNT 14.4 10^3/uL (4.0-10.0)
[2018-09-06 10:47] LABS: INR 1.69; PARTIAL THROMBOPLASTIN TIME 32.4 SECONDS (25.4-37.6); PROTHROMBIN TIME 20.2 SECONDS (12.1-14.4)
[2018-09-06] MEDS ORDERED: AZITHROMYCIN INJ 500 MG, VIAL MATE ADAPTER 1 EACH in D5W 250 ML IV ONE (11:00)
[2018-09-06 11:08] LABS: INFLUENZA A AMPLIFICATION NEGATIVE (NEGATIVE); INFLUENZA B AMPLIFICATION NEGATIVE (NEGATIVE)
[2018-09-06 11:25] LABS: ALT/SGPT 14 U/L (12-78); BLOOD UREA NITROGEN 14 MG/DL (7-18); CALCIUM LEVEL 8.5 MG/DL (8.8-10.2); CARBON DIOXIDE LEVEL 32 MEQ/L (21-32); CHLORIDE LEVEL 106 MEQ/L (98-107); CPK CREATINE PHOSPHOKINASE 51 U/L (39-308); CREATININE FOR GFR 1.11 MG/DL (0.70-1.30); GLOMERULAR FILTRATION RATE > 60.0 (>35); GLUCOSE, FASTING 101 MG/DL (70-100); POTASSIUM SERUM 3.7 MEQ/L (3.5-5.1); SODIUM LEVEL 142 MEQ/L (136-145)
[2018-09-06 11:26] LABS: BILIRUBIN,TOTAL 0.9 MG/DL (0.2-1.0); CK-MB VALUE MASS 1.7 NG/ML (<3.6); MB/CK RELATIVE INDEX 3.33 (< OR =4)
[2018-09-06 11:27] LABS: ALBUMIN 3.4 GM/DL (3.2-5.2); BILIRUBIN,DIRECT 0.3 MG/DL (0.0-0.2); LIPASE 163 U/L (73-393); NT-PRO BNP 302 PG/ML (<450); TOTAL PROTEIN 6.4 GM/DL (6.4-8.2); TROPONIN I < 0.02 NG/ML (< 0.10)
[2018-09-06 11:28] LABS: FREE T4 1.46 NG/DL (0.76-1.46); THYROID STIMULATING HORMONE 0.238 uIU/ML (0.358-3.740)
[2018-09-06 11:44] LABS: THYROXINE (T4) 11.2 UG/DL (4.5-12.0)
--- NOTE | 2018-09-06 13:32 | HPEPDOC ---
[facility] Medical History & Physical Date of Admission Sep 06, [address] Roe in [place] Attending Physician: DEBRA PLASCENCIA MD History and Physical CHIEF COMPLAINT: SOB HISTORY OF PRESENT ILLNESS: Patient is an 82-year-old male with past medical history of COPD on intermittent 2 L oxygen at home, HFpEF per documentation, atrial fibrillation on Xarelto, coronary disease, history of PE and gout presented to ER with complaints of worsening shortness of breath. Patient reportedly has started to be more short of breath yesterday and has worsened today. He states that he feels better now than on presentation. Reports no increase in cough but does states that his ankles are more swollen recently. He denies any other complaints including fever, chills or chest pain. PAST MEDICAL HISTORY: Refer to [facility] PAST SURGICAL HISTORY: Skin cancer on nose surgery, Femoral hernia repair, cardiac catherization 2009 SOCIAL HISTORY: Denies tobacco, alcohol or illicit drug use. FAMILY HISTORY: Sister with CAD and also with respiratory issues ALLERGIES: Please see below. REVIEW OF SYSTEMS: 10 point review of system negative except as stated in [facility] HOME MEDICATIONS: Please see below. PHYSICAL EXAMINATION: General: No acute distress, Alert Eyes: Normal sclera, EOMI, HOWIE HENT: Atraumatic, neck supple, moist mucous membranes Cardiovascular: Normal rate, normal rhythm. No murmurs appreciated. Pulmonary: Clear to auscultation b/l, no wheezing GI: Soft, nontender, nondistended Skin: Warm and dry Neuro: CN grossly intact. No focal deficits. Strengths equal b/l. Psych: oriented x 3 LABORATORY DATA: See below. IMAGING: CXR- Impression: New infiltrate left base consistent with pneumonia. Elevated left hemidiaphragm as before. Cardiomegaly. MICROBIOLOGY: Please see below. ASSESSMENT AND PLAN: 1. LLL Pneumonia - Likely causing worsening SOB. - Continue O2 support and antibiotics. - Has an allergy to both cefuroxime and ciprofloxacin. Will not use Levaquin. Has had ceftriaxone in ER without any side effects. - will c/w Azithromycin and Rocephin. 2. COPD - Does not appear to be in apparent exacerbation but could play a role. - Will c/w steroids short course. - On Azithromycin. - Oxygen support. 3. HFpEF - Will give IV lasix for now to improve LE edema. - Does not appear to be in severe fluid overload. - Monitor I/O. - Fluid restriction, daily weights. 4. Afib - c/w home medications for rate control. - c/w Xarelto for AC. 5. HTN - Resume home meds. 6. CAD - Resume home meds. - Follow with Dr. Roe in [place]. DVT ppx: KB and on Xarelto Code status: DNR Vital Signs Vital Signs Date Time Temp Pulse Resp B/P (MAP) Pulse Ox O2 Delivery O2 Flow Rate FiO2 09/06/18 12:31 117/79 (92) 09/06/18 12:30 121 93 Nasal Cannula 4.0 09/06/18 09:17 99.9 17 Laboratory Data Labs 24H Laboratory Tests 2 09/06/18 09:34: Blood Gas Bicarbonate Standard 27.1H, Arterial Blood pH 7.465H, Arterial Blood Partial Pressure CO2 38.1, Arterial Blood Partial Pressure O2 78.5, Arterial Blood Total CO2 28.0, Arterial Blood HCO3 26.8H, Arterial Blood Base Excess 3.0H, Arterial Blood Oxygen Saturation 95.4 09/06/18 10:19: Immature Granulocyte % (Auto) 0.4, White Blood Count 14.4H, Red Blood Count 4.39, Hemoglobin 11.9L, Hematocrit 39.5L, Mean Corpuscular Volume 90.0, Mean Corpuscular Hemoglobin 27.1, Mean Corpuscular Hemoglobin Concent 30.1L, Red Cell Distribution Width 15.9H, Platelet Count 197, Neutrophils (%) (Auto) 86.8H, Lymphocytes (%) (Auto) 4.2L, Monocytes (%) (Auto) 6.9H, Eosinophils (%) (Auto) 1.6, Basophils (%) (Auto) 0.1, Neutrophils # (Auto) 12.5H, Lymphocytes # (Auto) 0.6L, Monocytes # (Auto) 1.0H, Eosinophils # (Auto) 0.2, Basophils # (Auto) 0.0, Nucleated Red Blood Cells % (auto) 0.0, Prothrombin Time 20.2H, Prothromb Time International Ratio 1.69, Activated Partial Thromboplast Time 32.4, Anion Gap 4L, Glomerular Filtration Rate > 60.0, Calcium Level 8.5L, Magnesium Level 2.0, Aspartate Amino Transf (AST/SGOT) 13, Alanine Aminotransferase (ALT/SGPT) 14, Alkaline Phosphatase 101, Total Bilirubin 0.9, Direct Bilirubin 0.3H, Total Creatine Kinase 51, Creatine Kinase MB 1.7, Creatine Kinase MB Relative Index 3.33, Troponin I < 0.02, HU-Oib-S-Type Natriuretic Peptide 302, Total Protein 6.4, Albumin 3.4, Albumin/Globulin Ratio 1.13, Lipase 163, Thyroid Stimulating Hormone (TSH) 0.238L, Free Thyroxine 1.46, Thyroxine (T4) 11.2 09/06/18 10:20: Lactic Acid Level 1.7, Influenza Type A (RT-PCR) NEGATIVE, Influenza Type B (RT- PCR) NEGATIVE CBC/BMP Laboratory Tests 09/06/18 10:19 Red Blood Count 4.39, Mean Corpuscular Volume 90.0, Mean Corpuscular Hemoglobin 27.1, Mean Corpuscular Hemoglobin Concent 30.1 L, Red Cell Distribution Width 15.9 H, Neutrophils (%) (Auto) 86.8 H, Lymphocytes (%) (Auto) 4.2 L, Monocytes (%) (Auto) 6.9 H, Eosinophils (%) (Auto) 1.6, Basophils (%) (Auto) 0.1, Neutrophils # (Auto) 12.5 H, Lymphocytes # (Auto) 0.6 L, Monocytes # (Auto) 1.0 H, Eosinophils # (Auto) 0.2, Basophils # (Auto) 0.0 Microbiology Microbiology 09/06/18 Blood Culture, Received Pending 09/06/18 Blood Culture, Received Pending Home Medications Scheduled Albuterol Sulf (Albuterol Sulfate) 2.5 Mg/3 Ml Nebu, 2.5 MG INH QID Atorvastatin Calcium (Atorvastatin Calcium) 40 Mg Tab, 40 MG PO QHS Clonidine (Clonidine) 0.1 Mg Patch.tdwk, 0.1 MG TD QWEEK APPLY EVERY SUNDAY AT 0900 Cyanocobalamin (Vitamin B-12) (Vitamin B-12) 1,000 Mcg Tab, 1,000 MCG PO DAILY Fluticasone Propionate (Flonase Allergy Relief) 9.9 Ml [place].susp, 2 SPRAY NA DAILY Furosemide (Lasix) 40 Mg Tablet, 40 MG PO 3XW MON, WED, FRI Magnesium Oxide (Magnesium Oxide) 400 Mg Tab, 400 MG PO BID Montelukast Sodium (Montelukast Sodium) 10 Mg Tab, 10 MG PO QHS Prednisone (Prednisone) 10 Mg Tablet, 10 MG PO Q2D Prednisone (Prednisone) 5 Mg Tablet, 5 MG PO Q2D Propranolol HCl (Propranolol HCl) 10 Mg Tab, 10 MG PO TID Rivaroxaban (Xarelto) 15 Mg Tablet, 15 MG PO QPM Sennosides/Docusate Sodium (Senokot-S Tablet) 1 Tab Tab, 1 TAB PO BID Tamsulosin HCl (Flomax) 0.4 Mg Cap, 0.4 MG PO QHS Umeclidinium Brm/Vilanterol Tr (Anoro Ellipta 62.5-25 Mcg INH) 1 Each Blst.w.dev, 1 AER INH DAILY Scheduled PRN Acetaminophen (Tylenol) 325 Mg Tablet, 650 MG PO Q4H PRN for PAIN Albuterol Sulf (Albuterol Sulfate) 2.5 Mg/3 Ml Vial.neb, 2.5 MG INH Q6H PRN for SHORTNESS OF BREATH Albuterol Sulfate (Ventolin Hfa) 18 Gm Hfa.aer.ad, 2 PUFFS INH Q6H PRN for SHORTNESS OF BREATH Magnesium Hydroxide (Milk of Magnesia) 400 Mg/5 Ml Oral.susp, 30 ML PO DAILY PRN for CONSTIPATION Sodium Chloride (Grand) 0.65 % Spr, 1 SPRAY NA Q2H PRN for NASAL DRYNESS Allergies Coded Allergies: cefuroxime (Verified Adverse Reaction, Mild, GI UPSET, 09/06/18) ciprofloxacin (Verified Adverse Reaction, Mild, GI UPSET, 09/06/18) DEBRA PLASCENCIA MD Sep 06, 2018 13:32
[2018-09-06] MEDS ORDERED: MOM 30ML SUSPENSION UDC PO PRN (17:00)
[2018-09-06] MEDS ORDERED: ACETAMINOPHEN TAB 650MG DOSE (2X325MG) PO PRN (17:00)
[2018-09-06] MEDS ORDERED: SODIUM CHLORIDE NASAL 0.65% SPRAY BTL (OCEAN) PRN (17:00)
[2018-09-06] MEDS ORDERED: RIVAROXABAN 15 MG TAB (XARELTO) PO SCH (18:00)
--- NOTE | 2018-09-06 19:30 | ECGEPIP ---
Stationary ECG Study [facility] - ED Test Date: 2018-09-06 Pat Name: KENNY JACOBS Department: Room: - Gender: M Receptionist: TC : 1935 Requested By: Maryjane Roper Order Number: [id number] Reading MD: Maryjane Roper Measurements Intervals [place] Rate: 120 P: -17 DC: 165 QRS: -49 QRSD: 122 T: -26 QT: 309 QTc: 436 Interpretive Statements SINUS TACHYCARDIA WITH OCCASIONAL SUPRAVENTRICULAR PREMATURE COMPLEXES RIGHT BUNDLE BRANCH BLOCK LEFT ANTERIOR FASCICULAR BLOCK MODERATE T-WAVE ABNORMALITY, CONSIDER LATERAL ISCHEMIA CW 09/12/[address] T WAVE CHANGES Electronically Signed On 09-06-2018 19:30:18 EDT by Maryjane Roper
[2018-09-06] MEDS: MAGNESIUM OXIDE 400 MG TAB (MAG-OX) PO SCH (20:04)
[2018-09-06] MEDS: MONTELUKAST 10 MG TAB PO SCH (20:04)
[2018-09-06] MEDS: ATORVASTATIN 20 MG TAB PO SCH (20:04)
[2018-09-06] MEDS: SENOKOT S TAB PO SCH (20:04)
[2018-09-06] MEDS: TAMSULOSIN 0.4 MG CAP PO SCH (20:04)
[2018-09-07] MEDS ORDERED: methylPREDNISolone INJ 40 MG/1 ML VIAL (J2920) IV SCH
[2018-09-07 07:20] LABS: HEMATOCRIT 33.7 % (42.0-52.0); HEMOGLOBIN 10.2 g/dl (13.5-17.5); MEAN CORPUSCULAR HEMOGLOBIN 26.6 pg (27.0-33.0); MEAN CORPUSCULAR HGB CONC 30.3 g/dl (32.0-36.5); MEAN CORPUSCULAR VOLUME 87.8 fl (80.0-96.0); PLATELET COUNT, AUTOMATED 183 10^3/uL (150-450); RED BLOOD COUNT 3.84 10^6/uL (4.30-6.10); WHITE BLOOD COUNT 16.7 10^3/uL (4.0-10.0)
[2018-09-07 07:27] LABS: BLOOD UREA NITROGEN 19 MG/DL (7-18); CALCIUM LEVEL 8.5 MG/DL (8.8-10.2); CARBON DIOXIDE LEVEL 30 MEQ/L (21-32); CHLORIDE LEVEL 106 MEQ/L (98-107); CREATININE FOR GFR 1.12 MG/DL (0.70-1.30); GLOMERULAR FILTRATION RATE > 60.0 (>35); GLUCOSE, FASTING 121 MG/DL (70-100); POTASSIUM SERUM 3.9 MEQ/L (3.5-5.1); SODIUM LEVEL 141 MEQ/L (136-145)
[2018-09-07 08:00] VITALS: BP 120/72
[2018-09-07] MEDS ORDERED: cloNIDine HCL 0.1 MG/24 HR PATCH TD SCH (09:00)
[2018-09-07] MEDS: MAGNESIUM OXIDE 400 MG TAB (MAG-OX) PO SCH ×2 (09:43→20:31)
[2018-09-07] MEDS: predniSONE 20 MG TAB PO SCH (09:43)
[2018-09-07] MEDS: SENOKOT S TAB PO SCH ×2 (09:43→20:30)
[2018-09-07 12:00] VITALS: BP 150/92
--- NOTE | 2018-09-07 12:24 | IPNPDOC ---
Date Seen The patient was seen on 09/07/18. Progress Note SUBJECTIVE: Patient is an 82-year-old male with past medical history of COPD on intermittent 2 L oxygen at home, HFpEF per documentation, atrial fibrillation on Xarelto, coronary disease, history of PE and gout presented to ER with complaints of worsening shortness of breath. Interval history: Patient states that he is breathing fine but reports that he has been coughing a lot and there is some blood in his sputum. No significant blood noted. OBJECTIVE PHYSICAL EXAMINATION: VITAL SIGNS: Please see below. General: No acute distress, Alert Eyes: Normal sclera, EOMI, HOWIE HENT: Atraumatic, neck supple, moist mucous membranes Cardiovascular: Normal rate, normal rhythm. No murmurs appreciated. Pulmonary: Clear to auscultation b/l, no wheezing GI: Soft, nontender, nondistended Skin: Warm and dry Neuro: CN grossly intact. No focal deficits. Strengths equal b/l. Psych: oriented x 3 LABORATORY DATA, IMAGING STUDIES, MICROBIOLOGY: Please see below. DVT prophylaxis ordered?: KB ASSESSMENT AND PLAN: 1. LLL Pneumonia - Likely causing worsening SOB. - Continue O2 support and antibiotics. - Has an allergy to both cefuroxime and ciprofloxacin. Will not use Levaquin. Has had ceftriaxone in ER without any side effects. - will c/w Azithromycin and Rocephin. 2. COPD - Does not appear to be in apparent exacerbation but could play a role. - Will c/w steroids short course. - On Azithromycin. - Oxygen support. 3. HFpEF - Will give IV lasix for now to improve LE edema. - Does not appear to be in severe fluid overload. - Monitor I/O. - Fluid restriction, daily weights. 4. Afib - c/w home medications for rate control. - HR stays in 100s most of the time but has periods of going up to 170s. - Holding Xarelto at this time due to blood in sputum, likely due to cough. 5. HTN - Resume home meds. 6. CAD - Resume home meds. - Follow with Dr. Roe in [place]. DVT ppx: KB. Xarelto held as patient has some blood with heavy cough. Code status: DNR DISPOSITION: . VS, I&O, 24H, Fishbone Vital Signs/I&O Vital Signs Date Time Temp Pulse Resp B/P (MAP) Pulse Ox O2 Delivery O2 Flow Rate FiO2 09/07/18 09:43 124/80 09/07/18 06:15 68 17 96 09/07/18 02:00 Nasal Cannula 3.0 09/06/18 14:47 99.0 I&O- Last 24 Hours up to 6 AM 09/07/18 06:00 Intake Total 800 ml Balance 800 ml Laboratory Data 24H LABS Laboratory Tests 2 09/07/18 06:44: Nucleated Red Blood Cells % (auto) 0.0, Anion Gap 5L, Glomerular Filtration Rate > 60.0, Blood Urea Nitrogen 19H, Creatinine 1.12, Sodium Level 141, Potassium Level 3.9, Chloride Level 106, Carbon Dioxide Level 30, Calcium Level 8.5L CBC/BMP Laboratory Tests 09/07/18 06:44 Red Blood Count 3.84 L, Mean Corpuscular Volume 87.8, Mean Corpuscular Hemoglobin 26.6 L, Mean Corpuscular Hemoglobin Concent 30.3 L, Red Cell Distribution Width 15.6 H, Calcium Level 8.5 L Microbiology Microbiology 09/06/18 Blood Culture - Preliminary, Resulted No growth after 24 hours . All specim... 09/06/18 Blood Culture - Preliminary, Resulted No growth after 24 hours . All specim... DEBRA PLASCENCIA MD Sep 07, 2018 12:24
[2018-09-07] MEDS: cefTRIAXone SOD 1 GM in D5W MINI-BAG PLUS 50 ML IV SCH (12:53)
[2018-09-07] MEDS ORDERED: METOPROLOL 5 MG/5 ML VIAL IV ONE (13:15)
[2018-09-07] MEDS: AZITHROMYCIN INJ 500 MG, VIAL MATE ADAPTER 1 EACH in D5W 250 ML IV SCH (13:31)
[2018-09-07 16:30] VITALS: BP 134/83
[2018-09-07] MEDS ORDERED: SLF 3 ML SYR IV PRN (18:00)
[2018-09-07 20:00] VITALS: BP 140/81
[2018-09-07] MEDS: MONTELUKAST 10 MG TAB PO SCH (20:30)
[2018-09-07] MEDS: TAMSULOSIN 0.4 MG CAP PO SCH (20:30)
[2018-09-07] MEDS: ATORVASTATIN 20 MG TAB PO SCH (20:30)
[2018-09-07] MEDS: PROPRANOLOL 10 MG TAB PO SCH (20:31)
[2018-09-07] MEDS: SLF 3 ML SYR IV SCH (21:38)
[2018-09-07 23:59] VITALS: BP 120/76
[2018-09-08 04:00] VITALS: BP 163/80
[2018-09-08] MEDS: SLF 3 ML SYR IV SCH ×3 (05:59→21:09)
[2018-09-08 06:07] LABS: HEMATOCRIT 35.4 % (42.0-52.0); HEMOGLOBIN 10.5 g/dl (13.5-17.5); MEAN CORPUSCULAR HEMOGLOBIN 26.1 pg (27.0-33.0); MEAN CORPUSCULAR HGB CONC 29.7 g/dl (32.0-36.5); MEAN CORPUSCULAR VOLUME 88.1 fl (80.0-96.0); PLATELET COUNT, AUTOMATED 232 10^3/uL (150-450); RED BLOOD COUNT 4.02 10^6/uL (4.30-6.10); WHITE BLOOD COUNT 16.4 10^3/uL (4.0-10.0)
[2018-09-08 06:23] LABS: BLOOD UREA NITROGEN 25 MG/DL (7-18); CALCIUM LEVEL 8.7 MG/DL (8.8-10.2); CARBON DIOXIDE LEVEL 29 MEQ/L (21-32); CHLORIDE LEVEL 107 MEQ/L (98-107); GLOMERULAR FILTRATION RATE > 60.0 (>35); GLUCOSE, FASTING 98 MG/DL (70-100); POTASSIUM SERUM 4.2 MEQ/L (3.5-5.1); SODIUM LEVEL 143 MEQ/L (136-145)
[2018-09-08 08:00] VITALS: BP 134/72
[2018-09-08] MEDS: predniSONE 20 MG TAB PO SCH (08:45)
[2018-09-08] MEDS: SENOKOT S TAB PO SCH ×2 (08:45→21:08)
[2018-09-08] MEDS: MAGNESIUM OXIDE 400 MG TAB (MAG-OX) PO SCH ×2 (08:45→21:09)
[2018-09-08] MEDS: PROPRANOLOL 10 MG TAB PO SCH ×3 (08:45→21:09)
--- NOTE | 2018-09-08 11:08 | IPNPDOC ---
Date Seen The patient was seen on 09/08/18. Progress Note SUBJECTIVE: Patient is an 82-year-old male with past medical history of COPD on intermittent 2 L oxygen at home, HFpEF per documentation, atrial fibrillation on Xarelto, coronary disease, history of PE and gout presented to ER with complaints of worsening shortness of breath. Interval history: Patient states that he feels well in bed. O2 at 2-3L saturating well, which is his normal at home. Has not walk around too much yet. Still reports coughing up some blood/pink sputum. OBJECTIVE PHYSICAL EXAMINATION: VITAL SIGNS: Please see below. General: No acute distress, Alert Eyes: Normal sclera, EOMI, HOWIE HENT: Atraumatic, neck supple, moist mucous membranes Cardiovascular: Normal rate, normal rhythm. No murmurs appreciated. Pulmonary: Clear to auscultation b/l, no wheezing GI: Soft, nontender, nondistended Skin: Warm and dry Neuro: CN grossly intact. No focal deficits. Strengths equal b/l. Psych: oriented x 3 LABORATORY DATA, IMAGING STUDIES, MICROBIOLOGY: Please see below. DVT prophylaxis ordered?: KB ASSESSMENT AND PLAN: 1. LLL Pneumonia - Likely causing worsening SOB. - Continue O2 support and antibiotics. - Has an allergy to both cefuroxime and ciprofloxacin. Will not use Levaquin. Has had ceftriaxone in ER without any side effects. - will c/w Azithromycin and Rocephin. - Walk today with PT and assess mobility/breathing status. 2. COPD - Does not appear to be in apparent exacerbation but could play a role. - Will c/w steroids short course. - On Azithromycin. - Oxygen support. 3. HFpEF - Will give IV lasix for now to improve LE edema. - Does not appear to be in severe fluid overload. - Monitor I/O. - Fluid restriction, daily weights. 4. Afib - c/w home medications for rate control. - Holding Xarelto at this time due to blood in sputum, likely due to cough. 5. HTN - Resume home meds. 6. CAD - Resume home meds. - Follow with Dr. Roe in [place]. DVT ppx: KB. Xarelto held as patient has some blood with heavy cough. Code status: DNR VS, I&O, 24H, Fishbone Vital Signs/I&O Vital Signs Date Time Temp Pulse Resp B/P (MAP) Pulse Ox O2 Delivery O2 Flow Rate FiO2 09/08/18 08:45 87 134/72 09/08/18 08:00 97.9 18 92 3.0 09/07/18 16:00 Nasal Cannula I&O- Last 24 Hours up to 6 AM 09/08/18 06:00 Intake Total 595 ml Output Total 1420 ml Balance -825 ml Laboratory Data 24H LABS Laboratory Tests 2 09/08/18 05:21: Nucleated Red Blood Cells % (auto) 0.0, Anion Gap 7L, Glomerular Filtration Rate > 60.0, Blood Urea Nitrogen 25H, Creatinine 1.10, Sodium Level 143, Potassium Level 4.2, Chloride Level 107, Carbon Dioxide Level 29, Calcium Level 8.7L CBC/BMP Laboratory Tests 09/08/18 05:21 Red Blood Count 4.02 L, Mean Corpuscular Volume 88.1, Mean Corpuscular Hemoglobin 26.1 L, Mean Corpuscular Hemoglobin Concent 29.7 L, Red Cell Distribution Width 15.7 H, Calcium Level 8.7 L Microbiology Microbiology 09/06/18 Blood Culture - Preliminary, Resulted No Growth after 48 hours. All Specime... 09/06/18 Blood Culture - Preliminary, Resulted No Growth after 48 hours. All Specime... DEBRA PLASCENCIA MD Sep 08, 2018 11:08
[2018-09-08 12:00] VITALS: BP 135/68
[2018-09-08] MEDS: cefTRIAXone SOD 1 GM in D5W MINI-BAG PLUS 50 ML IV SCH (12:25)
[2018-09-08] MEDS: AZITHROMYCIN INJ 500 MG, VIAL MATE ADAPTER 1 EACH in D5W 250 ML IV SCH (13:14)
[2018-09-08 16:00] VITALS: BP 122/80
[2018-09-08 20:00] VITALS: BP 120/90
[2018-09-08] MEDS: TAMSULOSIN 0.4 MG CAP PO SCH (21:09)
[2018-09-08] MEDS: MONTELUKAST 10 MG TAB PO SCH (21:09)
[2018-09-08] MEDS: ATORVASTATIN 20 MG TAB PO SCH (21:09)
[2018-09-08 23:59] VITALS: BP 132/72
[2018-09-09 04:00] VITALS: BP 159/77
[2018-09-09] MEDS: SLF 3 ML SYR IV SCH ×3 (04:57→21:57)
[2018-09-09 05:53] LABS: HEMATOCRIT 33.8 % (42.0-52.0); HEMOGLOBIN 9.9 g/dl (13.5-17.5); MEAN CORPUSCULAR HEMOGLOBIN 26.2 pg (27.0-33.0); MEAN CORPUSCULAR HGB CONC 29.3 g/dl (32.0-36.5); MEAN CORPUSCULAR VOLUME 89.4 fl (80.0-96.0); PLATELET COUNT, AUTOMATED 218 10^3/uL (150-450); RED BLOOD COUNT 3.78 10^6/uL (4.30-6.10); WHITE BLOOD COUNT 9.5 10^3/uL (4.0-10.0)
[2018-09-09 06:09] LABS: BLOOD UREA NITROGEN 27 MG/DL (7-18); CALCIUM LEVEL 8.2 MG/DL (8.8-10.2); CARBON DIOXIDE LEVEL 32 MEQ/L (21-32); CHLORIDE LEVEL 107 MEQ/L (98-107); CREATININE FOR GFR 1.09 MG/DL (0.70-1.30); GLOMERULAR FILTRATION RATE > 60.0 (>35); GLUCOSE, FASTING 95 MG/DL (70-100); SODIUM LEVEL 143 MEQ/L (136-145)
[2018-09-09 07:34] VITALS: BP 144/67
[2018-09-09] MEDS ORDERED: FUROSEMIDE 40 MG TAB PO SCH (09:00)
[2018-09-09] MEDS: SENOKOT S TAB PO SCH ×2 (09:01→21:00)
[2018-09-09] MEDS: MAGNESIUM OXIDE 400 MG TAB (MAG-OX) PO SCH ×2 (09:01→21:57)
[2018-09-09] MEDS: PROPRANOLOL 10 MG TAB PO SCH ×3 (09:02→21:57)
[2018-09-09] MEDS: predniSONE 20 MG TAB PO SCH (09:02)
[2018-09-09 11:30] VITALS: BP 145/85
[2018-09-09] MEDS: cefTRIAXone SOD 1 GM in D5W MINI-BAG PLUS 50 ML IV SCH (12:20)
[2018-09-09] MEDS: AZITHROMYCIN INJ 500 MG, VIAL MATE ADAPTER 1 EACH in D5W 250 ML IV SCH (13:06)
[2018-09-09 15:50] VITALS: BP 126/90
[2018-09-09] MEDS ORDERED: RIVAROXABAN 15 MG TAB (XARELTO) PO SCH (18:00)
--- NOTE | 2018-09-09 18:38 | IPNPDOC ---
Subjective Date Seen The patient was seen on 09/09/18. Subjective Chief Complaint/HPI Hemoptysis Events since last encounter Patient denies any hemoptysis over the last 24 hours. Denies any chest pain. Reports some slight cough. No nausea or vomiting. Tolerating oral intake. No abdominal pain. Some lower extremity swelling/edema - reports he usually has the same at home as well Objective Physical Examination General Exam: Positive: Alert, Cooperative, No Acute Distress, Other (sitting up at edge of bed) Eye Exam: Positive: PERRLA ENT Exam: Positive: Mucous membr. moist/pink Chest Exam: Positive: Diminished, Other (no distress) Heart Exam: Positive: Rate Normal, Normal S1, Normal S2 Abdomen Exam: Positive: Soft; Negative: Tenderness Neuro Exam: Positive: Other (awake, alert, answering questions appropriately) Assessment /Plan Assessment 1. LLL Pneumonia -Continue azithromycin and Rocephin -Continue when necessary O2he does have 3 L per minute oxygen usually at home 2. COPD -Short steroid course -Supplemental oxygen as needed 3. HFpEF -Resume home furosemide -I's and O's -Fluid restriction and daily weights 4. Afib -Continue propranolol -Resume Xarelto and monitor for hemoptysis 5. HTN -Continue propranolol, Lasix, clonidine patch 6. CAD -Continue propranolol, statin -Follow with Dr. Roe in [place]. DVT ppx: On Xarelto to be started from today evening Disposition: Anticipate possible discharge home tomorrow if no hemoptysis on Xarelto Plan/VTE VTE Prophylaxis Ordered?: Yes VS, I&O, 24H, Fishbone Vital Signs/I&O Vital Signs Date Time Temp Pulse Resp B/P (MAP) Pulse Ox O2 Delivery O2 Flow Rate FiO2 09/09/18 16:00 3.0 09/09/18 15:50 97.5 112 18 126/90 (102) 98 09/07/18 16:00 Nasal Cannula I&O- Last 24 Hours up to 6 AM 09/09/18 06:00 Intake Total 660 ml Output Total 1585 ml Balance -925 ml Laboratory Data 24H LABS Laboratory Tests 2 09/09/18 05:25: Nucleated Red Blood Cells % (auto) 0.0, Anion Gap 4L, Glomerular Filtration Rate > 60.0, Blood Urea Nitrogen 27H, Creatinine 1.09, Sodium Level 143, Potassium Level 4.0, Chloride Level 107, Carbon Dioxide Level 32, Calcium Level 8.2L CBC/BMP Laboratory Tests 09/09/18 05:25 Red Blood Count 3.78 L, Mean Corpuscular Volume 89.4, Mean Corpuscular Hemo globin 26.2 L, Mean Corpuscular Hemoglobin Concent 29.3 L, Red Cell Distribution Width 15.5 H, Calcium Level 8.2 L Microbiology Microbiology 09/06/18 Blood Culture - Preliminary, Resulted No Growth after 72 hours. All specime... 09/06/18 Blood Culture - Preliminary, Resulted No Growth after 72 hours. All specime... 09/08/18 Gram Stain - Final, Resulted 09/08/18 Sputum Culture, Resulted Pending KEAGAN CREWS MD Sep 09, 2018 18:38
[2018-09-09 20:00] VITALS: BP 128/90
[2018-09-09] MEDS: ATORVASTATIN 20 MG TAB PO SCH (21:57)
[2018-09-09] MEDS: TAMSULOSIN 0.4 MG CAP PO SCH (21:57)
[2018-09-09] MEDS: MONTELUKAST 10 MG TAB PO SCH (21:57)
[2018-09-09 23:59] VITALS: BP 139/63
[2018-09-10 04:00] VITALS: BP 120/88
[2018-09-10] MEDS: SLF 3 ML SYR IV SCH (05:09)
[2018-09-10 06:12] LABS: HEMATOCRIT 34.7 % (42.0-52.0); HEMOGLOBIN 10.4 g/dl (13.5-17.5); MEAN CORPUSCULAR HEMOGLOBIN 26.3 pg (27.0-33.0); MEAN CORPUSCULAR VOLUME 87.8 fl (80.0-96.0); PLATELET COUNT, AUTOMATED 224 10^3/uL (150-450); RED BLOOD COUNT 3.95 10^6/uL (4.30-6.10); WHITE BLOOD COUNT 7.3 10^3/uL (4.0-10.0)
[2018-09-10 06:42] LABS: BLOOD UREA NITROGEN 28 MG/DL (7-18); CALCIUM LEVEL 8.5 MG/DL (8.8-10.2); CARBON DIOXIDE LEVEL 32 MEQ/L (21-32); CHLORIDE LEVEL 105 MEQ/L (98-107); CREATININE FOR GFR 1.06 MG/DL (0.70-1.30); GLOMERULAR FILTRATION RATE > 60.0 (>35); GLUCOSE, FASTING 85 MG/DL (70-100); MAGNESIUM LEVEL 2.3 MG/DL (1.8-2.4); PHOSPHORUS LEVEL 3.3 MG/DL (2.5-4.9); POTASSIUM SERUM 4.4 MEQ/L (3.5-5.1); SODIUM LEVEL 139 MEQ/L (136-145)
[2018-09-10 07:37] VITALS: BP 122/90
[2018-09-10 08:36] VITALS: BP 122/90
[2018-09-10] MEDS: predniSONE 20 MG TAB PO SCH (08:36)
[2018-09-10] MEDS: PROPRANOLOL 10 MG TAB PO SCH (08:36)
[2018-09-10] MEDS: MAGNESIUM OXIDE 400 MG TAB (MAG-OX) PO SCH (08:36)
[2018-09-10] MEDS: SENOKOT S TAB PO SCH (08:37)
[2018-09-10] MEDS ORDERED: PRED20TA PO ×2 (10:43→12:57)
[2018-09-10 11:28] VITALS: BP 126/75
--- NOTE | 2018-09-10 19:58 | DS.PDOC ---
Discharge Summary General Date of Admission Sep 06, 2018 at 13:07 Date of Discharge 09/10/2018 Discharge Summary PROCEDURES PERFORMED DURING STAY: None. ADMITTING DIAGNOSES: Left lower lobe pneumonia, COPD, heart failure preserved ejection fraction, atrial fibrillation, hypertension, coronary artery disease DISCHARGE DIAGNOSES: Hemoptysis secondary to left lower lobe pneumonia, COPD, heart failure preserved ejection fraction, atrial fibrillation, hypertension, coronary artery disease COMPLICATIONS/CHIEF COMPLAINT: Acute Respiratory Failure,Chf,Copd. HISTORY OF PRESENT ILLNESS: The patient is a 82-year-old gentleman were presented to the ER complains of increasing shortness of breath as well as cough or gallops. Lobe pneumonia admitted to the hospital for further management. HOSPITAL COURSE: 1. LLL Pneumonia -Treated with azithromycin and Rocephinfinish 5 day course of antibiotics. -Clinically he has improved. -Continue when necessary O2he does have 3 L per minute oxygen usually at home 2. COPD -Patient was treated with short steroid course -Supplemental oxygen as needed 3. HFpEF -Continue home furosemide -I's and O's -Fluid restriction and daily weights 4. Afib -Continued propranolol -Xarelto was initially held for hemoptysis, but was subsequently resumed yesterday and patient has not had any further problems with hemoptysis 5. HTN -Continue propranolol, Lasix, clonidine patch 6. CAD -Continue propranolol, statin -Follow with Dr. Roe in [place]. DISCHARGE MEDICATIONS: Please see below. ALLERGIES: Please see below. PHYSICAL EXAMINATION ON DISCHARGE: VITAL SIGNS: Please see below. GENERAL: Sitting up in bed. No distress HEENT: PERRLA CARDIOVASCULAR EXAMINATION: S1, S2 heard, no rubs or gallops RESPIRATORY EXAMINATION: Diminished air entry bilaterally. No overt wheezing. No distress ABDOMINAL EXAMINATION: Soft, nontender EXTREMITIES: Trace to 1+ bilateral lower extremity edema NEUROLOGICAL EXAMINATION: Awake, alert, answering questions appropriately LABORATORY DATA: Please see below. ACTIVITY: As tolerated. DIET: 2 g sodium, heart healthy, 2 L per day fluid restriction DISCHARGE PLAN: Patient will be discharged back to [facility]. Outpatient follow-up with his primary care provider in one week, with pulmonology and with cardiology. DISPOSITION: [facility] DISCHARGE CONDITION: Stable. TIME SPENT ON DISCHARGE: 34 minutes. Vital Signs/I&Os Vital Signs Date Time Temp Pulse Resp B/P (MAP) Pulse Ox O2 Delivery O2 Flow Rate FiO2 09/10/18 08:36 89 122/90 09/10/18 08:00 3.0 09/10/18 07:37 97.6 18 97 09/07/18 16:00 Nasal Cannula I&O- Last 24 Hours up to 6 AM 09/10/18 06:00 Intake Total 1925 ml Output Total 2250 ml Balance -325 ml Laboratory Data Labs 24H Laboratory Tests 2 09/10/18 05:43: Nucleated Red Blood Cells % (auto) 0.0, Anion Gap 2L, Glomerular Filtration Rate > 60.0, Blood Urea Nitrogen 28H, Creatinine 1.06, Sodium Level 139, Potassium Level 4.4, Chloride Level 105, Carbon Dioxide Level 32, Calcium Level 8.5L, Phosphorus Level 3.3, Magnesium Level 2.3 CBC/BMP Laboratory Tests 09/10/18 05:43 Red Blood Count 3.95 L, Mean Corpuscular Volume 87.8, Mean Corpuscular H emoglobin 26.3 L, Mean Corpuscular Hemoglobin Concent 30.0 L, Red Cell Distribution Width 15.1 H, Calcium Level 8.5 L Microbiology Microbiology 09/06/18 Blood Culture - Preliminary, Resulted No Growth after 72 hours. All specime... 09/06/18 Blood Culture - Preliminary, Resulted No Growth after 72 hours. All specime... 09/08/18 Gram Stain - Final, Resulted 09/08/18 Sputum Culture, Resulted Pending Discharge Medications Scheduled Albuterol Sulf (Albuterol Sulfate) 2.5 Mg/3 Ml Nebu, 2.5 MG INH QID, (Reported) Atorvastatin Calcium (Atorvastatin Calcium) 40 Mg Tab, 40 MG PO QHS, (Reported) Clonidine (Clonidine) 0.1 Mg Patch.tdwk, 0.1 MG TD QWEEK, (Reported) APPLY EVERY SUNDAY AT 0900 Cyanocobalamin (Vitamin B-12) (Vitamin B-12) 1,000 Mcg Tab, 1,000 MCG PO DAILY, (Reported) Fluticasone Propionate (Flonase Allergy Relief) 9.9 Ml [place].susp, 2 SPRAY NA DAILY, (Reported) Furosemide (Lasix) 40 Mg Tablet, 40 MG PO 3XW, (Reported) MON, WED, FRI Magnesium Oxide (Magnesium Oxide) 400 Mg Tab, 400 MG PO BID, (Reported) Montelukast Sodium (Montelukast Sodium) 10 Mg Tab, 10 MG PO QHS, (Reported) Prednisone (Prednisone) 10 Mg Tablet, 10 MG PO Q2D, (Reported) Prednisone (Prednisone) 5 Mg Tablet, 5 MG PO Q2D, (Reported) Prednisone (Prednisone) 20 Mg Tablet, 40 MG PO DAILY Take 2 tabs (40 mg) oral daily for 4 days, then resume your usual home prednisone dose thereafter. Propranolol HCl (Propranolol HCl) 10 Mg Tab, 10 MG PO TID, (Reported) Rivaroxaban (Xarelto) 15 Mg Tablet, 15 MG PO QPM, (Reported) Sennosides/Docusate Sodium (Senokot-S Tablet) 1 Tab Tab, 1 TAB PO BID, (Reported) Tamsulosin HCl (Flomax) 0.4 Mg Cap, 0.4 MG PO QHS, (Reported) Umeclidinium Brm/Vilanterol Tr (Anoro Ellipta 62.5-25 Mcg INH) 1 Each Blst.w.dev, 1 AER INH DAILY, (Reported) Scheduled PRN Acetaminophen (Tylenol) 325 Mg Tablet, 650 MG PO Q4H PRN for PAIN, (Reported) Albuterol Sulf (Albuterol Sulfate) 2.5 Mg/3 Ml Vial.neb, 2.5 MG INH Q6H PRN for SHORTNESS OF BREATH, (Reported) Albuterol Sulfate (Ventolin Hfa) 18 Gm Hfa.aer.ad, 2 PUFFS INH Q6H PRN for SHORTNESS OF BREATH, (Reported) Magnesium Hydroxide (Milk of Magnesia) 400 Mg/5 Ml Oral.susp, 30 ML PO DAILY PRN for CONSTIPATION, (Reported) Sodium Chloride (Shively) 0.65 % Spr, 1 SPRAY NA Q2H PRN for NASAL DRYNESS, (Reported) Allergies Coded Allergies: cefuroxime (Verified Adverse Reaction, Mild, GI UPSET, 09/06/18) ciprofloxacin (Verified Adverse Reaction, Mild, GI UPSET, 09/06/18) KEAGAN CREWS MD Sep 10, 2018 10:43
== END 2018-09-10 12:48 | DRG 194 ==
LOC: M ED 08:57 → EDBD 08:57 → M ED INP 13:07 → M PCU 09-07 16:29
PROVIDERS: ADMIT Student in an Organized Health Care Education/Training Program; ATTEND Internal Medicine
DX: J18.9 Pneumonia, unspecified organism (principal); J44.0 Chronic obstructive pulmonary disease with (acute) lower respiratory infection; I50.32 Chronic diastolic (congestive) heart failure; R04.2 Hemoptysis; I48.91 Unspecified atrial fibrillation; I25.10 Atherosclerotic heart disease of native coronary artery without angina pectoris; I11.0 Hypertensive heart disease with heart failure; M10.9 Gout, unspecified; Z66 Do not resuscitate; Z99.81 Dependence on supplemental oxygen; Z86.711 Personal history of pulmonary embolism; Z79.01 Long term (current) use of anticoagulants; Z85.828 Personal history of other malignant neoplasm of skin; Z79.52 Long term (current) use of systemic steroids; Z79.899 Other long term (current) drug therapy; Z88.1 Allergy status to other antibiotic agents

== ENCOUNTER → 2018-09-26 | Outpatient (CLI) | payer MEDICARE, OTHER ==
[~2018-09-26] MED LIST changes: +ACET-907 PO; +CLON0.1D3 TD; +FLON1SPR; +LASI40TA9 PO; +MOM30SS2 PO; +PRED10TA2 PO; +PRED5TA PO; +VENTAER INH; +XARE15TA PO
--- NOTE | 2018-09-26 15:08 | REP ---
REASON: Chronic obstructive pulmonary disease. COMPARISON: Multiple, the latest portable exam 09/06/2018 and two view exam 09/04/2017. There is cardiomegaly status quo. Patchy left basilar opacities either improved slightly or apparently improved due to PA technique obtained today and portable technique obtained on 09/06/2018. No new abnormal opacities have developed. There is a persistent elevation of the diaphragmatic surface of the left lung secondary to a gastric air bubble. This is unchanged from the latest PA view of 09/04/2017. There is no change in the osseous structures. IMPRESSION: Chronic changes as described above. Electronically Signed by Bay Tolentino DO 09/26/2018 04:24 P
== END ==
LOC: M SMT 12:59
PROVIDERS: ATTEND Internal Medicine Pulmonary Disease
DX: J44.9 Chronic obstructive pulmonary disease, unspecified (principal); I51.7 Cardiomegaly

== ENCOUNTER → 2018-11-04 | Outpatient (REF) | payer MEDICARE, OTHER ==
[2018-11-04 18:37] LABS: ALBUMIN 3.3 GM/DL (3.2-5.2); ALT/SGPT 15 U/L (12-78); BILIRUBIN,TOTAL 0.5 MG/DL (0.2-1.0); BLOOD UREA NITROGEN 16 MG/DL (7-18); CALCIUM LEVEL 8.7 MG/DL (8.8-10.2); CARBON DIOXIDE LEVEL 34 MEQ/L (21-32); CHLORIDE LEVEL 104 MEQ/L (98-107); CREATININE FOR GFR 1.15 MG/DL (0.70-1.30); GLOMERULAR FILTRATION RATE > 60.0 (>35); GLUCOSE, FASTING 106 MG/DL (70-100); NT-PRO BNP 295 PG/ML (<450); POTASSIUM SERUM 3.8 MEQ/L (3.5-5.1); SODIUM LEVEL 142 MEQ/L (136-145); TOTAL PROTEIN 6.6 GM/DL (6.4-8.2)
== END ==
LOC: M SFHCPLAZ 13:36
PROVIDERS: ATTEND Nurse Practitioner Family
DX: R60.0 Localized edema (principal)

== ENCOUNTER → 2018-11-04 | Outpatient (CLI) | payer MEDICARE, OTHER ==
--- NOTE | 2018-11-04 15:31 | REP ---
PA and lateral chest: Comparison is 09/26/2018. There is chronic elevation of the left hemidiaphragm with atelectasis of the inferior left lung adjacent to the elevated diaphragm. This is unchanged. The remainder of the left lung is clear. The right lung is clear and unchanged. There is interposition of the colon between the right hemidiaphragm and dome of the liver as previously. Cardiac size is upper normal. The andreia, mediastinum, and skeletal structures are unchanged. The thoracic aorta is tortuous, not unusual for patient age. Impression: No acute cardiopulmonary findings. No evidence of CHF. There are chronic findings as described. The the Electronically Signed by Toby Louie MD 11/04/2018 03:22 P
== END ==
LOC: M SMT 14:08
PROVIDERS: ATTEND Nurse Practitioner Family
DX: J98.11 Atelectasis (principal); R60.0 Localized edema
CPT/HCPCS: 36415; 71046; 80053; 83880; G0463

== ENCOUNTER → 2018-12-17 | Outpatient (REF) | payer MEDICARE, OTHER ==
[~2018-12-17] MED LIST changes: +CYAN100049 PO; -VITA10002 PO
[2018-12-17 08:38] LABS: HEMATOCRIT 28.9 % (42.0-52.0); MEAN CORPUSCULAR HEMOGLOBIN 22.5 pg (27.0-33.0); MEAN CORPUSCULAR HGB CONC 27.7 g/dl (32.0-36.5); MEAN CORPUSCULAR VOLUME 81.4 fl (80.0-96.0); PLATELET COUNT, AUTOMATED 223 10^3/uL (150-450); RED BLOOD COUNT 3.55 10^6/uL (4.30-6.10); WHITE BLOOD COUNT 7.9 10^3/uL (4.0-10.0)
[2018-12-17 09:08] LABS: ALT/SGPT 11 U/L (12-78); BILIRUBIN,TOTAL 0.3 MG/DL (0.2-1.0); BLOOD UREA NITROGEN 18 MG/DL (7-18); CALCIUM LEVEL 8.4 MG/DL (8.8-10.2); CARBON DIOXIDE LEVEL 32 MEQ/L (21-32); CHLORIDE LEVEL 106 MEQ/L (98-107); CHOLESTEROL LEVEL 139 MG/DL (<200); CHOLESTEROL RISK RATIO 1.904 (<5); CREATININE FOR GFR 1.13 MG/DL (0.70-1.30); FERRITIN 7 NG/ML (26-388); GLOMERULAR FILTRATION RATE > 60.0 (>35); GLUCOSE, FASTING 86 MG/DL (70-100); HDL CHOLESTEROL 73 MG/DL (>40); IRON (FE) 17 UG/DL (65-175); LDL CHOLESTEROL 51 MG/DL (<100); MAGNESIUM LEVEL 2.2 MG/DL (1.8-2.4); NON-HDL-C 66 MG/DL; PERCENT SATURATION 4.3 % (19.7-50.0); POTASSIUM SERUM 4.4 MEQ/L (3.5-5.1); SODIUM LEVEL 143 MEQ/L (136-145); THYROID STIMULATING HORMONE 0.647 uIU/ML (0.358-3.740); TOTAL IRON BINDING CAPACITY 397 UG/DL (250-450); TRIGLYCERIDES LEVEL 76 MG/DL (<150)
[2018-12-17 09:10] LABS: FOLATE 10.2 NG/ML; VITAMIN B12 LEVEL 811 PG/ML
== END ==
PROVIDERS: ATTEND Internal Medicine
DX: D50.8 Other iron deficiency anemias (principal); I10 Essential (primary) hypertension; E78.00 Pure hypercholesterolemia, unspecified; E03.9 Hypothyroidism, unspecified

== ENCOUNTER → 2019-01-14 | Outpatient (REF) | payer MEDICARE, OTHER ==
[2019-01-14 09:49] LABS: HEMOGLOBIN 9.4 g/dl (13.5-17.5); MEAN CORPUSCULAR HGB CONC 27.6 g/dl (32.0-36.5); MEAN CORPUSCULAR VOLUME 83.3 fl (80.0-96.0); PLATELET COUNT, AUTOMATED 235 10^3/uL (150-450); RED BLOOD COUNT 4.08 10^6/uL (4.30-6.10); WHITE BLOOD COUNT 7.4 10^3/uL (4.0-10.0)
== END ==
PROVIDERS: ATTEND Internal Medicine
DX: D50.8 Other iron deficiency anemias (principal)

== ENCOUNTER → 2019-02-11 | Outpatient (REF) | payer MEDICARE, OTHER ==
[2019-02-11 11:02] LABS: HEMATOCRIT 37.6 % (42.0-52.0); HEMOGLOBIN 10.6 g/dl (13.5-17.5); MEAN CORPUSCULAR HEMOGLOBIN 23.5 pg (27.0-33.0); MEAN CORPUSCULAR HGB CONC 28.2 g/dl (32.0-36.5); MEAN CORPUSCULAR VOLUME 83.2 fl (80.0-96.0); PLATELET COUNT, AUTOMATED 237 10^3/uL (150-450); RED BLOOD COUNT 4.52 10^6/uL (4.30-6.10); WHITE BLOOD COUNT 7.9 10^3/uL (4.0-10.0)
== END ==
PROVIDERS: ATTEND Internal Medicine Gastroenterology
DX: D64.9 Anemia, unspecified (principal)

== ENCOUNTER → 2019-04-04 | Outpatient (REF) | payer MEDICARE, OTHER ==
[~2019-04-04] MED LIST changes: +ASPI81CH44 PO; +CARD180C4 PO; +FURO40TA2 PO; +LEVO50TA5 PO; -MAGN400T PO; +MAGN400T3 PO; +NITR4TASL SL; +PRED5CON PO; +RANO500T7 PO
== END ==
PROVIDERS: ATTEND Internal Medicine
DX: Z86.79 Personal history of other diseases of the circulatory system (principal)

== ENCOUNTER 2019-04-08 21:21 | Inpatient (IN) | payer MEDICARE, OTHER ==
[~2019-04-08] VITALS: Ht 177.8 cm; Wt 92.6 kg
[~2019-04-08 21:21] MED LIST changes: -ASPI81CH44 PO; -CARD180C4 PO; -FURO40TA2 PO; -LEVO50TA5 PO; -NITR4TASL SL; -PRED5CON PO; -RANO500T7 PO
[2019-04-08] MEDS ORDERED: FURO40TA2 PO ×2 (21:57→23:25)
[2019-04-08] MEDS ORDERED: LEVO50TA5 PO (22:00)
[2019-04-08] MEDS ORDERED: PRED5CON PO (22:00)
[2019-04-08] MEDS ORDERED: CARD180C4 PO ×2 (22:04→23:34)
[2019-04-08] MEDS ORDERED: RANO500T7 PO (22:05)
[2019-04-08 22:30] LABS: BASO % 0.1 % (0.0-1.0); EOS # 0.1 10^3/uL (0.0-0.5); HEMATOCRIT 23.3 % (42.0-52.0); LYMPH # 0.8 10^3/uL (1.5-5.0); LYMPH % 9.6 % (24.0-44.0); MEAN CORPUSCULAR HEMOGLOBIN 23.6 pg (27.0-33.0); MEAN CORPUSCULAR HGB CONC 27.9 g/dl (32.0-36.5); MEAN CORPUSCULAR VOLUME 84.4 fl (80.0-96.0); MONO # 1.2 10^3/uL (0.0-0.8); MONO % 14.2 % (0.0-5.0); NEUTROPHILS # 6.1 10^3/uL (1.5-8.5); NEUTROPHILS % 74.7 % (36.0-66.0); PLATELET COUNT, AUTOMATED 241 10^3/uL (150-450); RED BLOOD COUNT 2.76 10^6/uL (4.30-6.10); WHITE BLOOD COUNT 8.2 10^3/uL (4.0-10.0)
[2019-04-08 22:45] LABS: HEMOGLOBIN 6.5 g/dl (13.5-17.5)
[2019-04-08 22:46] LABS: INR 2.64; PROTHROMBIN TIME 28.1 SECONDS (11.8-14.0)
[2019-04-08 22:47] LABS: PARTIAL THROMBOPLASTIN TIME 44.5 SECONDS (25.0-38.4)
[2019-04-08 23:02] LABS: BLOOD UREA NITROGEN 24 MG/DL (7-18); CALCIUM LEVEL 7.8 MG/DL (8.8-10.2); CARBON DIOXIDE LEVEL 36 MEQ/L (21-32); CHLORIDE LEVEL 99 MEQ/L (98-107); CK-MB VALUE MASS 1.2 NG/ML (<3.6); CPK CREATINE PHOSPHOKINASE 34 U/L (39-308); CREATININE FOR GFR 1.39 MG/DL (0.70-1.30); GLOMERULAR FILTRATION RATE 51.7 (>35); GLUCOSE, FASTING 86 MG/DL (70-100); MB/CK RELATIVE INDEX 3.53 (< OR =4); NT-PRO BNP 740 PG/ML (<450); POTASSIUM SERUM 3.3 MEQ/L (3.5-5.1); SODIUM LEVEL 143 MEQ/L (136-145); TROPONIN I < 0.02 NG/ML (< 0.10)
[2019-04-08] MEDS ORDERED: PANTOPRAZOLE 40MG INJ (PROTONIX) (C9113) IV ONE (23:15)
[2019-04-08] MEDS ORDERED: PRED10TA2 PO (23:25)
[2019-04-08] MEDS ORDERED: PRED5TA PO (23:25)
[2019-04-08] MEDS ORDERED: ASPI81CH44 PO (23:34)
[2019-04-08] MEDS ORDERED: MOM30SS2 PO (23:34)
[2019-04-08] MEDS ORDERED: ACET-907 PO (23:34)
[2019-04-08] MEDS ORDERED: NITR4TASL SL (23:34)
[2019-04-08] MEDS ORDERED: OCEA0.654 (23:34)
[2019-04-08] MEDS: PANTOPRAZOLE SODIUM 40 MG in D5W 50 ML IV SCH (23:40)
[2019-04-08] MEDS ORDERED: SODIUM CHLORIDE NASAL 0.65% SPRAY BTL (OCEAN) PRN (23:45)
[2019-04-08] MEDS ORDERED: ACETAMINOPHEN TAB 650MG DOSE (2X325MG) PO PRN (23:45)
[2019-04-08] MEDS ORDERED: NITROGLYCERIN 0.4 MG SUBL TABLET SL PRN (23:45)
--- NOTE | 2019-04-08 23:53 | ECGEPIP ---
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
[2019-04-09] VITALS (15 sets, daily range): BP systolic 108–132; BP diastolic 59–91
--- NOTE | 2019-04-09 00:05 | HPEPDOC ---
General Date of Admission 04/08/19 Date of Service: Apr 08, 2019 Chief Complaint The patient is a 83-year-old male admitted with a reason for visit of SOB. Source: Patient Exam Limitations: No limitations Timing/Duration: Day(s) Severity: Moderate Associated Symptoms: Shortness of breath, Weakness History of Present Illness Patient is 83 years old male with past medical history of hypothyroidism, COPD on 3 L of oxygen, hypertension, hyperlipidemia, diverticulosis, atrial fibrillation, coronary artery diseases presented hospital with progressive weakness and lightheadedness for past few days. Patient stated that he has been having increased progressive weakness associated with shortness of breath. He denied any fever, chills, nausea, vomiting, diarrhea. He noticed black stool. Of note, patient took Xarelto in the morning In emergency room patient was found to have positive stool for occult blood, hemoglobin was 6.5, hematocrit of 23, INR 2.6, creatinine of 1.3. 2 units of blood was ordered by emergency physician. Dr. Kelsey was contacted by phone. Home Medications Scheduled Aspirin (Aspirin) 81 Mg Tab.chew, 81 MG PO DAILY, (Reported) Atorvastatin Calcium (Atorvastatin Calcium) 40 Mg Tab, 40 MG PO QHS, (Reported) Clonidine (Clonidine) 0.1 Mg Patch.tdwk, 0.1 MG TD QWEEK, (Reported) APPLY EVERY SUNDAY AT 0900 Cyanocobalamin (Vitamin B-12) (Vitamin B-12) 1,000 Mcg Tab, 1,000 MCG PO DAILY, (Reported) Diltiazem Hcl (Cardizem Cd) 180 Mg Cap.er.24h, 180 MG PO DAILY, (Reported) Fluticasone Propionate (Flonase Allergy Relief) 9.9 Ml [place].susp, 2 SPRAY NA DAILY, (Reported) Furosemide (Furosemide) 40 Mg Tablet, 60 MG PO QPM, (Reported) 1600 Magnesium Oxide (Magnesium Oxide) 400 Mg Tab, 400 MG PO BID, (Reported) 0900, 1700 Montelukast Sodium (Montelukast Sodium) 10 Mg Tab, 10 MG PO QHS, (Reported) Prednisone (Prednisone) 5 Mg Tablet, 5 MG PO Q2D, (Reported) Prednisone (Prednisone) 10 Mg Tablet, 10 MG PO Q2D, (Reported) Propranolol HCl (Propranolol HCl) 10 Mg Tab, 10 MG PO TID, (Reported) Rivaroxaban (Xarelto) 15 Mg Tablet, 15 MG PO QPM, (Reported) 1700 Sennosides/Docusate Sodium (Senokot-S Tablet) 1 Tab Tab, 1 TAB PO BID, (Reported) Tamsulosin HCl (Flomax) 0.4 Mg Cap, 0.4 MG PO QHS, (Reported) Scheduled PRN Acetaminophen (Tylenol) 325 Mg Tablet, 650 MG PO Q4H PRN for PAIN, (Reported) Albuterol Sulf (Albuterol Sulfate) 2.5 Mg/3 Ml Nebu, 2.5 MG INH Q6H PRN for SHORTNESS OF BREATH, (Reported) Albuterol Sulfate (Ventolin Hfa) 18 Gm Hfa.aer.ad, 2 PUFFS INH Q6H PRN for SHORTNESS OF BREATH, (Reported) Magnesium Hydroxide (Milk of Magnesia) 400 Mg/5 Ml Oral.susp, 2,400 MG PO DAILY PRN for CONSTIPATION, (Reported) Nitroglycerin (Nitrostat) 0.4 Mg Tab.subl, 0.4 MG SL NITRO PRN for CHEST PAIN, (Reported) Sodium Chloride (Keo) 104 Ml [place], 1 SPRAY NA Q2H PRN for NASAL DRYNESS, (Reported) EACH NOSTRIL Allergies Coded Allergies: cefuroxime (Verified Adverse Reaction, Mild, GI UPSET, 04/08/19) ciprofloxacin (Verified Adverse Reaction, Mild, GI UPSET, 04/08/19) Past Medical History Medical History hypothyroidism, COPD on 3 L of oxygen, hypertension, hyperlipidemia, diverticulosis, atrial fibrillation, coronary artery disease Surgical History Cardiac catheterization in 2019 Family History Father had COPD Social History * Smoker: former Smoker Alcohol: occationally Drugs: denies A-FIB/CHADSVASC A-FIB History Current/History of A-Fib/PAF?: Yes Current PO Anticoag Therapy: Yes Review of Systems Constitutional: Reports: Weakness; Denies: Chills, Fever Eyes: Denies: Pain, Vision change ENT: Denies: Head Aches, Ear Pain Skin: Denies: Rash, Lesions Pulmonary: Denies: Dyspnea, Cough Cardiovascular: Denies: Chest Pain, Palpitations Gastrointestinal: Reports: Melena; Denies: Nausea, Vomiting Genitourinary: Denies: Dysuria, Frequency Hematologic: Denies: Bruising, Bleeding Excessively Endocrine: Denies: Polydipsia, Polyphagia Musculoskeletal: Denies: Neck Pain, Back Pain Neurological: Denies: Weakness, Numbness Psych: Reports: Mood Normal Physical Examination General Exam: Positive: Alert, Cooperative Eye Exam: Positive: PERRLA ENT Exam: Positive: Atraumatic Neck Exam: Positive: Supple; Negative: JVD Chest Exam: Positive: Clear to auscultation Heart Exam: Positive: Irregular Rhythm; Negative: Rate Normal Telemetry: Positive: Atrial fibrillation Abdomen Exam: Positive: BS Hyperactive Extremity Exam: Positive: Clubbing Skin Exam: Positive: Nl turgor and temperature Neuro Exam: Positive: Normal Gait, Strength at 5/5 X4 ext Psych Exam: Positive: Mental status NL Vital Signs Vital Signs Date Time Temp Pulse Resp B/P (MAP) Pulse Ox O2 Delivery O2 Flow Rate FiO2 04/08/19 23:01 94 103/54 (70) 99 Nasal Cannula 2.0 04/08/19 22:11 20 04/08/19 21:21 97.3 Laboratory Data Labs 24H Laboratory Tests 2 04/08/19 21:49: Immature Granulocyte % (Auto) 0.4, Neutrophils (%) (Auto) 74.7H, Lymphocytes (%) (Auto) 9.6L, Monocytes (%) (Auto) 14.2H, Eosinophils (%) (Auto) 1.0, Basophils (%) (Auto) 0.1, Neutrophils # (Auto) 6.1, Lymphocytes # (Auto) 0.8L, Monocytes # (Auto) 1.2H, Eosinophils # (Auto) 0.1, Basophils # (Auto) 0.0, Nucleated Red Blood Cells % (auto) 0.0, Prothrombin Time 28.1H, Prothromb Time International Ratio 2.64, Activated Partial Thromboplast Time 44.5H, Anion Gap 8, Glomerular Filtration Rate 51.7, Calcium Level 7.8L, Total Creatine Kinase 34L, Creatine Kinase MB 1.2, Creatine Kinase MB Relative Index 3.53, Troponin I < 0.02, WL-Riu-B-Type Natriuretic Peptide 740H, Thyroid Stimulating Hormone (TSH) 1.050 CBC/BMP Laboratory Tests 04/08/19 21:49 Assessment/Plan Patient is 83 years old male with past medical history of hypothyroidism, COPD on 3 L of oxygen, hypertension, hyperlipidemia, diverticulosis, atrial fibrillation, coronary artery diseases presented hospital with progressive weakness and lightheadedness for past few days. Patient stated that he has been having increased progressive weakness associated with shortness of breath. He denied any fever, chills, nausea, vomiting, diarrhea. He noticed black stool. Of note, patient took Xarelto in the morning In emergency room patient was found to have positive stool for occult blood, hemoglobin was 6.5. Patient was diagnosed with acute GI bleed Problems (1) GI bleed Status: Acute Problem Text: Most likely upper GI bleed given history of black stool, however patient has a history of diverticulosis Blood transfusion Anticoagulation on hold H&H every 6 hours Appreciate/agree with GI consult IV fluid IV Protonix (2) Chronic atrial fibrillation Status: Chronic Problem Text: Continue home cardioprotective medications Rate is under control Xarelto on hold (3) COPD (chronic obstructive pulmonary disease) Status: Chronic Problem Text: Continue home inhalers (4) Symptomatic anemia Status: Acute Problem Text: Secondary to acute GI bleed See above Plan / VTE VTE Prophylaxis Ordered?: No VTE Exclusion Pharmacological: Active Bleeding YISEL DE SOUZA DO Apr 09, 2019 00:05
[2019-04-09] MEDS ORDERED: POTASSIUM CHLORIDE 10 MEQ SR TABLET PO ONE ×2 (01:00→17:30)
[2019-04-09] MEDS: PANTOPRAZOLE SODIUM 40 MG in D5W 50 ML IV SCH (03:49)
[2019-04-09] MEDS: NS 1,000 ML IV SCH ×2 (05:31→09:01)
[2019-04-09 07:33] LABS: HEMATOCRIT 27.1 % (42.0-52.0); HEMOGLOBIN 7.9 g/dl (13.5-17.5); MEAN CORPUSCULAR HGB CONC 29.2 g/dl (32.0-36.5); MEAN CORPUSCULAR VOLUME 85.8 fl (80.0-96.0); PLATELET COUNT, AUTOMATED 183 10^3/uL (150-450); RED BLOOD COUNT 3.16 10^6/uL (4.30-6.10)
[2019-04-09 07:49] LABS: CREATININE FOR GFR 1.25 MG/DL (0.70-1.30); GLOMERULAR FILTRATION RATE 58.4 (>35); MAGNESIUM LEVEL 2.2 MG/DL (1.8-2.4); POTASSIUM SERUM 3.3 MEQ/L (3.5-5.1)
--- NOTE | 2019-04-09 08:12 | REP ---
Portable chest x-ray: Sitting AP view. History: Chest pain. Comparison study: November 04, 2018. Findings: Oxygen delivery tubing and EKG monitoring electrodes are seen. The left hemidiaphragm remains elevated with some linear fibrosis versus atelectasis above it in the left base. No acute infiltrate is seen. Cardiomegaly is observed as before. The aorta is calcific and tortuous. Impression: Chronic changes left base. Elevated left hemidiaphragm. Cardiomegaly. Otherwise no acute disease. Electronically Signed by Jonas Wilcox MD 04/09/2019 08:04 A
[2019-04-09] MEDS: PANTOPRAZOLE 40MG INJ (PROTONIX) (C9113) IV SCH ×2 (08:59→20:21)
[2019-04-09] MEDS: FLUTICASONE PROP 0.05% NASAL SPRAY 16 GM (FLONASE) SCH (08:59)
[2019-04-09] MEDS ORDERED: ASPIRIN 81 MG CHEW TABLET PO SCH (09:00)
[2019-04-09] MEDS: predniSONE 5 MG TAB PO SCH (09:00)
[2019-04-09] MEDS: PROPRANOLOL 10 MG TAB PO SCH ×3 (09:00→20:22)
[2019-04-09] MEDS: CYANOCOBALAMIN 500 MCG TAB PO SCH (09:00)
[2019-04-09] MEDS ORDERED: diltiaZEM **CD** 180 MG CAP PO SCH (09:00)
[2019-04-09] MEDS: MAGNESIUM OXIDE 400 MG TAB (MAG-OX) PO SCH ×2 (09:01→20:21)
[2019-04-09] MEDS: SENOKOT S TAB PO SCH ×2 (09:01→20:21)
[2019-04-09] MEDS: diltiaZEM **CD** 180 MG CAP PO SCH (09:01)
[2019-04-09 12:34] LABS: HEMATOCRIT 27.9 % (42.0-52.0); HEMOGLOBIN 8.2 g/dl (13.5-17.5)
[2019-04-09] MEDS: FUROSEMIDE 20 MG TAB PO SCH (17:16)
--- NOTE | 2019-04-09 17:23 | IPNPDOC ---
Date Seen The patient was seen on 04/09/19. Progress Note SUBJECTIVE: Patient denies any discomfort or bleeding overnight. Hb 7.9 this morning post 2 unit pRBC. INR 2.64. OBJECTIVE PHYSICAL EXAMINATION: VITAL SIGNS: Please see below. General: No acute distress, Alert Eyes: Normal sclera, EOMI, HOWIE HENT: Atraumatic Cardiovascular: Normal rate, normal rhythm. No murmurs appreciated. Pulmonary: Clear to auscultation b/l, no wheezing GI: Soft, nontender, nondistended Skin: Warm and dry Neuro: CN grossly intact. No focal deficits. Strengths equal b/l. Psych: oriented x 3 LABORATORY DATA, IMAGING STUDIES, MICROBIOLOGY: Please see below. DVT prophylaxis ordered?: SCD ASSESSMENT AND PLAN: 1. GI bleed - history of black tarry stool prior to presentation. Hb 6.5 on admission s/p 2 units pRBC. - c/w trend H/H. - GI following. Plan for endoscopy once INR improves, Xarelto had been held. - c/w full liquid diet for now. 2. Afib - c/w home medication apart from Xarelto at this time. 3. COPD - no in exacerbation. Duonebs PRN. VS, I&O, 24H, Fishbone Vital Signs/I&O Vital Signs Date Time Temp Pulse Resp B/P (MAP) Pulse Ox O2 Delivery O2 Flow Rate FiO2 04/09/19 17:16 70 130/68 04/09/19 16:00 97.7 18 93 Nasal Cannula 1.0 I&O- Last 24 Hours up to 6 AM 04/09/19 06:00 Intake Total 910 ml Output Total 400 ml Balance 510 ml Laboratory Data 24H LABS Laboratory Tests 2 04/08/19 21:49: Immature Granulocyte % (Auto) 0.4, Neutrophils (%) (Auto) 74.7H, Lymphocytes (%) (Auto) 9.6L, Monocytes (%) (Auto) 14.2H, Eosinophils (%) (Auto) 1.0, Basophils (%) (Auto) 0.1, Neutrophils # (Auto) 6.1, Lymphocytes # (Auto) 0.8L, Monocytes # (Auto) 1.2H, Eosinophils # (Auto) 0.1, Basophils # (Auto) 0.0, Nucleated Red Blood Cells % (auto) 0.0, Prothrombin Time 28.1H, Prothromb Time International Ratio 2.64, Activated Partial Thromboplast Time 44.5H, Anion Gap 8, Glomerular Filtration Rate 51.7, Calcium Level 7.8L, Total Creatine Kinase 34L, Creatine Kinase MB 1.2, Creatine Kinase MB Relative Index 3.53, Troponin I < 0.02, QT-Kqq-B-Type Natriuretic Peptide 740H, Thyroid Stimulating Hormone (TSH) 1.050 04/09/19 07:17: Nucleated Red Blood Cells % (auto) 0.0, Anion Gap 3L, Glomerular Filtration Rate 58.4, Calcium Level 8.0L, Magnesium Level 2.2 CBC/BMP Laboratory Tests 04/08/19 21:49 04/09/19 07:17 04/09/19 12:13 DEBRA PLASCENCIA MD Apr 09, 2019 17:23
[2019-04-09 18:31] LABS: HEMATOCRIT 31.9 % (42.0-52.0); HEMOGLOBIN 9.2 g/dl (13.5-17.5)
[2019-04-09] MEDS ORDERED: ALBUTEROL 90 MCG/ACT 8GM HFA INHALER INH PRN (19:00)
[2019-04-09] MEDS: MONTELUKAST 10 MG TAB PO SCH (20:21)
[2019-04-09] MEDS: ATORVASTATIN 20 MG TAB PO SCH (20:21)
[2019-04-09] MEDS: TAMSULOSIN 0.4 MG CAP PO SCH (20:21)
[2019-04-10] VITALS: BP 107/58
[2019-04-10 00:30] LABS: HEMATOCRIT 27.7 % (42.0-52.0); HEMOGLOBIN 8.3 g/dl (13.5-17.5)
[2019-04-10] MEDS: NS 1,000 ML IV SCH (01:41)
[2019-04-10 04:00] VITALS: BP 102/68
[2019-04-10 05:51] LABS: HEMOGLOBIN 7.9 g/dl (13.5-17.5); MEAN CORPUSCULAR HEMOGLOBIN 24.6 pg (27.0-33.0); MEAN CORPUSCULAR HGB CONC 28.2 g/dl (32.0-36.5); MEAN CORPUSCULAR VOLUME 87.2 fl (80.0-96.0); PLATELET COUNT, AUTOMATED 190 10^3/uL (150-450); RED BLOOD COUNT 3.21 10^6/uL (4.30-6.10); WHITE BLOOD COUNT 8.2 10^3/uL (4.0-10.0)
[2019-04-10 06:02] LABS: INR 1.31
[2019-04-10 06:03] LABS: PARTIAL THROMBOPLASTIN TIME 33.9 SECONDS (25.0-38.4)
[2019-04-10 06:11] LABS: BLOOD UREA NITROGEN 15 MG/DL (7-18); CALCIUM LEVEL 7.7 MG/DL (8.8-10.2); CARBON DIOXIDE LEVEL 33 MEQ/L (21-32); CHLORIDE LEVEL 106 MEQ/L (98-107); CREATININE FOR GFR 1.14 MG/DL (0.70-1.30); GLOMERULAR FILTRATION RATE > 60.0 (>35); GLUCOSE, FASTING 92 MG/DL (70-100); POTASSIUM SERUM 3.4 MEQ/L (3.5-5.1); SODIUM LEVEL 142 MEQ/L (136-145)
[2019-04-10 08:00] VITALS: BP 110/54
[2019-04-10] MEDS: PANTOPRAZOLE 40MG INJ (PROTONIX) (C9113) IV SCH ×2 (08:59→20:23)
[2019-04-10] MEDS: SENOKOT S TAB PO SCH ×2 (08:59→20:21)
[2019-04-10] MEDS: predniSONE 10 MG TAB PO SCH (08:59)
[2019-04-10] MEDS: CYANOCOBALAMIN 500 MCG TAB PO SCH (08:59)
[2019-04-10] MEDS: PROPRANOLOL 10 MG TAB PO SCH ×3 (09:00→20:23)
[2019-04-10] MEDS: MAGNESIUM OXIDE 400 MG TAB (MAG-OX) PO SCH ×2 (09:00→20:22)
[2019-04-10] MEDS: diltiaZEM **CD** 180 MG CAP PO SCH (09:00)
[2019-04-10] MEDS: FLUTICASONE PROP 0.05% NASAL SPRAY 16 GM (FLONASE) SCH (09:00)
[2019-04-10] MEDS ORDERED: MOM 30ML SUSPENSION UDC PO ONE (09:30)
[2019-04-10 12:00] VITALS: BP 124/76
[2019-04-10] MEDS ORDERED: SLF 3 ML SYR IV PRN (15:15)
[2019-04-10 16:00] VITALS: BP 108/60
[2019-04-10] MEDS ORDERED: POLYETHYLENE GLYCOL (MIRALAX) 238GM BOTTLE PO ONE (16:00)
[2019-04-10] MEDS: FUROSEMIDE 20 MG TAB PO SCH (16:56)
--- NOTE | 2019-04-10 18:03 | IPNPDOC ---
Date Seen The patient was seen on 04/10/19. Progress Note SUBJECTIVE: Patient reports feeling well still with no evidence of gross blood per rectum. Hb 7.9 this morning, INR down to 1.3 Afebrile overnight. OBJECTIVE PHYSICAL EXAMINATION: VITAL SIGNS: Please see below. General: No acute distress, Alert Eyes: Normal sclera, EOMI, HOWIE HENT: Atraumatic Cardiovascular: Normal rate, normal rhythm. No murmurs appreciated. Pulmonary: Clear to auscultation b/l, no wheezing GI: Soft, nontender, nondistended Skin: Warm and dry Neuro: CN grossly intact. No focal deficits. Strengths equal b/l. Psych: oriented x 3 LABORATORY DATA, IMAGING STUDIES, MICROBIOLOGY: Please see below. DVT prophylaxis ordered?: SCD ASSESSMENT AND PLAN: 1. GI bleed - history of black tarry stool prior to presentation. Hb 6.5 on admission s/p 2 units pRBC. - c/w trend H/H. - GI following. Plan for endoscopy likely tomorrow, Xarelto had been held. - c/w full liquid diet for now. NPO at midnight. 2. Afib - c/w home medication apart from Xarelto at this time. 3. COPD - no in exacerbation. Duonebs PRN. VS, I&O, 24H, Fishbone Vital Signs/I&O Vital Signs Date Time Temp Pulse Resp B/P (MAP) Pulse Ox O2 Delivery O2 Flow Rate FiO2 04/10/19 16:56 78 108/60 04/10/19 16:00 3.0 04/10/19 16:00 97.0 18 98 Nasal Cannula I&O- Last 24 Hours up to 6 AM 04/10/19 06:00 Intake Total 2800 ml Output Total 2750 ml Balance 50 ml Laboratory Data 24H LABS Laboratory Tests 2 04/10/19 05:16: Nucleated Red Blood Cells % (auto) 0.0, Prothrombin Time 16.0H, Prothromb Time International Ratio 1.31, Activated Partial Thromboplast Time 33.9, Anion Gap 3L, Glomerular Filtration Rate > 60.0, Calcium Level 7.7L, Magnesium Level 2.0 CBC/BMP Laboratory Tests 04/09/19 18:10 04/10/19 00:10 04/10/19 05:16 DEBRA PLASCENCIA MD Apr 10, 2019 18:03
[2019-04-10 20:00] VITALS: BP 109/71
[2019-04-10] MEDS: ATORVASTATIN 20 MG TAB PO SCH (20:21)
[2019-04-10] MEDS: TAMSULOSIN 0.4 MG CAP PO SCH (20:21)
[2019-04-10] MEDS: MONTELUKAST 10 MG TAB PO SCH (20:23)
[2019-04-10] MEDS: SLF 3 ML SYR IV SCH (22:00)
[2019-04-11] VITALS: BP 110/58
[2019-04-11 04:00] VITALS: BP 129/56
[2019-04-11 05:46] LABS: INR 1.21; PROTHROMBIN TIME 15.1 SECONDS (11.8-14.0)
[2019-04-11 05:47] LABS: PARTIAL THROMBOPLASTIN TIME 34.6 SECONDS (25.0-38.4)
[2019-04-11] MEDS ORDERED: POLYETHYLENE GLYCOL (MIRALAX) 238GM BOTTLE PO ONE (06:00)
[2019-04-11] MEDS: SLF 3 ML SYR IV SCH ×3 (06:14→20:18)
[2019-04-11 06:31] LABS: BLOOD UREA NITROGEN 13 MG/DL (7-18); CARBON DIOXIDE LEVEL 34 MEQ/L (21-32); CHLORIDE LEVEL 107 MEQ/L (98-107); CREATININE FOR GFR 1.11 MG/DL (0.70-1.30); GLOMERULAR FILTRATION RATE > 60.0 (>35); GLUCOSE, FASTING 89 MG/DL (70-100); POTASSIUM SERUM 3.3 MEQ/L (3.5-5.1); SODIUM LEVEL 144 MEQ/L (136-145)
[2019-04-11 06:38] LABS: HEMATOCRIT 27.4 % (42.0-52.0); HEMOGLOBIN 7.8 g/dl (13.5-17.5); MEAN CORPUSCULAR HEMOGLOBIN 24.9 pg (27.0-33.0); MEAN CORPUSCULAR HGB CONC 28.5 g/dl (32.0-36.5); MEAN CORPUSCULAR VOLUME 87.5 fl (80.0-96.0); PLATELET COUNT, AUTOMATED 202 10^3/uL (150-450); RED BLOOD COUNT 3.13 10^6/uL (4.30-6.10); WHITE BLOOD COUNT 5.8 10^3/uL (4.0-10.0)
[2019-04-11 08:00] VITALS: BP 127/62
[2019-04-11] MEDS: PANTOPRAZOLE 40MG INJ (PROTONIX) (C9113) IV SCH ×2 (08:13→20:16)
[2019-04-11] MEDS: MAGNESIUM OXIDE 400 MG TAB (MAG-OX) PO SCH ×2 (08:13→20:16)
[2019-04-11] MEDS: SENOKOT S TAB PO SCH ×2 (08:14→20:16)
[2019-04-11] MEDS: CYANOCOBALAMIN 500 MCG TAB PO SCH (08:14)
[2019-04-11] MEDS: PROPRANOLOL 10 MG TAB PO SCH ×3 (08:14→20:17)
[2019-04-11] MEDS: predniSONE 5 MG TAB PO SCH (08:14)
[2019-04-11] MEDS: diltiaZEM **CD** 180 MG CAP PO SCH (08:15)
[2019-04-11] MEDS: FLUTICASONE PROP 0.05% NASAL SPRAY 16 GM (FLONASE) SCH (08:16)
--- NOTE | 2019-04-11 09:22 | IPN ---
DATE: 04/11/2019 PRIMARY CARE PROVIDER: Dr. Will Chacon is seen while rounding for the hospitalists. He is admitted with lower GI bleeding. He had already been referred to GI as an outpatient for persisting anemia. He was admitted with gross blood per rectum. He was transfused two units of packed red blood cells. Hemoglobin is stable. Upper and lower endoscopy is planned for today. He has a history of atrial fibrillation on anticoagulant therapy with Xarelto, non significant coronary artery disease with a recent cardiac catheterization 02/2019 that showed less than 50% stenosis in several coronary arteries, chronic obstructive pulmonary disease (COPD) for which he is on chronic steroid therapy by Dr. Hurd from [facility], hypertensive heart disease and benign prostatic hypertrophy (BPH). I reviewed Dr. Fontana's outpatient notes. The patient was recently sent back from cardiac catheterization on an augmented dose of diuretic which he reduced. As far as I can tell there is no history of actual congestive heart failure. PHYSICAL EXAMINATION: Vital signs stable. 127/62. Afebrile. Heart rate 90. General Appearance: He is alert, conversant, in no distress. Mildly cushingoid appearing. HEENT: Otherwise unremarkable. Lungs: Decreased breath sounds, but clear. Heart: Regular rate and rhythm. 1/6 systolic ejection murmur. Abdomen: Soft. Nontender. No masses. Trace peripheral edema. LABS: White count 5.8, hemoglobin 7.8, platelets 202. Sodium 144, potassium 3.3, BUN 13, creatinine 1.1, glucose 89. IMPRESSION: 1. Lower GI bleed with acute blood loss anemia. Status post two units packed red blood cells. Upper and lower endoscopy planned today. 2. History of atrial fibrillation. Xarelto is on hold. Restart this following endoscopy unless significant risk for bleeding is encountered on endoscopy. 3. COPD on chronic steroid therapy. Continue current prednisone dose. He does not need "stress dose" steroids for this procedure. 4. Non hemodynamically significant coronary artery disease. Would recommend discontinuing his aspirin in the face of the bleed. Recent studies have shown no benefit of aspirin therapy to augment anticoagulation in patient's with stable coronary artery disease and it does increase his bleeding risk. Hopefully, the patient will be discharged tomorrow pending results of endoscopy.
[2019-04-11 12:00] VITALS: BP 137/85
[2019-04-11] MEDS ORDERED: PROPOFOL 500 MG/50 ML VIAL As Ordered ONE (15:09)
[2019-04-11] MEDS ORDERED: LIDOCAINE 2% INJ 100 MG/5 ML SDV (FOR ANES.) As Ordered ONE (15:11)
[2019-04-11] MEDS ORDERED: fentaNYL 100 MCG/2 ML INJECTION (J3010) As Ordered ONE (15:11)
[2019-04-11] MEDS ORDERED: ePHEDrine SULFATE 25 MG/5 ML(5MG/ML) SYRINGE As Ordered ONE (15:46)
--- NOTE | 2019-04-11 16:20 | ROOR ---
Patient Name: Oswaldo Pineda Procedure Date: 04/11/2019 2:37 PM Date of : 1935 Age: 83 Room: Main OR Gender: Male Note Status: Finalized Procedure: Upper GI endoscopy Indications: Iron deficiency anemia Providers: Westley KELSEY MD Referring MD: 2. Inpatient 2. Inpatient Requesting Provider: Medicines: Monitored Anesthesia Care Complications: No immediate complications. Procedure: Pre-Anesthesia Assessment: - The heart rate, respiratory rate, oxygen saturations, blood pressure, adequacy of pulmonary ventilation, and response to care were monitored throughout the procedure. The Endoscope was introduced through the mouth, and advanced to the second part of duodenum. The upper GI endoscopy was accomplished without difficulty. The patient tolerated the procedure well. Findings: The esophagus was normal. The stomach was normal. The examined duodenum was normal. Impression: - Normal esophagus. - Normal stomach. - Normal examined duodenum. - No specimens collected. Recommendation: - Observe patient's clinical course. - Recommend an iron supplement. Westley Kelsey MD Westley KELSEY MD 04/11/2019 4:20:12 PM Electronically signed by Westley KELSEY MD Number of Addenda: 0 Note Initiated On: 04/11/2019 2:37 PM Estimated Blood Loss: Estimated blood loss: none.
--- NOTE | 2019-04-11 16:29 | ROOR ---
Patient Name: Oswaldo Pineda Procedure Date: 04/11/2019 2:35 PM Date of : 1935 Age: 83 Room: Main OR Gender: Male Note Status: Finalized Procedure: Colonoscopy Indications: Iron deficiency anemia Providers: Westley KELSEY MD Referring MD: 2. Inpatient 2. Inpatient Requesting Provider: Medicines: Monitored Anesthesia Care Complications: No immediate complications. Procedure: Pre-Anesthesia Assessment: - The heart rate, respiratory rate, oxygen saturations, blood pressure, adequacy of pulmonary ventilation, and response to care were monitored throughout the procedure. The Colonoscope was introduced through the anus and advanced to 8 cm into the ileum. The colonoscopy was performed without difficulty. The patient tolerated the procedure well. The quality of the bowel preparation was good. Findings: The perianal and digital rectal examinations were normal. Four sessile polyps were found in the ascending colon. The polyps were 4 to 6 mm in size. These polyps were removed with a cold snare. Resection and retrieval were complete. Two sessile polyps were found in the sigmoid colon. The polyps were 4 to 6 mm in size. These polyps were removed with a cold snare. Resection and retrieval were complete. Multiple medium-mouthed diverticula were found in the entire colon. Internal hemorrhoids were found during retroflexion. The hemorrhoids were moderate. The colon (entire examined portion) was redundant. An area of melanosis was found in the entire colon. The exam was otherwise without abnormality on direct and retroflexion views. Impression: - Four 4 to 6 mm polyps in the ascending colon, removed with a cold snare. Resected and retrieved. - Two 4 to 6 mm polyps in the sigmoid colon, removed with a cold snare. Resected and retrieved. - Diverticulosis in the entire examined colon. - Internal hemorrhoids. - The examination was otherwise normal on direct and retroflexion views. Recommendation: - To visualize the small bowel, perform video capsule endoscopy at appointment to be scheduled. - My office will call you in the next few days to set you up for this study/exam. Westley Kelsey MD Westley KELSEY MD 04/11/2019 4:29:18 PM Electronically signed by Westley KELSEY MD Number of Addenda: 0 Note Initiated On: 04/11/2019 2:35 PM Estimated Blood Loss: Estimated blood loss: none.
[2019-04-11 17:33] VITALS: BP 117/42
[2019-04-11 20:00] VITALS: BP 115/57
[2019-04-11] MEDS: ATORVASTATIN 20 MG TAB PO SCH (20:16)
[2019-04-11] MEDS: MONTELUKAST 10 MG TAB PO SCH (20:16)
[2019-04-11] MEDS: TAMSULOSIN 0.4 MG CAP PO SCH (20:17)
[2019-04-12] VITALS (15 sets, daily range): BP systolic 92–148; BP diastolic 50–75
[2019-04-12 06:20] LABS: HEMATOCRIT 26.2 % (42.0-52.0); HEMOGLOBIN 7.4 g/dl (13.5-17.5); MEAN CORPUSCULAR HEMOGLOBIN 24.7 pg (27.0-33.0); MEAN CORPUSCULAR HGB CONC 28.2 g/dl (32.0-36.5); MEAN CORPUSCULAR VOLUME 87.3 fl (80.0-96.0); PLATELET COUNT, AUTOMATED 194 10^3/uL (150-450); WHITE BLOOD COUNT 6.7 10^3/uL (4.0-10.0)
[2019-04-12 06:39] LABS: BLOOD UREA NITROGEN 18 MG/DL (7-18); CALCIUM LEVEL 8.5 MG/DL (8.8-10.2); CARBON DIOXIDE LEVEL 31 MEQ/L (21-32); CHLORIDE LEVEL 105 MEQ/L (98-107); CREATININE FOR GFR 1.18 MG/DL (0.70-1.30); GLOMERULAR FILTRATION RATE > 60.0 (>35); GLUCOSE, FASTING 90 MG/DL (70-100); POTASSIUM SERUM 3.3 MEQ/L (3.5-5.1); SODIUM LEVEL 142 MEQ/L (136-145)
[2019-04-12] MEDS: SLF 3 ML SYR IV SCH ×3 (06:39→21:13)
[2019-04-12] MEDS ORDERED: cloNIDine HCL 0.1 MG/24 HR PATCH TD SCH (09:00)
[2019-04-12] MEDS: MAGNESIUM OXIDE 400 MG TAB (MAG-OX) PO SCH ×2 (09:01→21:13)
[2019-04-12] MEDS: CYANOCOBALAMIN 500 MCG TAB PO SCH (09:01)
[2019-04-12] MEDS: PROPRANOLOL 10 MG TAB PO SCH ×3 (09:02→21:13)
[2019-04-12] MEDS: SENOKOT S TAB PO SCH ×2 (09:02→21:12)
[2019-04-12] MEDS: predniSONE 10 MG TAB PO SCH (09:02)
[2019-04-12] MEDS: POTASSIUM CHLORIDE 10 MEQ SR TABLET PO SCH ×3 (09:02→21:13)
[2019-04-12] MEDS: PANTOPRAZOLE 40MG INJ (PROTONIX) (C9113) IV SCH ×2 (09:02→21:13)
[2019-04-12] MEDS: diltiaZEM **CD** 180 MG CAP PO SCH (09:02)
[2019-04-12] MEDS: FLUTICASONE PROP 0.05% NASAL SPRAY 16 GM (FLONASE) SCH (09:03)
--- NOTE | 2019-04-12 11:05 | IPN ---
DATE: 04/12/2019 Oswaldo' esophagogastroduodenoscopy (EGD) and colonoscopy were reviewed. No active source of bleeding seen. Melanosis of the colon. He had some polyps removed. Plan apparently is for outpatient capsule endoscopy. The patient's hemoglobin is drifting down. He is not having any active bleeding. He needs another blood transfusion today. No significant chest pain, shortness of breath, abdominal pain. PHYSICAL EXAMINATION: VITAL SIGNS: Stable. LUNGS: Clear. HEART: Regular rate and rhythm. ABDOMEN: Soft, nontender. No masses. EXTREMITIES: No peripheral edema. LABORATORIES: Hemoglobin is 7.4, potassium 3.3. IMPRESSION: 1. Anemia secondary to gastrointestinal blood loss. Transfuse 2 more units of packed red blood cells. Capsule endoscopy as an outpatient. 2. Hypokalemia. Supplemental potassium has been given. 3. Atrial fibrillation. Hold his anticoagulant until completion of his GI workup as an outpatient.
[2019-04-12] MEDS: TAMSULOSIN 0.4 MG CAP PO SCH (21:12)
[2019-04-12] MEDS: MONTELUKAST 10 MG TAB PO SCH (21:12)
[2019-04-12] MEDS: ATORVASTATIN 20 MG TAB PO SCH (21:12)
[2019-04-13] VITALS: BP 118/69
[2019-04-13 04:00] VITALS: BP 132/63
[2019-04-13 05:13] LABS: HEMATOCRIT 31.8 % (42.0-52.0); HEMOGLOBIN 9.2 g/dl (13.5-17.5); MEAN CORPUSCULAR HEMOGLOBIN 25.2 pg (27.0-33.0); MEAN CORPUSCULAR HGB CONC 28.9 g/dl (32.0-36.5); MEAN CORPUSCULAR VOLUME 87.1 fl (80.0-96.0); PLATELET COUNT, AUTOMATED 187 10^3/uL (150-450); RED BLOOD COUNT 3.65 10^6/uL (4.30-6.10); WHITE BLOOD COUNT 5.6 10^3/uL (4.0-10.0)
[2019-04-13 05:37] LABS: BLOOD UREA NITROGEN 14 MG/DL (7-18); CARBON DIOXIDE LEVEL 30 MEQ/L (21-32); CHLORIDE LEVEL 108 MEQ/L (98-107); CREATININE FOR GFR 1.16 MG/DL (0.70-1.30); GLOMERULAR FILTRATION RATE > 60.0 (>35); GLUCOSE, FASTING 93 MG/DL (70-100); POTASSIUM SERUM 4.7 MEQ/L (3.5-5.1); SODIUM LEVEL 142 MEQ/L (136-145)
[2019-04-13] MEDS: SLF 3 ML SYR IV SCH ×3 (06:18→21:12)
[2019-04-13 08:00] VITALS: BP 132/65
[2019-04-13] MEDS: PANTOPRAZOLE 40MG INJ (PROTONIX) (C9113) IV SCH (08:50)
[2019-04-13] MEDS: CYANOCOBALAMIN 500 MCG TAB PO SCH (08:50)
[2019-04-13] MEDS: predniSONE 5 MG TAB PO SCH (08:50)
[2019-04-13] MEDS: diltiaZEM **CD** 180 MG CAP PO SCH (08:51)
[2019-04-13] MEDS: PROPRANOLOL 10 MG TAB PO SCH ×3 (08:51→21:00)
[2019-04-13] MEDS: MAGNESIUM OXIDE 400 MG TAB (MAG-OX) PO SCH ×2 (08:51→21:12)
[2019-04-13] MEDS: SENOKOT S TAB PO SCH ×2 (08:51→21:11)
[2019-04-13] MEDS: POTASSIUM CHLORIDE 10 MEQ SR TABLET PO SCH ×3 (08:51→21:00)
[2019-04-13] MEDS: FLUTICASONE PROP 0.05% NASAL SPRAY 16 GM (FLONASE) SCH (08:52)
[2019-04-13] MEDS: FUROSEMIDE 40 MG TAB PO SCH (09:56)
--- NOTE | 2019-04-13 11:31 | IPN ---
DATE: 04/13/2019 Oswaldo has developed some lower extremity edema after his blood transfusion. He was on furosemide apparently as an outpatient though it is not on his medication reconciliation list. Denies any orthopnea, paroxysmal nocturnal dyspnea, chest pain. PHYSICAL EXAMINATION: Afebrile, 132/65, pulse 65. Alert, conversant, no distress. LUNGS: Clear. HEART: Regular rhythm. ABDOMEN: Soft, nontender. EXTREMITIES: 1+ peripheral edema. LABORATORIES: Potassium is up to 4.7, creatinine is stable, hemoglobin is up to 9.2. IMPRESSION: 1. Lower extremity edema. Restart furosemide 40 mg daily. Plan discharge tomorrow. 2. Anemia secondary to gastrointestinal blood loss. Status post transfusion a total of 4 units. Recheck hemoglobin tomorrow. Plan discharge tomorrow. 3. Atrial fibrillation. Warfarin is on hold until after his gastrointestinal workup is completed, which is capsule endoscopy as an outpatient.
[2019-04-13 12:00] VITALS: BP 122/67
[2019-04-13 16:00] VITALS: BP 134/72
[2019-04-13 20:00] VITALS: BP 128/74
[2019-04-13] MEDS: MONTELUKAST 10 MG TAB PO SCH (21:11)
[2019-04-13] MEDS: TAMSULOSIN 0.4 MG CAP PO SCH (21:12)
[2019-04-13] MEDS: ATORVASTATIN 20 MG TAB PO SCH (21:12)
[2019-04-14] VITALS: BP 122/58
[2019-04-14 04:00] VITALS: BP 131/60
[2019-04-14] MEDS: SLF 3 ML SYR IV SCH (05:57)
[2019-04-14 07:45] LABS: HEMOGLOBIN 9.8 g/dl (13.5-17.5); MEAN CORPUSCULAR HEMOGLOBIN 25.4 pg (27.0-33.0); MEAN CORPUSCULAR HGB CONC 28.8 g/dl (32.0-36.5); MEAN CORPUSCULAR VOLUME 88.1 fl (80.0-96.0); PLATELET COUNT, AUTOMATED 212 10^3/uL (150-450); RED BLOOD COUNT 3.86 10^6/uL (4.30-6.10); WHITE BLOOD COUNT 5.9 10^3/uL (4.0-10.0)
[2019-04-14 07:56] LABS: BLOOD UREA NITROGEN 18 MG/DL (7-18); CARBON DIOXIDE LEVEL 33 MEQ/L (21-32); CHLORIDE LEVEL 105 MEQ/L (98-107); CREATININE FOR GFR 1.18 MG/DL (0.70-1.30); GLOMERULAR FILTRATION RATE > 60.0 (>35); GLUCOSE, FASTING 87 MG/DL (70-100); SODIUM LEVEL 142 MEQ/L (136-145)
[2019-04-14 08:00] VITALS: BP 138/62
[2019-04-14] MEDS ORDERED: PANTOPRAZOLE 40MG TAB (PROTONIX) PO SCH (09:00)
[2019-04-14] MEDS: FUROSEMIDE 40 MG TAB PO SCH (09:22)
[2019-04-14] MEDS: predniSONE 10 MG TAB PO SCH (09:22)
[2019-04-14 09:23] VITALS: BP 138/62
[2019-04-14] MEDS: MAGNESIUM OXIDE 400 MG TAB (MAG-OX) PO SCH (09:23)
[2019-04-14] MEDS: POTASSIUM CHLORIDE 10 MEQ SR TABLET PO SCH (09:23)
[2019-04-14] MEDS: PROPRANOLOL 10 MG TAB PO SCH (09:23)
[2019-04-14] MEDS: CYANOCOBALAMIN 500 MCG TAB PO SCH (09:23)
[2019-04-14] MEDS: SENOKOT S TAB PO SCH (09:24)
[2019-04-14] MEDS: diltiaZEM **CD** 180 MG CAP PO SCH (09:24)
[2019-04-14] MEDS: FLUTICASONE PROP 0.05% NASAL SPRAY 16 GM (FLONASE) SCH (09:24)
--- NOTE | 2019-04-14 12:17 | DSES ---
DATE OF ADMISSION: 04/08/2019 DATE OF DISCHARGE: PRINCIPAL DIAGNOSIS: Anemia secondary to gastrointestinal (GI) blood loss, status post transfusion four units packed red blood cells. SECONDARY DIAGNOSES: 1. Atrial fibrillation, anticoagulant held due to GI bleeding. 2. Chronic obstructive pulmonary disease (COPD), on chronic steroid therapy. 3. Colon polyps - pathology pending. HISTORY: Oswaldo Pineda was admitted with lower GI bleed and acute blood loss anemia. Details are in history and physical from admission. HOSPITAL COURSE: He was admitted to progressive care unit (PCU) bed. He had been having anemia as an outpatient and had already had a GI referral. He was admitted with gross blood per rectum requiring two units of packed red blood cells on admission. He was admitted for further therapy. The patient was seen by Dr. Kelsey. He did a colonoscopy. Melanosis of the colon was seen and extensive diverticulosis. He had colon polyps removed, pathology is pending. Upper endoscopy was unremarkable. The patient's anticoagulant was held. He was on both aspirin and Xarelto. I reviewed Dr. Fontana's records. The patient had a recent cardiac catheterization. No significant coronary artery disease was seen. His aspirin was discontinued during this hospitalization and Xarelto was on hold due to the GI bleeding. He developed some lower extremity edema that delayed his discharge yesterday. We restarted his diuretics and his edema significantly improved today. He is on chronic steroid therapy for his COPD which remained stable during this hospitalization. On the date of discharge, he is resting comfortably. His blood pressure is 130/60, pulse 66 and 94% oxygen saturation on 3 liters which he wears at home chronically. He is alert, conversant, in no distress. He has no jugular venous distention (JVD). Lungs have decreased breath sounds, but clear. Heart regular rate and rhythm, 1/6 systolic ejection murmur. Abdomen soft, nontender, no masses. He had trace to 1+ peripheral edema improved from yesterday. SIGNIFICANT LABS: Today, white count is 5.9, hemoglobin 9.8, and platelets 212. Sodium 142, potassium 4, BUN 18, creatinine 1.1, glucose 87. Pathology is pending on his polyps. DISPOSITION: He is discharged home in improved and stable condition. He will followup with Dr. Fontana in a week. Decision to restart anticoagulation can be made at that time. As noted above, his aspirin was discontinued. He is on a no added salt diet. Activity as tolerated. His medications will continue to be Tylenol as needed, albuterol inhaler as needed, atorvastatin 40 mg daily, clonidine patch 0.1 mcg weekly, B12 1000 mcg by mouth daily, Cardizem CD 180 mg daily, Flonase spray, furosemide 60 mg daily, milk of magnesia as needed, magnesium oxide 400 mg twice a day, Singulair 10 mg at bedtime, Nitrostat as needed, prednisone 5 mg alternating with 10 mg every other day, propranolol 10 mg three times a day, Senokot S as needed, [place] Nasal [place], Flomax 0.4 mg daily. His Xarelto and aspirin have been discontinued. Decision to restart anticoagulant deferred to the outpatient setting. At the time of this dictation, there are no pending labs.
== END 2019-04-14 14:30 | DRG 378 ==
LOC: M ED 21:21 → M ED INP 23:39 → M PCU 04-09 00:33
PROVIDERS: ADMIT Internal Medicine; ATTEND Family Medicine
PROC: 30233N1 Transfusion of Nonautologous Red Blood Cells into Peripheral Vein, Percutaneous Approach (ICD-10-PCS; 2019-04-08)
PROC: 0DBK8ZX Excision of Ascending Colon, Via Natural or Artificial Opening Endoscopic, Diagnostic (ICD-10-PCS; 2019-04-11)
PROC: 0DJ08ZZ Inspection of Upper Intestinal Tract, Via Natural or Artificial Opening Endoscopic (ICD-10-PCS; principal; 2019-04-11 15:00)
DX: K92.2 Gastrointestinal hemorrhage, unspecified (principal); J44.1 Chronic obstructive pulmonary disease with (acute) exacerbation; I48.20 Chronic atrial fibrillation, unspecified; D62 Acute posthemorrhagic anemia; E03.9 Hypothyroidism, unspecified; I10 Essential (primary) hypertension; E78.5 Hyperlipidemia, unspecified; I25.10 Atherosclerotic heart disease of native coronary artery without angina pectoris; D12.2 Benign neoplasm of ascending colon; D12.5 Benign neoplasm of sigmoid colon; E87.6 Hypokalemia; Z79.52 Long term (current) use of systemic steroids; Z79.82 Long term (current) use of aspirin; Z79.01 Long term (current) use of anticoagulants; Z79.899 Other long term (current) drug therapy; Z88.1 Allergy status to other antibiotic agents; Z99.81 Dependence on supplemental oxygen; Z87.891 Personal history of nicotine dependence

== ENCOUNTER → 2019-04-08 | Outpatient (REF) | payer MEDICARE, OTHER | LOC: M LAB REF 18:49 | PROVIDERS: ATTEND Internal Medicine Pulmonary Disease | DX: J44.1 Chronic obstructive pulmonary disease with (acute) exacerbation (principal) ==

== ENCOUNTER → 2019-04-28 | Outpatient (REF) | payer MEDICARE, OTHER ==
[~2019-04-28] MED LIST changes: +ASPI81CH44 PO; +CARD180C4 PO; +FURO40TA2 PO; +LEVO50TA5 PO; +NITR4TASL SL; +PRED5CON PO; +RANO500T7 PO
[2019-04-28 15:44] LABS: HEMATOCRIT 39.3 % (42.0-52.0); HEMOGLOBIN 11.1 g/dl (13.5-17.5); MEAN CORPUSCULAR HEMOGLOBIN 24.1 pg (27.0-33.0); MEAN CORPUSCULAR HGB CONC 28.2 g/dl (32.0-36.5); MEAN CORPUSCULAR VOLUME 85.2 fl (80.0-96.0); PLATELET COUNT, AUTOMATED 340 10^3/uL (150-450); RED BLOOD COUNT 4.61 10^6/uL (4.30-6.10); WHITE BLOOD COUNT 10.3 10^3/uL (4.0-10.0)
== END ==
LOC: M SFHCPLAZ 13:49
PROVIDERS: ATTEND Internal Medicine
DX: Z87.19 Personal history of other diseases of the digestive system (principal)

== ENCOUNTER → 2019-05-20 | Outpatient (REF) | payer MEDICARE, OTHER ==
[2019-05-20 10:07] LABS: HEMATOCRIT 39.7 % (42.0-52.0); HEMOGLOBIN 11.5 g/dl (13.5-17.5); MEAN CORPUSCULAR HEMOGLOBIN 24.4 pg (27.0-33.0); MEAN CORPUSCULAR VOLUME 84.3 fl (80.0-96.0); PLATELET COUNT, AUTOMATED 280 10^3/uL (150-450); RED BLOOD COUNT 4.71 10^6/uL (4.30-6.10); WHITE BLOOD COUNT 9.3 10^3/uL (4.0-10.0)
[2019-05-20 10:43] LABS: ALBUMIN 2.8 GM/DL (3.2-5.2); ALT/SGPT 12 U/L (12-78); BILIRUBIN,TOTAL 0.5 MG/DL (0.2-1.0); BLOOD UREA NITROGEN 15 MG/DL (7-18); CALCIUM LEVEL 8.7 MG/DL (8.8-10.2); CARBON DIOXIDE LEVEL 33 MEQ/L (21-32); CHLORIDE LEVEL 100 MEQ/L (98-107); GLOMERULAR FILTRATION RATE > 60.0 (>35); GLUCOSE, FASTING 94 MG/DL (70-100); POTASSIUM SERUM 3.5 MEQ/L (3.5-5.1); SODIUM LEVEL 142 MEQ/L (136-145); THYROID STIMULATING HORMONE 0.437 uIU/ML (0.358-3.740); TOTAL PROTEIN 7.2 GM/DL (6.4-8.2)
== END ==
PROVIDERS: ATTEND Internal Medicine
DX: E03.9 Hypothyroidism, unspecified (principal); D50.8 Other iron deficiency anemias; I10 Essential (primary) hypertension

== ENCOUNTER → 2019-06-10 | Outpatient (REF) | payer MEDICARE, OTHER ==
[~2019-06-10] MED LIST changes: +ASPI1CHW3 PO; -ASPI81CH44 PO
[2019-06-10 10:14] LABS: HEMATOCRIT 40.1 % (42.0-52.0); HEMOGLOBIN 11.5 g/dl (13.5-17.5); MEAN CORPUSCULAR HEMOGLOBIN 24.5 pg (27.0-33.0); MEAN CORPUSCULAR HGB CONC 28.7 g/dl (32.0-36.5); MEAN CORPUSCULAR VOLUME 85.3 fl (80.0-96.0); PLATELET COUNT, AUTOMATED 258 10^3/uL (150-450); WHITE BLOOD COUNT 7.3 10^3/uL (4.0-10.0)
[2019-06-10 10:54] LABS: ALBUMIN 2.7 GM/DL (3.2-5.2); ALT/SGPT 11 U/L (12-78); BILIRUBIN,TOTAL 0.4 MG/DL (0.2-1.0); BLOOD UREA NITROGEN 15 MG/DL (7-18); CALCIUM LEVEL 8.6 MG/DL (8.8-10.2); CARBON DIOXIDE LEVEL 37 MEQ/L (21-32); CHLORIDE LEVEL 101 MEQ/L (98-107); CREATININE FOR GFR 1.04 MG/DL (0.70-1.30); GLOMERULAR FILTRATION RATE > 60.0 (>35); GLUCOSE, FASTING 86 MG/DL (70-100); POTASSIUM SERUM 3.6 MEQ/L (3.5-5.1); SODIUM LEVEL 143 MEQ/L (136-145); TOTAL PROTEIN 7.1 GM/DL (6.4-8.2)
== END ==
PROVIDERS: ATTEND Internal Medicine Cardiovascular Disease
DX: I48.91 Unspecified atrial fibrillation (principal)

== ENCOUNTER → 2019-06-17 | Outpatient (REF) | payer MEDICARE, OTHER ==
[2019-06-17 10:15] LABS: BASO % 0.3 % (0.0-1.0); EOS # 0.1 10^3/uL (0.0-0.5); EOS % 1.3 % (0.0-3.0); HEMATOCRIT 40.9 % (42.0-52.0); HEMOGLOBIN 11.6 g/dl (13.5-17.5); LYMPH # 0.9 10^3/uL (1.5-5.0); LYMPH % 11.3 % (24.0-44.0); MEAN CORPUSCULAR HEMOGLOBIN 24.4 pg (27.0-33.0); MEAN CORPUSCULAR HGB CONC 28.4 g/dl (32.0-36.5); MEAN CORPUSCULAR VOLUME 85.9 fl (80.0-96.0); MONO # 0.9 10^3/uL (0.0-0.8); MONO % 11.3 % (0.0-5.0); NEUTROPHILS # 5.7 10^3/uL (1.5-8.5); NEUTROPHILS % 75.4 % (36.0-66.0); PLATELET COUNT, AUTOMATED 233 10^3/uL (150-450); RED BLOOD COUNT 4.76 10^6/uL (4.30-6.10); WHITE BLOOD COUNT 7.5 10^3/uL (4.0-10.0)
[2019-06-17 10:49] LABS: ALBUMIN 2.7 GM/DL (3.2-5.2); ALT/SGPT 9 U/L (12-78); BILIRUBIN,TOTAL 0.7 MG/DL (0.2-1.0); BLOOD UREA NITROGEN 14 MG/DL (7-18); CALCIUM LEVEL 8.6 MG/DL (8.8-10.2); CARBON DIOXIDE LEVEL 37 MEQ/L (21-32); CHLORIDE LEVEL 99 MEQ/L (98-107); CREATININE FOR GFR 1.17 MG/DL (0.70-1.30); GLOMERULAR FILTRATION RATE > 60.0 (>35); GLUCOSE, FASTING 81 MG/DL (70-100); POTASSIUM SERUM 3.2 MEQ/L (3.5-5.1); SODIUM LEVEL 141 MEQ/L (136-145); TOTAL PROTEIN 7.2 GM/DL (6.4-8.2)
== END ==
PROVIDERS: ATTEND Internal Medicine Cardiovascular Disease
DX: Z01.818 Encounter for other preprocedural examination (principal); Z79.899 Other long term (current) drug therapy

== ENCOUNTER → 2019-08-26 | Outpatient (REF) | payer MEDICARE, OTHER ==
[~2019-08-26] MED LIST changes: -MONT10TA2 PO; +MONT10TA4 PO
[2019-08-26 10:36] LABS: ALBUMIN 2.7 GM/DL (3.2-5.2); ALT/SGPT 13 U/L (12-78); BILIRUBIN,TOTAL 0.4 MG/DL (0.2-1.0); BLOOD UREA NITROGEN 22 MG/DL (7-18); CALCIUM LEVEL 8.2 MG/DL (8.8-10.2); CARBON DIOXIDE LEVEL 34 MEQ/L (21-32); CHLORIDE LEVEL 105 MEQ/L (98-107); CHOLESTEROL LEVEL 129 MG/DL (<200); CHOLESTEROL RISK RATIO 1.954 (<5); CREATININE FOR GFR 0.96 MG/DL (0.70-1.30); GLOMERULAR FILTRATION RATE > 60.0 (>35); GLUCOSE, FASTING 83 MG/DL (70-100); HDL CHOLESTEROL 66 MG/DL (>40); LDL CHOLESTEROL 47 MG/DL (<100); MAGNESIUM LEVEL 2.2 MG/DL (1.8-2.4); NON-HDL-C 63 MG/DL; POTASSIUM SERUM 3.4 MEQ/L (3.5-5.1); SODIUM LEVEL 143 MEQ/L (136-145); TOTAL PROTEIN 5.7 GM/DL (6.4-8.2); TRIGLYCERIDES LEVEL 80 MG/DL (<150)
== END ==
PROVIDERS: ATTEND Internal Medicine
DX: I10 Essential (primary) hypertension (principal); E78.00 Pure hypercholesterolemia, unspecified; Z87.19 Personal history of other diseases of the digestive system

== ENCOUNTER → 2019-11-27 | Outpatient (REF) | payer MEDICARE, OTHER ==
[~2019-11-27] MED LIST changes: -COUM1TAB14 PO; +COUM4TAB8 PO; +VITA-243 PO; -VITA500T PO
== END ==
PROVIDERS: ATTEND Internal Medicine
DX: M10.079 Idiopathic gout, unspecified ankle and foot (principal)

== ENCOUNTER → 2019-12-25 | Outpatient (REF) | payer MEDICARE, OTHER ==
[~2019-12-25] MED LIST changes: +ACET650T61 PO; -AMIO200T PO; +AMIO200T3 PO; -ASPI81TA85 PO; +ASPI81TA86 PO; -TYLE650T35 PO
[2020-03-03 14:40] LABS: BASO % 0.2 % (0.0-1.0); EOS # 0.1 10^3/uL (0.0-0.5); EOS % 2.3 % (0.0-3.0); HEMOGLOBIN 8.4 g/dl (13.5-17.5); LYMPH # 0.8 10^3/uL (1.5-5.0); LYMPH % 14.1 % (24.0-44.0); MEAN CORPUSCULAR HEMOGLOBIN 19.7 pg (27.0-33.0); MEAN CORPUSCULAR HGB CONC 26.3 g/dl (32.0-36.5); MEAN CORPUSCULAR VOLUME 75.1 fl (80.0-96.0); MONO # 0.8 10^3/uL (0.0-0.8); NEUTROPHILS # 3.9 10^3/uL (1.5-8.5); NEUTROPHILS % 68.2 % (36.0-66.0); PLATELET COUNT, AUTOMATED 224 10^3/uL (150-450); RED BLOOD COUNT 4.26 10^6/uL (4.30-6.10); WHITE BLOOD COUNT 5.7 10^3/uL (4.0-10.0)
== END ==
PROVIDERS: ATTEND Internal Medicine
DX: I25.10 Atherosclerotic heart disease of native coronary artery without angina pectoris (principal); R53.83 Other fatigue

== ENCOUNTER → 2020-01-27 | Outpatient (REF) | payer MEDICARE, OTHER ==
[2020-01-27 11:11] LABS: HEMATOCRIT 36.5 % (42.0-52.0); HEMOGLOBIN 9.8 g/dl (13.5-17.5); MEAN CORPUSCULAR HEMOGLOBIN 21.2 pg (27.0-33.0); MEAN CORPUSCULAR HGB CONC 26.8 g/dl (32.0-36.5); MEAN CORPUSCULAR VOLUME 78.8 fl (80.0-96.0); PLATELET COUNT, AUTOMATED 193 10^3/uL (150-450); RED BLOOD COUNT 4.63 10^6/uL (4.30-6.10); WHITE BLOOD COUNT 7.3 10^3/uL (4.0-10.0)
[2020-01-27 11:30] LABS: ALBUMIN 3.1 GM/DL (3.2-5.2); ALT/SGPT 14 U/L (12-78); BILIRUBIN,TOTAL 0.4 MG/DL (0.2-1.0); BLOOD UREA NITROGEN 21 MG/DL (7-18); CALCIUM LEVEL 8.4 MG/DL (8.8-10.2); CARBON DIOXIDE LEVEL 40 MEQ/L (21-32); CHLORIDE LEVEL 98 MEQ/L (98-107); CREATININE FOR GFR 1.17 MG/DL (0.70-1.30); GLOMERULAR FILTRATION RATE > 60.0 (>35); GLUCOSE, FASTING 111 MG/DL (70-100); MAGNESIUM LEVEL 2.2 MG/DL (1.8-2.4); SODIUM LEVEL 141 MEQ/L (136-145); THYROID STIMULATING HORMONE 0.577 uIU/ML (0.358-3.740); TOTAL PROTEIN 6.5 GM/DL (6.4-8.2); URIC ACID 6.3 MG/DL (3.5-7.2)
== END ==
PROVIDERS: ATTEND Internal Medicine
DX: E03.9 Hypothyroidism, unspecified (principal); I10 Essential (primary) hypertension; D50.8 Other iron deficiency anemias

== ENCOUNTER → 2020-03-02 | Outpatient (REF) | payer MEDICARE, OTHER ==
[2020-03-02 11:52] LABS: BASO % 0.2 % (0.0-1.0); EOS # 0.2 10^3/uL (0.0-0.5); HEMATOCRIT 40.8 % (42.0-52.0); HEMOGLOBIN 11.2 g/dl (13.5-17.5); LYMPH # 0.8 10^3/uL (1.5-5.0); LYMPH % 11.9 % (24.0-44.0); MEAN CORPUSCULAR HEMOGLOBIN 23.6 pg (27.0-33.0); MEAN CORPUSCULAR HGB CONC 27.5 g/dl (32.0-36.5); MEAN CORPUSCULAR VOLUME 86.1 fl (80.0-96.0); MONO # 0.7 10^3/uL (0.0-0.8); MONO % 11.1 % (0.0-5.0); NEUTROPHILS # 4.7 10^3/uL (1.5-8.5); NEUTROPHILS % 73.3 % (36.0-66.0); PLATELET COUNT, AUTOMATED 180 10^3/uL (150-450); RED BLOOD COUNT 4.74 10^6/uL (4.30-6.10); WHITE BLOOD COUNT 6.4 10^3/uL (4.0-10.0)
[2020-03-02 12:31] LABS: ALT/SGPT 14 U/L (12-78); BILIRUBIN,TOTAL 0.4 MG/DL (0.2-1.0); BLOOD UREA NITROGEN 20 MG/DL (7-18); CALCIUM LEVEL 8.5 MG/DL (8.8-10.2); CARBON DIOXIDE LEVEL 40 MEQ/L (21-32); CHLORIDE LEVEL 97 MEQ/L (98-107); GLOMERULAR FILTRATION RATE > 60.0 (>35); GLUCOSE, FASTING 122 MG/DL (70-100); MAGNESIUM LEVEL 2.3 MG/DL (1.8-2.4); POTASSIUM SERUM 3.1 MEQ/L (3.5-5.1); SODIUM LEVEL 142 MEQ/L (136-145); THYROID STIMULATING HORMONE 0.471 uIU/ML (0.358-3.740); TOTAL PROTEIN 6.4 GM/DL (6.4-8.2)
== END ==
PROVIDERS: ATTEND Internal Medicine
DX: D50.8 Other iron deficiency anemias (principal); I10 Essential (primary) hypertension; E03.9 Hypothyroidism, unspecified

== ENCOUNTER → 2020-05-05 | Outpatient (REF) | payer MEDICARE, OTHER ==
[~2020-05-05] MED LIST changes: -MONT10TA4 PO; +MONT5TAB2 PO
== END ==
PROVIDERS: ATTEND Internal Medicine
DX: Z20.828 Contact with and (suspected) exposure to other viral communicable diseases (principal)

== ENCOUNTER → 2020-05-10 | Outpatient (REF) | payer MEDICARE, OTHER ==
[~2020-05-10] MED LIST changes: -MAG400TA PO; +MAGN400T35 PO; +MONT10TA10 PO; -MONT5TAB2 PO
[2020-05-10 09:04] LABS: BASO % 0.1 % (0.0-1.0); EOS # 0.1 10^3/uL (0.0-0.5); EOS % 1.4 % (0.0-3.0); HEMATOCRIT 43.8 % (42.0-52.0); HEMOGLOBIN 12.8 g/dl (13.5-17.5); LYMPH % 13.1 % (24.0-44.0); MEAN CORPUSCULAR HEMOGLOBIN 27.7 pg (27.0-33.0); MEAN CORPUSCULAR HGB CONC 29.2 g/dl (32.0-36.5); MEAN CORPUSCULAR VOLUME 94.8 fl (80.0-96.0); MONO % 13.1 % (0.0-5.0); NEUTROPHILS # 5.2 10^3/uL (1.5-8.5); NEUTROPHILS % 71.9 % (36.0-66.0); PLATELET COUNT, AUTOMATED 171 10^3/uL (150-450); RED BLOOD COUNT 4.62 10^6/uL (4.30-6.10); WHITE BLOOD COUNT 7.3 10^3/uL (4.0-10.0)
== END ==
PROVIDERS: ATTEND Internal Medicine
DX: E78.00 Pure hypercholesterolemia, unspecified (principal); D50.8 Other iron deficiency anemias; I10 Essential (primary) hypertension

== ENCOUNTER → 2020-05-10 | Outpatient (REF) | payer MEDICARE, OTHER ==
[~2020-05-10] MED LIST changes: +MAG400TA PO; -MAGN400T35 PO; -MONT10TA10 PO; +MONT5TAB2 PO
== END ==
PROVIDERS: ATTEND Internal Medicine
DX: Z20.828 Contact with and (suspected) exposure to other viral communicable diseases (principal)

== ENCOUNTER → 2020-05-11 | Outpatient (REF) | payer MEDICARE, OTHER ==
[~2020-05-11] MED LIST changes: -MAG400TA PO; +MAGN400T35 PO; +MONT10TA10 PO; -MONT5TAB2 PO
[2020-07-07 10:55] LABS: BLOOD UREA NITROGEN 21 MG/DL (7-18); CREATININE FOR GFR 1.16 MG/DL (0.70-1.30); GLOMERULAR FILTRATION RATE > 60.0 (>35); GLUCOSE, FASTING 104 MG/DL (70-100); POTASSIUM SERUM 3.3 MEQ/L (3.5-5.1); SODIUM LEVEL 143 MEQ/L (136-145)
[2020-07-07 10:56] LABS: CARBON DIOXIDE LEVEL 38 mmol/L (20-29); CHLORIDE LEVEL 99 MEQ/L (98-107)
[2020-07-07 10:57] LABS: CHOLESTEROL LEVEL 139 MG/DL (<200); CHOLESTEROL RISK RATIO 2.171 (<5); HDL CHOLESTEROL 64 MG/DL (>40); LDL CHOLESTEROL 52.2 MG/DL (<100); MAGNESIUM LEVEL 2.3 MG/DL (1.8-2.4); NON-HDL-C 75 MG/DL; TRIGLYCERIDES LEVEL 114 MG/DL (<150)
== END ==
PROVIDERS: ATTEND Internal Medicine
DX: I10 Essential (primary) hypertension (principal)

== ENCOUNTER → 2020-05-17 | Outpatient (REF) | payer MEDICARE, OTHER ==
[~2020-05-17] MED LIST changes: +MAG400TA PO; -MAGN400T35 PO; -MONT10TA10 PO; +MONT5TAB2 PO
== END ==
PROVIDERS: ATTEND Internal Medicine
DX: Z20.828 Contact with and (suspected) exposure to other viral communicable diseases (principal)

== ENCOUNTER → 2020-05-24 | Outpatient (REF) | payer MEDICARE, OTHER | PROVIDERS: ATTEND Internal Medicine | DX: Z11.52 Encounter for screening for COVID-19 (principal) ==

== ENCOUNTER → 2020-05-31 | Outpatient (REF) | payer MEDICARE, OTHER | PROVIDERS: ATTEND Internal Medicine | DX: Z20.822 Contact with and (suspected) exposure to COVID-19 (principal) ==

== ENCOUNTER → 2020-06-07 | Outpatient (REF) | payer MEDICARE, OTHER | PROVIDERS: ATTEND Internal Medicine | DX: Z20.822 Contact with and (suspected) exposure to COVID-19 (principal) ==

== ENCOUNTER → 2020-06-14 | Outpatient (REF) | payer MEDICARE, OTHER | PROVIDERS: ATTEND Internal Medicine | DX: Z20.822 Contact with and (suspected) exposure to COVID-19 (principal) ==

== ENCOUNTER → 2020-06-21 | Outpatient (REF) | payer MEDICARE, OTHER | PROVIDERS: ATTEND Internal Medicine | DX: Z11.52 Encounter for screening for COVID-19 (principal) ==

== ENCOUNTER → 2020-06-28 | Outpatient (REF) | payer MEDICARE, OTHER ==
[~2020-06-28] MED LIST changes: -MAG400TA PO; +MAGN400T35 PO; +MONT10TA10 PO; -MONT5TAB2 PO
== END ==
PROVIDERS: ATTEND Internal Medicine
DX: Z20.822 Contact with and (suspected) exposure to COVID-19 (principal)

== ENCOUNTER → 2020-07-05 | Outpatient (REF) | payer MEDICARE, OTHER | PROVIDERS: ATTEND Internal Medicine | DX: Z20.822 Contact with and (suspected) exposure to COVID-19 (principal) ==

== ENCOUNTER → 2020-07-21 | Outpatient (REF) | payer MEDICARE, OTHER ==
[2020-07-21 10:13] LABS: HEMATOCRIT 42.1 % (42.0-52.0); HEMOGLOBIN 12.3 g/dl (13.5-17.5); MEAN CORPUSCULAR HEMOGLOBIN 28.1 pg (27.0-33.0); MEAN CORPUSCULAR HGB CONC 29.2 g/dl (32.0-36.5); MEAN CORPUSCULAR VOLUME 96.1 fl (80.0-96.0); PLATELET COUNT, AUTOMATED 173 10^3/uL (150-450); RED BLOOD COUNT 4.38 10^6/uL (4.30-6.10); WHITE BLOOD COUNT 7.4 10^3/uL (4.0-10.0)
[2020-07-21 10:43] LABS: CREATININE FOR GFR 1.26 MG/DL (0.70-1.30); GLOMERULAR FILTRATION RATE 57.8 (>35); POTASSIUM SERUM 3.7 MEQ/L (3.5-5.1)
== END ==
PROVIDERS: ATTEND Internal Medicine Cardiovascular Disease
DX: I48.91 Unspecified atrial fibrillation (principal)

== ENCOUNTER 2020-07-28 16:59 | Inpatient (IN) | payer MEDICARE, OTHER ==
[~2020-07-28] VITALS: Ht 177.8 cm; Wt 101.1 kg
[2020-07-28] MEDS ORDERED: FUROSEMIDE 40MG/4ML VIAL (J1940) IV ONE (17:50)
[2020-07-28 18:06] LABS: BASO % 0.1 % (0.0-1.0); EOS % 0.1 % (0.0-3.0); HEMATOCRIT 43.8 % (42.0-52.0); HEMOGLOBIN 12.9 g/dl (13.5-17.5); LYMPH # 0.5 10^3/uL (1.5-5.0); MEAN CORPUSCULAR HEMOGLOBIN 28.8 pg (27.0-33.0); MEAN CORPUSCULAR HGB CONC 29.5 g/dl (32.0-36.5); MEAN CORPUSCULAR VOLUME 97.8 fl (80.0-96.0); MONO # 0.6 10^3/uL (0.0-0.8); MONO % 6.6 % (2.0-8.0); NEUTROPHILS # 7.6 10^3/uL (1.5-8.5); NEUTROPHILS % 86.6 % (36.0-66.0); PLATELET COUNT, AUTOMATED 183 10^3/uL (150-450); RED BLOOD COUNT 4.48 10^6/uL (4.30-6.10); WHITE BLOOD COUNT 8.8 10^3/uL (4.0-10.0)
--- NOTE | 2020-07-28 18:16 | REP ---
INDICATION: DYSPNEA/COUGH. COMPARISON: Comparison chest x-ray April 08, 2019. TECHNIQUE: Portable upright AP chest radiograph. FINDINGS: There is moderate to marked cardiomegaly unchanged. Left hemidiaphragm is again noted to be quite elevated. This is also unchanged. There is slight blunting of the left lateral pleural angle today. Pulmonary vasculature is cephalized. The thoracic aorta is calcific and tortuous. There is bowel gas under the right hemidiaphragm interposed between the liver and the diaphragm. This is similar to the prior study. No acute infiltrate is appreciated. No acute bony abnormality.. IMPRESSION: Elevated left hemidiaphragm again noted. Moderate to marked cardiomegaly. Blunting of the left lateral pleural angle. Cephalization. No acute infiltrate.. <Electronically signed by Dion Wilcox > 07/28/20 [id number]
[2020-07-28 18:20] LABS: D-DIMER QUANT 1109.37 ng/ml (<500)
[2020-07-28 18:30] LABS: INR 1.07; PROTHROMBIN TIME 14.1 SECONDS (12.5-14.3)
[2020-07-28 18:34] LABS: ALBUMIN 3.1 GM/DL (3.2-5.2); ALT/SGPT 20 U/L (12-78); BILIRUBIN,DIRECT 0.2 MG/DL (0.0-0.2); BILIRUBIN,TOTAL 0.6 MG/DL (0.2-1.0); BLOOD UREA NITROGEN 27 MG/DL (7-18); CALCIUM LEVEL 8.7 MG/DL (8.8-10.2); CARBON DIOXIDE LEVEL 35 MEQ/L (21-32); CHLORIDE LEVEL 101 MEQ/L (98-107); CK-MB VALUE MASS 1.8 NG/ML (<3.6); CPK CREATINE PHOSPHOKINASE 49 U/L (39-308); CREATININE FOR GFR 1.27 MG/DL (0.70-1.30); GLOMERULAR FILTRATION RATE 57.2 (>35); GLUCOSE, FASTING 124 MG/DL (70-100); MB/CK RELATIVE INDEX 3.67 (< OR =4); NT-PRO BNP 1405 PG/ML (<450); POTASSIUM SERUM 4.4 MEQ/L (3.5-5.1); SODIUM LEVEL 140 MEQ/L (136-145); THYROXINE (T4) 9.4 UG/DL (4.5-12.0); TOTAL PROTEIN 6.5 GM/DL (6.4-8.2); TROPONIN I < 0.02 NG/ML (< 0.10)
[2020-07-28 19:07] LABS: RSV AMPLIFICATION NEGATIVE (NEGATIVE)
[2020-07-28] MEDS ORDERED: TRAZ-186 PO (19:10)
[2020-07-28] MEDS ORDERED: TORS100T PO (19:10)
[2020-07-28] MEDS ORDERED: OLOP2.5D3 OU (19:10)
[2020-07-28] MEDS ORDERED: DILT240C83 PO (19:10)
[2020-07-28] MEDS ORDERED: FERR1TAB8 PO (19:10)
[2020-07-28] MEDS ORDERED: PROP15DR3 OU (19:10)
[2020-07-28] MEDS ORDERED: TRIA1OI TOP (19:10)
[2020-07-28] MEDS ORDERED: ALLO100T PO (19:10)
[2020-07-28] MEDS ORDERED: ALB2.5NEB INH (19:10)
[2020-07-28] MEDS ORDERED: ASPI32ECTA PO (19:10)
[2020-07-28] MEDS ORDERED: TREL1AER INH (19:10)
[2020-07-28] MEDS ORDERED: POTA20TA6 PO (19:10)
[2020-07-28] MEDS ORDERED: HM S0.65 NARES (19:10)
[2020-07-28] MEDS ORDERED: ISOVUE-370 76% 100ML VIAL As Ordered ONE (19:22)
--- NOTE | 2020-07-28 20:52 | REPVR ---
PROCEDURE INFORMATION: Exam: US Duplex Lower Extremity Veins, Bilateral Exam date and time: 07/28/2020 8:05 PM Age: 84 years old Clinical indication: Swelling (edema) of limb; Lower extremity, bilateral; Additional info: Rule out dvt, elevated d-dimer, SOB TECHNIQUE: Imaging protocol: Real-time duplex ultrasound of the extremities with 2-D chase scale, color Doppler flow and spectral waveform analysis with image documentation. Complete exam focused on the bilateral lower extremity veins. COMPARISON: US Duplex, Ext LOWER veins, bilat 09/13/2016 12:21 PM FINDINGS: Right deep veins: Unremarkable. The common femoral, femoral, proximal profunda femoral and popliteal veins are patent without thrombus. Normal Doppler waveforms. Normal compressibility and/or augmentation response. Right superficial veins: Saphenofemoral junction is patent without thrombus. Left deep veins: Unremarkable. The common femoral, femoral, proximal profunda femoral and popliteal veins are patent without thrombus. Normal Doppler waveforms. Normal compressibility and/or augmentation response. Left superficial veins: Saphenofemoral junction is patent without thrombus. Soft tissues: There is soft tissue swelling of both legs. IMPRESSION: No evidence of deep vein thrombosis. Electronically signed by: Misha Majano On 07/28/2020 20:53:38 PM
[2020-07-28] MEDS ORDERED: ALBUTEROL 90 MCG/ACT 8GM HFA INHALER INH PRN (20:55)
[2020-07-28] MEDS ORDERED: MOM 30ML SUSPENSION UDC PO PRN (20:55)
[2020-07-28] MEDS ORDERED: SODIUM CHLORIDE NASAL 0.65% SPRAY BTL (OCEAN) PRN (20:55)
[2020-07-28] MEDS ORDERED: MAALOX 30 ML SUSP *UDC PO PRN (20:55)
[2020-07-28] MEDS ORDERED: ALBUTEROL SULFATE 2.5 MG/0.5 ML INH NEB SOLN INH PRN (20:55)
[2020-07-28] MEDS: SENOKOT S TAB PO SCH (21:00)
--- NOTE | 2020-07-28 21:50 | REPVR ---
PROCEDURE INFORMATION: Exam: CT Angiography Chest With Contrast Exam date and time: 07/28/2020 8:16 PM Age: 84 years old Clinical indication: Shortness of breath; Additional info: SOB, elevated d dimer TECHNIQUE: Imaging protocol: Computed tomographic angiography of the chest with contrast. 3D rendering (Not supervised by radiologist): MIP and/or 3D reconstructed images were created by the technologist. Radiation optimization: All CT scans at this facility use at least one of these dose optimization techniques: automated exposure control; mA and/or kV adjustment per patient size (includes targeted exams where dose is matched to clinical indication); or iterative reconstruction. Contrast material: ISOVUE 370; Contrast volume: 75 ml; Contrast route: INTRAVENOUS (IV); COMPARISON: CT ANGIO CHEST 09/12/2016 4:02 PM FINDINGS: Pulmonary arteries: There is opacification of the pulmonary arteries with no evidence pulmonary embolus. there is no evidence of mediastinal lymphadenopathy. Aorta: There is incomplete opacification of the aorta therefore the aorta cannot be completely evaluated. There is calcification along the margins of the aortic arch. Lungs: There is hazy interstitial density within the lungs especially in the lung bases consistent with interstitial edema. Some of this could be the result of interstitial pneumonic infiltrate as well. Pleural spaces: There is no evidence of pneumothorax. There is a mild to moderate left pleural effusion. Heart: There is moderate cardiomegaly with no evidence of pericardial effusion. There is moderate cardiomegaly and this has developed since the CT examination of 2017. Lymph nodes: No enlarged lymph nodes. Bones/joints: There is a severe wedge-shaped compression deformity of T7 and this is new since 2017. This may represent an acute compression fracture of T7. Soft tissues: Unremarkable. IMPRESSION: 1. There is no evidence of pulmonary embolus. 2. Moderate to severe cardiomegaly has developed since 2017. 3. There is interstitial edema within the mid and lower lung das and a moderate left pleural effusion. Superimposed interstitial pneumonic infiltrate could be present as well. 4. Severe wedge-shaped compression fracture of T7 may be acute with loss of 2/3 of the vertebral height. Electronically signed by: Misha Majano On 07/28/2020 21:50:27 PM
[2020-07-28 22:13] VITALS: BP 117/73
--- NOTE | 2020-07-28 22:59 | HPEPDOC ---
[facility] Medical History & Physical Date of Admission Jul 28, 2020 Date of Service: Jul 28, 2020 Attending Physician: RUBEN AGUILAR MD History and Physical CHIEF COMPLAINT: shortness of breath HISTORY OF PRESENT ILLNESS: 84 year old male with PMHx detailed below presented to the ED with shortness of breath. He states over the past few days he has noticed decreased ability to walk around [place] in the evening due to worsening shortness of breath. He states this wasn't bothering him too much, so he didn't feel it needed to be addressed. Patient states that this morning when he was showering, he needed to take multiple breaks to catch his breath. He states that he had a dentist appointment and had worsening shortness of breath which he noticed while walking to the car for his ride as well as walking out of the dentist office. Patient states while walking to the car, his shortness of breath became overwhelming and he felt he could not catch his breath. EMS was called and the patient was brought to the ED. Additionally, the patient notes worsening swelling of his legs over the past few weeks. He states he has gained at least 25lbs over the past few months. Called and spoke with daughter who mentioned his diuretic was changed a few months ago by the candy department manager, although she is not sure if it was increased or decreased. Patient mentions he is scheduled for pacemaker placement on 08/09/2020. PAST MEDICAL HISTORY: COPD on chronic steriods and home O2 Paralyzed left hemidiaphragm HTN Essential tremor Hx of PE Atrial fibrillation s/p watchman device HLD Hypothyroidism Iron deficiency anemia Skin cancer on nose PAST SURGICAL HISTORY: Tonsillectomy Hernia repair Bilateral cataracts Cardiac cath [facility] 2019 Colonoscopies with polyps removed Moh's surgery on nose Watchman device placement SOCIAL HISTORY: Former smoker, quit about 10 yeas ago smoked 1/2 ppd for about 50 years. FAMILY HISTORY: Father in an accident. Mother of "old age". ALLERGIES: Please see below. REVIEW OF SYSTEMS: CONSTITUTIONAL: Denies fevers, chills, night sweats, fatigue. HEENT: Denies change in vision, change in hearing. CARDIOVASCULAR: Denies chest pain, palpitations, lightheadedness. RESPIRATORY: Endorses chronic, intermittent cough. Denies wheezing. GASTROINTESTINAL: Denies nausea, vomiting, abdominal pain, diarrhea, constipation, blood in stool. GENITOURINARY: Denies dysuria, urinary frequency, urinary urgency SKIN: Denies rash, lesions. MUSCULOSKELETAL: Denies joint pain or muscle aches. NEUROLOGICAL: Denies headache, dizziness, weakness. PSYCHIATRIC: Denies change in mood. HOME MEDICATIONS: Please see below. PHYSICAL EXAMINATION: VITAL SIGNS: See below. GENERAL: Alert, comfortable, in no acute distress HEENT: Normocephalic, atraumatic, PERRLA, sclera anicteric moist mucous membranes NECK: Supple, trachea midline, JVD elevation noted. CARDIOVASCULAR: Irregularly irregular rhythm with normal rate, normal S1 and S2. No murmurs, rubs, or gallops RESPIRATORY: Breath sounds diminished in bilateral lung bases. No wheezing or rales. ABDOMEN: Soft, nontender, nondistended, bowel sounds present, no masses or hepatosplenomegaly appreciated EXTREMITIES: 3+ Pitting edema extending up bilateral lower extremities. Sacral pitting edema appreciated. NEUROLOGIC: Alert and oriented x3 to person, place and time. No focal deficits appreciated PSYCHIATRIC: Mood and affect appropriate LABORATORY DATA: See below. IMAGING: - CXR (impression per radiologist report) Elevated left hemidiaphragm again noted. Moderate to marked cardiomegaly. Blunting of the left lateral pleural angle. Cephalization. No acute infiltrate. - LE duplex U/S No evidence of deep vein thrombosis. - CTA chest 1. There is no evidence of pulmonary embolus. 2. Moderate to severe cardiomegaly has developed since 2017. 3. There is interstitial edema within the mid and lower lung das and a moderate left pleural effusion. Superimposed interstitial pneumonic infiltrate could be present as well. 4. Severe wedge-shaped compression fracture of T7 may be acute with loss of 2/3 of the vertebral height. MICROBIOLOGY: Please see below. ASSESSMENT: 84 year old male with PMHx including atrial fibrillation, COPD, chronic anemia, hypothyroidism, and prior PE presents with shortness of breath found to have significant edema and CTA showing interstitial edema with left pleural effusion admitted for management of acute exacerbation of heart failure. PLAN: 1. Shortness of breath likely secondary to acute exacerbation of heart failure - CTA negative for PE, anemia at baseline, TSH wnl - BNP elevated at 1405, up from 740 in 03/2019 - Start patient on IV lasix 40mg q6h for net negative balance 2-2.5 L per day - Fluid restriction 1800mL, salt restriction 2 grams - Echocardiogram ordered to further evaluate, last echo 2018 shows grade 1 diastolic dysfunction 2. COPD and paralyzed left hemidiaphragm - no current evidence of acute exacerbation - on 3L via NC at home at baseline - on chronic steroids daily which may contribute to fluid retention - continue home inhalers 3. HTN - continue home meds 4. Atrial fibrillation s/p watchman device, rate controlled - no anticoagulation due to GI bleeds in the past - continues on aspirin 325mg - continue home diltiazem for rate control 5. Iron deficiency anemia - H/H at baseline, continue home iron supplement 6. Hypothyroidism - levothyroxine discontinued by PCP in the past year - TSH and free T4 WNL on admission, no indication to restart medication at this time 7. Essential tremor - continue home propranolol 8. Hyperlipidemia - continue statin DVT Prophylaxis: Lovenox Disposition: admitted inpatient to PCU expect greater than two midnights stay Vital Signs Vital Signs Date Time Temp Pulse Resp B/P (MAP) Pulse Ox O2 Delivery O2 Flow Rate FiO2 07/28/20 19:01 87 95 07/28/20 17:34 96.7 07/28/20 17:16 22 121/94 (103) Nasal Cannula 3.0 Laboratory Data Labs 24H Laboratory Tests 2 07/28/20 17:46: Immature Granulocyte % (Auto) 0.6, Neutrophils (%) (Auto) 86.6H, Lymphocytes (%) (Auto) 6.0L, Monocytes (%) (Auto) 6.6, Eosinophils (%) (Auto) 0.1, Basophils (%) (Auto) 0.1, Neutrophils # (Auto) 7.6, Lymphocytes # (Auto) 0.5L, Monocytes # (Auto) 0.6, Eosinophils # (Auto) 0.0, Basophils # (Auto) 0.0, Nucleated Red Blood Cells % (auto) 0.0, Prothrombin Time 14.1H, Prothromb Time International Ratio 1.07, D-Dimer, Quantitative 1109.37H, Anion Gap 4L, Glomerular Filtration Rate 57.2, Calcium Level 8.7L, Total Bilirubin 0.6, Direct Bilirubin 0.2, Aspartate Amino Transf (AST/SGOT) 13, Alanine Aminotransferase (ALT/SGPT) 20, Alkaline Phosphatase 112, Total Creatine Kinase 49, Creatine Kinase MB 1.8, Creatine Kinase MB Relative Index 3.67, Troponin I < 0.02, CU-Kka-T-Type Natriuretic Peptide 1405H, Total Protein 6.5, Albumin 3.1L, Albumin/Globulin Ratio 0.9, Thyroid Stimulating Hormone (TSH) 0.620, Thyroxine (T4) 9.4 07/28/20 17:55: Coronavirus (COVID-19)(PCR) NEGATIVE, Influenza Type A (RT-PCR) NEGATIVE, Influenza Type B (RT-PCR) NEGATIVE, Respiratory Syncytial Virus (PCR) NEGATIVE CBC/BMP Laboratory Tests 07/28/20 17:46 Microbiology Microbiology 07/28/20 Blood Culture, Received Pending 07/28/20 Blood Culture, Received Pending Home Medications Scheduled Albuterol Sulf (Albuterol Sulfate) 2.5 Mg/3 Ml Nebu, 2.5 MG INH QID Allopurinol (Allopurinol) 100 Mg Tablet, 100 MG PO DAILY Aspirin (Aspirin EC) 325 Mg Tablet.dr, 325 MG PO DAILY Atorvastatin Calcium (Atorvastatin Calcium) 40 Mg Tab, 40 MG PO QHS Cyanocobalamin (Vitamin B-12) (Vitamin B-12) 1,000 Mcg Tab, 1,000 MCG PO DAILY Ferrous Sulfate (Ferrous Sulfate) 325 Mg Tablet, 325 MG PO DAILY Fluticasone/Umeclidin/Vilanter (Trelegy Ellipta 100-62.5-25) 1 Each Blst.w.dev, 1 PUFF INH DAILY Magnesium Oxide (Magnesium Oxide) 400 Mg Tab, 400 MG PO BID 0900, 1700 Montelukast Sodium (Montelukast Sodium) 10 Mg Tab, 10 MG PO QHS Potassium Chloride (Potassium Chloride) 20 Meq Tab.er.prt, 20 MEQ PO BID Prednisone (Prednisone) 5 Mg Tablet, 5 MG PO Q2D Prednisone (Prednisone) 10 Mg Tablet, 10 MG PO Q2D Propranolol HCl (Propranolol HCl) 10 Mg Tab, 10 MG PO TID Sennosides/Docusate Sodium (Senokot-S Tablet) 1 Tab Tab, 1 TAB PO BID Sodium Chloride (Saline Nasal [place]) 44 Ml [place], 1 SPRAY NARES BID Tamsulosin HCl (Flomax) 0.4 Mg Cap, 0.4 MG PO QHS Torsemide (Torsemide) 100 Mg Tablet, 50 MG PO DAILY Triamcinolone Acet (Triamcinolone Acetonide 0.1% Oint) 15 Gm Oint...g., 1 APLCT TOP BID APPLY TO LEGS dilTIAZem HCl (Diltiazem 24Hr Cd) 240 Mg Cap.er.24h, 240 MG PO DAILY Scheduled PRN Acetaminophen (Tylenol) 325 Mg Tablet, 650 MG PO Q4H PRN for PAIN Albuterol Sulfate (Ventolin Hfa) 18 Gm Hfa.aer.ad, 2 PUFFS INH Q6H PRN for SHORTNESS OF BREATH Albuterol Sulfate (Albuterol Sulfate) 2.5 Mg/0.5 Ml Vial.neb, 2.5 MG INH Q6H PRN for SHORTNESS OF BREATH Magnesium Hydroxide (Milk of Magnesia) 400 Mg/5 Ml Oral.susp, 2,400 MG PO DAILY PRN for CONSTIPATION Nitroglycerin (Nitrostat) 0.4 Mg Tab.subl, 0.4 MG SL NITRO PRN for CHEST PAIN Olopatadine HCl (Pataday) 0.2% 2.5ML Drops, 1 DROP OU BID PRN for ALLERGIES Propylene Glycol/Peg 400 (Lubricant Eye Drops) 15 Ml Drops, 1 DROP OU 5XD PRN for DRY EYES Sodium Chloride (Juarez) 104 Ml [place], 1 SPRAY NA Q2H PRN for NASAL DRYNESS EACH NOSTRIL Trazodone HCl (Trazodone HCl) 50 Mg Tablet, 100 MG PO QHS PRN for SLEEP Allergies Coded Allergies: cefuroxime (Verified Adverse Reaction, Mild, GI UPSET, 04/08/19) ciprofloxacin (Verified Adverse Reaction, Mild, GI UPSET, 04/08/19) A-FIB/CHADSVASC A-FIB History Current/History of A-Fib/PAF?: Yes Current PO Anticoag Therapy: No Treatment Treatment ordered: NONE Reason Anticoagulant not given: Other Other reason anticoagulant not: Stopped outpatient due to GI bleeds, s/p watchman device GME ATTESTATION GME ATTESTATION My faculty preceptor for this patient encounter was physically present during the encounter and was fully available. All aspects of the patient interview, examination, medical decision making process, and medical care plan development were reviewed and approved by the faculty preceptor. The faculty preceptor is aware and concurs with the plan as stated in the body of this note and will attest to such by his/her cosignature. ATTENDING NOTE Patient was seen on 07/28/2020. I, Melissa Aguilar, have independently examined this patient and performed my own physical exam, as well as reviewed the documentation and edited where necessary. I have discussed in detail with the resident / student the findings and plan of treatment as documented by the resident / student and edited their note. I agree with their findings and treatment plan and have edited their documentation. I will continue to follow the patient during this hospital stay. YANG KEY D.O. Jul 28, 2020 20:21 RUBEN AGUILAR MD Jul 29, 2020 20:26
[2020-07-28 23:00] VITALS: O2SAT 85
[2020-07-28] MEDS: SODIUM CHLORIDE NASAL 0.65% SPRAY BTL (OCEAN) SCH (23:06)
[2020-07-28] MEDS: TAMSULOSIN 0.4 MG CAP PO SCH (23:07)
[2020-07-28] MEDS: MONTELUKAST 10 MG TAB PO SCH (23:07)
[2020-07-28] MEDS: traZODone 100 MG TAB PO PRN (23:07)
[2020-07-28] MEDS: PROPRANOLOL 10 MG TAB PO SCH (23:07)
[2020-07-28] MEDS: ATORVASTATIN 20 MG TAB PO SCH (23:08)
[2020-07-28] MEDS: POTASSIUM CHLORIDE 10 MEQ SR TABLET PO SCH (23:13)
[2020-07-29] VITALS (20 sets, daily range): BP systolic 106–153; BP diastolic 54–81; O2SAT 82–96
[2020-07-29] MEDS: FUROSEMIDE 40MG/4ML VIAL (J1940) IV SCH ×5 (00:59→23:40)
--- NOTE | 2020-07-29 03:34 | ECGEPIP ---
[facility] - ED Test Date: 2020-07-28 Pat Name: KENNY JACOBS Department: Room: - Gender: Male Dental Associate: TY : 1935 Requested By: WESTLEY Bravo Order Number: [id number] Reading MD: Westley Mantilla Measurements Intervals Britton Rate: 75 P: MN: QRS: -29 QRSD: 120 T: -34 QT: 394 QTc: 439 Interpretive Statements suspect atrial fibrillation Right bundle branch block LEFT AXIS DEVIATION previous tracing done 04-08-19 showed sinus rhythm Electronically Signed on 07-29-2020 3:33:45 EST by Westley Mantilla
[2020-07-29 06:22] LABS: HEMATOCRIT 43.6 % (42.0-52.0); MEAN CORPUSCULAR HEMOGLOBIN 28.8 pg (27.0-33.0); MEAN CORPUSCULAR HGB CONC 29.8 g/dl (32.0-36.5); MEAN CORPUSCULAR VOLUME 96.7 fl (80.0-96.0); PLATELET COUNT, AUTOMATED 171 10^3/uL (150-450); RED BLOOD COUNT 4.51 10^6/uL (4.30-6.10); WHITE BLOOD COUNT 7.7 10^3/uL (4.0-10.0)
[2020-07-29 06:42] LABS: BLOOD UREA NITROGEN 24 MG/DL (7-18); CALCIUM LEVEL 8.6 MG/DL (8.8-10.2); CARBON DIOXIDE LEVEL 36 MEQ/L (21-32); CHLORIDE LEVEL 100 MEQ/L (98-107); CREATININE FOR GFR 1.13 MG/DL (0.70-1.30); GLOMERULAR FILTRATION RATE > 60.0 (>35); GLUCOSE, FASTING 92 MG/DL (70-100); POTASSIUM SERUM 3.6 MEQ/L (3.5-5.1); SODIUM LEVEL 143 MEQ/L (136-145)
[2020-07-29] MEDS: ALBUTEROL SULFATE 2.5 MG/0.5 ML INH NEB SOLN INH SCH ×4 (07:24→19:57)
[2020-07-29] MEDS: ADVAIR HFA 230/21MCG INHALER INH SCH ×2 (07:24→19:56)
[2020-07-29] MEDS: TIOTROPIUM INHALER/CAPSULE (SPIRIVA) INH SCH (07:24)
[2020-07-29] MEDS: predniSONE 10 MG TAB PO SCH (08:49)
[2020-07-29] MEDS: PROPRANOLOL 10 MG TAB PO SCH ×3 (08:49→20:57)
[2020-07-29] MEDS: ASPIRIN ENTERIC 325 MG TAB PO SCH (08:49)
[2020-07-29] MEDS: SODIUM CHLORIDE NASAL 0.65% SPRAY BTL (OCEAN) SCH ×2 (08:49→21:01)
[2020-07-29] MEDS: CYANOCOBALAMIN 500 MCG TAB PO SCH (08:50)
[2020-07-29] MEDS: MAGNESIUM OXIDE 400MG TAB (MAG-OX) PO SCH ×2 (08:51→16:27)
[2020-07-29] MEDS: SENOKOT S TAB PO SCH ×2 (08:51→20:58)
[2020-07-29] MEDS: FERROUS SULFATE 325MG TAB PO SCH (08:51)
[2020-07-29] MEDS: allopurinoL 100 MG TAB PO SCH (08:51)
[2020-07-29] MEDS: POTASSIUM CHLORIDE 10 MEQ SR TABLET PO SCH ×2 (08:51→21:01)
[2020-07-29] MEDS: ENOXAPARIN 40MG/0.4ML SYRINGE (J1650 PER 10MG) SC SCH (08:56)
[2020-07-29] MEDS: ACETAMINOPHEN TAB 650MG DOSE (2X325MG) PO PRN (11:26)
--- NOTE | 2020-07-29 12:45 | IPNPDOC ---
Text Note Date of Service The patient was seen on 07/29/20. NOTE Subjective: Patient stated that his breathing improved, he feels that he less short of breath. Objective: GENERAL APPEARANCE: NAD HEENT: no scleral icterus, plus JVD, EOMI CARDIOVASCULAR: Irregular irregular LUNGS: Diminished lung sounds bilaterally ABDOMEN: soft & not tender w palpitation MUSCULOSKELETAL: +2 nonpitting edema bilaterally INTEGUMENT: no generalized pallor NEUROLOGICAL: cranial nerve function from 2-12 intact intact, follows commands, speech not dysarthric Assessment and plan: 84 year old male with PMHx including atrial fibrillation, COPD, chronic anemia, hypothyroidism, and prior PE presents with shortness of breath found to have significant edema and CTA showing interstitial edema with left pleural effusion admitted for management of acute exacerbation of heart failure. Shortness of breath/ acute diastolic CHF/ Most likely secondary to acute diastolic CHF exacerbation superimposed with chronic paralyzed left hemidiaphragm CTA negative for PE Patient complains of orthopnea, dyspnea, BNP elevated at 1405 Echo pending Fluid restriction Cardiac diet I's and O's PT/OT Chronic respiratory failure Secondary to COPD and paralyzed left hemidiaphragm requiring 3 L of oxygen at baseline COPD/paralyzed left hemidiaphragm Not in acute exacerbation Patient is on 3 L via nasal cannula, at home at baseline Hypertension Blood pressure control Continue home meds Chronic Atrial fibrillation, status post Watchman device, rate controlled No anticoagulation due to recent GI bleed Continue home cardioprotective medication VS,Fishbone, I+O VS, Fishbone, I+O Laboratory Tests 07/28/20 17:46 07/29/20 04:55 Vital Signs Date Time Temp Pulse Resp B/P (MAP) Pulse Ox O2 Delivery O2 Flow Rate FiO2 07/29/20 12:00 3.0 07/29/20 12:00 98.4 87 18 114/75 (88) 90 Nasal Cannula l I&O- Last 24 Hours up to 6 AM 07/29/20 06:00 Intake Total 260 ml Output Total 2350 ml Balance -2090 ml YISEL DE SOUZA DO Jul 29, 2020 12:45
[2020-07-29] MEDS: ATORVASTATIN 20 MG TAB PO SCH (20:58)
[2020-07-29] MEDS: MONTELUKAST 10 MG TAB PO SCH (20:58)
[2020-07-29] MEDS: traZODone 100 MG TAB PO PRN (20:59)
[2020-07-29] MEDS: TAMSULOSIN 0.4 MG CAP PO SCH (20:59)
[2020-07-30] VITALS (16 sets, daily range): BP systolic 89–121; BP diastolic 53–70; O2SAT 86–95
[2020-07-30] MEDS: FUROSEMIDE 40MG/4ML VIAL (J1940) IV SCH ×3 (05:20→18:27)
[2020-07-30 05:37] LABS: HEMATOCRIT 43.3 % (42.0-52.0); HEMOGLOBIN 12.8 g/dl (13.5-17.5); MEAN CORPUSCULAR HEMOGLOBIN 28.7 pg (27.0-33.0); MEAN CORPUSCULAR HGB CONC 29.6 g/dl (32.0-36.5); MEAN CORPUSCULAR VOLUME 97.1 fl (80.0-96.0); PLATELET COUNT, AUTOMATED 167 10^3/uL (150-450); RED BLOOD COUNT 4.46 10^6/uL (4.30-6.10); WHITE BLOOD COUNT 9.2 10^3/uL (4.0-10.0)
[2020-07-30 05:46] LABS: CREATININE FOR GFR 1.32 MG/DL (0.70-1.30); GLOMERULAR FILTRATION RATE 54.7 (>35); POTASSIUM SERUM 3.6 MEQ/L (3.5-5.1)
[2020-07-30] MEDS: ACETAMINOPHEN TAB 650MG DOSE (2X325MG) PO PRN (06:59)
[2020-07-30] MEDS: ALBUTEROL SULFATE 2.5 MG/0.5 ML INH NEB SOLN INH SCH ×4 (07:20→19:35)
[2020-07-30] MEDS: TIOTROPIUM INHALER/CAPSULE (SPIRIVA) INH SCH (07:20)
[2020-07-30] MEDS: ADVAIR HFA 230/21MCG INHALER INH SCH ×2 (07:20→19:33)
[2020-07-30] MEDS: CYANOCOBALAMIN 500 MCG TAB PO SCH (08:42)
[2020-07-30] MEDS: ASPIRIN ENTERIC 325 MG TAB PO SCH (08:42)
[2020-07-30] MEDS: POTASSIUM CHLORIDE 10 MEQ SR TABLET PO SCH ×2 (08:43→20:51)
[2020-07-30] MEDS: SENOKOT S TAB PO SCH ×2 (08:43→20:51)
[2020-07-30] MEDS: FERROUS SULFATE 325MG TAB PO SCH (08:43)
[2020-07-30] MEDS: predniSONE 5 MG TAB PO SCH (08:43)
[2020-07-30] MEDS: allopurinoL 100 MG TAB PO SCH (08:44)
[2020-07-30] MEDS: ENOXAPARIN 40MG/0.4ML SYRINGE (J1650 PER 10MG) SC SCH (08:44)
[2020-07-30] MEDS: MAGNESIUM OXIDE 400MG TAB (MAG-OX) PO SCH ×2 (08:44→18:27)
[2020-07-30] MEDS: SODIUM CHLORIDE NASAL 0.65% SPRAY BTL (OCEAN) SCH ×2 (08:45→20:52)
[2020-07-30] MEDS: PROPRANOLOL 10 MG TAB PO SCH ×2 (08:59→19:04)
--- NOTE | 2020-07-30 11:04 | IPNPDOC ---
Text Note Date of Service The patient was seen on 07/30/20. NOTE Subjective: Patient stated he feels better today. I talked to his extractor operator helper Dr. Roe and I updated him yesterday . Patient developed episode of hypotension the morning with Blood pressure 90/60. Objective: GENERAL APPEARANCE: NAD HEENT: no scleral icterus, plus JVD, EOMI CARDIOVASCULAR: Irregular irregular LUNGS: Diminished lung sounds bilaterally ABDOMEN: soft & not tender w palpitation MUSCULOSKELETAL: +2 nonpitting edema bilaterally INTEGUMENT: no generalized pallor NEUROLOGICAL: cranial nerve function from 2-12 intact intact, follows commands, speech not dysarthric Assessment and plan: 84 year old male with PMHx including atrial fibrillation, COPD, chronic anemia, hypothyroidism, and prior PE presents with shortness of breath found to have significant edema and CTA showing interstitial edema with left pleural effusion admitted for management of acute exacerbation of heart failure. Shortness of breath/ acute diastolic CHF/ Most likely secondary to acute diastolic CHF exacerbation superimposed with chronic paralyzed left hemidiaphragm CTA negative for PE Patient complains of orthopnea, dyspnea, BNP elevated at 1405 Echo pending Fluid restriction Cardiac diet I's and O's PT/OT Patient developed good urine output past 24 hours Chronic respiratory failure Secondary to COPD and paralyzed left hemidiaphragm requiring 3 L of oxygen at baseline COPD/paralyzed left hemidiaphragm Not in acute exacerbation Patient is on 3 L via nasal cannula, at home at baseline Hypertension Blood pressure control Continue home meds Chronic Atrial fibrillation, status post Watchman device, rate controlled No anticoagulation due to recent GI bleed Continue home cardioprotective medication Hypotension Patient received propranolol 3 times a day due to essential tremor I decreased her dose to twice a day I will discuss with his extractor operator helper dc of propranolol due to advanced COPD VS,Fishbone, I+O VS, Fishbone, I+O Laboratory Tests 07/30/20 04:50 Vital Signs Date Time Temp Pulse Resp B/P (MAP) Pulse Ox O2 Delivery O2 Flow Rate FiO2 07/30/20 10:04 88 Nasal Cannula 5.0 07/30/20 08:59 80 90/68 07/30/20 08:00 97.2 18 I&O- Last 24 Hours up to 6 AM 07/30/20 06:00 Intake Total 1630 ml Output Total 2375 ml Balance -745 ml YISEL DE SOUZA DO Jul 30, 2020 11:04
--- NOTE | 2020-07-30 12:00 | ECHO ---
DATE OF PROCEDURE: 07/29/2020 Age: 84 Gender: Male Height: 70 inches Weight: 231 pounds Body surface area: 2.22 m2 PATIENT LOCATION: Inpatient PCU, Room 3214. REFERRING PHYSICIAN: Surekha Campbell DO. INDICATION: Heart failure. MEASUREMENTS: 2D Measurements: RV 4.6 cm LV 4.8 cm Septum 1.3 cm Posterior wall 1.3 cm Aortic Root 4.6 cm LA 5.3 cm LVEF 65% Doppler Measurements: AV 1.39 m/s LVOT 0.94 m/s MV-E 91 Early mitral deceleration time 211 msec E prime medial 8.7, E prime lateral 12.9 Average E/E prime ratio 8.4/PCWP 12.3 mmHg PV 0.8 m/s Pulmonary artery acceleration time 70 msec RVSP 63 mmHg IVC 2.2 cm COMMENTS: Underlying atrial fibrillation with controlled ventricular response. Right bundle branch block. Technically difficult study in light of the patients body habitus, but some diagnostically useful information was still obtained. M-mode and two-dimensional echocardiography was performed with pulse, continuous wave, color flow, and tissue Doppler studies. Mild concentric left ventricular hypertrophy with subtle septal wall motion abnormality suspected to be related to right ventricular pressure overload. Global left ventricular systolic function was preserved. Prominently dilated left atrium, but current estimated mean left atrial pressure within normal limits. Moderately dilated right ventricle with right ventricular free wall hypertrophy and normal wall motion with Doppler evidence of moderately severe to severe pulmonary hypertension. His pulmonary trunk was dilated at 3.9 cm, again in keeping with an elevated pulmonary arterial pressure. Prominently dilated right atrium and mildly dilated IVC with reduced respiratory collapse in keeping with an elevated central venous pressure. Mildly dilated aortic root. Mild aortic valvular sclerosis with adequate cusp separation, but premature cusp closure in keeping with a reduced forward stroke volume. Very mild aortic insufficiency. Mild degenerative changes of the mitral valve apparatus with adequate leaflet excursion and no posterior systolic buckling. No more than trace to mild mitral insufficiency. Normal appearing tricuspid valve with at least moderate insufficiency. No apparent intracardiac mass or pericardial effusion. MTDD
[2020-07-30] MEDS: MONTELUKAST 10 MG TAB PO SCH (20:51)
[2020-07-30] MEDS: TAMSULOSIN 0.4 MG CAP PO SCH (20:51)
[2020-07-30] MEDS: ATORVASTATIN 20 MG TAB PO SCH (20:51)
[2020-07-31] VITALS (16 sets, daily range): BP systolic 98–133; BP diastolic 48–88; O2SAT 88–99
[2020-07-31 05:17] LABS: HEMATOCRIT 40.8 % (42.0-52.0); HEMOGLOBIN 12.2 g/dl (13.5-17.5); MEAN CORPUSCULAR HEMOGLOBIN 28.6 pg (27.0-33.0); MEAN CORPUSCULAR HGB CONC 29.9 g/dl (32.0-36.5); MEAN CORPUSCULAR VOLUME 95.8 fl (80.0-96.0); PLATELET COUNT, AUTOMATED 159 10^3/uL (150-450); RED BLOOD COUNT 4.26 10^6/uL (4.30-6.10); WHITE BLOOD COUNT 6.9 10^3/uL (4.0-10.0)
[2020-07-31 05:46] LABS: CALCIUM LEVEL 8.3 MG/DL (8.8-10.2); CREATININE FOR GFR 1.29 MG/DL (0.70-1.30); GLOMERULAR FILTRATION RATE 56.2 (>35); POTASSIUM SERUM 3.2 MEQ/L (3.5-5.1)
[2020-07-31] MEDS: FUROSEMIDE 40MG/4ML VIAL (J1940) IV SCH ×4 (06:37→17:29)
[2020-07-31] MEDS ORDERED: POTASSIUM CHLORIDE 10 MEQ SR TABLET PO ONE ×2 (06:55→10:00)
[2020-07-31] MEDS: TIOTROPIUM INHALER/CAPSULE (SPIRIVA) INH SCH ×2 (07:47→12:00)
[2020-07-31] MEDS: ALBUTEROL SULFATE 2.5 MG/0.5 ML INH NEB SOLN INH SCH ×4 (07:47→19:33)
[2020-07-31] MEDS: ADVAIR HFA 230/21MCG INHALER INH SCH ×3 (07:47→19:32)
[2020-07-31] MEDS ORDERED: BISACODYL 10 MG SUPP PR PRN (07:55)
[2020-07-31] MEDS ORDERED: MIRALAX *UNIT DOSE* 17GM PACKET PO PRN (07:55)
[2020-07-31] MEDS ORDERED: BISACODYL 5 MG TAB PO PRN (07:55)
[2020-07-31] MEDS: SENOKOT S TAB PO SCH ×2 (09:00→21:26)
[2020-07-31] MEDS: ENOXAPARIN 40MG/0.4ML SYRINGE (J1650 PER 10MG) SC SCH (09:36)
[2020-07-31] MEDS: predniSONE 10 MG TAB PO SCH (09:37)
[2020-07-31] MEDS: PROPRANOLOL 10 MG TAB PO SCH (09:37)
[2020-07-31] MEDS: FERROUS SULFATE 325MG TAB PO SCH (09:37)
[2020-07-31] MEDS: POTASSIUM CHLORIDE 10 MEQ SR TABLET PO SCH ×2 (09:37→21:27)
[2020-07-31] MEDS: CYANOCOBALAMIN 500 MCG TAB PO SCH (09:37)
[2020-07-31] MEDS: allopurinoL 100 MG TAB PO SCH (09:37)
[2020-07-31] MEDS: ASPIRIN ENTERIC 325 MG TAB PO SCH (09:37)
[2020-07-31] MEDS: MAGNESIUM OXIDE 400MG TAB (MAG-OX) PO SCH ×2 (09:38→17:29)
--- NOTE | 2020-07-31 09:49 | IPNPDOC ---
Text Note Date of Service The patient was seen on 07/31/20. NOTE Subjective: No any acute events overnight. Patient complains of constipation for past 3 days. Objective: GENERAL APPEARANCE: NAD HEENT: no scleral icterus, plus JVD, EOMI CARDIOVASCULAR: Irregular irregular LUNGS: Diminished lung sounds bilaterally ABDOMEN: soft & not tender w palpitation MUSCULOSKELETAL: +2 nonpitting edema bilaterally, some blisters on the distal part of the legs INTEGUMENT: no generalized pallor NEUROLOGICAL: cranial nerve function from 2-12 intact intact, follows commands, speech not dysarthric Assessment and plan: 84 year old male with PMHx including atrial fibrillation, COPD, chronic anemia, hypothyroidism, and prior PE presents with shortness of breath found to have significant edema and CTA showing interstitial edema with left pleural effusion admitted for management of acute exacerbation of heart failure. Shortness of breath/ acute diastolic CHF/ pulmonary hypertension Most likely secondary to acute diastolic CHF exacerbation superimposed with chronic paralyzed left hemidiaphragm CTA negative for PE Patient complains of orthopnea, dyspnea, BNP elevated at 1405 Echo report showed ejection fraction of 65%, moderately dilated right ventricle with right ventricular free wall hypertrophy and normal wall motion with Doppler evidence of moderately severe to severe pulmonary hypertension. His pulmonary trunk was dilated at 3.9 cm, again in keeping with an elevated pulmonary arterial pressure. Prominently dilated right atrium and mildly dilated IVC with reduced respiratorycollapse in keeping with an elevated central venous pressure Fluid restriction Cardiac diet I's and O's PT/OT Chronic respiratory failure Secondary to COPD and paralyzed left hemidiaphragm requiring 3 L of oxygen at baseline COPD/paralyzed left hemidiaphragm Not in acute exacerbation Patient is on 3 L via nasal cannula, at home at baseline Hypertension Blood pressure control Continue home meds Chronic Atrial fibrillation, status post Watchman device, rate controlled No anticoagulation due to recent GI bleed Continue home cardioprotective medication Hypotension Patient received propranolol 3 times a day due to essential tremor I decreased her dose to twice a day However, with advanced COPD propranolol is not optimal medication. I will change propranolol to metoprolol 3 times a day to better control heart rate Constipation MiraLAX Hyperlipidemia Continue statin VS,Fishbone, I+O VS, Fishbone, I+O Laboratory Tests 07/31/20 05:02 Vital Signs Date Time Temp Pulse Resp B/P (MAP) Pulse Ox O2 Delivery O2 Flow Rate FiO2 07/31/20 08:05 5.0 07/31/20 08:00 97.5 88 20 112/68 (77) 94 Nasal Cannula I&O- Last 24 Hours up to 6 AM 07/31/20 05:59 Intake Total 1630 ml Output Total 1680 ml Balance -50 ml [facility] 09:49
[2020-07-31] MEDS: SODIUM CHLORIDE NASAL 0.65% SPRAY BTL (OCEAN) SCH ×2 (11:27→21:28)
[2020-07-31] MEDS: METOPROLOL TART 12.5 MG PER 1/2 TAB PO SCH ×2 (14:00→21:28)
[2020-07-31] MEDS: MONTELUKAST 10 MG TAB PO SCH (21:27)
[2020-07-31] MEDS: TAMSULOSIN 0.4 MG CAP PO SCH (21:27)
[2020-07-31] MEDS: ATORVASTATIN 20 MG TAB PO SCH (21:27)
[2020-08-01] VITALS (7 sets, daily range): BP systolic 95–126; BP diastolic 58–98
[2020-08-01] MEDS: FUROSEMIDE 40MG/4ML VIAL (J1940) IV SCH ×4 (00:58→17:01)
[2020-08-01 05:17] LABS: HEMATOCRIT 38.2 % (42.0-52.0); HEMOGLOBIN 11.4 g/dl (13.5-17.5); MEAN CORPUSCULAR HEMOGLOBIN 28.9 pg (27.0-33.0); MEAN CORPUSCULAR HGB CONC 29.8 g/dl (32.0-36.5); MEAN CORPUSCULAR VOLUME 96.7 fl (80.0-96.0); PLATELET COUNT, AUTOMATED 155 10^3/uL (150-450); RED BLOOD COUNT 3.95 10^6/uL (4.30-6.10)
[2020-08-01 05:38] LABS: BLOOD UREA NITROGEN 22 MG/DL (7-18); CALCIUM LEVEL 8.2 MG/DL (8.8-10.2); CARBON DIOXIDE LEVEL 40 MEQ/L (21-32); CHLORIDE LEVEL 101 MEQ/L (98-107); CREATININE FOR GFR 1.11 MG/DL (0.70-1.30); GLOMERULAR FILTRATION RATE > 60.0 (>35); GLUCOSE, FASTING 95 MG/DL (70-100); POTASSIUM SERUM 3.3 MEQ/L (3.5-5.1); SODIUM LEVEL 142 MEQ/L (136-145)
[2020-08-01] MEDS: METOPROLOL TART 12.5 MG PER 1/2 TAB PO SCH ×3 (06:00→22:00)
[2020-08-01] MEDS: ALBUTEROL SULFATE 2.5 MG/0.5 ML INH NEB SOLN INH SCH ×4 (07:49→20:00)
[2020-08-01] MEDS: TIOTROPIUM INHALER/CAPSULE (SPIRIVA) INH SCH (07:49)
[2020-08-01] MEDS: ADVAIR HFA 230/21MCG INHALER INH SCH ×2 (07:49→20:27)
[2020-08-01] MEDS: SODIUM CHLORIDE NASAL 0.65% SPRAY BTL (OCEAN) SCH ×2 (09:00→22:02)
[2020-08-01] MEDS: allopurinoL 100 MG TAB PO SCH (09:53)
[2020-08-01] MEDS: ENOXAPARIN 40MG/0.4ML SYRINGE (J1650 PER 10MG) SC SCH (09:53)
[2020-08-01] MEDS: POTASSIUM CHLORIDE 10 MEQ SR TABLET PO SCH ×2 (09:53→21:59)
[2020-08-01] MEDS: CYANOCOBALAMIN 500 MCG TAB PO SCH (09:53)
[2020-08-01] MEDS: FERROUS SULFATE 325MG TAB PO SCH (09:54)
[2020-08-01] MEDS: ASPIRIN ENTERIC 325 MG TAB PO SCH (09:54)
[2020-08-01] MEDS: MAGNESIUM OXIDE 400MG TAB (MAG-OX) PO SCH ×2 (09:54→17:01)
[2020-08-01] MEDS: predniSONE 5 MG TAB PO SCH (09:54)
[2020-08-01] MEDS: SENOKOT S TAB PO SCH ×2 (09:54→22:01)
[2020-08-01] MEDS ORDERED: POTASSIUM CHLORIDE 10 MEQ SR TABLET PO ONE (10:00)
--- NOTE | 2020-08-01 10:20 | IPNPDOC ---
Text Note Date of Service The patient was seen on 08/01/20. NOTE Subjective: Patient stated that he feels better today. His oxygen requirements decreased to 4 L by nasal cannula Objective: GENERAL APPEARANCE: NAD HEENT: no scleral icterus, plus JVD, EOMI CARDIOVASCULAR: Irregular irregular LUNGS: Diminished lung sounds bilaterally ABDOMEN: soft & not tender w palpitation MUSCULOSKELETAL: +2 nonpitting edema bilaterally, some blisters on the distal part of the legs INTEGUMENT: no generalized pallor NEUROLOGICAL: cranial nerve function from 2-12 intact intact, follows commands, speech not dysarthric Assessment and plan: 84 year old male with PMHx including atrial fibrillation, COPD, chronic anemia, hypothyroidism, and prior PE presents with shortness of breath found to have significant edema and CTA showing interstitial edema with left pleural effusion admitted for management of acute exacerbation of heart failure. Shortness of breath/ acute diastolic CHF/ pulmonary hypertension Most likely secondary to acute diastolic CHF exacerbation superimposed with chronic paralyzed left hemidiaphragm CTA negative for PE Patient complains of orthopnea, dyspnea, BNP elevated at 1405 on admission Echo report showed ejection fraction of 65%, moderately dilated right ventricle with right ventricular free wall hypertrophy and normal wall motion with Doppler evidence of moderately severe to severe pulmonary hypertension. His pulmonary trunk was dilated at 3.9 cm, again in keeping with an elevated pulmonary arterial pressure. Prominently dilated right atrium and mildly dilated IVC with reduced respiratorycollapse in keeping with an elevated central venous pressure Fluid restriction Cardiac diet I's and O's PT/OT Patient developed good urine output his weight decreased from 104 kg to 101 kg Chronic respiratory failure Secondary to COPD and paralyzed left hemidiaphragm requiring 3 L of oxygen at baseline COPD/paralyzed left hemidiaphragm Not in acute exacerbation Patient is on 3 L via nasal cannula, at home at baseline Hypertension Blood pressure under control Continue home meds Chronic Atrial fibrillation, status post Watchman device, rate controlled No anticoagulation due to recent GI bleed Continue home cardioprotective medication Hypotension Patient received propranolol 3 times a day due to essential tremor I decreased her dose to twice a day However, with advanced COPD propranolol is not optimal medication. I changed propranolol to metoprolol 3 times a day to better control heart rate Constipation MiraLAX Hyperlipidemia Continue statin Skin blisters Most likely secondary to legs edema secondary to CHF exacerbation Continue to monitor VS,Fishbone, I+O VS, Fishbone, I+O Laboratory Tests 08/01/20 04:56 Vital Signs Date Time Temp Pulse Resp B/P (MAP) Pulse Ox O2 Delivery O2 Flow Rate FiO2 08/01/20 08:00 97.3 96 20 126/76 (93) 90 Nasal Cannula 4.0 I&O- Last 24 Hours up to 6 AM 08/01/20 06:00 Intake Total 2340 ml Output Total 3100 ml Balance -760 ml YISEL DE SOUZA DO Aug 01, 2020 10:20
[2020-08-01] MEDS: MONTELUKAST 10 MG TAB PO SCH (22:01)
[2020-08-01] MEDS: TAMSULOSIN 0.4 MG CAP PO SCH (22:01)
[2020-08-01] MEDS: ATORVASTATIN 20 MG TAB PO SCH (22:01)
[2020-08-02] VITALS: BP 111/76
[2020-08-02] MEDS: FUROSEMIDE 40MG/4ML VIAL (J1940) IV SCH ×3 (00:01→12:59)
[2020-08-02 04:00] VITALS: BP 104/57
[2020-08-02 06:08] LABS: HEMATOCRIT 40.7 % (42.0-52.0); HEMOGLOBIN 12.2 g/dl (13.5-17.5); MEAN CORPUSCULAR HEMOGLOBIN 28.8 pg (27.0-33.0); MEAN CORPUSCULAR VOLUME 96.2 fl (80.0-96.0); PLATELET COUNT, AUTOMATED 176 10^3/uL (150-450); RED BLOOD COUNT 4.23 10^6/uL (4.30-6.10); WHITE BLOOD COUNT 7.3 10^3/uL (4.0-10.0)
[2020-08-02 06:27] LABS: BLOOD UREA NITROGEN 19 MG/DL (7-18); CALCIUM LEVEL 8.3 MG/DL (8.8-10.2); CARBON DIOXIDE LEVEL 37 MEQ/L (21-32); CHLORIDE LEVEL 99 MEQ/L (98-107); CREATININE FOR GFR 1.17 MG/DL (0.70-1.30); GLOMERULAR FILTRATION RATE > 60.0 (>35); GLUCOSE, FASTING 89 MG/DL (70-100); POTASSIUM SERUM 3.4 MEQ/L (3.5-5.1); SODIUM LEVEL 141 MEQ/L (136-145)
[2020-08-02] MEDS: METOPROLOL TART 12.5 MG PER 1/2 TAB PO SCH (06:49)
[2020-08-02] MEDS: TIOTROPIUM INHALER/CAPSULE (SPIRIVA) INH SCH (07:15)
[2020-08-02] MEDS: ALBUTEROL SULFATE 2.5 MG/0.5 ML INH NEB SOLN INH SCH ×2 (07:15→11:07)
[2020-08-02] MEDS: ADVAIR HFA 230/21MCG INHALER INH SCH (07:15)
[2020-08-02 07:17] VITALS: BP 119/73
[2020-08-02] MEDS ORDERED: SLF 3 ML SYR IV PRN (07:45)
[2020-08-02] MEDS: CYANOCOBALAMIN 500 MCG TAB PO SCH (08:15)
[2020-08-02] MEDS: SENOKOT S TAB PO SCH (08:15)
[2020-08-02] MEDS: ASPIRIN ENTERIC 325 MG TAB PO SCH (08:15)
[2020-08-02] MEDS: ENOXAPARIN 40MG/0.4ML SYRINGE (J1650 PER 10MG) SC SCH ×2 (08:15→08:28)
[2020-08-02 08:16] VITALS: BP 119/73
[2020-08-02] MEDS: allopurinoL 100 MG TAB PO SCH (08:16)
[2020-08-02] MEDS: MAGNESIUM OXIDE 400MG TAB (MAG-OX) PO SCH (08:16)
[2020-08-02] MEDS: predniSONE 10 MG TAB PO SCH (08:16)
[2020-08-02] MEDS: POTASSIUM CHLORIDE 10 MEQ SR TABLET PO SCH (08:17)
[2020-08-02] MEDS: FERROUS SULFATE 325MG TAB PO SCH (08:17)
[2020-08-02] MEDS: SODIUM CHLORIDE NASAL 0.65% SPRAY BTL (OCEAN) SCH (08:28)
[2020-08-02] MEDS ORDERED: METO1TAB87 PO (10:15)
[2020-08-02] MEDS ORDERED: TORS100T PO (10:15)
[2020-08-02] MEDS ORDERED: POTASSIUM CHLORIDE 10 MEQ SR TABLET PO ONE (10:30)
[2020-08-02 12:00] VITALS: BP 120/76
[2020-08-02] MEDS ORDERED: SLF 3 ML SYR IV SCH (14:00)
--- NOTE | 2020-08-02 16:06 | DS.PDOC ---
Discharge Summary General Date of Admission Jul 28, 2020 at 20:10 Date of Discharge 08/02/20 Discharge Summary PROCEDURES PERFORMED DURING STAY: [None]. ADMITTING DIAGNOSES: Shortness of breath/ acute diastolic CHF/ pulmonary hypertension Chronic respiratory failure COPD/paralyzed left hemidiaphragm Hypertension Chronic Atrial fibrillation Hypotension Constipation Hyperlipidemia Skin blisters DISCHARGE DIAGNOSES: Shortness of breath/ acute diastolic CHF/ pulmonary hypertension Chronic respiratory failure COPD/paralyzed left hemidiaphragm Hypertension Chronic Atrial fibrillation Hypotension Constipation Hyperlipidemia Skin blisters COMPLICATIONS/CHIEF COMPLAINT: Congestive Heart Failure. HISTORY OF PRESENT ILLNESS: 84 year old male with PMHx detailed below presented to the ED with shortness of breath. He states over the past few days he has noticed decreased ability to walk around [facility] in the evening due to worsening shortness of breath. He states this wasn't bothering him too much, so he didn't feel it needed to be addressed. Patient states that this morning when he was showering, he needed to take multiple breaks to catch his breath. He states that he had a dentist appointment and had worsening shortness of breath which he noticed while walking to the car for his ride as well as walking out of the dentist office. Patient states while walking to the car, his shortness of breath became overwhelming and he felt he could not catch his breath. EMS was called and the patient was brought to the ED. Additionally, the patient notes worsening swelling of his legs over the past few weeks. He states he has gained at least 25lbs over the past few months. Called and spoke with daughter who mentioned his diuretic was changed a few months ago by the wastewater treatment engineer, although she is not sure if it was increased or decreased. Patient mentions he is scheduled for pacemaker placement on 08/09/2020. HOSPITAL COURSE: During the hospital stay the following issues addressed Shortness of breath/ acute diastolic CHF/ pulmonary hypertension Most likely secondary to acute diastolic CHF exacerbation superimposed with chronic paralyzed left hemidiaphragm CTA negative for PE Patient complains of orthopnea, dyspnea, BNP elevated at 1405 on admission Echo report showed ejection fraction of 65%, moderately dilated right ventricle with right ventricular free wall hypertrophy and normal wall motion with Doppler evidence of moderately severe to severe pulmonary hypertension. His pulmonary trunk was dilated at 3.9 cm, again in keeping with an elevated pulmonary arterial pressure. Prominently dilated right atrium and mildly dilated IVC with reduced respiratoryc ollapse in keeping with an elevated central venous pressure Fluid restriction Cardiac diet I's and O's PT/OT Patient developed good urine output his weight decreased from 104 kg to 101 kg Chronic respiratory failure Secondary to COPD and paralyzed left hemidiaphragm requiring 3 L of oxygen at baseline COPD/paralyzed left hemidiaphragm Not in acute exacerbation Patient is on 3 L via nasal cannula, at home at baseline Hypertension Blood pressure under control Continue home meds Chronic Atrial fibrillation, status post Watchman device, rate controlled No anticoagulation due to recent GI bleed Continue home cardioprotective medication Hypotension Patient received propranolol 3 times a day due to essential tremor However, with advanced COPD propranolol is not optimal medication. I changed propranolol to metoprolol 3 times a day to better control heart rate Constipation MiraLAX Hyperlipidemia Continue statin Skin blisters Most likely secondary to legs edema secondary to CHF exacerbation Continue to monitor]] DISCHARGE MEDICATIONS: Please see below. ALLERGIES: Please see below. PHYSICAL EXAMINATION ON DISCHARGE: VITAL SIGNS: Please see below. GENERAL APPEARANCE: NAD HEENT: no scleral icterus, plus JVD, EOMI CARDIOVASCULAR: Irregular irregular LUNGS: Diminished lung sounds bilaterally ABDOMEN: soft & not tender w palpitation MUSCULOSKELETAL: +2 nonpitting edema bilaterally, some blisters on the distal part of the legs INTEGUMENT: no generalized pallor NEUROLOGICAL: cranial nerve function from 2-12 intact intact, follows commands, speech not dysarthric LABORATORY DATA: Please see below. IMAGING: See above PROGNOSIS: Fair ACTIVITY: [As tolerated]. DIET: Cardiac DISPOSITION: O4 Xfer [facility]. ITEMS TO FOLLOWUP ON ON OUTPATIENT: Follow-up with wastewater treatment engineer in 3-5 days and PCP in 2-3 days DISCHARGE CONDITION: [Stable]. TIME SPENT ON DISCHARGE: 30 minutes. Vital Signs/I&Os Vital Signs Date Time Temp Pulse Resp B/P (MAP) Pulse Ox O2 Delivery O2 Flow Rate FiO2 08/02/20 12:00 98.3 113 19 120/76 (91) 94 Nasal Cannula 4.0 I&O- Last 24 Hours up to 6 AM 08/02/20 06:00 Intake Total 1350 ml Output Total 3520 ml Balance -2170 ml Laboratory Data Labs 24H Laboratory Tests 2 08/02/20 05:29: Nucleated Red Blood Cells % (auto) 0.0, Anion Gap 5L, Glomerular Filtration Rate > 60.0, Calcium Level 8.3L 08/02/20 11:17: Coronavirus (COVID-19)(PCR) NEGATIVE CBC/BMP Laboratory Tests 08/02/20 05:29 Microbiology Microbiology 07/28/20 Blood Culture - Preliminary, Resulted No Growth after 72 hours. All specime... 07/28/20 Blood Culture - Preliminary, Resulted No Growth after 72 hours. All specime... Discharge Medications Scheduled Albuterol Sulf (Albuterol Sulfate) 2.5 Mg/3 Ml Nebu, 2.5 MG INH QID, (Reported) Allopurinol (Allopurinol) 100 Mg Tablet, 100 MG PO DAILY, (Reported) Aspirin (Aspirin EC) 325 Mg Tablet.dr, 325 MG PO DAILY, (Reported) Atorvastatin Calcium (Atorvastatin Calcium) 40 Mg Tab, 40 MG PO QHS, (Reported) Cyanocobalamin (Vitamin B-12) (Vitamin B-12) 1,000 Mcg Tab, 1,000 MCG PO DAILY, (Reported) Ferrous Sulfate (Ferrous Sulfate) 325 Mg Tablet, 325 MG PO DAILY, (Reported) Fluticasone/Umeclidin/Vilanter (Trelegy Ellipta 100-62.5-25) 1 Each Blst.w.dev, 1 PUFF INH DAILY, (Reported) Magnesium Oxide (Magnesium Oxide) 400 Mg Tab, 400 MG PO BID, (Reported) 0900, 1700 Metoprolol Tartrate (Metoprolol Tartrate) 25 Mg Tablet, 12.5 MG PO Q8H Montelukast Sodium (Montelukast Sodium) 10 Mg Tab, 10 MG PO QHS, (Reported) Potassium Chloride (Potassium Chloride) 20 Meq Tab.er.prt, 20 MEQ PO BID, (Reported) Prednisone (Prednisone) 5 Mg Tablet, 5 MG PO Q2D, (Reported) Prednisone (Prednisone) 10 Mg Tablet, 10 MG PO Q2D, (Reported) Sennosides/Docusate Sodium (Senokot-S Tablet) 1 Tab Tab, 1 TAB PO BID, (Reported) Sodium Chloride (Saline Nasal [place]) 44 Ml [place], 1 SPRAY NARES BID, (Reported) Tamsulosin HCl (Flomax) 0.4 Mg Cap, 0.4 MG PO QHS, (Reported) Torsemide (Torsemide) 100 Mg Tablet, 100 MG PO DAILY Triamcinolone Acet (Triamcinolone Acetonide 0.1% Oint) 15 Gm Oint...g., 1 APLCT TOP BID, (Reported) APPLY TO LEGS dilTIAZem HCl (Diltiazem 24Hr Cd) 240 Mg Cap.er.24h, 240 MG PO DAILY, (Reported) Scheduled PRN Acetaminophen (Tylenol) 325 Mg Tablet, 650 MG PO Q4H PRN for PAIN, (Reported) Albuterol Sulfate (Ventolin Hfa) 18 Gm Hfa.aer.ad, 2 PUFFS INH Q6H PRN for SHORTNESS OF BREATH, (Reported) Albuterol Sulfate (Albuterol Sulfate) 2.5 Mg/0.5 Ml Vial.neb, 2.5 MG INH Q6H PRN for SHORTNESS OF BREATH, (Reported) Magnesium Hydroxide (Milk of Magnesia) 400 Mg/5 Ml Oral.susp, 2,400 MG PO DAILY PRN for CONSTIPATION, (Reported) Nitroglycerin (Nitrostat) 0.4 Mg Tab.subl, 0.4 MG SL NITRO PRN for CHEST PAIN, (Reported) Olopatadine HCl (Pataday) 0.2% 2.5ML Drops, 1 DROP OU BID PRN for ALLERGIES, (Reported) Propylene Glycol/Peg 400 (Lubricant Eye Drops) 15 Ml Drops, 1 DROP OU 5XD PRN for DRY EYES, (Reported) Sodium Chloride ([place]) 104 Ml [place], 1 SPRAY NA Q2H PRN for NASAL DRYNESS, (Reported) EACH NOSTRIL Trazodone HCl (Trazodone HCl) 50 Mg Tablet, 100 MG PO QHS PRN for SLEEP, (Reported) Allergies Coded Allergies: cefuroxime (Verified Adverse Reaction, Mild, GI UPSET, 04/08/19) ciprofloxacin (Verified Adverse Reaction, Mild, GI UPSET, 04/08/19) YISEL DE SOUZA DO Aug 02, 2020 16:06
== END 2020-08-02 13:41 | DRG 292 ==
LOC: M ED 16:59 → M ED INP 20:10 → ENRESERV 21:10 → M PCU 22:13
PROVIDERS: ADMIT Family Medicine; ATTEND Internal Medicine
DX: I11.0 Hypertensive heart disease with heart failure (principal); J96.11 Chronic respiratory failure with hypoxia; I48.20 Chronic atrial fibrillation, unspecified; I50.33 Acute on chronic diastolic (congestive) heart failure; J44.9 Chronic obstructive pulmonary disease, unspecified; J98.6 Disorders of diaphragm; E78.5 Hyperlipidemia, unspecified; K59.00 Constipation, unspecified; I27.20 Pulmonary hypertension, unspecified; Z79.899 Other long term (current) drug therapy; Z79.82 Long term (current) use of aspirin; Z88.8 Allergy status to other drugs, medicaments and biological substances; Z79.52 Long term (current) use of systemic steroids; G25.0 Essential tremor; Z85.828 Personal history of other malignant neoplasm of skin; Z95.2 Presence of prosthetic heart valve; Z98.41 Cataract extraction status, right eye; Z98.42 Cataract extraction status, left eye; Z87.891 Personal history of nicotine dependence; D50.9 Iron deficiency anemia, unspecified

== ENCOUNTER → 2020-08-01 | Outpatient (REF) | payer MEDICARE, OTHER ==
[~2020-08-01] MED LIST changes: +ALB2.5NEB INH; +ALLO100T PO; +ASPI32ECTA PO; +DILT240C83 PO; +FERR1TAB8 PO; +HM S0.65 NARES; +METO1TAB87 PO; +OLOP2.5D3 OU; +PROP15DR3 OU; +TORS100T PO; +TRAZ-186 PO; +TREL1AER INH; +TRIA1OI TOP
== END ==
PROVIDERS: ATTEND Internal Medicine
DX: Z53.8 Procedure and treatment not carried out for other reasons (principal)

== ENCOUNTER → 2020-08-04 | Outpatient (CLI) | payer MEDICARE, OTHER | LOC: M LABSMTC 13:27 | PROVIDERS: ATTEND Internal Medicine Cardiovascular Disease | DX: Z11.52 Encounter for screening for COVID-19 (principal) ==

== ENCOUNTER → 2020-08-18 | Outpatient (REF) | payer MEDICARE, OTHER ==
[2020-08-18 10:47] LABS: CALCIUM LEVEL 9.1 MG/DL (8.8-10.2); CREATININE FOR GFR 1.22 MG/DL (0.70-1.30); MAGNESIUM LEVEL 2.3 MG/DL (1.8-2.4); POTASSIUM SERUM 4.2 MEQ/L (3.5-5.1)
== END ==
PROVIDERS: ATTEND Internal Medicine Cardiovascular Disease
DX: I50.9 Heart failure, unspecified (principal); I48.0 Paroxysmal atrial fibrillation

== ENCOUNTER → 2020-08-31 | Outpatient (REF) | payer MEDICARE, OTHER ==
[2020-08-31 10:50] LABS: CALCIUM LEVEL 9.5 MG/DL (8.8-10.2); CREATININE FOR GFR 1.6 MG/DL (0.70-1.30); GLOMERULAR FILTRATION RATE 43.8 (>35); POTASSIUM SERUM 2.4 MEQ/L (3.5-5.1)
== END ==
PROVIDERS: ATTEND Internal Medicine Cardiovascular Disease
DX: I50.9 Heart failure, unspecified (principal); I48.0 Paroxysmal atrial fibrillation

== ENCOUNTER → 2020-09-07 | Outpatient (REF) | payer MEDICARE, OTHER ==
[2020-09-07 12:30] LABS: CALCIUM LEVEL 8.7 MG/DL (8.8-10.2); CREATININE FOR GFR 1.32 MG/DL (0.70-1.30); GLOMERULAR FILTRATION RATE 54.7 (>35); POTASSIUM SERUM 4.9 MEQ/L (3.5-5.1)
== END ==
PROVIDERS: ATTEND Internal Medicine Cardiovascular Disease
DX: I48.0 Paroxysmal atrial fibrillation (principal)

== ENCOUNTER 2020-12-06 12:01 | Emergency (ER) | payer MEDICARE, OTHER ==
[~2020-12-06] VITALS: Ht 177.8 cm; Wt 90.9 kg
[~2020-12-06 12:01] MED LIST changes: -FINA5TAB2 PO; -METO25TA PO; -PRIM50TA6 PO; -SPIR-10 PO; -VITA-113 SL
[2020-12-06] MEDS ORDERED: FINA5TAB2 PO (13:40)
[2020-12-06] MEDS ORDERED: FURO40TA2 PO (13:40)
[2020-12-06] MEDS ORDERED: SPIR-10 PO (13:40)
[2020-12-06] MEDS ORDERED: PRIM50TA6 PO (13:40)
[2020-12-06] MEDS ORDERED: METO25TA PO (13:40)
[2020-12-06] MEDS ORDERED: VITA-113 SL (13:40)
[2020-12-06 14:24] LABS: CREATININE FOR GFR 1.57 MG/DL (0.70-1.30); GLOMERULAR FILTRATION RATE 44.8 (>35); MAGNESIUM LEVEL 2.5 MG/DL (1.8-2.4)
[2020-12-06 15:42] VITALS: BP 120/78
--- NOTE | 2020-12-06 22:04 | ECGEPIP ---
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
== END 2020-12-06 18:15 | disposition home or self-care (01) ==
LOC: M ED 12:01
DX: E87.6 Hypokalemia (principal); G62.9 Polyneuropathy, unspecified; J44.9 Chronic obstructive pulmonary disease, unspecified; E03.9 Hypothyroidism, unspecified; Z99.81 Dependence on supplemental oxygen; Z86.711 Personal history of pulmonary embolism; Z79.899 Other long term (current) drug therapy; Z79.82 Long term (current) use of aspirin; Z88.1 Allergy status to other antibiotic agents; Z88.8 Allergy status to other drugs, medicaments and biological substances

== ENCOUNTER → 2020-12-06 | Outpatient (REF) | payer MEDICARE, OTHER ==
[~2020-12-06] MED LIST changes: +CETI-39 PO; +FINA5TAB2 PO; -HM A10TA PO; +METO25TA PO; +PRIM50TA6 PO; +SPIR-10 PO; +VITA-113 SL
[2020-12-06 10:53] LABS: HEMOGLOBIN A1c 5.9 %
[2020-12-06 11:01] LABS: ALBUMIN 3.4 GM/DL (3.2-5.2); BLOOD UREA NITROGEN 39 MG/DL (7-18); CALCIUM LEVEL 8.7 MG/DL (8.8-10.2); CARBON DIOXIDE LEVEL 38 MEQ/L (21-32); CHLORIDE LEVEL 87 MEQ/L (98-107); CREATININE FOR GFR 1.56 MG/DL (0.70-1.30); FOLATE 13.7 NG/ML; GLOMERULAR FILTRATION RATE 45.1 (>35); GLUCOSE, FASTING 112 MG/DL (70-100); PHOSPHORUS LEVEL 3.9 MG/DL (2.5-4.9); POTASSIUM SERUM 2.6 MEQ/L (3.5-5.1); SODIUM LEVEL 131 MEQ/L (136-145); VITAMIN B12 LEVEL 1828 PG/ML
[2020-12-07 11:11] LABS: ALBUMIN 3.73 GM/DL (3.29-5.55); ALBUMIN % 53.3 % (55.8-66.1); ALPHA-1-GLOBULIN % 5.9 % (2.9-4.9); ALPHA-1-GLOBULINS 0.41 GM/DL (0.17-0.41); ALPHA-2-GLOBULINS 0.87 GM/DL (0.42-0.99); ALPHA-2-GLOBULINS % 12.4 % (7.1-11.8); BETA-1-GLOBULINS 0.46 GM/DL (0.28-0.60); BETA-1-GLOBULINS % 6.5 % (4.7-7.2); BETA-2-GLOBULINS 0.46 GM/DL (0.19-0.55); BETA-2-GLOBULINS % 6.5 % (3.2-6.5); GAMMA GLOBULIN % 15.4 % (11.1-18.8); GAMMA GLOBULINS 1.08 GM/DL (0.65-1.58)
[2020-12-08 11:52] LABS: DRVV SCREEN 58.9 SEC
[2020-12-08 12:09] LABS: PTT LUPUS TYPE ANTICOAG SCREEN 1.5 (0-1.2)
[2020-12-08 12:16] LABS: DRVV CONFIRM 45.3 SEC; LUPUS CONFIRM RATIO 1.2
[2020-12-08 12:18] LABS: NORMALIZED RATIO 1.25 (0.00-1.20)
== END ==
PROVIDERS: ATTEND Psychiatry & Neurology Neurology
DX: G62.9 Polyneuropathy, unspecified (principal)

== ENCOUNTER → 2020-12-20 | Outpatient (REF) | payer MEDICARE, OTHER ==
[~2020-12-20] MED LIST changes: -AMIO200T3 PO; +AMIO200T49 PO; -CETI-39 PO; +FINA5TAB2 PO; +GNPTAB36 PO; -IBUP200T45 PO; +IBUP200T46 PO; -KLOR10TA76 PO; -KLOR20TA42 PO; -LEVO500T3 PO; +LEVO500T4 PO; +LOSA50TA28 PO; -LOSA50TA88 PO; -MAGN400T3 PO; +MAGN400T33 PO; +METO25TA PO; -MONT10TA10 PO; +MONT10TA97 PO; +POTA-136 PO; +POTA-141 PO; +POTA-151 PO; -POTA20TA6 PO; +PRIM50TA6 PO; +SPIR-10 PO; +VITA-113 SL
[2020-12-20 12:29] LABS: BASO % 0.5 % (0.0-1.0); EOS # 0.1 10^3/uL (0.0-0.5); EOS % 0.7 % (0.0-3.0); HEMATOCRIT 45.3 % (42.0-52.0); HEMOGLOBIN 14.1 g/dl (13.5-17.5); LYMPH # 0.9 10^3/uL (1.5-5.0); LYMPH % 11.3 % (24.0-44.0); MEAN CORPUSCULAR HEMOGLOBIN 28.7 pg (27.0-33.0); MEAN CORPUSCULAR HGB CONC 31.1 g/dl (32.0-36.5); MEAN CORPUSCULAR VOLUME 92.1 fl (80.0-96.0); MONO # 0.8 10^3/uL (0.0-0.8); MONO % 10.2 % (2.0-8.0); NEUTROPHILS # 5.9 10^3/uL (1.5-8.5); NEUTROPHILS % 76.9 % (36.0-66.0); PLATELET COUNT, AUTOMATED 238 10^3/uL (150-450); RED BLOOD COUNT 4.92 10^6/uL (4.30-6.10); WHITE BLOOD COUNT 7.6 10^3/uL (4.0-10.0)
[2020-12-20 13:01] LABS: ALBUMIN 3.3 GM/DL (3.2-5.2); BILIRUBIN,TOTAL 0.5 MG/DL (0.2-1.0); CALCIUM LEVEL 8.4 MG/DL (8.8-10.2); CREATININE FOR GFR 1.63 MG/DL (0.70-1.30); GLOMERULAR FILTRATION RATE 42.8 (>35); POTASSIUM SERUM 3.1 MEQ/L (3.5-5.1); THYROID STIMULATING HORMONE 0.52 uIU/ML (0.358-3.740); TOTAL PROTEIN 6.9 GM/DL (6.4-8.2); URIC ACID 9.8 MG/DL (3.5-7.2)
== END ==
PROVIDERS: ATTEND Internal Medicine
DX: D50.8 Other iron deficiency anemias (principal); E78.00 Pure hypercholesterolemia, unspecified; M10.9 Gout, unspecified; E03.9 Hypothyroidism, unspecified

== ENCOUNTER → 2021-04-20 | Outpatient (REF) | payer MEDICARE, OTHER ==
[~2021-04-20] MED LIST changes: +AMIO200T3 PO; -AMIO200T49 PO; +CETI-43 PO; -GNPTAB36 PO; +LEVO500T3 PO; -LEVO500T4 PO; -LOSA50TA28 PO; +LOSA50TA88 PO; +MONT10TA10 PO; -MONT10TA97 PO; -POTA-151 PO; +POTA20TA6 PO
== END ==
PROVIDERS: ATTEND Internal Medicine
DX: I10 Essential (primary) hypertension (principal)

== ENCOUNTER → 2021-04-25 | Outpatient (REF) | payer MEDICARE, OTHER ==
[2021-04-25 12:19] LABS: CALCIUM LEVEL 9.1 MG/DL (8.8-10.2); CREATININE FOR GFR 1.41 MG/DL (0.70-1.30); GLOMERULAR FILTRATION RATE 50.6 (>35); MAGNESIUM LEVEL 2.6 MG/DL (1.8-2.4); POTASSIUM SERUM 3.7 MEQ/L (3.5-5.1)
== END ==
PROVIDERS: ATTEND Internal Medicine
DX: R60.0 Localized edema (principal)

== ENCOUNTER → 2021-05-23 | Outpatient (REF) | payer MEDICARE, OTHER ==
[~2021-05-23] MED LIST changes: -AMIO200T3 PO; +AMIO200T49 PO; -CETI-43 PO; +GNPTAB36 PO; -LEVO500T3 PO; +LEVO500T4 PO; +LOSA50TA28 PO; -LOSA50TA88 PO; -MONT10TA10 PO; +MONT10TA97 PO; +POTA-151 PO; -POTA20TA6 PO
[2021-05-23 11:36] LABS: BASO % 0.1 % (0.0-1.0); EOS # 0.1 10^3/uL (0.0-0.5); EOS % 0.7 % (0.0-3.0); HEMOGLOBIN 14.3 g/dl (13.5-17.5); LYMPH # 0.6 10^3/uL (1.5-5.0); LYMPH % 8.1 % (24.0-44.0); MEAN CORPUSCULAR HEMOGLOBIN 29.9 pg (27.0-33.0); MEAN CORPUSCULAR HGB CONC 31.8 g/dl (32.0-36.5); MEAN CORPUSCULAR VOLUME 93.9 fl (80.0-96.0); MONO # 0.7 10^3/uL (0.0-0.8); MONO % 9.3 % (2.0-8.0); NEUTROPHILS # 6.2 10^3/uL (1.5-8.5); NEUTROPHILS % 81.4 % (36.0-66.0); PLATELET COUNT, AUTOMATED 187 10^3/uL (150-450); RED BLOOD COUNT 4.79 10^6/uL (4.30-6.10); WHITE BLOOD COUNT 7.6 10^3/uL (4.0-10.0)
[2021-05-23 12:25] LABS: BILIRUBIN,TOTAL 0.3 MG/DL (0.2-1.0); CALCIUM LEVEL 9.1 MG/DL (8.8-10.2); CHOLESTEROL RISK RATIO 2.75 (<5); CREATININE FOR GFR 1.5 MG/DL (0.70-1.30); GLOMERULAR FILTRATION RATE 47.1 (>35); MAGNESIUM LEVEL 2.3 MG/DL (1.8-2.4); POTASSIUM SERUM 3.5 MEQ/L (3.5-5.1); TOTAL PROTEIN 6.6 GM/DL (6.4-8.2)
== END ==
PROVIDERS: ATTEND Internal Medicine
DX: I10 Essential (primary) hypertension (principal); D50.9 Iron deficiency anemia, unspecified; E78.00 Pure hypercholesterolemia, unspecified

== ENCOUNTER 2021-08-01 17:17 | Inpatient (IN) | payer MEDICARE, OTHER ==
[~2021-08-01] VITALS: Ht 177.8 cm; Wt 90.0 kg
[2021-08-01] MEDS ORDERED: ROPI1TAB3 PO (22:32)
[2021-08-01] MEDS ORDERED: GABA-1171 PO (22:32)
[2021-08-01] MEDS ORDERED: FLUT15.820 (22:32)
[2021-08-01] MEDS ORDERED: OCEA0.654 (22:32)
[2021-08-01] MEDS ORDERED: PRIM250T8 PO ×2 (22:32)
[2021-08-01] MEDS ORDERED: OPTI0.5D5 OU (22:32)
[2021-08-01] MEDS ORDERED: SPIR50TA4 PO (22:32)
[2021-08-01] MEDS ORDERED: ASPI-1 PO (22:32)
[2021-08-01] MEDS ORDERED: SALI1GEL (22:32)
[2021-08-01] MEDS ORDERED: HOME MED LIST COMPLETE! XX SCH (22:35)
[2021-08-01 22:43] LABS: BASO % 0.2 % (0.0-1.0); EOS % 0.5 % (0.0-3.0); HEMATOCRIT 43.1 % (42.0-52.0); HEMOGLOBIN 13.3 g/dl (13.5-17.5); LYMPH # 0.6 10^3/uL (1.5-5.0); LYMPH % 9.4 % (24.0-44.0); MEAN CORPUSCULAR HEMOGLOBIN 29.5 pg (27.0-33.0); MEAN CORPUSCULAR HGB CONC 30.9 g/dl (32.0-36.5); MEAN CORPUSCULAR VOLUME 95.6 fl (80.0-96.0); MONO # 0.7 10^3/uL (0.0-0.8); MONO % 11.3 % (2.0-8.0); NEUTROPHILS # 5.1 10^3/uL (1.5-8.5); NEUTROPHILS % 78.1 % (36.0-66.0); PLATELET COUNT, AUTOMATED 236 10^3/uL (150-450); RED BLOOD COUNT 4.51 10^6/uL (4.30-6.10); WHITE BLOOD COUNT 6.5 10^3/uL (4.0-10.0)
[2021-08-01 23:15] LABS: CK-MB VALUE MASS 2.7 NG/ML (<3.6); MB/CK RELATIVE INDEX 5.09 (< OR =4)
[2021-08-01 23:20] LABS: ALBUMIN 3.2 GM/DL (3.2-5.2); BILIRUBIN,DIRECT 0.1 MG/DL (0.0-0.2); BILIRUBIN,TOTAL 0.4 MG/DL (0.2-1.0); CALCIUM LEVEL 8.5 MG/DL (8.8-10.2); CREATININE FOR GFR 1.65 MG/DL (0.70-1.30); GLOMERULAR FILTRATION RATE 42.2 (>35); POTASSIUM SERUM 4.1 MEQ/L (3.5-5.1); THYROID STIMULATING HORMONE 1.3 uIU/ML (0.358-3.740)
[2021-08-01] MEDS ORDERED: FUROSEMIDE 40MG/4ML VIAL (J1940) IV ONE (23:55)
[2021-08-02] VITALS (7 sets, daily range): BP systolic 100–128; BP diastolic 54–73
[2021-08-02] MEDS ORDERED: MOM 30ML SUSPENSION UDC PO PRN (00:45)
[2021-08-02] MEDS ORDERED: traZODone 100 MG TAB PO PRN (00:45)
[2021-08-02] MEDS ORDERED: ALBUTEROL SULFATE 2.5 MG/0.5 ML INH NEB SOLN INH PRN (00:45)
[2021-08-02] MEDS ORDERED: ACETAMINOPHEN TAB 650MG DOSE (2X325MG) PO PRN (00:45)
[2021-08-02 05:20] LABS: HEMATOCRIT 38.2 % (42.0-52.0); HEMOGLOBIN 12.2 g/dl (13.5-17.5); MEAN CORPUSCULAR HEMOGLOBIN 29.9 pg (27.0-33.0); MEAN CORPUSCULAR HGB CONC 31.9 g/dl (32.0-36.5); MEAN CORPUSCULAR VOLUME 93.6 fl (80.0-96.0); PLATELET COUNT, AUTOMATED 206 10^3/uL (150-450); RED BLOOD COUNT 4.08 10^6/uL (4.30-6.10); WHITE BLOOD COUNT 6.3 10^3/uL (4.0-10.0)
[2021-08-02] MEDS: HEPARIN SOD (PORCINE) 5000UNITS/ML 1ML VIAL/SYRINGE SC SCH ×3 (05:43→21:49)
[2021-08-02 05:45] LABS: BILIRUBIN,TOTAL 0.3 MG/DL (0.2-1.0); CALCIUM LEVEL 8.5 MG/DL (8.8-10.2); CREATININE FOR GFR 1.51 MG/DL (0.70-1.30); GLOMERULAR FILTRATION RATE 46.8 (>35); POTASSIUM SERUM 3.4 MEQ/L (3.5-5.1); TOTAL PROTEIN 6.9 GM/DL (6.4-8.2)
[2021-08-02] MEDS: ALBUTEROL SULFATE 2.5 MG/0.5 ML INH NEB SOLN INH SCH ×4 (07:25→19:24)
[2021-08-02] MEDS ORDERED: FUROSEMIDE 100MG/10ML VIAL (J1940) IV SCH (08:00)
[2021-08-02] MEDS: POTASSIUM CHLORIDE 10MEQ SR TABLET PO SCH ×3 (08:47→21:48)
[2021-08-02] MEDS: allopurinoL 100 MG TAB PO SCH (08:47)
[2021-08-02] MEDS: MAGNESIUM OXIDE 400MG TAB (MAG-OX) PO SCH ×2 (08:47→16:18)
[2021-08-02] MEDS: ASPIRIN 325 MG TAB PO SCH (08:47)
[2021-08-02] MEDS: GABAPENTIN 100 MG CAP PO SCH ×3 (08:47→21:48)
[2021-08-02] MEDS: SENOKOT S TAB PO SCH ×2 (08:47→21:49)
[2021-08-02] MEDS: FINASTERIDE 5 MG TAB PO SCH (08:48)
[2021-08-02] MEDS: MIDODRINE 5 MG TAB PO SCH ×3 (08:52→16:18)
[2021-08-02] MEDS ORDERED: metOLazone 2.5 MG TAB PO SCH (09:00)
[2021-08-02] MEDS ORDERED: SPIRONOLACTONE 50 MG TAB PO SCH (09:00)
[2021-08-02] MEDS: PRIMIDONE 125MG PER 1/2 TABLET PO SCH (09:44)
[2021-08-02] MEDS ORDERED: FUROSEMIDE injection 250 MG in D5W 225 ML IV SCH (18:00)
[2021-08-02] MEDS ORDERED: rOPINIRole 1MG TAB PO SCH (21:00)
[2021-08-02] MEDS ORDERED: ATORVASTATIN 20 MG TAB PO SCH (21:00)
[2021-08-02] MEDS ORDERED: TAMSULOSIN 0.4 MG CAP PO SCH (21:00)
[2021-08-02] MEDS: PRIMIDONE 250 MG TAB PO SCH (21:48)
[2021-08-03] VITALS (8 sets, daily range): BP systolic 90–118; BP diastolic 0–79
[2021-08-03] MEDS: HEPARIN SOD (PORCINE) 5000UNITS/ML 1ML VIAL/SYRINGE SC SCH ×2 (05:15→13:02)
[2021-08-03] MEDS: ALBUTEROL SULFATE 2.5 MG/0.5 ML INH NEB SOLN INH SCH ×3 (07:31→15:28)
[2021-08-03 08:07] LABS: CALCIUM LEVEL 8.5 MG/DL (8.8-10.2); CREATININE FOR GFR 1.46 MG/DL (0.70-1.30); GLOMERULAR FILTRATION RATE 48.6 (>35); MAGNESIUM LEVEL 2.7 MG/DL (1.8-2.4); POTASSIUM SERUM 3.6 MEQ/L (3.5-5.1)
[2021-08-03] MEDS: FUROSEMIDE 40 MG TAB PO SCH ×2 (09:00→16:14)
[2021-08-03] MEDS ORDERED: predniSONE 5 MG TAB PO SCH (09:00)
[2021-08-03] MEDS: MIDODRINE 5 MG TAB PO SCH ×3 (09:31→16:09)
[2021-08-03] MEDS: ASPIRIN 325 MG TAB PO SCH (09:31)
[2021-08-03] MEDS: allopurinoL 100 MG TAB PO SCH (09:31)
[2021-08-03] MEDS: POTASSIUM CHLORIDE 10MEQ SR TABLET PO SCH ×2 (09:31→16:15)
[2021-08-03] MEDS: FINASTERIDE 5 MG TAB PO SCH (09:31)
[2021-08-03] MEDS: GABAPENTIN 100 MG CAP PO SCH ×2 (09:32→16:09)
[2021-08-03] MEDS: MAGNESIUM OXIDE 400MG TAB (MAG-OX) PO SCH ×2 (09:32→16:14)
[2021-08-03] MEDS: SENOKOT S TAB PO SCH (09:32)
[2021-08-03] MEDS ORDERED: MIDO10TA PO (10:46)
[2021-08-03] MEDS: PRIMIDONE 250 MG TAB PO SCH (13:34)
[2021-08-03] MEDS: PRIMIDONE 125MG PER 1/2 TABLET PO SCH (13:36)
== END 2021-08-03 17:15 | DRG 291 ==
LOC: M ED 17:17 → M ED INP 23:48 → M PCU 08-02 02:50
PROVIDERS: ADMIT Family Medicine; ATTEND General Practice
DX: I13.0 Hypertensive heart and chronic kidney disease with heart failure and stage 1 through stage 4 chronic kidney disease, or unspecified chronic kidney disease (principal); I50.33 Acute on chronic diastolic (congestive) heart failure; J96.11 Chronic respiratory failure with hypoxia; I48.20 Chronic atrial fibrillation, unspecified; I08.1 Rheumatic disorders of both mitral and tricuspid valves; J44.9 Chronic obstructive pulmonary disease, unspecified; G25.0 Essential tremor; N18.30 Chronic kidney disease, stage 3 unspecified; Z79.52 Long term (current) use of systemic steroids; D50.9 Iron deficiency anemia, unspecified; I25.10 Atherosclerotic heart disease of native coronary artery without angina pectoris; R01.1 Cardiac murmur, unspecified; Z66 Do not resuscitate; Z99.81 Dependence on supplemental oxygen; E78.5 Hyperlipidemia, unspecified; E03.9 Hypothyroidism, unspecified; J98.6 Disorders of diaphragm; I27.20 Pulmonary hypertension, unspecified; Z91.19 Patient's noncompliance with other medical treatment and regimen; G25.81 Restless legs syndrome; Z86.718 Personal history of other venous thrombosis and embolism; Z86.711 Personal history of pulmonary embolism; I27.81 Cor pulmonale (chronic); Z79.899 Other long term (current) drug therapy; Z79.82 Long term (current) use of aspirin; Z85.828 Personal history of other malignant neoplasm of skin; Z95.2 Presence of prosthetic heart valve; Z87.891 Personal history of nicotine dependence

== ENCOUNTER 2021-08-03 14:04 | Inpatient (IN) | payer MEDICARE, OTHER ==
[~2021-08-03] VITALS: Ht 177.8 cm; Wt 98.0 kg
[~2021-08-03 14:04] MED LIST changes: +ASPI-1 PO; +FLUT15.820; +GABA-1171 PO; +MIDO10TA PO; +OPTI0.5D5 OU; +PRIM250T8 PO; +ROPI1TAB3 PO; +SALI1GEL; +SPIR50TA4 PO
[2021-08-03] MEDS ORDERED: BISACODYL 10 MG SUPP PR PRN (14:40)
[2021-08-03] MEDS ORDERED: ALBUTEROL 90 MCG/ACT 8GM HFA INHALER INH PRN ×2 (14:40)
[2021-08-03] MEDS ORDERED: ACETAMINOPHEN TAB 650MG DOSE (2X325MG) PO PRN (14:40)
[2021-08-03] MEDS ORDERED: REMEDY PHYTOPLEX Z-GUARD PASTE 113GM TUBE (FROM STOREROOM PRODUCT) TOP SCH (16:00)
[2021-08-03] MEDS: REMEDY PHYTOPLEX Z-GUARD PASTE 113GM TUBE (FROM STOREROOM PRODUCT) TOP SCH ×2 (16:00→19:46)
[2021-08-03 17:20] VITALS: BP 128/80
[2021-08-03] MEDS: FLUTICASONE PROP 0.05% NASAL SPRAY 16 GM (FLONASE) NARES SCH (19:45)
[2021-08-03] MEDS: POLYVINYL ALCOHOL OPHTH SOLN 15 ML(LIQUITEARS) OU SCH (19:46)
[2021-08-03 20:00] VITALS: BP 123/82
[2021-08-03] MEDS: FLUTICASONE HFA 110 MCG 12 GM INHALER (FLOVENT) INH SCH (20:50)
[2021-08-03] MEDS: DOCUSATE SODIUM 100MG CAPSULE PO SCH (20:53)
[2021-08-03] MEDS: GABAPENTIN 100 MG CAP PO SCH (20:53)
[2021-08-03] MEDS: SENNA 8.6 MG TAB (SENOKOT) PO SCH (20:53)
[2021-08-03] MEDS: PRIMIDONE 250 MG TAB PO SCH (20:53)
[2021-08-03] MEDS: TAMSULOSIN 0.4 MG CAP PO SCH (20:53)
[2021-08-03] MEDS: ATORVASTATIN 20 MG TAB PO SCH (20:53)
[2021-08-03] MEDS: POTASSIUM CHLORIDE 10MEQ SR TABLET PO SCH (20:53)
[2021-08-03] MEDS: rOPINIRole 1MG TAB PO SCH (20:53)
[2021-08-03] MEDS: HEPARIN SOD (PORCINE) 5000UNITS/ML 1ML VIAL/SYRINGE SC SCH (20:55)
[2021-08-03] MEDS: traZODone 50 MG TAB PO PRN (22:34)
[2021-08-04 06:00] VITALS: BP 116/78
[2021-08-04] MEDS: HEPARIN SOD (PORCINE) 5000UNITS/ML 1ML VIAL/SYRINGE SC SCH ×3 (06:30→20:24)
[2021-08-04] MEDS: DOCUSATE SODIUM 100MG CAPSULE PO SCH ×2 (07:57→20:24)
[2021-08-04] MEDS: MIDODRINE 5 MG TAB PO SCH ×3 (07:57→16:19)
[2021-08-04] MEDS: FUROSEMIDE 40 MG TAB PO SCH ×2 (07:58→16:21)
[2021-08-04] MEDS: ASPIRIN ENTERIC 325 MG TAB PO SCH (07:58)
[2021-08-04] MEDS: POTASSIUM CHLORIDE 10MEQ SR TABLET PO SCH ×3 (08:00→20:23)
[2021-08-04] MEDS: FLUTICASONE HFA 110 MCG 12 GM INHALER (FLOVENT) INH SCH ×2 (08:00→18:09)
[2021-08-04] MEDS: FINASTERIDE 5 MG TAB PO SCH (08:00)
[2021-08-04] MEDS: PRIMIDONE 125MG PER 1/2 TABLET PO SCH (08:00)
[2021-08-04] MEDS: GABAPENTIN 100 MG CAP PO SCH ×3 (08:00→20:23)
[2021-08-04] MEDS: CYANOCOBALAMIN 500 MCG TAB PO SCH (08:01)
[2021-08-04] MEDS: MULTIVITAMINS/MINERALS THERAP 1 TAB PO SCH (08:01)
[2021-08-04] MEDS: allopurinoL 100 MG TAB PO SCH (08:02)
[2021-08-04] MEDS: FLUTICASONE PROP 0.05% NASAL SPRAY 16 GM (FLONASE) NARES SCH ×2 (08:02→20:24)
[2021-08-04] MEDS: POLYVINYL ALCOHOL OPHTH SOLN 15 ML(LIQUITEARS) OU SCH ×3 (08:03→20:24)
[2021-08-04] MEDS: REMEDY PHYTOPLEX Z-GUARD PASTE 113GM TUBE (FROM STOREROOM PRODUCT) TOP SCH ×3 (08:04→20:25)
[2021-08-04] MEDS ORDERED: MAGNESIUM OXIDE 400MG TAB (MAG-OX) PO SCH (09:00)
[2021-08-04 10:16] LABS: BASO % 0.3 % (0.0-1.0); EOS # 0.1 10^3/uL (0.0-0.5); EOS % 1.2 % (0.0-3.0); LYMPH # 0.5 10^3/uL (1.5-5.0); MEAN CORPUSCULAR HEMOGLOBIN 29.6 pg (27.0-33.0); MEAN CORPUSCULAR HGB CONC 30.8 g/dl (32.0-36.5); MEAN CORPUSCULAR VOLUME 96.3 fl (80.0-96.0); MONO # 0.6 10^3/uL (0.0-0.8); MONO % 9.6 % (2.0-8.0); NEUTROPHILS # 5.4 10^3/uL (1.5-8.5); NEUTROPHILS % 81.4 % (36.0-66.0); PLATELET COUNT, AUTOMATED 222 10^3/uL (150-450); RED BLOOD COUNT 4.05 10^6/uL (4.30-6.10); WHITE BLOOD COUNT 6.6 10^3/uL (4.0-10.0)
[2021-08-04 11:13] LABS: ALBUMIN 3.1 GM/DL (3.2-5.2); BILIRUBIN,TOTAL 0.2 MG/DL (0.2-1.0); CALCIUM LEVEL 8.7 MG/DL (8.8-10.2); CREATININE FOR GFR 1.42 MG/DL (0.70-1.30); GLOMERULAR FILTRATION RATE 50.2 (>35); POTASSIUM SERUM 4.1 MEQ/L (3.5-5.1); TOTAL PROTEIN 6.3 GM/DL (6.4-8.2)
[2021-08-04 14:00] VITALS: BP 117/65
[2021-08-04 20:00] VITALS: BP 132/79
[2021-08-04] MEDS: ATORVASTATIN 20 MG TAB PO SCH (20:23)
[2021-08-04] MEDS: traZODone 50 MG TAB PO PRN (20:23)
[2021-08-04] MEDS: rOPINIRole 1MG TAB PO SCH (20:23)
[2021-08-04] MEDS: SENNA 8.6 MG TAB (SENOKOT) PO SCH (20:23)
[2021-08-04] MEDS: TAMSULOSIN 0.4 MG CAP PO SCH (20:23)
[2021-08-04] MEDS: PRIMIDONE 250 MG TAB PO SCH (20:24)
[2021-08-05] MEDS: HEPARIN SOD (PORCINE) 5000UNITS/ML 1ML VIAL/SYRINGE SC SCH ×3 (05:00→21:54)
[2021-08-05 05:41] VITALS: BP 126/76
[2021-08-05] MEDS: FLUTICASONE HFA 110 MCG 12 GM INHALER (FLOVENT) INH SCH ×2 (07:21→20:11)
[2021-08-05] MEDS: ASPIRIN ENTERIC 325 MG TAB PO SCH (08:39)
[2021-08-05] MEDS: MULTIVITAMINS/MINERALS THERAP 1 TAB PO SCH (08:39)
[2021-08-05] MEDS: PRIMIDONE 125MG PER 1/2 TABLET PO SCH (08:40)
[2021-08-05] MEDS: FUROSEMIDE 40 MG TAB PO SCH (08:40)
[2021-08-05] MEDS: FINASTERIDE 5 MG TAB PO SCH (08:40)
[2021-08-05] MEDS: predniSONE 5 MG TAB PO SCH (08:41)
[2021-08-05] MEDS: allopurinoL 100 MG TAB PO SCH (08:41)
[2021-08-05] MEDS: CYANOCOBALAMIN 500 MCG TAB PO SCH (08:41)
[2021-08-05] MEDS: MIDODRINE 5 MG TAB PO SCH ×3 (08:41→16:30)
[2021-08-05] MEDS: GABAPENTIN 100 MG CAP PO SCH ×3 (08:41→21:53)
[2021-08-05] MEDS: DOCUSATE SODIUM 100MG CAPSULE PO SCH ×2 (08:41→21:53)
[2021-08-05] MEDS: LACTIC ACID 12% LOTION 225 GM BTL TOP SCH (08:42)
[2021-08-05] MEDS: POTASSIUM CHLORIDE 10MEQ SR TABLET PO SCH (08:42)
[2021-08-05] MEDS: FLUTICASONE PROP 0.05% NASAL SPRAY 16 GM (FLONASE) NARES SCH ×2 (08:43→21:54)
[2021-08-05] MEDS: REMEDY PHYTOPLEX Z-GUARD PASTE 113GM TUBE (FROM STOREROOM PRODUCT) TOP SCH ×3 (08:43→22:01)
[2021-08-05] MEDS: POLYVINYL ALCOHOL OPHTH SOLN 15 ML(LIQUITEARS) OU SCH ×3 (08:44→21:55)
[2021-08-05 08:55] LABS: BASO % 0.3 % (0.0-1.0); EOS % 0.6 % (0.0-3.0); HEMATOCRIT 41.1 % (42.0-52.0); HEMOGLOBIN 12.4 g/dl (13.5-17.5); LYMPH # 0.6 10^3/uL (1.5-5.0); LYMPH % 7.9 % (24.0-44.0); MEAN CORPUSCULAR HEMOGLOBIN 29.6 pg (27.0-33.0); MEAN CORPUSCULAR HGB CONC 30.2 g/dl (32.0-36.5); MEAN CORPUSCULAR VOLUME 98.1 fl (80.0-96.0); MONO # 0.7 10^3/uL (0.0-0.8); NEUTROPHILS # 5.7 10^3/uL (1.5-8.5); NEUTROPHILS % 80.9 % (36.0-66.0); PLATELET COUNT, AUTOMATED 210 10^3/uL (150-450); RED BLOOD COUNT 4.19 10^6/uL (4.30-6.10); WHITE BLOOD COUNT 7.1 10^3/uL (4.0-10.0)
[2021-08-05 09:16] LABS: CALCIUM LEVEL 8.7 MG/DL (8.8-10.2); CREATININE FOR GFR 1.52 MG/DL (0.70-1.30); GLOMERULAR FILTRATION RATE 46.4 (>35); POTASSIUM SERUM 4.7 MEQ/L (3.5-5.1)
[2021-08-05 14:00] VITALS: BP 123/73
[2021-08-05] MEDS: BUMETANIDE 1 MG TAB PO SCH (16:30)
[2021-08-05] MEDS: SPIRONOLACTONE 50 MG TAB PO SCH (16:31)
[2021-08-05 20:07] VITALS: BP 123/69
[2021-08-05] MEDS: ATORVASTATIN 20 MG TAB PO SCH (21:53)
[2021-08-05] MEDS: rOPINIRole 1MG TAB PO SCH (21:53)
[2021-08-05] MEDS: SENNA 8.6 MG TAB (SENOKOT) PO SCH (21:53)
[2021-08-05] MEDS: TAMSULOSIN 0.4 MG CAP PO SCH (21:53)
[2021-08-05] MEDS: PRIMIDONE 250 MG TAB PO SCH (21:58)
[2021-08-06 04:29] VITALS: BP 135/85
[2021-08-06] MEDS: HEPARIN SOD (PORCINE) 5000UNITS/ML 1ML VIAL/SYRINGE SC SCH ×3 (05:54→22:39)
[2021-08-06 06:58] LABS: ALBUMIN 2.9 GM/DL (3.2-5.2); CALCIUM LEVEL 8.5 MG/DL (8.8-10.2); CREATININE FOR GFR 1.42 MG/DL (0.70-1.30); GLOMERULAR FILTRATION RATE 50.2 (>35); POTASSIUM SERUM 4.5 MEQ/L (3.5-5.1)
[2021-08-06] MEDS: FLUTICASONE HFA 110 MCG 12 GM INHALER (FLOVENT) INH SCH ×2 (07:29→19:43)
[2021-08-06] MEDS: MIDODRINE 5 MG TAB PO SCH ×3 (07:58→16:55)
[2021-08-06] MEDS: BUMETANIDE 1 MG TAB PO SCH ×2 (07:59→16:56)
[2021-08-06] MEDS: SPIRONOLACTONE 50 MG TAB PO SCH ×2 (07:59→16:55)
[2021-08-06] MEDS: GABAPENTIN 100 MG CAP PO SCH ×3 (08:00→20:29)
[2021-08-06] MEDS: allopurinoL 100 MG TAB PO SCH (08:00)
[2021-08-06] MEDS: ASPIRIN ENTERIC 325 MG TAB PO SCH (08:00)
[2021-08-06] MEDS: CYANOCOBALAMIN 500 MCG TAB PO SCH (08:00)
[2021-08-06] MEDS: FINASTERIDE 5 MG TAB PO SCH (08:00)
[2021-08-06] MEDS: PRIMIDONE 125MG PER 1/2 TABLET PO SCH (08:00)
[2021-08-06] MEDS: MULTIVITAMINS/MINERALS THERAP 1 TAB PO SCH (08:00)
[2021-08-06] MEDS: FLUTICASONE PROP 0.05% NASAL SPRAY 16 GM (FLONASE) NARES SCH ×2 (08:01→20:30)
[2021-08-06] MEDS: POLYVINYL ALCOHOL OPHTH SOLN 15 ML(LIQUITEARS) OU SCH ×3 (08:01→20:31)
[2021-08-06] MEDS: LACTIC ACID 12% LOTION 225 GM BTL TOP SCH (08:06)
[2021-08-06] MEDS: DOCUSATE SODIUM 100MG CAPSULE PO SCH ×2 (08:07→20:31)
[2021-08-06] MEDS: REMEDY PHYTOPLEX Z-GUARD PASTE 113GM TUBE (FROM STOREROOM PRODUCT) TOP SCH ×3 (08:08→20:30)
[2021-08-06 12:11] VITALS: BP 116/68
[2021-08-06 14:00] VITALS: BP 117/82
[2021-08-06 19:37] VITALS: BP 121/74
[2021-08-06] MEDS: ATORVASTATIN 20 MG TAB PO SCH (20:29)
[2021-08-06] MEDS: rOPINIRole 1MG TAB PO SCH (20:29)
[2021-08-06] MEDS: TAMSULOSIN 0.4 MG CAP PO SCH (20:29)
[2021-08-06] MEDS: SENNA 8.6 MG TAB (SENOKOT) PO SCH (20:31)
[2021-08-06] MEDS: PRIMIDONE 250 MG TAB PO SCH (20:40)
[2021-08-07 05:35] VITALS: BP 114/64
[2021-08-07] MEDS: HEPARIN SOD (PORCINE) 5000UNITS/ML 1ML VIAL/SYRINGE SC SCH ×3 (05:44→22:00)
[2021-08-07] MEDS: FLUTICASONE HFA 110 MCG 12 GM INHALER (FLOVENT) INH SCH ×2 (07:20→19:35)
[2021-08-07] MEDS: FINASTERIDE 5 MG TAB PO SCH (08:23)
[2021-08-07] MEDS: MULTIVITAMINS/MINERALS THERAP 1 TAB PO SCH (08:23)
[2021-08-07] MEDS: MIDODRINE 5 MG TAB PO SCH ×3 (08:23→15:04)
[2021-08-07] MEDS: GABAPENTIN 100 MG CAP PO SCH ×3 (08:23→20:34)
[2021-08-07] MEDS: PRIMIDONE 125MG PER 1/2 TABLET PO SCH (08:24)
[2021-08-07] MEDS: BUMETANIDE 1 MG TAB PO SCH ×2 (08:24→18:06)
[2021-08-07] MEDS: DOCUSATE SODIUM 100MG CAPSULE PO SCH ×2 (08:24→20:31)
[2021-08-07] MEDS: predniSONE 5 MG TAB PO SCH (08:24)
[2021-08-07] MEDS: CYANOCOBALAMIN 500 MCG TAB PO SCH (08:24)
[2021-08-07] MEDS: SPIRONOLACTONE 50 MG TAB PO SCH ×2 (08:24→18:06)
[2021-08-07] MEDS: ASPIRIN ENTERIC 325 MG TAB PO SCH (08:24)
[2021-08-07] MEDS: allopurinoL 100 MG TAB PO SCH (08:24)
[2021-08-07] MEDS: FLUTICASONE PROP 0.05% NASAL SPRAY 16 GM (FLONASE) NARES SCH ×2 (08:25→20:35)
[2021-08-07] MEDS: POLYVINYL ALCOHOL OPHTH SOLN 15 ML(LIQUITEARS) OU SCH ×3 (08:25→20:35)
[2021-08-07] MEDS: LACTIC ACID 12% LOTION 225 GM BTL TOP SCH (08:25)
[2021-08-07] MEDS: REMEDY PHYTOPLEX Z-GUARD PASTE 113GM TUBE (FROM STOREROOM PRODUCT) TOP SCH ×3 (08:26→20:34)
[2021-08-07 11:25] VITALS: BP 134/72
[2021-08-07 14:00] VITALS: BP 131/75
[2021-08-07 20:10] VITALS: BP 138/77
[2021-08-07] MEDS: TAMSULOSIN 0.4 MG CAP PO SCH (20:31)
[2021-08-07] MEDS: SENNA 8.6 MG TAB (SENOKOT) PO SCH (20:32)
[2021-08-07] MEDS: ATORVASTATIN 20 MG TAB PO SCH (20:33)
[2021-08-07] MEDS: rOPINIRole 1MG TAB PO SCH (20:33)
[2021-08-07] MEDS: PRIMIDONE 250 MG TAB PO SCH (20:34)
[2021-08-08] MEDS ORDERED: SODIUM CHLORIDE NASAL 0.65% SPRAY BTL (OCEAN) PRN (02:05)
[2021-08-08] MEDS: HEPARIN SOD (PORCINE) 5000UNITS/ML 1ML VIAL/SYRINGE SC SCH ×3 (05:39→20:38)
[2021-08-08 06:02] VITALS: BP 130/75
[2021-08-08 07:05] LABS: BASO % 0.4 % (0.0-1.0); EOS % 0.8 % (0.0-3.0); HEMOGLOBIN 11.6 g/dl (13.5-17.5); LYMPH # 0.5 10^3/uL (1.5-5.0); LYMPH % 9.3 % (24.0-44.0); MEAN CORPUSCULAR HEMOGLOBIN 29.3 pg (27.0-33.0); MEAN CORPUSCULAR HGB CONC 30.5 g/dl (32.0-36.5); MONO # 0.7 10^3/uL (0.0-0.8); MONO % 13.2 % (2.0-8.0); NEUTROPHILS % 76.1 % (36.0-66.0); PLATELET COUNT, AUTOMATED 184 10^3/uL (150-450); RED BLOOD COUNT 3.96 10^6/uL (4.30-6.10); WHITE BLOOD COUNT 5.3 10^3/uL (4.0-10.0)
[2021-08-08 07:35] LABS: CALCIUM LEVEL 8.3 MG/DL (8.8-10.2); CREATININE FOR GFR 1.3 MG/DL (0.70-1.30); GLOMERULAR FILTRATION RATE 55.6 (>35); POTASSIUM SERUM 4.1 MEQ/L (3.5-5.1)
[2021-08-08] MEDS: FLUTICASONE HFA 110 MCG 12 GM INHALER (FLOVENT) INH SCH ×2 (08:00→20:24)
[2021-08-08 08:22] VITALS: BP 130/75
[2021-08-08] MEDS: FINASTERIDE 5 MG TAB PO SCH (08:33)
[2021-08-08] MEDS: BUMETANIDE 1 MG TAB PO SCH ×2 (08:35→16:15)
[2021-08-08] MEDS: DOCUSATE SODIUM 100MG CAPSULE PO SCH ×2 (08:36→20:35)
[2021-08-08] MEDS: GABAPENTIN 100 MG CAP PO SCH ×3 (08:36→20:35)
[2021-08-08] MEDS: SPIRONOLACTONE 50 MG TAB PO SCH ×2 (08:36→16:15)
[2021-08-08] MEDS: PRIMIDONE 125MG PER 1/2 TABLET PO SCH (08:36)
[2021-08-08] MEDS: CYANOCOBALAMIN 500 MCG TAB PO SCH (08:36)
[2021-08-08] MEDS: ASPIRIN ENTERIC 325 MG TAB PO SCH (08:36)
[2021-08-08] MEDS: MIDODRINE 5 MG TAB PO SCH ×3 (08:36→16:00)
[2021-08-08] MEDS: MULTIVITAMINS/MINERALS THERAP 1 TAB PO SCH (08:37)
[2021-08-08] MEDS: SODIUM CHLORIDE NASAL 0.65% SPRAY BTL (OCEAN) PRN ×2 (08:37→23:27)
[2021-08-08] MEDS: allopurinoL 100 MG TAB PO SCH (08:37)
[2021-08-08] MEDS: LACTIC ACID 12% LOTION 225 GM BTL TOP SCH (08:38)
[2021-08-08] MEDS: FLUTICASONE PROP 0.05% NASAL SPRAY 16 GM (FLONASE) NARES SCH ×2 (08:38→20:37)
[2021-08-08] MEDS: POLYVINYL ALCOHOL OPHTH SOLN 15 ML(LIQUITEARS) OU SCH ×3 (08:38→20:36)
[2021-08-08] MEDS: REMEDY PHYTOPLEX Z-GUARD PASTE 113GM TUBE (FROM STOREROOM PRODUCT) TOP SCH ×3 (08:39→20:36)
[2021-08-08 14:00] VITALS: BP 126/68
[2021-08-08 16:08] VITALS: BP 152/82
[2021-08-08 20:11] VITALS: BP 130/69
[2021-08-08] MEDS: ATORVASTATIN 20 MG TAB PO SCH (20:35)
[2021-08-08] MEDS: TAMSULOSIN 0.4 MG CAP PO SCH (20:35)
[2021-08-08] MEDS: SENNA 8.6 MG TAB (SENOKOT) PO SCH (20:35)
[2021-08-08] MEDS: rOPINIRole 1MG TAB PO SCH (20:35)
[2021-08-08] MEDS: PRIMIDONE 250 MG TAB PO SCH (20:35)
[2021-08-08] MEDS: traZODone 50 MG TAB PO PRN (20:35)
[2021-08-09] MEDS: HEPARIN SOD (PORCINE) 5000UNITS/ML 1ML VIAL/SYRINGE SC SCH ×3 (05:31→20:42)
[2021-08-09 05:52] VITALS: BP 117/64
[2021-08-09] MEDS: ASPIRIN ENTERIC 325 MG TAB PO SCH (08:18)
[2021-08-09] MEDS: allopurinoL 100 MG TAB PO SCH (08:18)
[2021-08-09] MEDS: DOCUSATE SODIUM 100MG CAPSULE PO SCH ×2 (08:18→20:42)
[2021-08-09] MEDS: GABAPENTIN 100 MG CAP PO SCH ×3 (08:18→20:42)
[2021-08-09] MEDS: predniSONE 5 MG TAB PO SCH (08:18)
[2021-08-09] MEDS: MULTIVITAMINS/MINERALS THERAP 1 TAB PO SCH (08:18)
[2021-08-09] MEDS: SPIRONOLACTONE 50 MG TAB PO SCH ×2 (08:18→17:30)
[2021-08-09] MEDS: MIDODRINE 5 MG TAB PO SCH ×3 (08:18→16:00)
[2021-08-09] MEDS: CYANOCOBALAMIN 500 MCG TAB PO SCH (08:18)
[2021-08-09] MEDS: FINASTERIDE 5 MG TAB PO SCH (08:19)
[2021-08-09] MEDS: BUMETANIDE 1 MG TAB PO SCH ×2 (08:19→17:30)
[2021-08-09] MEDS: PRIMIDONE 125MG PER 1/2 TABLET PO SCH (08:20)
[2021-08-09] MEDS: POLYVINYL ALCOHOL OPHTH SOLN 15 ML(LIQUITEARS) OU SCH ×3 (08:21→20:43)
[2021-08-09] MEDS: FLUTICASONE PROP 0.05% NASAL SPRAY 16 GM (FLONASE) NARES SCH ×2 (08:21→20:43)
[2021-08-09] MEDS: LACTIC ACID 12% LOTION 225 GM BTL TOP SCH (08:21)
[2021-08-09] MEDS: REMEDY PHYTOPLEX Z-GUARD PASTE 113GM TUBE (FROM STOREROOM PRODUCT) TOP SCH ×3 (08:22→20:42)
[2021-08-09 12:18] VITALS: BP 111/64
[2021-08-09 14:00] VITALS: BP 125/71
[2021-08-09 20:00] VITALS: BP 116/65
[2021-08-09] MEDS: FLUTICASONE HFA 110 MCG 12 GM INHALER (FLOVENT) INH SCH (20:22)
[2021-08-09] MEDS: PRIMIDONE 250 MG TAB PO SCH (20:42)
[2021-08-09] MEDS: TAMSULOSIN 0.4 MG CAP PO SCH (20:42)
[2021-08-09] MEDS: ATORVASTATIN 20 MG TAB PO SCH (20:42)
[2021-08-09] MEDS: SENNA 8.6 MG TAB (SENOKOT) PO SCH (20:42)
[2021-08-09] MEDS: rOPINIRole 1MG TAB PO SCH (20:42)
[2021-08-09] MEDS: traZODone 50 MG TAB PO PRN (20:46)
[2021-08-10] MEDS: HEPARIN SOD (PORCINE) 5000UNITS/ML 1ML VIAL/SYRINGE SC SCH ×3 (05:36→21:21)
[2021-08-10 06:00] VITALS: BP 123/66
[2021-08-10] MEDS: FLUTICASONE HFA 110 MCG 12 GM INHALER (FLOVENT) INH SCH ×2 (08:05→18:06)
[2021-08-10] MEDS: allopurinoL 100 MG TAB PO SCH (08:15)
[2021-08-10] MEDS: SPIRONOLACTONE 50 MG TAB PO SCH ×2 (08:15→16:09)
[2021-08-10] MEDS: BUMETANIDE 1 MG TAB PO SCH (08:15)
[2021-08-10] MEDS: ASPIRIN ENTERIC 325 MG TAB PO SCH (08:15)
[2021-08-10] MEDS: CYANOCOBALAMIN 500 MCG TAB PO SCH (08:15)
[2021-08-10] MEDS: FINASTERIDE 5 MG TAB PO SCH (08:15)
[2021-08-10] MEDS: MULTIVITAMINS/MINERALS THERAP 1 TAB PO SCH (08:15)
[2021-08-10] MEDS: MIDODRINE 5 MG TAB PO SCH ×3 (08:15→16:00)
[2021-08-10] MEDS: DOCUSATE SODIUM 100MG CAPSULE PO SCH ×2 (08:15→21:22)
[2021-08-10] MEDS: GABAPENTIN 100 MG CAP PO SCH ×3 (08:15→21:21)
[2021-08-10] MEDS: PRIMIDONE 125MG PER 1/2 TABLET PO SCH (08:15)
[2021-08-10] MEDS: LACTIC ACID 12% LOTION 225 GM BTL TOP SCH (08:16)
[2021-08-10] MEDS: FLUTICASONE PROP 0.05% NASAL SPRAY 16 GM (FLONASE) NARES SCH ×2 (08:17→21:22)
[2021-08-10] MEDS: POLYVINYL ALCOHOL OPHTH SOLN 15 ML(LIQUITEARS) OU SCH ×3 (08:17→21:22)
[2021-08-10] MEDS: REMEDY PHYTOPLEX Z-GUARD PASTE 113GM TUBE (FROM STOREROOM PRODUCT) TOP SCH ×3 (08:17→21:00)
[2021-08-10 08:22] LABS: BASO % 0.2 % (0.0-1.0); EOS # 0.1 10^3/uL (0.0-0.5); HEMATOCRIT 38.1 % (42.0-52.0); HEMOGLOBIN 11.6 g/dl (13.5-17.5); LYMPH # 0.5 10^3/uL (1.5-5.0); LYMPH % 7.5 % (24.0-44.0); MEAN CORPUSCULAR HEMOGLOBIN 29.2 pg (27.0-33.0); MEAN CORPUSCULAR HGB CONC 30.4 g/dl (32.0-36.5); MONO # 0.7 10^3/uL (0.0-0.8); MONO % 10.7 % (2.0-8.0); NEUTROPHILS # 5.1 10^3/uL (1.5-8.5); NEUTROPHILS % 80.4 % (36.0-66.0); PLATELET COUNT, AUTOMATED 203 10^3/uL (150-450); RED BLOOD COUNT 3.97 10^6/uL (4.30-6.10); WHITE BLOOD COUNT 6.3 10^3/uL (4.0-10.0)
[2021-08-10 08:52] LABS: CALCIUM LEVEL 8.8 MG/DL (8.8-10.2); CREATININE FOR GFR 1.24 MG/DL (0.70-1.30); GLOMERULAR FILTRATION RATE 58.7 (>35); POTASSIUM SERUM 3.9 MEQ/L (3.5-5.1)
[2021-08-10 12:19] VITALS: BP 135/75
[2021-08-10 14:00] VITALS: BP 117/76
[2021-08-10] MEDS ORDERED: BUMETANIDE 1 MG TAB PO SCH (15:00)
[2021-08-10 16:06] VITALS: BP 131/74
[2021-08-10] MEDS ORDERED: BUME1TAB3 PO ×2 (16:24)
[2021-08-10] MEDS ORDERED: MIDO10TA PO (16:24)
[2021-08-10] MEDS ORDERED: ALDA50TA2 PO (16:24)
[2021-08-10 21:21] VITALS: BP 121/65
[2021-08-10] MEDS: SENNA 8.6 MG TAB (SENOKOT) PO SCH (21:21)
[2021-08-10] MEDS: ATORVASTATIN 20 MG TAB PO SCH (21:21)
[2021-08-10] MEDS: PRIMIDONE 250 MG TAB PO SCH (21:21)
[2021-08-10] MEDS: TAMSULOSIN 0.4 MG CAP PO SCH (21:22)
[2021-08-10] MEDS: rOPINIRole 1MG TAB PO SCH (21:22)
[2021-08-11] MEDS: HEPARIN SOD (PORCINE) 5000UNITS/ML 1ML VIAL/SYRINGE SC SCH (05:02)
[2021-08-11 06:00] VITALS: BP 124/68
[2021-08-11] MEDS: FLUTICASONE HFA 110 MCG 12 GM INHALER (FLOVENT) INH SCH (07:40)
[2021-08-11] MEDS ORDERED: BUMETANIDE 1 MG TAB PO SCH (09:00)
[2021-08-11] MEDS: MIDODRINE 5 MG TAB PO SCH ×2 (09:34→11:34)
[2021-08-11] MEDS: SPIRONOLACTONE 50 MG TAB PO SCH (09:34)
[2021-08-11] MEDS: DOCUSATE SODIUM 100MG CAPSULE PO SCH (09:34)
[2021-08-11] MEDS: predniSONE 5 MG TAB PO SCH (09:34)
[2021-08-11] MEDS: GABAPENTIN 100 MG CAP PO SCH (09:35)
[2021-08-11] MEDS: MULTIVITAMINS/MINERALS THERAP 1 TAB PO SCH (09:35)
[2021-08-11] MEDS: POLYVINYL ALCOHOL OPHTH SOLN 15 ML(LIQUITEARS) OU SCH (09:35)
[2021-08-11] MEDS: FINASTERIDE 5 MG TAB PO SCH (09:35)
[2021-08-11] MEDS: FLUTICASONE PROP 0.05% NASAL SPRAY 16 GM (FLONASE) NARES SCH (09:35)
[2021-08-11] MEDS: LACTIC ACID 12% LOTION 225 GM BTL TOP SCH (09:35)
[2021-08-11] MEDS: ASPIRIN ENTERIC 325 MG TAB PO SCH (09:35)
[2021-08-11] MEDS: CYANOCOBALAMIN 500 MCG TAB PO SCH (09:35)
[2021-08-11] MEDS: PRIMIDONE 125MG PER 1/2 TABLET PO SCH (09:35)
[2021-08-11] MEDS: REMEDY PHYTOPLEX Z-GUARD PASTE 113GM TUBE (FROM STOREROOM PRODUCT) TOP SCH (09:35)
[2021-08-11] MEDS: allopurinoL 100 MG TAB PO SCH (09:35)
== END 2021-08-11 12:56 | DRG 73 ==
LOC: M PM&R 17:17
PROVIDERS: ADMIT Physical Medicine & Rehabilitation; ATTEND Physical Medicine & Rehabilitation
DX: G62.9 Polyneuropathy, unspecified (principal); I50.33 Acute on chronic diastolic (congestive) heart failure; I13.0 Hypertensive heart and chronic kidney disease with heart failure and stage 1 through stage 4 chronic kidney disease, or unspecified chronic kidney disease; J96.11 Chronic respiratory failure with hypoxia; N17.9 Acute kidney failure, unspecified; I48.91 Unspecified atrial fibrillation; I25.10 Atherosclerotic heart disease of native coronary artery without angina pectoris; J44.9 Chronic obstructive pulmonary disease, unspecified; N18.30 Chronic kidney disease, stage 3 unspecified; D50.9 Iron deficiency anemia, unspecified; E03.9 Hypothyroidism, unspecified; E78.5 Hyperlipidemia, unspecified; G25.0 Essential tremor; Z86.718 Personal history of other venous thrombosis and embolism; Z86.711 Personal history of pulmonary embolism; Z87.19 Personal history of other diseases of the digestive system; Z95.828 Presence of other vascular implants and grafts; Z74.09 Other reduced mobility; Z74.1 Need for assistance with personal care; K59.00 Constipation, unspecified; Z79.82 Long term (current) use of aspirin; Z79.899 Other long term (current) drug therapy; Z79.52 Long term (current) use of systemic steroids; Z88.1 Allergy status to other antibiotic agents; Z88.8 Allergy status to other drugs, medicaments and biological substances; Z66 Do not resuscitate; Z99.81 Dependence on supplemental oxygen; I27.29 Other secondary pulmonary hypertension; Z87.891 Personal history of nicotine dependence; E87.6 Hypokalemia

== ENCOUNTER → 2021-08-17 | Outpatient (REF) | payer MEDICARE, OTHER ==
[~2021-08-17] MED LIST changes: +ALDA50TA2 PO; +BUME1TAB3 PO
== END ==
PROVIDERS: ATTEND Internal Medicine Cardiovascular Disease
DX: I48.91 Unspecified atrial fibrillation (principal); I11.0 Hypertensive heart disease with heart failure; I50.32 Chronic diastolic (congestive) heart failure; Z53.9 Procedure and treatment not carried out, unspecified reason

== ENCOUNTER → 2021-08-31 | Outpatient (REF) ==
[2021-08-31 09:59] LABS: CALCIUM LEVEL 8.9 MG/DL (8.8-10.2); CREATININE FOR GFR 1.22 MG/DL (0.70-1.30); GLOMERULAR FILTRATION RATE 59.8 (>35); MAGNESIUM LEVEL 2.2 MG/DL (1.8-2.4)
== END ==
LOC: SKLAB4 08:33
PROVIDERS: ATTEND Internal Medicine
DX: I50.9 Heart failure, unspecified (principal)

== ENCOUNTER → 2021-09-05 | Outpatient (REF) | payer MEDICARE, OTHER ==
[~2021-09-05] MED LIST changes: +ALBU2.5V10 INH; -ALBU83IN INH; +BUME2TAB3 PO; +MIDO2.5T PO; +SENN-80 PO; +SPIR12.9 INH; +[UNRECOGNIZED DRUG - CODE] TOP
[2021-09-05 15:56] LABS: CALCIUM LEVEL 8.6 MG/DL (8.8-10.2); CREATININE FOR GFR 1.34 MG/DL (0.70-1.30); GLOMERULAR FILTRATION RATE 53.7 (>35); POTASSIUM SERUM 3.2 MEQ/L (3.5-5.1)
== END ==
PROVIDERS: ATTEND Family Medicine
DX: I50.32 Chronic diastolic (congestive) heart failure (principal)

== ENCOUNTER → 2021-09-09 | Outpatient (CLI) | payer MEDICARE, OTHER ==
[~2021-09-09] MED LIST changes: -ALBU2.5V10 INH; +ALBU83IN INH; -BUME2TAB3 PO; -MIDO2.5T PO; -SENN-80 PO; -SPIR12.9 INH; -[UNRECOGNIZED DRUG - CODE] TOP
== END ==
LOC: M RAD 17:26
PROVIDERS: ATTEND Physician Assistant
DX: I51.7 Cardiomegaly (principal); Z95.0 Presence of cardiac pacemaker

== ENCOUNTER 2021-09-15 19:16 | Emergency (ER) | payer MEDICARE, OTHER ==
[~2021-09-15] VITALS: Ht 172.7 cm; Wt 96.5 kg
[2021-09-15] MEDS ORDERED: METO25TA PO ×2 (20:26→20:50)
[2021-09-15] MEDS ORDERED: BUME2TAB3 PO (20:26)
[2021-09-15] MEDS ORDERED: SPIR12.9 INH (20:50)
[2021-09-15] MEDS ORDERED: MIDO2.5T PO (20:50)
[2021-09-15] MEDS ORDERED: SENN-80 PO (20:50)
[2021-09-15] MEDS ORDERED: HOME MED LIST COMPLETE! XX SCH (20:55)
[2021-09-15 23:00] VITALS: BP 127/69
[2021-09-16] MEDS ORDERED: [UNRECOGNIZED DRUG - CODE] TOP (23:05)
[2021-09-16] MEDS ORDERED: PROP10TA56 PO (23:05)
[2021-09-17] MEDS ORDERED: ISOVUE-370 76% 100ML VIAL As Ordered ONE (00:13)
== END 2021-09-16 01:31 | disposition home or self-care (01) ==
LOC: M ED 19:16 → EDBD 19:16 → M ED 09-16 01:31
DX: S00.01XA Abrasion of scalp, initial encounter (principal); S00.03XA Contusion of scalp, initial encounter; W18.39XA Other fall on same level, initial encounter; Y92.89 Other specified places as the place of occurrence of the external cause; I11.0 Hypertensive heart disease with heart failure; I50.9 Heart failure, unspecified; N18.9 Chronic kidney disease, unspecified; I48.91 Unspecified atrial fibrillation; E07.9 Disorder of thyroid, unspecified; D50.9 Iron deficiency anemia, unspecified; Z79.899 Other long term (current) drug therapy; Z79.82 Long term (current) use of aspirin; Z88.1 Allergy status to other antibiotic agents; Z88.8 Allergy status to other drugs, medicaments and biological substances

== ENCOUNTER 2021-09-16 21:57 | Inpatient (IN) | payer MEDICARE, OTHER ==
[~2021-09-16] VITALS: Ht 172.7 cm; Wt 96.5 kg
[~2021-09-16 21:57] MED LIST changes: +BUME2TAB3 PO; +MIDO2.5T PO; +SENN-80 PO; +SPIR12.9 INH
[2021-09-16] MEDS ORDERED: methylPREDNISolone 125MG 2ML VIAL IV ONE (22:15)
[2021-09-16] MEDS ORDERED: IPRATROPIUM 0.5MG/ALBUTEROL 2.5MG INH SOL UD 3ML (DUONEB) NEB ONE (22:15)
[2021-09-16 22:47] LABS: ABG BASE EXCESS 7.4 (-2.0-2.0); ABG HCO3 33.2 MEQ/L (22.0-26.0); ABG O2 SATURATION 91.7 % (95.0-99.0); ABG PARTIAL PRESSURE CO2 53.2 mmHg (35.0-45.0); ABG PARTIAL PRESSURE O2 67.6 mmHg (75.0-100.0); ABG STANDARD HCO3 31.2 MEQ/L (22.0-26.0); ABG TOTAL CO2 34.8 MEQ/L (23.0-31.0); ABG pH (ARTERIAL) 7.413 UNITS (7.350-7.450)
[2021-09-16] MEDS ORDERED: PROP10TA56 PO (23:05)
[2021-09-16] MEDS ORDERED: [UNRECOGNIZED DRUG - CODE] TOP (23:05)
[2021-09-16] MEDS ORDERED: HOME MED LIST COMPLETE! XX SCH (23:10)
[2021-09-16 23:41] LABS: BASO % 0.2 % (0.0-1.0); EOS % 0.1 % (0.0-3.0); HEMOGLOBIN 9.3 g/dl (13.5-17.5); LYMPH # 0.4 10^3/uL (1.5-5.0); MEAN CORPUSCULAR HEMOGLOBIN 28.4 pg (27.0-33.0); MEAN CORPUSCULAR VOLUME 94.5 fl (80.0-96.0); MONO # 1.2 10^3/uL (0.0-0.8); MONO % 8.9 % (2.0-8.0); NEUTROPHILS # 11.9 10^3/uL (1.5-8.5); NEUTROPHILS % 87.1 % (36.0-66.0); PLATELET COUNT, AUTOMATED 248 10^3/uL (150-450); RED BLOOD COUNT 3.28 10^6/uL (4.30-6.10); WHITE BLOOD COUNT 13.7 10^3/uL (4.0-10.0)
[2021-09-16 23:41] LABS: ALBUMIN 2.8 GM/DL (3.2-5.2); ALT/SGPT 14 U/L (12-78); BILIRUBIN,DIRECT < 0.1 MG/DL (0.0-0.2); BILIRUBIN,TOTAL 0.3 MG/DL (0.2-1.0); BLOOD UREA NITROGEN 59 MG/DL (7-18); CALCIUM LEVEL 8.5 MG/DL (8.8-10.2); CARBON DIOXIDE LEVEL 34 MEQ/L (21-32); CHLORIDE LEVEL 93 MEQ/L (98-107); CREATININE FOR GFR 1.34 MG/DL (0.70-1.30); FREE T4 0.97 NG/DL (0.76-1.46); GLOMERULAR FILTRATION RATE 53.7 (>35); GLUCOSE, FASTING 124 MG/DL (70-100); NT-PRO BNP 5660 PG/ML (<450); POTASSIUM SERUM 3.4 MEQ/L (3.5-5.1); SODIUM LEVEL 138 MEQ/L (136-145); TOTAL PROTEIN 6.4 GM/DL (6.4-8.2)
[2021-09-16] MEDS ORDERED: POTASSIUM CHLORIDE 10MEQ SR TABLET PO ONE (23:50)
[2021-09-17 00:03] LABS: INR 1.1; PROTHROMBIN TIME 14.6 SECONDS (12.7-14.5)
[2021-09-17 00:04] LABS: PARTIAL THROMBOPLASTIN TIME 30.2 SECONDS (25.9-37.0)
[2021-09-17 00:06] LABS: D-DIMER QUANT 1404.88 ng/ml (<500)
[2021-09-17 00:45] LABS: CK-MB VALUE MASS 3.7 NG/ML (<3.6); MB/CK RELATIVE INDEX 6.98 (< OR =4)
[2021-09-17] MEDS ORDERED: FUROSEMIDE 40MG/4ML VIAL (J1940) IV ONE (01:10)
[2021-09-17 01:17] LABS: CK-MB VALUE MASS 3.2 NG/ML (<3.6); MB/CK RELATIVE INDEX 4.38 (< OR =4)
[2021-09-17] MEDS ORDERED: IPRATROPIUM 0.5MG/ALBUTEROL 2.5MG INH SOL UD 3ML (DUONEB) INH PRN (02:00)
[2021-09-17] MEDS ORDERED: SENNA 8.6 MG TAB (SENOKOT) PO PRN (02:15)
[2021-09-17] MEDS ORDERED: NITROGLYCERIN 0.4 MG SUBL TABLET SL PRN (02:15)
[2021-09-17] MEDS ORDERED: MOM 30ML SUSPENSION UDC PO PRN (02:15)
[2021-09-17] MEDS ORDERED: ACETAMINOPHEN TAB 650MG DOSE (2X325MG) PO PRN (02:15)
[2021-09-17] MEDS ORDERED: ALBUTEROL 90 MCG/ACT 8GM HFA INHALER INH PRN (02:15)
[2021-09-17] MEDS ORDERED: PILL CUTTER 1 EACH XX PRN (03:05)
[2021-09-17] MEDS ORDERED: cefTRIAXone SOD 1 GM in D5W MINI-BAG PLUS 50 ML IV SCH (04:00)
[2021-09-17] MEDS: IPRATROPIUM 0.5MG/ALBUTEROL 2.5MG INH SOL UD 3ML (DUONEB) INH SCH ×5 (04:00→15:18)
[2021-09-17] MEDS ORDERED: DOXYCYCLINE HYCLATE 100 MG in D5W MINI-BAG PLUS 100 ML IV SCH (05:00)
[2021-09-17 07:56] LABS: HEMOGLOBIN 9.1 g/dl (13.5-17.5); LYMPH # 0.2 10^3/uL (1.5-5.0); LYMPH % 3.6 % (24.0-44.0); MEAN CORPUSCULAR HEMOGLOBIN 28.1 pg (27.0-33.0); MEAN CORPUSCULAR HGB CONC 29.4 g/dl (32.0-36.5); MEAN CORPUSCULAR VOLUME 95.7 fl (80.0-96.0); MONO # 0.3 10^3/uL (0.0-0.8); NEUTROPHILS # 6.2 10^3/uL (1.5-8.5); PLATELET COUNT, AUTOMATED 239 10^3/uL (150-450); RED BLOOD COUNT 3.24 10^6/uL (4.30-6.10); WHITE BLOOD COUNT 6.8 10^3/uL (4.0-10.0)
[2021-09-17] MEDS ORDERED: metOLazone 2.5 MG TAB PO SCH ×2 (08:00→09:00)
[2021-09-17] MEDS ORDERED: MIDODRINE 2.5 MG TAB PO SCH (08:00)
[2021-09-17 08:22] LABS: CK-MB VALUE MASS 3.1 NG/ML (<3.6); MB/CK RELATIVE INDEX 7.38 (< OR =4)
[2021-09-17 08:27] LABS: ALBUMIN 2.8 GM/DL (3.2-5.2); BILIRUBIN,TOTAL 0.3 MG/DL (0.2-1.0); CALCIUM LEVEL 8.5 MG/DL (8.8-10.2); CREATININE FOR GFR 1.46 MG/DL (0.70-1.30); GLOMERULAR FILTRATION RATE 48.6 (>35); POTASSIUM SERUM 3.5 MEQ/L (3.5-5.1); TOTAL PROTEIN 6.5 GM/DL (6.4-8.2)
[2021-09-17] MEDS ORDERED: FUROSEMIDE 40MG/4ML VIAL (J1940) IV SCH (09:00)
[2021-09-17] MEDS ORDERED: FINASTERIDE 5MG TAB PO SCH (09:00)
[2021-09-17] MEDS ORDERED: allopurinoL 100 MG TAB PO SCH (09:00)
[2021-09-17] MEDS ORDERED: ASPIRIN 325 MG TAB PO SCH (09:00)
[2021-09-17] MEDS ORDERED: SENOKOT S TAB PO SCH (09:00)
[2021-09-17] MEDS ORDERED: PRIMIDONE 125MG PER 1/2 TABLET PO SCH (09:00)
[2021-09-17] MEDS ORDERED: FUROSEMIDE 20 MG TAB PO SCH (09:00)
[2021-09-17] MEDS ORDERED: FERROUS SULFATE 325MG TAB PO SCH (09:00)
[2021-09-17] MEDS ORDERED: predniSONE 20 MG TAB PO SCH (09:00)
[2021-09-17] MEDS ORDERED: MAGNESIUM OXIDE 400MG TAB (MAG-OX) PO SCH (09:00)
[2021-09-17] MEDS ORDERED: HEPARIN SOD (PORCINE) 5000UNITS/ML 1ML VIAL/SYRINGE SQ SCH (09:00)
[2021-09-17] MEDS ORDERED: MIDODRINE 5 MG TAB PO SCH (12:00)
[2021-09-17] MEDS: GABAPENTIN 100 MG CAP PO SCH ×2 (12:36→16:00)
[2021-09-17 12:38] VITALS: BP 146/70
[2021-09-17] MEDS: PROPRANOLOL 10 MG TAB PO SCH ×2 (12:38→16:00)
[2021-09-17] MEDS ORDERED: BUMETANIDE 1 MG TAB PO SCH (17:00)
[2021-09-17] MEDS ORDERED: LIDOCAINE 2% 5ML JELLY UROJET As Ordered ONE (17:36)
[2021-09-17] MEDS ORDERED: LIDOCAINE 2% 5ML JELLY UROJET TOP ONE (18:00)
[2021-09-17] MEDS ORDERED: FUROSEMIDE injection 250 MG in D5W 225 ML IV SCH (18:00)
[2021-09-17 19:19] VITALS: BP 132/76
[2021-09-17] MEDS ORDERED: PRIMIDONE 250 MG TAB PO SCH (21:00)
[2021-09-17] MEDS ORDERED: rOPINIRole 1MG TAB PO SCH (21:00)
[2021-09-17] MEDS ORDERED: ATORVASTATIN 20 MG TAB PO SCH (21:00)
[2021-09-17] MEDS ORDERED: TAMSULOSIN 0.4 MG CAP PO SCH (21:00)
== END 2021-09-17 19:20 | disposition short-term general hospital (02) | DRG 280 ==
LOC: M ED 21:57 → EDBD 21:57 → M ED INP 09-17 02:39
PROVIDERS: ADMIT Family Medicine; ATTEND Family Medicine
DX: I13.0 Hypertensive heart and chronic kidney disease with heart failure and stage 1 through stage 4 chronic kidney disease, or unspecified chronic kidney disease (principal); I21.A1 Myocardial infarction type 2; I50.33 Acute on chronic diastolic (congestive) heart failure; J96.20 Acute and chronic respiratory failure, unspecified whether with hypoxia or hypercapnia; I27.20 Pulmonary hypertension, unspecified; I48.91 Unspecified atrial fibrillation; Z95.818 Presence of other cardiac implants and grafts; J44.9 Chronic obstructive pulmonary disease, unspecified; Z99.81 Dependence on supplemental oxygen; R77.8 Other specified abnormalities of plasma proteins; Z66 Do not resuscitate; Z86.711 Personal history of pulmonary embolism; Z86.718 Personal history of other venous thrombosis and embolism; N18.31 Chronic kidney disease, stage 3a; E03.9 Hypothyroidism, unspecified; D50.9 Iron deficiency anemia, unspecified; E78.5 Hyperlipidemia, unspecified; G25.0 Essential tremor; Z85.828 Personal history of other malignant neoplasm of skin; Z98.41 Cataract extraction status, right eye; Z98.42 Cataract extraction status, left eye; Z90.49 Acquired absence of other specified parts of digestive tract; Z87.891 Personal history of nicotine dependence; Z20.822 Contact with and (suspected) exposure to COVID-19; D72.829 Elevated white blood cell count, unspecified; E87.6 Hypokalemia; M10.9 Gout, unspecified; I71.2 Thoracic aortic aneurysm, without rupture; G25.81 Restless legs syndrome; N40.0 Benign prostatic hyperplasia without lower urinary tract symptoms; Z79.82 Long term (current) use of aspirin; Z79.899 Other long term (current) drug therapy; Z88.1 Allergy status to other antibiotic agents; Z88.8 Allergy status to other drugs, medicaments and biological substances; E66.9 Obesity, unspecified

== ENCOUNTER → 2021-11-02 | Outpatient (CLI) | payer MEDICARE, OTHER ==
[~2021-11-02] MED LIST changes: +ALBU2.5V10 INH; -ALBU83IN INH; +[UNRECOGNIZED DRUG - CODE] TOP
[2021-11-02 16:24] LABS: BASO % 0.3 % (0.0-1.0); EOS % 0.5 % (0.0-3.0); HEMATOCRIT 41.3 % (42.0-52.0); HEMOGLOBIN 12.2 g/dl (13.5-17.5); LYMPH # 0.4 10^3/uL (1.5-5.0); LYMPH % 6.8 % (24.0-44.0); MEAN CORPUSCULAR HGB CONC 29.5 g/dl (32.0-36.5); MEAN CORPUSCULAR VOLUME 88.1 fl (80.0-96.0); MONO # 0.7 10^3/uL (0.0-0.8); MONO % 11.7 % (2.0-8.0); NEUTROPHILS # 5.1 10^3/uL (1.5-8.5); NEUTROPHILS % 80.4 % (36.0-66.0); PLATELET COUNT, AUTOMATED 273 10^3/uL (150-450); RED BLOOD COUNT 4.69 10^6/uL (4.30-6.10); WHITE BLOOD COUNT 6.3 10^3/uL (4.0-10.0)
[2021-11-02 16:56] LABS: ALBUMIN 3.4 GM/DL (3.2-5.2); BILIRUBIN,TOTAL 0.3 MG/DL (0.2-1.0); CALCIUM LEVEL 9.5 MG/DL (8.8-10.2); CREATININE FOR GFR 1.7 MG/DL (0.70-1.30); GLOMERULAR FILTRATION RATE 40.8 (>35); MAGNESIUM LEVEL 2.2 MG/DL (1.8-2.4); POTASSIUM SERUM 5.1 MEQ/L (3.5-5.1); TOTAL PROTEIN 7.7 GM/DL (6.4-8.2); URIC ACID 6.1 MG/DL (3.5-7.2)
== END ==
LOC: M PLALAB 12:59
PROVIDERS: ATTEND Internal Medicine
DX: I10 Essential (primary) hypertension (principal); D50.8 Other iron deficiency anemias; M10.079 Idiopathic gout, unspecified ankle and foot